=== PATIENT | female | born 1935 | race Caucasian/White ===

== ENCOUNTER → 2016-11-23 | Outpatient (CLI) | payer OTHER ==
[~2016-11-23] MED LIST: ACET-1256 PO; ASPCH81X PO; ATOR-24 PO; CHOL100010 PO; CMD3 PO; LEVO50TA6 PO; LISI5TAB PO; METO1TAB69 PO; MRLP17 PO; NTRGSL/4 UT; PRLSR20 PO
[2016-11-23 13:49] LABS: BASO % 0.6 %; BASO ABS # 0.04 K/uL (0-0.2); COMPLETE YES; HEMATOCRIT 41.1 % (37-47); IG% 0.2 %; LYMPH % 23.3 %; MEAN CELL VOLUME 94.3 fL (80-100); MEAN CORPUSCULAR HEMOGLOBIN 32.3 pg (25-34); MEAN CORPUSCULAR HGB CONC 34.3 g/dl (32-36); MEAN PLATELET VOLUME 10.4 fL (7.4-10.4); MONO % 12.7 %; NEUT % 61.2 %; PLATELET COUNT 324 K/uL (130-400); RED BLOOD COUNT 4.36 M/uL (4.2-5.4); WHITE BLOOD COUNT 6.44 K/uL (4.8-10.8)
[2016-11-23 14:04] LABS: URINE APPEARANCE CLEAR (CLEAR); URINE BILIRUBIN NEG (NEG); URINE COLOR YELLOW; URINE EPITHELIAL CELL AUTO 20-30 /lpf (0-5); URINE NITRITE NEG (NEG); URINE PH 7.5 (4.5-7.5); URINE SPECIFIC GRAVITY 1.006 (1.000-1.030); UROBILINOGEN NEG (NEG); ZZUR CULT IF INDIC CLEAN CATCH NO
[2016-11-23 14:06] LABS: MANUAL MICROSCOPIC REQUIRED? NO; REVIEW REQ? NO
[2016-11-23 14:14] LABS: ALT/SGPT 24 U/L (12-78); AST/SGOT 15 U/L (15-37); BLOOD UREA NITROGEN 18 mg/dl (7-18); BUN/CREATININE RATIO 19.9 (10-20); CALCIUM 9.5 mg/dl (8.5-10.1); CARBON DIOXIDE 29 mmol/L (21-32); CHLORIDE 104 mmol/L (98-107); CREATININE 0.88 mg/dl (0.60-1.20); GLUCOSE 86 mg/dl (70-99); POTASSIUM 4.4 mmol/L (3.5-5.1); SODIUM 139 mmol/L (136-145)
[2016-11-23 14:21] LABS: ESTIMATED AVERAGE GLUCOSE 123 mg/dl; HA1C FLAG Normal (Normal)
[2016-11-23 14:24] LABS: ALB/GLOB RATIO 1.1 (0.9-2); ALKALINE PHOSPHATASE 87 U/L (45-117); THYROID STIMULATING HORMONE 0.852 uIu/ml (0.300-4.500)
== END | disposition home or self-care (01) ==
LOC: C.LABBC 10:29
PROVIDERS: ATTEND Internal Medicine Geriatric Medicine
DX: R32 Unspecified urinary incontinence (principal); I10 Essential (primary) hypertension; M19.90 Unspecified osteoarthritis, unspecified site; E78.5 Hyperlipidemia, unspecified; R73.9 Hyperglycemia, unspecified; Z79.01 Long term (current) use of anticoagulants

== ENCOUNTER → 2016-11-27 | Outpatient (CLI) | payer OTHER ==
--- NOTE | 2016-12-01 14:17 | CODING QUERY MEDICAL NECESSITY ---
SUPPORTING DIAGNOSIS NEEDED A supporting diagnosis is required for the test/procedure performed on this patient in order for us to be reimbursed by the patient's insurance. Please provide a supporting diagnosis for the following test/procedure listed below next to the test name along with your signature. *If there is no additional diagnosis for this patient that would support the following test/procedure please document that below next to the test/procedure. Test(s)/Procedure(s) that require a supporting diagnosis: * DXA BONE DENSITY DIAGNOSIS: * DOS: 11/27/16 Provider Signature: Date: Thank you Keily Choe Health Information Management Once completed, please kindly fax back to [phone] For questions please call [phone]
== END | disposition home or self-care (01) ==
LOC: C.MAMM 14:19
PROVIDERS: ATTEND Internal Medicine Geriatric Medicine
DX: Z00.00 Encounter for general adult medical examination without abnormal findings (principal)

== ENCOUNTER → 2017-03-01 | Outpatient (CLI) | payer OTHER ==
[~2017-03-01] MED LIST changes: +METO100T44 PO; -METO1TAB69 PO
--- NOTE | 2017-03-01 13:42 | DIAGNOSTIC IMAGING REPORT ---
HEAD CT NONCONTRAST CT DOSE: 720.95 mGycm HISTORY: Mental status change G43.909 Headache, migraine scheduled at [facility] [place] 03-01-17 @ 2pm, arrive TECHNIQUE: Multiaxial CT images of the head were performed without the use of intravenous contrast. Comparison: 08/10/2011 Findings: The paranasal sinuses and mastoid air cells are clear. The calvarium and skull base are intact. The ventricles and sulci are within normal limits. There is no mass, hematoma, midline shift, or acute infarct. Chronic small vessel change and scattered encephalomalacia of aging. Impression: No acute intracranial abnormality. Chronic and age-related change. Electronically signed by: Donell Goodwin M.D. 03/01/2017 1:40 PM Dictated Date/Time: 03/01/2017 1:36 PM
--- NOTE | 2017-03-01 14:12 | DIAGNOSTIC IMAGING REPORT ---
LUMBAR SPINE 5 VIEWS HISTORY: Trauma. Pain. M54.5 Acute low back painRAD COMPARISON: None. FINDINGS: There is no fracture. Grade 1/grade 2 subluxation L5 on S1 most likely stable. Disc spaces are present at L5-S1 and L3-L4. Operative changes consistent with posterior laminectomy and fusion from L2 through S1 are noted. Mild to moderate degenerative disc changes throughout. IMPRESSION: Degenerative and postoperative change. No acute process. Electronically signed by: Donell Goodwin M.D. 03/01/2017 2:10 PM Dictated Date/Time: 03/01/2017 2:09 PM
== END | disposition home or self-care (01) ==
LOC: C.CTS 12:38
PROVIDERS: ATTEND Physician Assistant
DX: G43.909 Migraine, unspecified, not intractable, without status migrainosus (principal); M54.5 Low back pain

== ENCOUNTER → 2017-03-19 | Outpatient (CLI) | payer OTHER ==
[2017-03-19 12:19] LABS: BASO % 0.2 %; BASO ABS # 0.01 K/uL (0-0.2); COMPLETE YES; EOS % 2.7 %; HEMATOCRIT 41.2 % (37-47); IG% 0.2 %; LYMPH % 22.2 %; LYMPH ABS # 1.23 K/uL (1.2-3.4); MEAN CORPUSCULAR HEMOGLOBIN 31.5 pg (25-34); MEAN CORPUSCULAR HGB CONC 32.8 g/dl (32-36); MONO % 10.8 %; NEUT % 63.9 %; PLATELET COUNT 312 K/uL (130-400); RED BLOOD COUNT 4.29 M/uL (4.2-5.4); WHITE BLOOD COUNT 5.53 K/uL (4.8-10.8)
[2017-03-19 12:52] LABS: ESTIMATED AVERAGE GLUCOSE 126 mg/dl; HA1C FLAG Normal (Normal)
[2017-03-19 12:55] LABS: CALCIUM 10.1 mg/dl (8.5-10.1)
[2017-03-19 13:02] LABS: ALT/SGPT 22 U/L (12-78); BLOOD UREA NITROGEN 22 mg/dl (7-18); CARBON DIOXIDE 29 mmol/L (21-32); CHLORIDE 104 mmol/L (98-107); CHOLESTEROL 102 mg/dl (0-200); CREATININE 0.96 mg/dl (0.60-1.20); GLUCOSE 101 mg/dl (70-99); POTASSIUM 4.8 mmol/L (3.5-5.1); SODIUM 138 mmol/L (136-145); TRIGLYCERIDES 112 mg/dl (0-150); VERY LOW DENSITY LIPOPROT CALC 22 mg/dl
[2017-03-19 13:12] LABS: ALB/GLOB RATIO 1.3 (0.9-2); ALKALINE PHOSPHATASE 57 U/L (45-117); AST/SGOT 15 U/L (15-37); CHOLESTEROL/HDL RATIO 2.8; HDL CHOLESTEROL 37 mg/dl; LDL CHOLESTEROL CALCULATED 43 mg/dl; THYROID STIMULATING HORMONE 0.477 uIu/ml (0.300-4.500)
--- NOTE | 2017-03-26 13:41 | CODING QUERY MEDICAL NECESSITY ---
CQSUPPORTING DIAGNOSIS NEEDED A supporting diagnosis is required for the test/procedure performed on this patient in order for us to be reimbursed by the patient's insurance. Please provide a supporting diagnosis for the following test/procedure listed below next to the test name along with your signature. *If there is no additional diagnosis for this patient that would support the following test/procedure please document that below next to the test/procedure. Test(s)/Procedure(s) that require a supporting diagnosis: LEORA 03/19/17 VITAMIN D TEST Provider Signature: Date: Thank you Karla Neff Health Information Management Once completed, please kindly fax back to [phone] For questions please call [phone]
== END | disposition home or self-care (01) ==
LOC: C.LABBFT 09:33
PROVIDERS: ATTEND Internal Medicine Geriatric Medicine
DX: E78.5 Hyperlipidemia, unspecified (principal); Z79.01 Long term (current) use of anticoagulants; I10 Essential (primary) hypertension; E03.9 Hypothyroidism, unspecified; G43.909 Migraine, unspecified, not intractable, without status migrainosus; R73.9 Hyperglycemia, unspecified; G62.9 Polyneuropathy, unspecified; I48.2 Chronic atrial fibrillation; I25.10 Atherosclerotic heart disease of native coronary artery without angina pectoris; M81.0 Age-related osteoporosis without current pathological fracture

== ENCOUNTER → 2017-05-08 | Outpatient (CLI) | payer OTHER ==
[2017-05-08 15:14] LABS: LYME DISEASE AB IGG NEG (NEG)
[2017-05-08 15:19] LABS: LYME DISEASE AB IGM NEG (NEG)
--- NOTE | 2017-05-14 12:41 | CODING QUERY MEDICAL NECESSITY ---
SUPPORTING DIAGNOSIS NEEDED A supporting diagnosis is required for the test/procedure performed on this patient in order for us to be reimbursed by the patient's insurance. Please provide a supporting diagnosis for the following test/procedure listed below next to the test name along with your signature. *If there is no additional diagnosis for this patient that would support the following test/procedure please document that below next to the test/procedure. Test(s)/Procedure(s) that require a supporting diagnosis: * VITAMIN B12 DIAGNOSIS: Provider Signature: Date: Thank you Monisha [place] [employer] Information Management Once completed, please kindly fax back to [phone] For questions please call [phone]
== END | disposition home or self-care (01) ==
LOC: C.LABBC 11:49
PROVIDERS: ATTEND Psychiatry & Neurology Neurology
DX: G43.909 Migraine, unspecified, not intractable, without status migrainosus (principal); G62.9 Polyneuropathy, unspecified; R42 Dizziness and giddiness; R27.0 Ataxia, unspecified; R26.9 Unspecified abnormalities of gait and mobility

== ENCOUNTER → 2017-05-25 | Outpatient (CLI) | payer OTHER ==
[~2017-05-25] MED LIST changes: -METO100T44 PO; +METO1TAB69 PO
[2017-05-25 13:12] LABS: BLOOD UREA NITROGEN 17 mg/dl (7-18); CREATININE 0.98 mg/dl (0.60-1.20)
== END | disposition home or self-care (01) ==
LOC: C.LABBFT 09:10
PROVIDERS: ATTEND Psychiatry & Neurology Neurology
DX: Z00.00 Encounter for general adult medical examination without abnormal findings (principal); G47.30 Sleep apnea, unspecified; R42 Dizziness and giddiness; G43.909 Migraine, unspecified, not intractable, without status migrainosus

== ENCOUNTER → 2017-05-28 | Outpatient (CLI) | payer OTHER ==
[~2017-05-28] MED LIST changes: +GADAVIST IV PRN
--- NOTE | 2017-05-28 13:22 | DIAGNOSTIC IMAGING REPORT ---
MRI OF THE BRAIN COMBO CLINICAL HISTORY: Migraine headache. Vertigo. COMPARISON STUDY: CT of the brain dated 03/01/2017. MRI of the brain dated 09/12/2013. TECHNIQUE: MRI of the brain was performed utilizing various T1 and T2-weighted sequences in the axial, sagittal, and coronal planes. Contrast-enhanced sequences were acquired following the administration of 10.5 cc of Gadavist. Examination is significantly degraded by motion artifact. FINDINGS: Brain parenchyma: There are age-related involutional changes noting moderate subcortical and periventricular microangiopathic disease. There is no hemorrhage or mass effect. Small chronic lacunar infarcts are identified in the left cerebellar hemisphere and the anabel, There is no restricted diffusion to suggest acute ischemia. No enhancing mass lesion is identified on the postcontrast images. Miller-white matter differentiation is preserved. No extra-axial fluid collection is seen. Mineralization is noted in the basal ganglia. The cerebellar tonsils are normal in configuration. Ventricles, sulci, and cisterns: Prominent secondary to involutional change. Pituitary and sella: Unremarkable. Intracranial vasculature: Normal flow voids are maintained at the skull base. Orbits: The bony orbits are grossly intact. Orbital contents are normal in appearance. Sinuses and mastoids: Clear. Calvarium: Unremarkable. Cervical cord: Partially visualized cervical spinal cord is normal in morphology and signal intensity. IMPRESSION: Senescent changes as above with no acute intracranial abnormality. Electronically signed by: Ole Waters M.D. 05/28/2017 1:21 PM Dictated Date/Time: 05/28/2017 1:15 PM
== END | disposition home or self-care (01) ==
LOC: C.MRIBC 11:42
PROVIDERS: ATTEND Psychiatry & Neurology Neurology
DX: G43.909 Migraine, unspecified, not intractable, without status migrainosus (principal); G47.30 Sleep apnea, unspecified; R42 Dizziness and giddiness

== ENCOUNTER → 2017-08-10 | Outpatient (CLI) | payer OTHER ==
[~2017-08-10] MED LIST changes: -GADAVIST IV PRN
[2017-08-10 16:40] LABS: BASO % 0.3 %; BASO ABS # 0.02 K/uL (0-0.2); COMPLETE YES; EOS % 2.4 %; HEMATOCRIT 40.9 % (37-47); IG% 0.2 %; LYMPH ABS # 1.37 K/uL (1.2-3.4); MEAN CELL VOLUME 94.9 fL (80-100); MEAN CORPUSCULAR HEMOGLOBIN 31.1 pg (25-34); MEAN CORPUSCULAR HGB CONC 32.8 g/dl (32-36); MEAN PLATELET VOLUME 9.9 fL (7.4-10.4); MONO % 10.6 %; NEUT % 64.5 %; PLATELET COUNT 354 K/uL (130-400); RED BLOOD COUNT 4.31 M/uL (4.2-5.4); WHITE BLOOD COUNT 6.22 K/uL (4.8-10.8)
[2017-08-10 17:13] LABS: URINE APPEARANCE CLEAR (CLEAR); URINE BILIRUBIN NEG (NEG); URINE COLOR YELLOW; URINE NITRITE POS (NEG); UROBILINOGEN NEG (NEG)
[2017-08-10 17:19] LABS: MANUAL MICROSCOPIC REQUIRED? NO; REVIEW REQ? NO
[2017-08-10 17:27] LABS: ALT/SGPT 23 U/L (12-78); AMYLASE 36 U/L (25-115); BLOOD UREA NITROGEN 13 mg/dl (7-18); CALCIUM 9.7 mg/dl (8.5-10.1); CARBON DIOXIDE 28 mmol/L (21-32); CHLORIDE 100 mmol/L (98-107); CREATININE 0.84 mg/dl (0.60-1.20); GLUCOSE 89 mg/dl (70-99); POTASSIUM 4.4 mmol/L (3.5-5.1); SODIUM 134 mmol/L (136-145)
[2017-08-10 17:30] LABS: ALB/GLOB RATIO 1.2 (0.9-2); ALKALINE PHOSPHATASE 51 U/L (45-117); AST/SGOT 16 U/L (15-37)
== END | disposition home or self-care (01) ==
LOC: C.LABPBG 12:54
PROVIDERS: ATTEND Family Medicine
DX: R10.9 Unspecified abdominal pain (principal)

== ENCOUNTER → 2017-08-16 | Outpatient (CLI) | payer OTHER ==
[~2017-08-16] MED LIST changes: +OPTIRAY 320 IV PRN
--- NOTE | 2017-08-16 16:59 | DIAGNOSTIC IMAGING REPORT ---
ABD/PELVIS COMBO CT DOSE: 1758.21 mGycm HISTORY: Pain. Nausea. 08/10/17 1257 CREA 0.84 TECHNIQUE: Multiaxial CT images of the abdomen and pelvis were performed pre and post intravenous contrast enhancement. A dose lowering technique was utilized adhering to the principles of ALARA. COMPARISON STUDY: 04/04/2016. FINDINGS: Mild basilar atelectasis. Small bilateral renal cysts. Prior cholecystectomy. Degenerative and postoperative changes of the lumbar spine. Evidence for prior sigmoid anastomosis. Liver and spleen enhance uniformly. Prior cholecystectomy. Mild age-related cortical scarring of both kidneys. Several small renal cysts bilaterally. Bladder is midline. No evidence for pelvic adenopathy. Inguinal regions are unremarkable. IMPRESSION: 1. No acute abnormality within the abdomen or pelvis. 2. Unremarkable operative changes consistent with a prior partial sigmoid resection and cholecystectomy. 3. Degenerative and postoperative changes of the lumbar spine. 4. Several small renal cysts bilaterally. The above report was generated using voice recognition software. It may contain grammatical, syntax or spelling errors. Electronically signed by: Donell Goodwin M.D. 08/16/2017 4:58 PM Dictated Date/Time: 08/16/2017 4:53 PM
== END | disposition home or self-care (01) ==
LOC: C.CTS 14:53
PROVIDERS: ATTEND Family Medicine
DX: R11.0 Nausea (principal); R10.9 Unspecified abdominal pain; N28.1 Cyst of kidney, acquired

== ENCOUNTER → 2017-10-19 | Outpatient (CLI) | payer OTHER ==
[~2017-10-19] MED LIST changes: +METO100T44 PO; -METO1TAB69 PO; -OPTIRAY 320 IV PRN
[2017-10-19 17:12] LABS: BASO % 0.4 %; BASO ABS # 0.03 K/uL (0-0.2); COMPLETE YES; EOS % 2.4 %; HEMATOCRIT 42.6 % (37-47); IG% 0.1 %; LYMPH ABS # 1.54 K/uL (1.2-3.4); MEAN CELL VOLUME 93.2 fL (80-100); MEAN CORPUSCULAR HEMOGLOBIN 31.3 pg (25-34); MEAN CORPUSCULAR HGB CONC 33.6 g/dl (32-36); MEAN PLATELET VOLUME 10.6 fL (7.4-10.4); MONO % 11.6 %; NEUT % 63.5 %; PLATELET COUNT 316 K/uL (130-400); RED BLOOD COUNT 4.57 M/uL (4.2-5.4)
[2017-10-19 17:21] LABS: ALT/SGPT 23 U/L (12-78); BLOOD UREA NITROGEN 15 mg/dl (7-18); BUN/CREATININE RATIO 15.7 (10-20); CALCIUM 9.5 mg/dl (8.5-10.1); CARBON DIOXIDE 29 mmol/L (21-32); CHLORIDE 96 mmol/L (98-107); CREATININE 0.94 mg/dl (0.60-1.20); GLUCOSE 91 mg/dl (70-99); POTASSIUM 4.3 mmol/L (3.5-5.1); SODIUM 130 mmol/L (136-145)
[2017-10-19 17:31] LABS: ALB/GLOB RATIO 1.3 (0.9-2); ALKALINE PHOSPHATASE 65 U/L (45-117); AST/SGOT 13 U/L (15-37); THYROID STIMULATING HORMONE 0.744 uIu/ml (0.300-4.500)
[2017-10-19 17:45] LABS: URINE APPEARANCE CLEAR (CLEAR); URINE BILIRUBIN NEG (NEG); URINE COLOR YELLOW; URINE EPITHELIAL CELL AUTO 20-30 /lpf (0-5); URINE NITRITE NEG (NEG); URINE SPECIFIC GRAVITY 1.009 (1.000-1.030); UROBILINOGEN NEG (NEG); ZZUR CULT IF INDIC CLEAN CATCH NO
[2017-10-19 17:46] LABS: MANUAL MICROSCOPIC REQUIRED? NO; REVIEW REQ? NO
[2017-10-20 06:50] LABS: ESTIMATED AVERAGE GLUCOSE 123 mg/dl; HA1C FLAG Normal (Normal)
== END | disposition home or self-care (01) ==
LOC: C.LABPBG 13:04
PROVIDERS: ATTEND Internal Medicine Geriatric Medicine
DX: I10 Essential (primary) hypertension (principal); E03.9 Hypothyroidism, unspecified; M19.90 Unspecified osteoarthritis, unspecified site; G43.909 Migraine, unspecified, not intractable, without status migrainosus; R73.9 Hyperglycemia, unspecified; Z79.01 Long term (current) use of anticoagulants; M81.0 Age-related osteoporosis without current pathological fracture; I48.2 Chronic atrial fibrillation

== ENCOUNTER → 2017-10-24 | Outpatient (CLI) | payer OTHER | END | disposition home or self-care (01) | LOC: C.LABBC 09:26 | PROVIDERS: ATTEND Internal Medicine Geriatric Medicine | DX: R31.29 Other microscopic hematuria (principal) ==

== ENCOUNTER → 2017-10-30 | Outpatient (CLI) | payer OTHER ==
[~2017-10-30] MED LIST changes: +OPTIRAY 320 IV PRN
--- NOTE | 2017-10-30 14:18 | DIAGNOSTIC IMAGING REPORT ---
CT ABD/PELVIS COMBO CLINICAL HISTORY: R31.29 Hematuria, COMPARISON STUDY: 08/16/2017 TECHNIQUE: Unenhanced images were obtained through the abdomen and pelvis. The patient was injected with 50 cc of Optiray 320. Following a 5 minute delay, the patient is rescanned in a dynamic helical fashion during the additional administration of 44 cc of Optiray 320. A dose lowering technique was utilized adhering to the principles of ALARA. CT DOSE: 2755.56 mGycm FINDINGS: Lower chest: The heart is mildly enlarged. There are bibasal atelectatic changes. Liver: The contrast-enhanced liver is normal in size, contour, and attenuation. There is no intrahepatic biliary ductal dilatation. The hepatic veins and portal veins are patent. Gallbladder: Surgically absent Spleen: Normal in size and attenuation. Pancreas: Unremarkable. Adrenal glands: Unremarkable. Kidneys: There are bilateral renal cysts, unchanged from the preceding study. No renal, ureteral, or bladder calculi are visualized. No uroepithelial lesions are identified. Bowel: There are no transition zones indicate bowel obstruction. There are postsurgical changes within the sigmoid. There is no acute diverticulitis. There is a moderate amount of formed stool throughout the colon. No acute inflammatory changes are evident. Peritoneum: There is no intraperitoneal free air or abdominal ascites. Vasculature: The abdominal aorta is normal in course and caliber. Adenopathy: None. Pelvic viscera: The uterus appears surgically absent. Skeletal structures: Postsurgical changes are present within the lumbar spine. IMPRESSION: 1. No renal, ureteral, or bladder calculi identified 2. Postsurgical changes involving the sigmoid colon. Postsurgical changes of a prior cholecystectomy and hysterectomy 3. Stable bilateral renal cysts. No solid renal masses identified. No uroepithelial lesions are visualized. 4. No evidence of bowel obstruction. No evidence of free air. Electronically signed by: Paul Meneses M.D. 10/30/2017 2:17 PM Dictated Date/Time: 10/30/2017 2:09 PM
== END | disposition home or self-care (01) ==
LOC: C.CTS 13:14
PROVIDERS: ATTEND Internal Medicine Geriatric Medicine
DX: R31.29 Other microscopic hematuria (principal)

== ENCOUNTER → 2018-06-26 | Outpatient (CLI) | payer OTHER ==
[~2018-06-26] MED LIST changes: -OPTIRAY 320 IV PRN
[2018-06-26 16:49] LABS: BASO % 0.3 %; BASO ABS # 0.02 K/uL (0-0.2); EOS % 1.9 %; EOS ABS # 0.13 K/uL (0-0.5); HEMATOCRIT 42.3 % (37-47); HEMOGLOBIN 14.2 g/dL (12.0-16.0); IG# 0.01 K/uL (0.00-0.02); LYMPH % 23.8 %; LYMPH ABS # 1.65 K/uL (1.2-3.4); MEAN CELL VOLUME 93.8 fL (80-100); MEAN CORPUSCULAR HEMOGLOBIN 31.5 pg (25-34); MEAN CORPUSCULAR HGB CONC 33.6 g/dl (32-36); MEAN PLATELET VOLUME 10.5 fL (7.4-10.4); MONO % 10.3 %; MONO ABS # 0.71 K/uL (0.11-0.59); NEUT % 63.6 %; PLATELET COUNT 313 K/uL (130-400); RED CELL DISTRIBUTION WIDTH CV 13.9 % (11.5-14.5); RED CELL DISTRIBUTION WIDTH SD 47.8 fL (36.4-46.3); WHITE BLOOD COUNT 6.92 K/uL (4.8-10.8)
[2018-06-26 16:56] LABS: INR 2.2 (0.9-1.1)
[2018-06-26 17:02] LABS: ALKALINE PHOSPHATASE 68 U/L (45-117); ALT/SGPT 22 U/L (12-78); AST/SGOT 14 U/L (15-37); BLOOD UREA NITROGEN 13 mg/dl (7-18); CALCIUM 9.5 mg/dl (8.5-10.1); CARBON DIOXIDE 28 mmol/L (21-32); CREATININE 0.86 mg/dl (0.60-1.20); GLUCOSE 94 mg/dl (70-99); POTASSIUM 4.3 mmol/L (3.5-5.1); SODIUM 134 mmol/L (136-145); TOTAL PROTEIN 7.5 gm/dl (6.4-8.2)
== END | disposition home or self-care (01) ==
LOC: C.LABPBG 12:53
PROVIDERS: ATTEND Family Medicine
DX: Z51.81 Encounter for therapeutic drug level monitoring (principal); R10.9 Unspecified abdominal pain; Z79.01 Long term (current) use of anticoagulants

== ENCOUNTER → 2018-07-04 | Outpatient (CLI) | payer OTHER ==
--- NOTE | 2018-07-04 14:32 | DIAGNOSTIC IMAGING REPORT ---
CHEST AND ABDOMEN 2 VIEWS HISTORY: R14.0 [id number] Right lower quadrant abdominal tendernessR COMPARISON: KUB 05/22/2015. FINDINGS: No pneumothorax. No pleural effusions. The heart is mildly enlarged. Diffuse interstitial thickening which may be chronic. No new focal lung consolidations to suggest pneumonia. Linear density at the left lung base favor scarring or atelectasis. Bilateral shoulder arthroplasties. Multiple nondilated gas-filled loops of large and small bowel. No evidence for bowel obstruction. Suture material in the deep pelvis. Posterior fusion within the lumbar spine with pedicle screws and rods. This remains unchanged. Prior cholecystectomy. No pneumoperitoneum. No pneumatosis. No renal calculi. Colonic diverticulosis. IMPRESSION: 1. Stable mild cardiomegaly and chronic interstitial thickening. 2. Unremarkable bowel gas pattern. No evidence for bowel obstruction. Electronically signed by: Chon Chow M.D. 07/04/2018 2:31 PM Dictated Date/Time: 07/04/2018 2:28 PM
== END | disposition home or self-care (01) ==
LOC: C.RADBC 14:10
PROVIDERS: ATTEND Registered Nurse
DX: R14.0 Abdominal distension (gaseous) (principal); R10.813 Right lower quadrant abdominal tenderness

== ENCOUNTER → 2018-07-05 | Outpatient (CLI) | payer OTHER ==
[2018-07-05 13:41] LABS: BLOOD UREA NITROGEN 9 mg/dl (7-18); CALCIUM 9.4 mg/dl (8.5-10.1); CARBON DIOXIDE 28 mmol/L (21-32); CREATININE 0.79 mg/dl (0.60-1.20); GLUCOSE 120 mg/dl (70-99); SODIUM 134 mmol/L (136-145)
== END | disposition home or self-care (01) ==
LOC: C.LABPBG 10:11
PROVIDERS: ATTEND Registered Nurse
DX: K59.00 Constipation, unspecified (principal)

== ENCOUNTER 2019-08-29 08:22 | Inpatient (IN) ==
--- NOTE | 2019-08-12 16:18 | PAT Medication Instructions ---
Medication Instructions Date of Service August 12, 2019 Home Medications acetaminophen 500 mg tablet 1,000 mg PO Q4H PRN alendronate 70 mg tablet 70 mg PO WK aspirin 81 mg tablet,delayed release 81 mg PO DAILY atorvastatin 40 mg tablet 40 mg PO HS metoprolol succinate ER 100 mg tablet,extended release 24 hr 150 mg PO QAM cholecalciferol (vitamin D3) 1,000 unit capsule 1,000 units PO DAILY nitroglycerin 0.4 mg sublingual tablet 0.4 mg SL UD PRN polyethylene glycol 3350 17 gram/dose oral powder 8.5 gm PO UD PRN levothyroxine 50 mcg tablet 50 mcg PO QAM pantoprazole [Protonix] 40 mg PO QAM warfarin 2.5 mg PO HS Continue as directed nitroglycerin 0.4 mg sublingual tablet 0.4 mg SL UD PRN (if needed) ASK your prescriber and surgeon aspirin 81 mg tablet,delayed release 81 mg PO DAILY warfarin 2.5 mg PO HS alendronate 70 mg tablet 70 mg PO WK DO NOT take the morning of surgery cholecalciferol (vitamin D3) 1,000 unit capsule 1,000 units PO DAILY polyethylene glycol 3350 17 gram/dose oral powder 8.5 gm PO UD PRN Take morning of surgery With a small sip of water, OTHERWISE NOTHING TO EAT OR DRINK AFTER MIDNIGHT: acetaminophen 500 mg tablet 1,000 mg PO Q4H PRN (okay to take up to 4 hours prior to surgery if needed) metoprolol succinate ER 100 mg tablet,extended release 24 hr 150 mg PO QAM levothyroxine 50 mcg tablet 50 mcg PO QAM pantoprazole [Protonix] 40 mg PO QAM Take evening before surgery acetaminophen 500 mg tablet 1,000 mg PO Q4H PRN (if needed) atorvastatin 40 mg tablet 40 mg PO HS polyethylene glycol 3350 17 gram/dose oral powder 8.5 gm PO UD PRN (if needed) Other Notes If you have any questions please call us at [phone] or [phone] or [phone] or [phone]
--- NOTE | 2019-08-13 10:54 | Anesthesiology Consultation ---
Date of Service August 13, 2019 Assessment & Plan (1) Encounter for pre-operative examination: - Cardiology: 08/08/19: "Based on her normal LV systolic function and her negative dobutamine stress echocardiogram today -- is a low to intermediate cardiac risk for her upcoming spine surgery.. Patient may hold Coumadin for 3-5 days leading up to surgery. Resume Coumadin postoperatively. There is no need for further cardiac workup at this time." - ASA/warfarin instructions per surgeon/cardiology* Chart Review Chart Review: Acceptable Risk for Surgery, Pending: Refer to Additional Notes / Consult section (pending preop testing (labs, EKG, CXR)) and Patient seen in Pre Admission Testing Teaching & Discussion Pre-Anesthesia Teaching/Discussion Notes: Instructed NPO after midnight before surgery,except medications with 15 cc of water. Medication instructions provided according to the PAT guidelines. History Surgery Operation Date: 08/29/19 07:45 Proposed Procedures p T12-L2 Decompression, T10-L2 Posterior Spinal Fusion, L2 Removal Screws, L2-L5 Possible Removal Instrumentation, Spinal Cord Monitoring - Grover Coffey DO Height/Weight Height: 5 ft 4 in Weight: 98.4 kg Allergies Allergy/AdvReac Type Severity Reaction Status Date / Time adhesive Allergy Unknown RASH Verified 08/08/19 09:13 Cipro Allergy Unknown Per cardio Unverified 08/28/16 13:36 note ciprofloxacin Allergy Unknown RASH Verified 08/12/19 16:09 doxycycline Allergy Unknown RASH Verified 08/12/19 16:09 latex Allergy Unknown RASH Verified 08/12/19 16:09 Penicillins Allergy Unknown RASH Verified 08/08/19 09:13 Bactrim TABS Allergy Unknown RASH Uncoded 08/12/19 16:09 Medications Home Medications Medication Instructions Recorded Confirmed Last Taken acetaminophen 500 mg tablet 1,000 mg PO Q4H PRN tab 07/13/19 08/06/19 Unknown alendronate 70 mg tablet 70 mg PO WK tab 07/13/19 08/06/19 Unknown aspirin 81 mg tablet,delayed 81 mg PO DAILY 07/13/19 08/06/19 Unknown release atorvastatin 40 mg tablet 40 mg PO HS 07/13/19 08/06/19 08/05/19 metoprolol succinate ER 100 mg 150 mg PO QAM tab 07/13/19 08/06/19 08/06/19 tablet,extended release 24 hr cholecalciferol (vitamin D3) 1,000 1,000 units PO DAILY 07/16/19 08/06/19 Unknown unit capsule nitroglycerin 0.4 mg sublingual 0.4 mg SL UD PRN 07/16/19 08/06/19 Unknown tablet polyethylene glycol 3350 17 8.5 gm PO UD PRN 07/28/19 08/08/19 Unknown gram/dose oral powder levothyroxine 50 mcg tablet 50 mcg PO QAM 07/31/19 08/08/19 08/06/19 pantoprazole [Protonix] 40 mg PO QAM 08/06/19 08/08/19 08/06/19 warfarin 2.5 mg PO HS 08/06/19 08/08/19 Unknown Past Medical History Medical History Atrial fibrillation on warfarin Chronic back pain DJD (degenerative joint disease) GERD (gastroesophageal reflux disease) controlled Hyperlipidemia Hypertension Hypothyroidism Osteoarthritis Osteoporosis Peripheral neuropathy Sleep apnea CPAP Urinary urgency chronic Varicose veins of both lower extremities Exercise / Class Metabolic Activity III < 4 Walking/Shop/Light housework Past Family History Family History Mother Family hx of colon cancer Breast cancer Sister Breast cancer Myocardial infarction Father Myocardial infarction Past Surgical History Surgical History History of adenoidectomy History of appendectomy History of bilateral tubal ligation History of cataract surgery RT/LEFT History of cholecystectomy History of colonoscopy History of lumbar fusion x3 TOTAL History of repair of rotator cuff RT/LEFT History of tonsillectomy History of total abdominal hysterectomy and bilateral salpingo-oophorectomy Past Anesthesia History No Family Hx of Anesthesia Complications and Other "Slow to wake" x 1 remote episode; no known hx reintubation. No issues with subsequent surgeries. History of PONV No Hx of PONV and No Hx of Motion Sickness Social History Smoking Status: Never smoker Do You Dip or Chew Tobacco: No Hx Alcohol Use: Yes Alcohol type: wine alcohol intake frequency: a few times a month Hx Substance Use: No substance use type: does not use Review of Systems Reflux controlled. Patient denies chest pain, shortness of breath, cough, wheezing, palpitations. Physical Exam Vital Signs VITALS BP 147/88 P 85 TEMP 98.5 SP02 93%RA RESP 18 PHYSICAL Full neck and c-spine range of motion. Full TMJ range of motion. TMD 2.5 finger breaths Mallampati Score 3 Dentition: full dentures upper/lower; edentulous Lungs: diminished breath sounds Cardiac: irregular rhythm, regular rate, no murmurs noted Spine: normal Carotid arteries: negative bruit Extremities: no edema Testing Laboratory Results 08/13/19 11:14 08/13/19 11:14 PT 30.6 Seconds (9.0-12.0) H 08/13/19 11:14 INR 3.2 (0.9-1.1) H 08/13/19 11:14 APTT 35.7 Seconds (21.0-31.0) H 08/13/19 11:14 Urine Color Yellow 08/13/19 Unknown Urine Appearance Clear (Clear) 08/13/19 Unknown Urine pH 7.5 (4.5-7.5) 08/13/19 Unknown Ur Specific [place] 1.008 (1.000-1.030) 08/13/19 Unknown Urine Protein Negative (Negative) 08/13/19 Unknown Urine Glucose (UA) Negative (Negative) 08/13/19 Unknown Urine Ketones Negative (Negative) 08/13/19 Unknown Urine Nitrite Negative (Negative) 08/13/19 Unknown Ur Leukocyte Esterase 1+ (Negative) H 08/13/19 Unknown Urine WBC (Auto) 10-30 /hpf (0-5) H 08/13/19 Unknown Urine RBC (Auto) 0-4 /hpf (0-4) 08/13/19 Unknown U Hyaline Cast (Auto) 0 /lpf (0-5) 08/13/19 Unknown U Epithel Cells (Auto) 10-20 /lpf (0-5) H 08/13/19 Unknown Urine Bacteria (Auto) 1+ (Negative) H 08/13/19 Unknown Blood Type A Positive 08/13/19 11:14 Antibody Screen NEGATIVE 08/13/19 11:14 Electrocardiogram Date: 08/13/19 Findings: + AFIB @ (81) and + pertinent finding (cannot rule out anterior infarct,age undetermined.) Chest X-Ray Date: 08/13/19 Findings: + NAD and + cardiomegaly Echocardiogram Date: 09/05/14 EF: 55-60 Normal left ventricular size, wall motion, and systolic function. EF 55-60%. No left ventricular hypertrophy. 2. Mild left atrial dilation. 3. No significant valvular abnormalities. 4. Technically difficult study; enhanced with IV Definity. 5. No prior study available for comparison. Stress Test Date: 08/08/19 Type: DSE Negative DSE/stress EKG for ischemia at 100% MPHR. No chest pain. A. fib throughout. Mild MR. EF 60-65%. No RWMA.
--- NOTE | 2019-08-13 12:12 | XRay Report ---
XR chest Pre-admission PA/Lat HISTORY: 84 years-old Female PAT preoperative exam. No acute chest complaints COMPARISON: Acute abdominal series radiographs 07/04/2018 TECHNIQUE: PA and lateral views of the chest FINDINGS: Unchanged cardiomegaly with stable prominence of the bilateral sarah. Chronic interstitial coarsening. Subsegmental atelectasis/scarring of the left lung base is unchanged. No pneumothorax, large pleural effusion or lobar airspace consolidation typical for pneumonia. No overt pulmonary. Bilateral should er arthroplasties. Degenerative changes of the spine. Mild mid thoracic dextroscoliosis. Partially im aged fusion hardware of the lumbar spine. IMPRESSION: Cardiomegaly without acute process. The above report was generated using voice recognition software. It may contain grammatical, syntax o r spelling errors. Electronically signed by: Glen Jackson M.D. 08/13/2019 12:10 PM
[2019-08-13 12:17] LABS: Basophils # (auto) 0.01 K/uL (0-0.2); Basophils % (auto) 0.2 %; Eosinophils # (auto) 0.11 K/uL (0-0.5); Eosinophils % (auto) 1.9 %; Hematocrit (blood only) 38.3 % (37-47); Hemoglobin 12.8 g/dL (12.0-16.0); Immature Granulocytes # (auto) 0.01 K/uL (0.00-0.02); Immature Granulocytes % (auto) 0.2 %; Lymphocytes # (auto) 1.06 K/uL (1.2-3.4); Lymphocytes % (auto) 18.4 %; Mean Corpuscular Hemoglobin 31.2 pg (25-34); Mean Corpuscular Hgb Conc 33.4 g/dL (32-36); Mean Corpuscular Volume 93.4 fL (80-100); Mean Platelet Volume 10.3 fL (7.4-10.4); Monocytes % (auto) 12.2 %; Neutrophils # (auto) 3.87 K/uL (1.4-6.5); Neutrophils % (auto) 67.1 %; Platelet Count 274 K/uL (130-400); RDW Coefficient of Variation 14.6 % (11.5-14.5); RDW Standard Deviation 49.9 fL (36.4-46.3); White Blood Count 5.76 K/uL (4.8-10.8)
[2019-08-13 12:24] LABS: BUN Creatinine Ratio 18.1 (10-20); Calcium 9.7 mg/dl (8.5-10.1); Creatinine Clr Calc Pharmacy 62.6 ml/min; Est GFR (African American) 80.8; Est GFR (Non-African American) 69.7; Potassium 4.4 mmol/L (3.5-5.1)
[2019-08-13 12:34] LABS: INR 3.2 (0.9-1.1); Partial Thromboplastin Ratio 1.3; Partial Thromboplastin Time 35.7 Seconds (21.0-31.0); Prothrombin Time 30.6 Seconds (9.0-12.0)
[2019-08-13 12:40] LABS: Appearance Urine Clear (Clear); Bacteria Urine Automated 1+ (Negative); Bilirubin Urine Negative (Negative); Blood Urine Negative (Negative); Cast Urine Automated 0 /lpf (0-5); Color Urine Yellow; Glucose Urine UA Negative (Negative); Ketones Urine Negative (Negative); Leukocyte Esterase Urine 1+ (Negative); Nitrite Urine Negative (Negative); Protein Urine Negative (Negative); RBC Urine Automated 0-4 /hpf (0-4); Specific Gravity Urine 1.008 (1.000-1.030); Urobilinogen Urine Negative (Negative); pH Urine 7.5 (4.5-7.5)
[~2019-08-29 08:22] MED LIST changes: -ACET-1256 PO; +ACETAMINOPHEN 500 MG TAB PO SCH; -ASPCH81X PO; -ATOR-24 PO; -CHOL100010 PO; +CLINDAMYCIN 600 MG/54 ML BAG IV SCH; -CMD3 PO; +GABAPENTIN 300 MG CAP PO SCH; -LEVO50TA6 PO; -LISI5TAB PO; +LR 15ML/HR IV SCH; -METO100T44 PO; -MRLP17 PO; -NTRGSL/4 UT; -PRLSR20 PO; +SODIUM CHLORIDE 0.9% 250 ML IV PRN
[2019-08-29] MEDS ORDERED: fentaNYL citrate 100 MCG/2 ML VIAL ONE ×6 (09:25→12:48)
[2019-08-29 09:46] LABS: INR 1.1 (0.9-1.1); Partial Thromboplastin Ratio 0.9; Partial Thromboplastin Time 25.1 Seconds (21.0-31.0); Prothrombin Time 11.4 Seconds (9.0-12.0)
--- NOTE | 2019-08-29 09:48 | History & Physical Bridge Note ---
Date of Service August 29, 2019 History & Physical Bridge Note I have examined the patient, reviewed the History & Physical and in the interval since the performance of the History & Physical I have noted the following changes of clinical significance: no changes noted
--- NOTE | 2019-08-29 09:49 | History & Physical Report ---
Date of Service August 29, 2019 Assessment & Plan (1) Spinal stenosis, lumbar region with neurogenic claudication: Decompression T12-L2, posterior spinal fusion T10-L2, removal of screws L2, possible removal of instrumentation L2-L5. Present on Admission?: Yes History of Present Illness Chief Complaint: This is an 84-year-old female well-known to us that is chronic persistent back and bilateral leg pain. Primary Care Provider: Dianne Adams DO 84-year-old female well-known to us that presents with worsening back and leg pain. After failing a course of nonoperative care is here for surgical intervention. Allergies Allergy/AdvReac Type Severity Reaction Status Date / Time adhesive Allergy Unknown RASH Verified 08/29/19 09:16 Cipro Allergy Unknown Per cardio Unverified 08/28/16 13:36 note ciprofloxacin Allergy Unknown RASH Verified 08/29/19 09:16 doxycycline Allergy Unknown RASH Verified 08/29/19 09:16 latex Allergy Unknown RASH Verified 08/29/19 09:16 Penicillins Allergy Unknown RASH Verified 08/29/19 09:16 Bactrim TABS Allergy Unknown RASH Uncoded 08/12/19 16:09 Home Medications Home Medications Medication Instructions Recorded Confirmed Type acetaminophen 500 mg tablet 1,000 mg PO Q4H PRN tab 07/13/19 08/29/19 History alendronate 70 mg tablet 70 mg PO WK tab 07/13/19 08/29/19 History aspirin 81 mg tablet,delayed 81 mg PO DAILY 07/13/19 08/29/19 History release atorvastatin 40 mg tablet 40 mg PO HS 07/13/19 08/06/19 History metoprolol succinate ER 100 mg 150 mg PO QAM tab 07/13/19 08/06/19 History tablet,extended release 24 hr cholecalciferol (vitamin D3) 1,000 1,000 units PO DAILY 07/16/19 08/29/19 History unit capsule nitroglycerin 0.4 mg sublingual 0.4 mg SL UD PRN 07/16/19 08/06/19 History tablet polyethylene glycol 3350 17 8.5 gm PO UD PRN 07/28/19 08/29/19 History gram/dose oral powder levothyroxine 50 mcg tablet 50 mcg PO QAM 07/31/19 08/08/19 History pantoprazole [Protonix] 40 mg PO QAM 08/06/19 08/08/19 History warfarin 2.5 mg PO HS 08/06/19 08/29/19 History Past Med/Surg History Medical History Atrial fibrillation on warfarin Chronic back pain DJD (degenerative joint disease) GERD (gastroesophageal reflux disease) controlled Hyperlipidemia Hypertension Hypothyroidism Osteoarthritis Osteoporosis Peripheral neuropathy Sleep apnea CPAP Urinary urgency chronic Varicose veins of both lower extremities Surgical History History of adenoidectomy History of appendectomy History of bilateral tubal ligation History of cataract surgery RT/LEFT History of cholecystectomy History of colonoscopy History of lumbar fusion x3 TOTAL History of repair of rotator cuff RT/LEFT History of tonsillectomy History of total abdominal hysterectomy and bilateral salpingo-oophorectomy Family History Mother Family hx of colon cancer Breast cancer Sister Breast cancer Myocardial infarction Father Myocardial infarction Social History Preferred Language: Pashto Communication Ability: Effective Cellular Equipment Installer Required: No Beliefs That Will Affect Care: None Current Living Situation: Spouse Other Information That Helps Us Care for You: No Feels Safe at Home: Yes Smoking Status: Never smoker Do You Dip or Chew Tobacco: No ; Second Hand Exposure: Yes ; Hx Alcohol Use: Yes Alcohol type: wine Hx Substance Use: No Physical Exam Physical Exam: Patient is alert and oriented neurologically intact. Results & Data Vital Signs (Past 12 Hours) Vital Signs Temp Pulse Resp BP Pulse Ox 08/29/19 09:05 36.6 C 97 H 18 162/78 H 93
[2019-08-29] MEDS ORDERED: PHENYLEPHRINE 100MCG/ML 5ML SYR IV PRN (09:54)
[2019-08-29] MEDS ORDERED: HYDROmorphone INJ 1 MG/ML SYRINGE IV PRN ×2 (09:54→14:25)
[2019-08-29] MEDS ORDERED: ePHEDrine sulfate 50 MG/ML AMP IV PRN (09:54)
[2019-08-29] MEDS ORDERED: ATROPINE SULFATE 0.1 MG/ML 10ML SYR IV PRN (09:54)
[2019-08-29] MEDS ORDERED: fentaNYL citrate 100 MCG/2 ML VIAL IV PRN (09:54)
[2019-08-29] MEDS ORDERED: ONDANSETRON INJ 2 MG/ML 2 ML VIAL IV PRN ×2 (09:54→14:25)
[2019-08-29] MEDS ORDERED: LABETALOL HCL IV 5 MG/ML 20ML IV PRN (09:54)
[2019-08-29] MEDS ORDERED: BUPIVACAINE/EPINEPHRINE 0.5% MPF 1:200,000 30 ML VIAL ONE (10:01)
[2019-08-29] MEDS ORDERED: BACITRACIN INJ 50,000 UNIT VIAL ONE (10:01)
[2019-08-29] MEDS ORDERED: HYDROmorphone INJ 2 MG/ML SYR/VIAL ONE ×2 (10:06→11:22)
[2019-08-29] MEDS ORDERED: GLYCOPYRROLATE 0.2 MG/ML VIAL ONE (10:07)
[2019-08-29] MEDS ORDERED: PROPOFOL IV EMULSION 10 MG/ML 20 ML VIAL IV ONE ×2 (10:07→11:27)
[2019-08-29] MEDS ORDERED: ROCURONIUM BROMIDE 10 MG/ML 5 ML VIAL ONE (10:07)
[2019-08-29] MEDS ORDERED: LARYING-O-JET KIT (LTA) ONE ×2 (10:07→11:27)
[2019-08-29] MEDS ORDERED: ONDANSETRON INJ 2 MG/ML 2 ML VIAL ONE ×2 (10:07→11:27)
[2019-08-29] MEDS ORDERED: LIDOCAINE HCL 2% 2 ML VIAL/AMP(20MG/ML) INFIL ONE ×2 (10:07→11:27)
[2019-08-29] MEDS ORDERED: FLOSEAL HEMOSTATIC MATRIX 10ML TOP ONE (11:02)
[2019-08-29] MEDS ORDERED: KETOROLAC 30 MG/ML VIAL ONE (11:27)
[2019-08-29] MEDS ORDERED: PHENYLEPHRINE 100MCG/ML 5ML SYR ONE (11:27)
[2019-08-29] MEDS ORDERED: DEXAMETHASONE SOD INJ 4 MG/ML VIAL ONE (11:27)
[2019-08-29] MEDS ORDERED: VOLUVEN IN NSS IV ONE (11:52)
[2019-08-29] MEDS ORDERED: METOPROLOL TARTRATE 1 MG/ML VIAL IV ONE ×2 (12:29→13:28)
--- NOTE | 2019-08-29 13:03 | Operative Report ---
Post Operative Report Pre & Post Diagnosis Operation Date: 08/29/19 10:05 Pre-Op Diagnosis: Spinal stenosis, lumbar region with neurogenic claudication Post-Op Diagnosis: Spinal stenosis, lumbar region with neurogenic claudication I identified the patient and participated in the time-out.: Yes Procedure Operation Date: 08/29/19 10:05 Actual Procedures #1 removal of posterior instrumentation L2. #2 expiration of fusion L2-L3. #3 lumbar decompression with bilateral medial facetectomies and foraminotomies T12- L1 L1-L2. #4 posterior spinal fusion T11-L2. #5 placement posterior instrumentation T11-L1. #6 interbody fusion L1-L2. #7 placement of peek cage 8 x 22 mm L1-L2. #8 placement of locally harvested morselized autograft in the posterior lateral gutters. #9 placement of infuse collagen sponge combined master graft in the posterior lateral gutters extending from T11-L3 and ostial amp and interbody space at L1-2. Surgeon Grover Coffey, DO Hoof And Shoe Inspector None Estimated Blood Loss 375 Findings See Below The patient is 5 foot 4 inches tall weighing over 98 kg with a BMI in excess of 37. Patient's body habitus did add marked technical difficulty throughout the procedure adding at least 25% increase in operative time. Specimens None Indications This is a 84-year-old female presents with the above-mentioned diagnosis after failing extensive course of nonoperative care like to undergo the above- mentioned procedure. Description of Procedure Patient was met with identified and informed consent obtained. Patient was then taken to the operative suite underwent intubation placed in the prone position on the Roosevelt table on top of the Peter frame. All bony prominences well- padded eyes inspected to ensure no external pressure placed upon the peer at this point the thoracolumbar spine was prepped and draped in normal sterile fashion. Sharp dissection with the assistance of Bovie cautery was performed down to and exposing the lamina and transverse processes at T11 T12-L1 and instrumentation at L2 and L3 bilaterally. And then proceed remove the connector and pedicle screw at L2 bilaterally explore the fusion mass at L2-3 noting it to be intact. Then performed a complete laminectomy of L1 and T12 from a caudal cephalad fashion including medial facetectomies and foraminotomies addressing severe spinal stenosis. Pedicle screws in place placed in T11 T12-L1 bilaterally with assistance of fluoroscopy and by way of a transforaminal approach on the left complete discectomy of L1-L2 was performed endplates curetted to subcortical being bone and an 8 x 22 mm peek cage filled with osteo- amp bone graft tapped in position. Rods were then placed and attached to the proximal portion of the previous suni using barrel connectors. Transverse processes of T11 T12-L1 and L2 were then burred to subcortical bleeding bone. Infuse collagen sponge master graft and local autograft was placed in the posterior lateral gutters. 15 round SALO drain inserted. Incision was then closed with 1 Vicryl in the fascia 2-0 Vicryl substantially and 4 Monocryl for final skin closure. Steri-Strip sterile dressings placed. Patient awakened taken to PACU stable condition. Please note spinal cord monitoring was utilized that the procedure no changes noted. I attest to the content of the Intraoperative Record and any orders documented therein. Any exceptions are noted below.
--- NOTE | 2019-08-29 13:08 | Fluoroscopy Report ---
LUMBAR SPINE, INTRAOPERATIVE FLUOROSCOPY HISTORY: T10 L2 decompression and fusion. FLUOROSCOPY TIME: 26 seconds. FINDINGS: Intraoperative fluoroscopy was provided for the lumbar spine. A total of 3 fluoroscopic spo t images were obtained. Posterior decompression and fusion within the lower thoracic and upper lumbar spine. The exact levels are difficult to identify on this spot image. IMPRESSION: Fluoroscopy provided for a posterior decompression and fusion within the lower thoracic a nd upper lumbar spine. Electronically signed by: Chon Chow M.D. 08/29/2019 1:07 PM
[2019-08-29] MEDS ORDERED: ESMOLOL HCL INJ 10 MG/ML 10ML VIAL IV ONE (13:11)
--- NOTE | 2019-08-29 13:45 | Anesthesiology Progress Note ---
Date of Service August 29, 2019 Anesthesia Post Procedure Vital Signs Vital Signs: Temp Pulse Pulse Resp BP BP Pulse Ox 08/29/19 13:35 97 H 16 148/98 H 98 08/29/19 13:25 94 H 16 168/84 H 98 08/29/19 13:16 36.2 C L 100 H 16 105/94 92 08/29/19 09:05 36.6 C 97 H 18 162/78 H 93 Transfer of Care Handoff Completed per policy Notes Mental Status: alert / awake / arousable Patient Amnestic to Procedure: Yes Nausea / Vomiting: adequately controlled Pain: adequately controlled Airway Patency, RR, SpO2: stable & adequate BP & HR: stable & adequate Hydration State: stable & adequate Anesthetic Complications: no major complications apparent and Pt Satisfied with anesthetic care Notes: The patient is awake and her vitals are stable.
[2019-08-29] MEDS ORDERED: DO NOT ADMINISTER PNEUMOCOCCAL VACCINE PRN (14:25)
[2019-08-29] MEDS ORDERED: ALUMINUM/MAGNESIUM SUSP 30 ML UDC PO PRN (14:25)
[2019-08-29] MEDS ORDERED: METOCLOPRAMIDE HCL INJ 5 MG/ML 2 ML VIAL IV PRN (14:25)
[2019-08-29] MEDS ORDERED: MAGNESIUM HYDROXIDE SUSP 30 ML UDC PO PRN (14:25)
[2019-08-29] MEDS ORDERED: PROMETHAZINE HCL 12.5 MG in SODIUM CHLORIDE 0.9% 50 ML IV PRN (14:25)
[2019-08-29] MEDS ORDERED: FAMOTIDINE 20 MG TAB PO PRN (14:25)
[2019-08-29] MEDS ORDERED: ACETAMINOPHEN 500 MG TAB PO PRN ×2 (14:25)
[2019-08-29] MEDS ORDERED: NITROGLYCERIN SL 0.4 MG/TAB TAB SL PRN (14:25)
[2019-08-29] MEDS ORDERED: POLYETHYLENE (MIRALAX) 17 GM PACK PO PRN (14:25)
[2019-08-29] MEDS ORDERED: ACETAMINOPHEN 1,000 MG/100 ML VIAL IV PRN (14:25)
[2019-08-29] MEDS ORDERED: LORazepam 0.5 MG TAB PO PRN (14:25)
[2019-08-29] MEDS ORDERED: SOD PHOSPHATE/SOD BIPHOSPHATE ENEMA 132 ML BTL PR PRN (14:25)
[2019-08-29] MEDS ORDERED: OXYCODONE HCL IR 5 MG TAB (IMMEDIATE RELEASE) PO PRN (14:25)
[2019-08-29] MEDS ORDERED: TRAMADOL HCL 50 MG TABLET PO PRN (14:25)
[2019-08-29] MEDS ORDERED: DO NOT ADMINISTER FLU VACCINE PRN (14:25)
[2019-08-29] MEDS ORDERED: LORazepam 0.5 MG/1 ML VIAL IV PRN (14:25)
[2019-08-29] MEDS ORDERED: HYDROmorphone INJ 0.5 MG/0.5 ML SYR IV PRN (14:25)
[2019-08-29] MEDS ORDERED: NALOXONE HCL 0.4 MG/1 ML VIAL/CARP IV PRN (14:25)
[2019-08-29] MEDS ORDERED: bisacodyL 10 MG SUPP PR PRN (14:25)
--- NOTE | 2019-08-29 15:53 | Hospitalist Consultation ---
Date of Consultation August 29, 2019 Assessment & Plan (1) Spinal stenosis, lumbar region with neurogenic claudication: 84 y/o F who was admitted on 08/29 s/p lumbar fusion and decompression with Dr. Coffey. Pre-op Hb 12.8 (2) ANAND (obstructive sleep apnea): Compliant with CPAP (3) Hypothyroid: continue home meds (4) Hyperlipidemia: continue home meds (5) HTN (hypertension): continue home meds (6) GERD (gastroesophageal reflux disease): continue home meds (7) Afib: continue home meds, takes aspirin 81mg and coumadin 2.5mg HS--resume once deemed appropriate by ortho (8) DVT prophylaxis: As per ortho History of Present Illness Attending Physician: Grover Coffey, DO History of Present Illness 84 y/o F who was admitted on 08/29 s/p lumbar fusion and decompression with Dr. Coffey. Pt is doing well post-op although she states she is very tired. Her family and a cheondoism member just left and she states they had a good visit after her surgery. Is tolerating water, but has not had other PO yet. Pt denies fever, SOB, chest pain, abd pain, n/v/c/d, LE pain or swelling. Allergies Allergy/AdvReac Type Severity Reaction Status Date / Time adhesive Allergy Unknown RASH Verified 08/29/19 09:16 Cipro Allergy Unknown Per cardio Unverified 08/28/16 13:36 note ciprofloxacin Allergy Unknown RASH Verified 08/29/19 09:16 doxycycline Allergy Unknown RASH Verified 08/29/19 09:16 latex Allergy Unknown RASH Verified 08/29/19 09:16 Penicillins Allergy Unknown RASH Verified 08/29/19 09:16 Bactrim TABS Allergy Unknown RASH Uncoded 08/12/19 16:09 Home Medications Home Medications Medication Instructions Recorded Confirmed Type acetaminophen 500 mg tablet 1,000 mg PO Q4H PRN tab 07/13/19 08/29/19 History alendronate 70 mg tablet 70 mg PO WK tab 07/13/19 08/29/19 History aspirin 81 mg tablet,delayed 81 mg PO DAILY 07/13/19 08/29/19 History release atorvastatin 40 mg tablet 40 mg PO HS 07/13/19 08/06/19 History metoprolol succinate ER 100 mg 150 mg PO QAM tab 07/13/19 08/06/19 History tablet,extended release 24 hr cholecalciferol (vitamin D3) 1,000 1,000 units PO DAILY 07/16/19 08/29/19 History unit capsule nitroglycerin 0.4 mg sublingual 0.4 mg SL UD PRN 07/16/19 08/06/19 History tablet polyethylene glycol 3350 17 8.5 gm PO UD PRN 07/28/19 08/29/19 History gram/dose oral powder levothyroxine 50 mcg tablet 50 mcg PO QAM 07/31/19 08/08/19 History pantoprazole [Protonix] 40 mg PO QAM 08/06/19 08/08/19 History warfarin 2.5 mg PO HS 08/06/19 08/29/19 History Patient History Medical History Urinary urgency chronic Atrial fibrillation on warfarin Chronic back pain DJD (degenerative joint disease) GERD (gastroesophageal reflux disease) controlled Hyperlipidemia Hypertension Hypothyroidism Osteoarthritis Osteoporosis Peripheral neuropathy Sleep apnea CPAP Varicose veins of both lower extremities Surgical History History of lumbar fusion x3 TOTAL History of adenoidectomy History of appendectomy History of bilateral tubal ligation History of cataract surgery RT/LEFT History of cholecystectomy History of colonoscopy History of repair of rotator cuff RT/LEFT History of tonsillectomy History of total abdominal hysterectomy and bilateral salpingo-oophorectomy Family History Mother Family hx of colon cancer Breast cancer Sister Breast cancer Myocardial infarction Father Myocardial infarction Social History Preferred Language: Thai Communication Ability: Effective Windows And Doors Installer Required: No Beliefs That Will Affect Care: None Current Living Situation: Spouse Other Information That Helps Us Care for You: No Feels Safe at Home: Yes Smoking Status: Never smoker Do You Dip or Chew Tobacco: No ; Second Hand Exposure: Yes ; Hx Alcohol Use: Yes (a glass 1-2 nights a week if there is company) Alcohol type: wine Hx Substance Use: No Review of Systems Review of Systems: Pertinent positives and negatives reviewed in HPI--all others negative Physical Exam Constitutional: WD/WN, vitals as above Eyes: normal visual chung by confrontation and + anicteric sclerae Neck: normal visual inspection and trachea midline Respiratory: normal respiratory effort, lungs clear to auscultation Cardiovascular: Rate/Rhythm: regular rate; + abnormal rhythm Gastrointestinal (Abdomen): Inspection/Auscultation: abdomen not distended Percussion/Palpation: abdomen soft; abdomen nontender Musculoskeletal: Head/Neck/Chest: normocephalic and head atraumatic negative for edema, peripheral pulses intact Skin: no rashes, warm and dry Neurologic: awake; not confused Speech / Cognition: normal speech Psychiatric: A+Ox3, euthymic affect Results & Data Vital Signs (Past 12 Hours) Vital Signs Temp Pulse Pulse Resp BP BP Pulse Ox 08/29/19 15:13 97 H 14 134/72 97 08/29/19 14:45 36.7 C 105 H 16 139/85 08/29/19 14:15 36.7 C 105 H 12 152/77 H 98 08/29/19 13:55 36.2 C L 91 H 16 104/72 98 08/29/19 13:45 98 H 16 123/76 98 08/29/19 13:35 97 H 16 148/98 H 98 08/29/19 13:25 94 H 16 168/84 H 98 08/29/19 13:16 36.2 C L 100 H 16 105/94 92 08/29/19 09:05 36.6 C 97 H 18 162/78 H 93 Diagnostic Findings CXR: neg for acute ECG Rhythm: atrial fibrillation PG Care Time/CCT Total # of Minutes Spent Total Time Spent with Patient: Total time spent is greater than 50% in coordination of care (as documented) at patient's floor/unit and/or counseling patient:
[2019-08-29] MEDS: CLINDAMYCIN 600 MG in DEXTROSE 5% 50 ML IV SCH (18:19)
[2019-08-29] MEDS: ATORVASTATIN 40 MG TAB PO SCH (20:56)
[2019-08-29] MEDS: DOCUSATE SODIUM/SENNA 50/8.6MG TAB PO SCH (20:56)
[2019-08-30] MEDS: SODIUM CHLORIDE 0.9% 1000ML 1,000 ML IV SCH ×2 (00:37→06:50)
[2019-08-30] MEDS: CLINDAMYCIN 600 MG in DEXTROSE 5% 50 ML IV SCH (00:42)
[2019-08-30] MEDS: POLYETHYLENE (MIRALAX) 17 GM PACK PO SCH ×4 (05:40→23:48)
[2019-08-30] MEDS: LEVOTHYROXINE SODIUM 50 MCG TABLET PO SCH (05:40)
[2019-08-30] MEDS ORDERED: ALENDRONATE SODIUM 70 MG TAB PO SCH (06:00)
[2019-08-30 06:06] LABS: Hemoglobin 10.6 g/dL (12.0-16.0); Immature Granulocytes # (auto) 0.02 K/uL (0.00-0.02); Immature Granulocytes % (auto) 0.2 %; Lymphocytes # (auto) 0.72 K/uL (1.2-3.4); Mean Corpuscular Hemoglobin 31.6 pg (25-34); Mean Corpuscular Hgb Conc 34.2 g/dL (32-36); Mean Corpuscular Volume 92.5 fL (80-100); Mean Platelet Volume 9.3 fL (7.4-10.4); Monocytes % (auto) 6.7 %; Neutrophils # (auto) 10.44 K/uL (1.4-6.5); Neutrophils % (auto) 87.1 %; Platelet Count 241 K/uL (130-400); RDW Coefficient of Variation 14.4 % (11.5-14.5); RDW Standard Deviation 49.2 fL (36.4-46.3); Red Blood Count 3.35 M/uL (4.2-5.4); White Blood Count 11.98 K/uL (4.8-10.8)
[2019-08-30 06:42] LABS: BUN Creatinine Ratio 18.5 (10-20); Calcium 8.6 mg/dl (8.5-10.1); Creatinine Clr Calc Pharmacy 69.8 ml/min; Est GFR (African American) 91.9; Est GFR (Non-African American) 79.3; Potassium 4.4 mmol/L (3.5-5.1)
[2019-08-30] MEDS: ASPIRIN 81 MG ECTAB PO SCH (08:44)
[2019-08-30] MEDS: PANTOprazole 40 MG TAB PO SCH (08:44)
[2019-08-30] MEDS: CHOLECALCIFEROL 1,000 UNITS TAB PO SCH (08:45)
[2019-08-30] MEDS: METOPROLOL SUCC 50MG EXT REL TAB PO SCH (08:45)
--- NOTE | 2019-08-30 09:33 | Anesthesiology Progress Note ---
Date of Service August 30, 2019 Anesthesia Post Procedure Vital Signs Vital Signs: Temp Pulse Pulse Resp BP Pulse Ox 08/30/19 08:42 89 136/73 08/30/19 08:17 36.5 C 98 H 16 151/86 H 92 08/30/19 03:22 36.6 C 97 H 18 117/69 93 08/29/19 22:53 36.4 C L 89 18 108/73 97 08/29/19 20:03 36.3 C L 92 H 16 109/66 91 08/29/19 17:11 36.3 C L 98 H 16 135/69 97 08/29/19 16:34 36.3 C L 89 16 132/85 96 08/29/19 15:13 97 H 14 134/72 97 08/29/19 14:45 36.7 C 105 H 16 139/85 08/29/19 14:15 36.7 C 105 H 12 152/77 H 98 08/29/19 13:55 36.2 C L 91 H 16 104/72 98 08/29/19 13:45 98 H 16 123/76 98 08/29/19 13:35 97 H 16 148/98 H 98 08/29/19 13:25 94 H 16 168/84 H 98 08/29/19 13:16 36.2 C L 100 H 16 105/94 92 Notes Mental Status: alert / awake / arousable and participated in evaluation Patient Amnestic to Procedure: Yes Nausea / Vomiting: adequately controlled Pain: adequately controlled Airway Patency, RR, SpO2: stable & adequate BP & HR: stable & adequate Hydration State: stable & adequate Anesthetic Complications: no major complications apparent
--- NOTE | 2019-08-30 10:06 | Orthopedic Progress Note ---
Date of Service August 30, 2019 Assessment & Plan (1) Spinal stenosis, lumbar region with neurogenic claudication: At this time we will continue physical therapy and hope for rehab placement in the next few days. Present on Admission?: Yes Subjective Patient states her back pain is controlled. Leg symptoms markedly improved. Physical Exam Physical Exam: On exam she is ambulating halls with a walker. She is quite comfortable. Results & Data Vital Signs (Past 12 Hours) Vital Signs Temp Pulse Resp BP Pulse Ox 08/30/19 08:42 89 136/73 08/30/19 08:17 36.5 C 98 H 16 151/86 H 92 08/30/19 03:22 36.6 C 97 H 18 117/69 93 08/29/19 22:53 36.4 C L 89 18 108/73 97
--- NOTE | 2019-08-30 12:22 | Hospitalist Progress Note ---
Date of Service August 30, 2019 Assessment & Plan (1) Spinal stenosis, lumbar region with neurogenic claudication: - S/p lumbar fusion and decompression with Dr. Coffey on 08/29, POD#1. - Pain management per primary team. - PT/OT - discharge to [facility] on Sunday or Sunday. - DVT ppx with ASA 81 mg daily; resume home Coumadin per ortho. - Monitor CBC daily - trending down as expected. (2) Hypothyroid: - Continue home Levothyroxine 50 mcg daily. - TSH was 0.8 in February 2019. (3) Hyperlipidemia: - Continue home statin and aspirin. (4) HTN (hypertension): - Continue home Metoprolol 150 mg qAM as prescribed. (5) GERD (gastroesophageal reflux disease): - PPI daily. (6) Afib: - Continue home beta melecio as prescribed. - Holding home Warfarin per ortho, resume per Dr. Coffey. (7) ANAND (obstructive sleep apnea): - CPAP qhs -- ordered in our system. On O2 via [place] last evening. - Her will need to bring machine from home. (8) DVT prophylaxis: - SCDs; ASA 81 mg daily; resume Warfarin per ortho. Dispo: Med/surg; pt. is medically stable, will sign off. Please call with any questions. Subjective Pt. is doing well -- she is passing gas, had a small BM. Denies back pain - is ambulating well. Plan for discharge on Sunday or Sunday. Review of Systems Review of Systems: All systems reviewed & are unremarkable except as noted in HPI & below Constitutional: no fever, no chills, no fatigue and no weakness Respiratory: no cough, no dyspnea, no dyspnea on exertion and no wheezing Cardiovascular: no chest pain, no palpitations and no edema Gastrointestinal: no abdominal pain, no nausea, no vomiting, no constipation and no diarrhea/loose stools Genitourinary: no difficulty urinating Musculoskeletal: no back pain and no joint pain Integumentary: no non-healing lesions Physical Exam Physical Exam: General: Resting comfortably HEENT: NC/AT; PERRLA with EOMI; [place] conjunctiva, MMM. No erythema of posterior pharynx Neck: Supple and nontender Cardiac: RRR Lungs: CTA bilaterally Abdomen: Bowel normoactive X 4; Nontender to palpation Extremities: Warm. No edema present Neuro: No focal weakness Skin: No rash Results & Data Vital Signs (Past 12 Hours) Vital Signs Temp Pulse Resp BP Pulse Ox 08/30/19 08:42 89 136/73 08/30/19 08:17 36.5 C 98 H 16 151/86 H 92 08/30/19 03:22 36.6 C 97 H 18 117/69 93 Laboratory Results 08/30/19 08/30/19 Range/Units 05:53 05:53 WBC 11.98 H (4.8-10.8) K/uL RBC 3.35 L (4.2-5.4) M/uL Hgb 10.6 L (12.0-16.0) g/dL Hct 31.0 L (37-47) % MCV 92.5 (80-100) fL MCH 31.6 (25-34) pg MCHC 34.2 (32-36) g/dL RDW Std Deviation 49.2 H (36.4-46.3) fL RDW Coeff of Nancy 14.4 (11.5-14.5) % Plt Count 241 (130-400) K/uL MPV 9.3 (7.4-10.4) fL Immature Gran % (Auto) 0.2 % Neut % (Auto) 87.1 % Lymph % (Auto) 6.0 % [place] % (Auto) 6.7 % Eos % (Auto) 0.0 % Baso % (Auto) 0.0 % Immature Gran # (Auto) 0.02 (0.00-0.02) K/uL Neut # (Auto) 10.44 H (1.4-6.5) K/uL Lymph # (Auto) 0.72 L (1.2-3.4) K/uL [place] # (Auto) 0.80 H (0.11-0.59) K/uL Eos # (Auto) 0.00 (0-0.5) K/uL Baso # (Auto) 0.00 (0-0.2) K/uL Sodium 134 L (136-145) mmol/L Potassium 4.4 (3.5-5.1) mmol/L Chloride 101 (98-107) mmol/L Carbon Dioxide 26 (21-32) mmol/L Anion Gap 7.0 (3-11) BUN 13 (7-18) mg/dl Creatinine 0.71 (0.6-1.2) mg/dl Est Cr Clr Drug Dosing 69.8 ml/min Est GFR ( Amer) 91.9 Est GFR (Non-Af Amer) 79.3 BUN/Creatinine Ratio 18.5 (10-20) Glucose 120 H (70-99) mg/dl Calcium 8.6 (8.5-10.1) mg/dl PG Care Time/CCT Total # of Minutes Spent Total Time Spent with Patient: Total time spent is greater than 50% in coordination of care (as documented) at patient's floor/unit and/or counseling patient:
[2019-08-30] MEDS: ATORVASTATIN 40 MG TAB PO SCH (20:15)
[2019-08-30] MEDS: DOCUSATE SODIUM/SENNA 50/8.6MG TAB PO SCH (20:15)
[2019-08-30] MEDS: ONDANSETRON 4 MG TAB PO PRN (20:15)
[2019-08-31 05:43] LABS: Hematocrit (blood only) 30.7 % (37-47); Hemoglobin 10.5 g/dL (12.0-16.0); Mean Corpuscular Hemoglobin 31.9 pg (25-34); Mean Corpuscular Hgb Conc 34.2 g/dL (32-36); Mean Corpuscular Volume 93.3 fL (80-100); Mean Platelet Volume 9.5 fL (7.4-10.4); Platelet Count 241 K/uL (130-400); RDW Coefficient of Variation 14.5 % (11.5-14.5); RDW Standard Deviation 49.2 fL (36.4-46.3); Red Blood Count 3.29 M/uL (4.2-5.4); White Blood Count 9.41 K/uL (4.8-10.8)
[2019-08-31 06:17] LABS: BUN Creatinine Ratio 17.3 (10-20); Calcium 8.9 mg/dl (8.5-10.1); Creatinine Clr Calc Pharmacy 69.8 ml/min; Est GFR (African American) 91.9; Est GFR (Non-African American) 79.3; Potassium 4.3 mmol/L (3.5-5.1)
[2019-08-31] MEDS: POLYETHYLENE (MIRALAX) 17 GM PACK PO SCH ×3 (06:45→17:49)
[2019-08-31] MEDS: LEVOTHYROXINE SODIUM 50 MCG TABLET PO SCH (06:45)
[2019-08-31] MEDS: CHOLECALCIFEROL 1,000 UNITS TAB PO SCH (08:35)
[2019-08-31] MEDS: ASPIRIN 81 MG ECTAB PO SCH (08:35)
[2019-08-31] MEDS: METOPROLOL SUCC 50MG EXT REL TAB PO SCH (08:35)
[2019-08-31] MEDS: PANTOprazole 40 MG TAB PO SCH (08:35)
--- NOTE | 2019-08-31 10:56 | Orthopedic Progress Note ---
Date of Service August 31, 2019 Assessment & Plan (1) Spinal stenosis, lumbar region with neurogenic claudication: This time we will continue physical therapy. Hopefully she will be able to discharge to rehab tomorrow. Present on Admission?: Yes Subjective Patient's back pain is well controlled. Leg symptoms markedly improved. Physical Exam Physical Exam: On exam she is in a chair at the bedside. Is good strength testing. Results & Data Vital Signs (Past 12 Hours) Vital Signs Temp Pulse Resp BP Pulse Ox 08/31/19 06:16 36.6 C 108 H 18 131/79 92 08/30/19 23:50 37.1 C 95 H 18 127/80 94
[2019-08-31] MEDS: ONDANSETRON 4 MG TAB PO PRN (15:33)
[2019-08-31] MEDS: DOCUSATE SODIUM/SENNA 50/8.6MG TAB PO SCH (20:04)
[2019-08-31] MEDS: ATORVASTATIN 40 MG TAB PO SCH (20:04)
[2019-09-01] MEDS: POLYETHYLENE (MIRALAX) 17 GM PACK PO SCH (02:17)
[2019-09-01] MEDS: LEVOTHYROXINE SODIUM 50 MCG TABLET PO SCH (06:22)
[2019-09-01] MEDS: CHOLECALCIFEROL 1,000 UNITS TAB PO SCH (07:37)
[2019-09-01] MEDS: PANTOprazole 40 MG TAB PO SCH (07:37)
[2019-09-01] MEDS: ASPIRIN 81 MG ECTAB PO SCH (07:37)
[2019-09-01] MEDS: METOPROLOL SUCC 50MG EXT REL TAB PO SCH (07:38)
--- NOTE | 2019-09-01 15:18 | Discharge Summary ---
Date of Service September 01, 2019 Admission HPI Per Admitting Provider 84-year-old female well-known to us that presents with worsening back and leg pain. After failing a course of nonoperative care is here for surgical intervention. Principal Diagnosis Lumbar spinal stenosis with neurogenic claudication Discharge Data Allergies Allergy/AdvReac Type Severity Reaction Status Date / Time adhesive Allergy Unknown RASH Verified 08/29/19 09:16 Cipro Allergy Unknown Per cardio Unverified 08/28/16 13:36 note ciprofloxacin Allergy Unknown RASH Verified 08/29/19 09:16 doxycycline Allergy Unknown RASH Verified 08/29/19 09:16 latex Allergy Unknown RASH Verified 08/29/19 09:16 Penicillins Allergy Unknown RASH Verified 08/29/19 09:16 Bactrim TABS Allergy Unknown RASH Uncoded 08/12/19 16:09 Consultations 08/29/19 14:25 Consult Case Management - Discharge Planning Routine Consult Hospitalist Routine Procedures Performed Operation Date: 08/29/19 10:05 Actual Procedures p T12-L2 Decompression, T11-L1 Posterior Spinal Fusion, Placement of Interbody L1-L2, Application of Bone Morphogenetic Protein, Application of Allograft, Spinal Cord Monitoring(Not Applicable) - Grover Coffey DO s L2 Removal Screws, L2 Removal Instrumentation(Not Applicable) - Grover Coffey DO Ordered Studies 08/29/19 07:00 FL fluoroscopy <1hr Routine FL lumbar spine 2-3V Routine Hospital Course (1) Spinal stenosis, lumbar region with neurogenic claudication: Patient underwent lumbar decompression and fusion tolerated as well as taken the orthopedic floor postoperatively. Postop day 1 she was up and ambulating leg leg symptoms markedly improved. Progressed the postop day #2 and 3 SALO drain decreasing appropriately. Bowels working well. Subsequently discharged home with home health. Discharge orders and instructions can be found the chart for further review. Total Time Total Time Spent Total Time Spent (In Minutes): 20 minutes Discharge Plan Discharge Items Patient Disposition: Home - Home Health Services Reason For Visit: Spinal Stenosis, Thoracic Region Discharge Diagnosis: Lumbar spinal stenosis with neurogenic claudication Activity: Per Instructions section Non-emergency contact: Primary Care Provider Call non-emergency contact if: you have any medication questions Follow-up/Referrals: Dianne Adams DO [Primary Care Provider] - Diet: Regular Addtl Attending Provider Instructions: ACTIVITY RECOMMENDATIONS: SELF CARE INSTRUCTIONS AFTER THORACIC/LUMBAR FUSIONS 1. You may walk to your tolerance. It is good exercise for your legs and back. Expect some back and intermittent leg aches and pains. 2. You may perform "counter-top" level activities (make a sandwich, kristina with a project, etc.). 3. No bending or lifting of more than 10 pounds or back twisting of any nature (roll like a log when turning in bed). 4. You may ride in a car for 20-30 minutes at a time. No driving until after your first visit with your doctor. 5. Frequent changes of position and restricting sitting to 30 minutes at a time will help limit the amount of back spasms and stiffness you may experience. 6. You may discontinue the use of ambulatory aids (cane, crutches, etc.) once your strength and confidence allow. 7. You may bullet charging machine operator the shower and let water strike your incision when you arrive home at least once daily. Do not take a tub bath, sit in a hot tub or go into a swimming pool until after your first recheck in the office. SPECIAL CARE INSTRUCTIONS: VERY IMPORTANT TO READ AND REVIEW A. Your surgical incision has been closed with a cosmetic suture under the skin that will dissolve in about 6 weeks. In 14 days, you can use a pair of clean scissors and cut the suture that is left outside of the skin at the ends of your incision. 1. The small skin tapes can be removed 7 days after surgery if they have not fallen off by that point. 2. You may keep the wound open to air as much as possible to promote healing after post-op day number 5 unless told otherwise by your doctor. 3. If you think the wound looks like it is becoming infected (redness or worsening drainage) and/or you are experiencing fever, chill or worsening back pain and muscle spasms, contact the office so that we may evaluate you as soon as possible. B. Complications are uncommon, but please contact us if you have any signs or symptoms of: 1. wound infection (fever higher than 102.5 degrees F, redness, separation of wound, drainage, or increasing pain from the incision) 2. blood clots in legs (pain, swelling, redness and warmth in legs) 3. urinary tract infection (fever higher than 102.5 degrees F, burning upon urination or increased frequency of urination) 4. nerve problems (inability to walk on your toes or heels, numbness, loss of bowel or bladder control) 5. any other symptoms that concern you C. Please call the office at if you have any concerns or questions about your operation or recovery. D. No smoking! Smoking drastically decreases the chance of a solid fusion. E. Do not take any anti-inflammatory medications (Indocin, Advil, Motrin, Aspirin, Naprosyn, etc.) as these may inhibit the chance of a solid fusion. Tylenol is okay to take for pain. MANAGING PAIN AFTER SPINAL SURGERY 1. Narcotic medication is intended for short-term use and will be provided for surgical pain. Surgical pain usually lasts for a period of 4-6 weeks. Narcotic medication includes Percocet, Vicodin, Darvocet, Tylenol #3 or Lortab. 2. Longer-term pain is more appropriately treated with non-narcotic medication such as Tylenol ES. 3. Muscle spasm is not appropriately treated with narcotics. Muscle relaxers such as Soma, Flexeril or Skelaxin can be used along with Tylenol ES. 4. Remember that we all live with some "aches and pains". This is not unusual or uncommon after an injury or as we get older. a. Back pain is expected and may include muscle spasms for 4 to 6 weeks after surgery. The pain should gradually improve. If the pain worsens for no apparent reason, please contact the office. b. Intermittent leg pain may also be experienced and should not be concerned about unless it worsens for no apparent reason. If so, please contact the office. 5. We will provide appropriate medication within the normal guidelines of their prescribed use. We will also be very cautious and aware of potential abuse and extended duration of patients' medication needs. a. Pain medications are for your comfort and to assist with sleep and rest so that the tissue can heal. They are not provided in order to return to normal activity and should not be used through the day. To do so or worsening pain at night can result from ongoing tissue damage and development of tolerance to the prescribed medicine. 6. Please allow 2-3 days to process refills. Prescriptions will not be mailed but must be picked up at the office. FOLLOW UP VISIT: Keep your scheduled follow-up appointment. Any questions, please call the office at . Pending Studies at Discharge: No Stand-Alone Forms: My [facility], Opioid Pain Management Medications and DC Order Prescriptions: New oxycodone 5 mg Tablet 5 mg PO Q4H PRN (Reason: pain) Qty: 30 RF: 0 tramadol 50 mg Tablet 50 mg PO Q4H PRN (Reason: pain) Qty: 30 RF: 0 Continued metoprolol succinate 100 mg tablet extended release 24 hr 150 mg PO QAM RF: 0 levothyroxine 50 mcg tablet 50 mcg PO QAM RF: 0 nitroglycerin [Nitrostat] 0.4 mg tablet, sublingual 0.4 mg SL UD PRN (Reason: Chest Pain) RF: 0 cholecalciferol (vitamin D3) 1,000 unit capsule 1,000 units PO DAILY RF: 0 polyethylene glycol 3350 [Miralax] 17 gram/dose powder 8.5 gm PO UD PRN (Reason: Constipation) RF: 0 warfarin 2.5 mg tablet 2.5 mg PO HS RF: 0 pantoprazole [Protonix] 40 mg tablet,delayed release (DR/EC) 40 mg PO QAM RF: 0 acetaminophen [Tylenol Extra Strength] 500 mg tablet 1,000 mg PO Q4H PRN (Reason: Pain) RF: 0 alendronate 70 mg tablet 70 mg PO WK RF: 0 aspirin [Aspir-Low] 81 mg tablet,delayed release (DR/EC) 81 mg PO DAILY RF: 0 atorvastatin 40 mg tablet 40 mg PO HS RF: 0 Discharge Orders: Discharge Order (Routine); Ordered 09/01/19 Ordered By: Grover Coffey Admission Data Admit Date/Time: 08/29/19 13:04 Attending Provider: Grover Coffey Admit Provider: Grover Coffey Primary Care Provider: Dianne Adams. [facility] ; Mookie Peres Other Interventions: Discharge Summary Assessment (RN) Last Done: 09/01/19 14:12 DC Date/Time DO NOT enter until pt leaves facility: 09/01/19 15:13
== END 2019-09-01 15:13 | disposition home health service (06) | DRG 455 ==
LOC: ASU 08:22 → 3E 13:04

== ENCOUNTER 2019-10-23 15:16 | Inpatient (IN) ==
[2019-10-23] MEDS ORDERED: SODIUM CHLORIDE 0.9% 1000ML 1,000 ML IV SCH (17:30)
[2019-10-23 17:40] LABS: Basophils # (auto) 0.02 K/uL (0-0.2); Basophils % (auto) 0.3 %; Eosinophils # (auto) 0.21 K/uL (0-0.5); Eosinophils % (auto) 2.9 %; Hematocrit (blood only) 37.4 % (37-47); Hemoglobin 12.8 g/dL (12.0-16.0); Immature Granulocytes # (auto) 0.01 K/uL (0.00-0.02); Immature Granulocytes % (auto) 0.1 %; Lymphocytes % (auto) 15.1 %; Mean Corpuscular Hemoglobin 31.1 pg (25-34); Mean Corpuscular Hgb Conc 34.2 g/dL (32-36); Mean Corpuscular Volume 90.8 fL (80-100); Mean Platelet Volume 9.8 fL (7.4-10.4); Monocytes % (auto) 9.6 %; Neutrophils # (auto) 5.24 K/uL (1.4-6.5); Platelet Count 354 K/uL (130-400); RDW Coefficient of Variation 13.8 % (11.5-14.5); RDW Standard Deviation 45.6 fL (36.4-46.3); Red Blood Count 4.12 M/uL (4.2-5.4); White Blood Count 7.28 K/uL (4.8-10.8)
[2019-10-23 17:46] LABS: Appearance Urine Cloudy (Clear); Bacteria Urine Automated 2+ (Negative); Bilirubin Urine Negative (Negative); Blood Urine Negative (Negative); Color Urine Yellow; Epithelial Cell Urine Auto >30 /lpf (0-5); Glucose Urine UA Negative (Negative); Ketones Urine Negative (Negative); Leukocyte Esterase Urine 2+ (Negative); Nitrite Urine Positive (Negative); Protein Urine Negative (Negative); RBC Urine Automated 0-4 /hpf (0-4); Specific Gravity Urine 1.005 (1.000-1.030); Urobilinogen Urine Negative (Negative); pH Urine 7.5 (4.5-7.5)
[2019-10-23 17:52] LABS: INR 1.2 (0.9-1.1); Prothrombin Time 11.8 Seconds (9.0-12.0)
--- NOTE | 2019-10-23 17:56 | XRay Report ---
SINGLE VIEW CHEST CLINICAL HISTORY: Generalized weakness. FINDINGS: An AP, portable, upright chest radiograph is compared to study dated 08/13/2019. The examina tion is degraded by portable technique, apical lordotic positioning, and patient rotation. The heart is enlarged noting atherosclerotic calcification of the thoracic aorta. The pulmonary vasculature is noncongested. Chronic interstitial thickening is similar to previous. There is mild scarring/atelecta sis at the left lung base. No airspace consolidation or large pleural effusion is identified. The ske letal structures are osteopenic. There is chronic deformity of the left clavicle with widening of the AC joint. 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 Fusion hardware is noted at the thoracolum bar junction. IMPRESSION: Cardiomegaly with no acute cardiopulmonary abnormality. Electronically signed by: Ole Waters M.D. 10/23/2019 5:54 PM
[2019-10-23 18:01] LABS: Alanine Aminotransferase 13 U/L (12-78); Albumin Level 3.8 gm/dl (3.4-5.0); Aspartate Aminotransferase 13 U/L (15-37); BUN Creatinine Ratio 11.4 (10-20); Blood Urea Nitrogen 8 mg/dl (7-18); Calcium 10.1 mg/dl (8.5-10.1); Carbon Dioxide 26 mmol/L (21-32); Chloride 94 mmol/L (98-107); Est GFR (African American) 90.4; Glucose 85 mg/dl (70-99); Sodium 127 mmol/L (136-145)
[2019-10-23 18:12] LABS: Alkaline Phosphatase 98 U/L (45-117); Bilirubin,Total 1.2 mg/dl (0.2-1); Globulin 3.6 gm/dl (2.5-4.0); Total Protein 7.4 gm/dl (6.4-8.2); Troponin I < 0.015 ng/ml (0-0.045)
[2019-10-23 18:20] LABS: Renal Epithelial Cells Urine 0-5 /lpf (0-5)
[2019-10-23] MEDS ORDERED: cefTRIAXone SODIUM 1,000 MG/50 ML BAG IV STA (18:20)
--- NOTE | 2019-10-23 19:06 | CT Scan Report ---
CT SCAN OF THE BRAIN WITHOUT IV CONTRAST CLINICAL HISTORY: Change in mental status. COMPARISON STUDY: CT of the brain dated 03/01/2017. TECHNIQUE: Unenhanced axial CT scan of the brain is performed from the vertex to the skull base. A do se lowering technique was utilized adhering to the principles of ALARA. CT DOSE: 1311.06 mGy.cm FINDINGS: Brain parenchyma: There are age-related involutional changes noting moderate to advanced subcortical and periventricular microangiopathic change. There is no hemorrhage, mass effect, or evidence of acu te territorial ischemia by CT criteria. Miller-white matter differentiation is preserved. No extra-axia l fluid collection is seen. Mineralization is noted in the basal ganglia. Foci of intravenous gas are noted within the cavernous sinuses and the temporal soft tissues, right greater than left. Ventricles, sulci, cisterns: Prominent secondary to involutional change. Intracranial vasculature: There is atherosclerotic calcification of the cavernous carotid and vertebr al arteries. Calvarium: Unremarkable. Sinuses and mastoids: The visualized paranasal sinuses are clear. The mastoid air cells are well pneu matized. Orbits: The bony orbits are grossly intact. There are bilateral ocular lens implants. IMPRESSION: There is no hemorrhage, mass effect, or evidence of acute territorial ischemia by CT talat brito. Electronically signed by: Ole Waters M.D. 10/23/2019 7:05 PM
--- NOTE | 2019-10-23 20:13 | Emergency Department Note ---
Entered by Dianne Choudhury acting as a scribe for History of Present Illness General Chief complaint: Urinary Symptoms Stated complaint: DELIRIOUS FROM UTI,POSSIBLE BLOOD INFECTION Source: patient and other (nursing staff) History of Present Illness Onset (ago): week(s) 2 Location: abdomen Pain Consistency: + other (persistent) Maximum Pain Intensity: 0 Quality: + other (urinary symptoms) Associated symptoms: + denies other symptoms (diarrhea, new back pain, rhinorrh ea, abdominal pain, change in vision), + confusion and + rash; no chest pain, no cough, no headaches, no nausea/vomiting and no shortness of breath The patient is an 84 year old female who presents to the Emergency Room with complaints of persistent urinary symptoms starting 2 weeks ago. Per nursing staff, the patient was sent here by her PCP for concern for a UTI. She states that she has been having urinary burning and frequency. She states that they were concerned mostly because she has been having increased confusion. The patient complains of red rash in her groin. She notes that she has not moved her bowels for a month. The patient denies headache, chest pain, shortness of breath, nausea, vomiting, diarrhea, new back pain, recent antibiotic use, cough, rhinorrhea, abdominal pain, and change in vision. Home Medications Home Medications Medication Instructions Recorded Confirmed Type acetaminophen 500 mg tablet 1,000 mg PO Q4H PRN tab 07/13/19 10/23/19 History aspirin 81 mg tablet,delayed 81 mg PO DAILY 07/13/19 10/23/19 History release atorvastatin 40 mg tablet 40 mg PO HS 07/13/19 10/23/19 History metoprolol succinate 100 mg 150 mg PO QAM tab 07/13/19 10/23/19 History tablet,extended release 24 hr cholecalciferol (vitamin D3) 25 1,000 units PO DAILY 07/16/19 10/23/19 History mcg (1,000 unit) capsule nitroglycerin 0.4 mg sublingual 0.4 mg SL UD PRN 07/16/19 10/23/19 History tablet polyethylene glycol 3350 17 17 gm PO DAILY PRN 07/28/19 10/23/19 History gram/dose oral powder levothyroxine 50 mcg tablet 50 mcg PO QAM 07/31/19 10/23/19 History warfarin 2.5 mg PO 2XWK 08/06/19 10/23/19 History alendronate 70 mg tablet 70 mg PO WK #12 tab 10/01/19 10/23/19 Rx pantoprazole 40 mg PO DAILYBB 10/23/19 10/23/19 History warfarin 1 mg PO 5XWK 10/23/19 10/23/19 History Allergies Allergy/AdvReac Type Severity Reaction Status Date / Time adhesive Allergy Unknown RASH Verified 10/23/19 17:58 Cipro Allergy Unknown Per cardio Unverified 08/28/16 13:36 note ciprofloxacin Allergy Unknown RASH Verified 10/23/19 17:58 doxycycline Allergy Unknown RASH Verified 10/23/19 17:58 latex Allergy Unknown RASH Verified 10/23/19 17:58 Penicillins Allergy Unknown RASH Verified 10/23/19 17:58 Bactrim TABS Allergy Unknown RASH Uncoded 10/23/19 17:58 Past Med/Surg History Medical History Atrial fibrillation on warfarin Chronic back pain DJD (degenerative joint disease) GERD (gastroesophageal reflux disease) controlled Hyperlipidemia Hypertension Hypothyroidism Osteoarthritis Osteoporosis Peripheral neuropathy Sleep apnea CPAP Urinary urgency chronic Varicose veins of both lower extremities Surgical History History of adenoidectomy History of appendectomy History of bilateral tubal ligation History of cataract surgery RT/LEFT History of cholecystectomy History of colonoscopy History of lumbar fusion x3 TOTAL History of repair of rotator cuff RT/LEFT History of tonsillectomy History of total abdominal hysterectomy and bilateral salpingo-oophorectomy Family History Mother Family hx of colon cancer Breast cancer Sister Breast cancer Myocardial infarction Father Myocardial infarction Social History Preferred Language: Estonian Communication Ability: Effective Visual Impairment: Limited Hearing Ability: Normal Music [employer] Internship Required: No Beliefs That Will Affect Care: None marital status: Current Living Situation: Spouse current occupational status: employed and retired Feels Safe at Home: Yes Smoking Status: Never smoker Second Hand Exposure: Yes ; Hx Alcohol Use: Yes (a glass 1-2 nights a week if there is company) Alcohol type: wine Hx Substance Use: No Childhood Exposure to Second-Hand Smoke: No caffeine: Yes (Coffee 1 cup per day.) during the past year weight has: remained stable Dental Care, Regularly: Yes Physical Activity Frequency: Daily Seatbelt Use: always Sunscreen Use: Yes Review of Systems See HPI for pertinent positives & negatives. and A total of 10 systems reviewed and were otherwise negative Physical Exam Vital Signs Vital Signs - 24 hr 10/23/19 15:28 10/23/19 17:09 10/23/19 17:10 Temperature 36.8 C Temperature Source Oral Pulse Rate 104 H 102 H 104 H Pulse Rate [Apical] Pulse Rate from SpO2 Sensor 106 H 111 H Respiratory Rate 18 18 22 Respiratory Effort / Characteristics Respiratory Depth Normal Blood Pressure 144/88 H Blood Pressure [Left Arm] Blood Pressure Mean 106 Blood Pressure Mean [Left Arm] Pulse Oximetry 95 95 91 Oxygen Delivery Method Room Air Sepsis Recent Fever Within 48 Hours No Sepsis New/Unexplained Change in Mental Status Yes Sepsis Action Taken by Nursing No Action Required 10/23/19 17:20 10/23/19 17:30 10/23/19 17:40 Temperature Temperature Source Pulse Rate 110 H 96 H 79 Pulse Rate [Apical] Pulse Rate from SpO2 Sensor Respiratory Rate 18 25 H 23 Respiratory Effort / Characteristics Respiratory Depth Blood Pressure Blood Pressure [Left Arm] Blood Pressure Mean Blood Pressure Mean [Left Arm] Pulse Oximetry Oxygen Delivery Method Sepsis Recent Fever Within 48 Hours Sepsis New/Unexplained Change in Mental Status Sepsis Action Taken by Nursing 10/23/19 17:45 10/23/19 17:50 10/23/19 17:55 Temperature Temperature Source Pulse Rate 85 106 H Pulse Rate [Apical] Pulse Rate from SpO2 Sensor 108 H Respiratory Rate 19 20 Respiratory Effort / Characteristics Respiratory Depth Blood Pressure 120/85 Blood Pressure [Left Arm] Blood Pressure Mean 99 Blood Pressure Mean [Left Arm] Pulse Oximetry 93 93 Oxygen Delivery Method Room Air Sepsis Recent Fever Within 48 Hours Sepsis New/Unexplained Change in Mental Status Sepsis Action Taken by Nursing 10/23/19 18:00 10/23/19 18:01 10/23/19 18:10 Temperature Temperature Source Pulse Rate 97 H 93 H 94 H Pulse Rate [Apical] Pulse Rate from SpO2 Sensor 88 86 89 Respiratory Rate 24 20 22 Respiratory Effort / Characteristics Respiratory Depth Blood Pressure 134/80 Blood Pressure [Left Arm] Blood Pressure Mean 109 Blood Pressure Mean [Left Arm] Pulse Oximetry 93 94 93 Oxygen Delivery Method Sepsis Recent Fever Within 48 Hours Sepsis New/Unexplained Change in Mental Status Sepsis Action Taken by Nursing 10/23/19 18:20 10/23/19 18:30 10/23/19 19:30 Temperature Temperature Source Pulse Rate 96 H 85 Pulse Rate [Apical] 88 Pulse Rate from SpO2 Sensor 90 93 H Respiratory Rate 25 H 19 20 Respiratory Effort / Characteristics Non-Labored Respiratory Depth Normal Blood Pressure Blood Pressure [Left Arm] 157/80 H Blood Pressure Mean Blood Pressure Mean [Left Arm] 105 Pulse Oximetry 94 90 94 Oxygen Delivery Method Room Air Sepsis Recent Fever Within 48 Hours Sepsis New/Unexplained Change in Mental Status Sepsis Action Taken by Nursing GENERAL: sitting up in bed, wearing hospital gown, no acute distress, nontoxic EYE EXAM: normal conjunctiva OROPHARYNX: no exudate, no erythema, lips, buccal mucosa, and tongue normal and mucous membranes are moist NECK: supple, no nuchal rigidity, no adenopathy, non-tender LUNGS: Clear to auscultation. Normal chest wall mechanics HEART: no murmurs, S1 normal and S2 normal ABDOMEN: abdomen soft, non-tender, normo-active bowel sounds, no masses, no rebound or guarding. BACK: Back is symmetrical on inspection and there is no deformity, no midline tenderness, no CVA tenderness. SKIN: no rashes and no bruising UPPER EXTREMITIES: upper extremities are grossly normal. LOWER EXTREMITIES: No pitting edema. NEURO EXAM: Oriented to person and place, but not year or month, cranial nerves II-XII grossly intact, normal speech, no gross weakness of arms, no gross weakness of legs. Course Course ED COURSE: Vital signs were reviewed and showed hypertension. The patients medical record was reviewed The above diagnostic studies were performed and reviewed. ED treatments and interventions as stated above. 1715: The patient was evaluated in room C2B. A complete history and physical examination was performed. 1847: I reevaluated the patient and spoke to the patient's family who is now at bedside. They state that she had an episode of slurred speech yesterday and has been more confused than normal. 1915: Upon reevaluation, the patient is resting comfortably. I discussed my findings with the patient's family and they understand and agree with the treat ment plan. Based on the patients age, coexisting illnesses, exam and lab findings the decision to treat as an inpatient was made. The patient remained stable while under my care. The patient will be evaluated for further management. 1923: I discussed the patient's case with Dr. gAgie SPARKSG Hospitalist. He will evaluate the patient for further management. Administered Medications Discontinued Medications Sodium Chloride (Nss 1000ml) 1,000 mls @ 999 mls/hr IV .[id number] JOAQUINA Stop: 10/23/19 18:30 Last Infusion: 10/23/19 19:02 Dose: 0 mls/hr Documented by: [id number] Admin: 10/23/19 17:59 Dose: 999 mls/hr Documented by: [id number] Ceftriaxone Sodium (Rocephin) 1,000 mg in 50 mls @ 100 mls/hr IV NOW STA Stop: 10/23/19 18:49 Last Infusion: 10/23/19 19:07 Dose: 0 mls/hr Documented by: [id number] Admin: 10/23/19 18:37 Dose: 100 mls/hr Documented by: [id number] Medical Decision Making Differential Diagnosis Differential diagnoses includes but is not limited to toxic, metabolic, infectious, traumatic, cardiac, neurologic, hematologic, psychiatric and inflammatory etiologies. Medical Records Attestation: I reviewed the patient's medical records. Home Medications Current Medication List: was personally reviewed by me Laboratory Data Attestation: I reviewed the patient's lab results. Result diagrams: 10/23/19 17:00 10/23/19 17:00 Lab Results 10/23/19 10/23/19 10/23/19 Range/Units 17:00 17:00 17:00 WBC 7.28 (4.8-10.8) K/uL RBC 4.12 L (4.2-5.4) M/uL Hgb 12.8 (12.0-16.0) g/dL Hct 37.4 (37-47) % MCV 90.8 (80-100) fL MCH 31.1 (25-34) pg MCHC 34.2 (32-36) g/dL RDW Std Deviation 45.6 (36.4-46.3) fL RDW Coeff of Nancy 13.8 (11.5-14.5) % Plt Count 354 (130-400) K/uL MPV 9.8 (7.4-10.4) fL Immature Gran % (Auto) 0.1 % Neut % (Auto) 72.0 % Lymph % (Auto) 15.1 % Atkinson % (Auto) 9.6 % Eos % (Auto) 2.9 % Baso % (Auto) 0.3 % Immature Gran # (Auto) 0.01 (0.00-0.02) K/uL Neut # (Auto) 5.24 (1.4-6.5) K/uL Lymph # (Auto) 1.10 L (1.2-3.4) K/uL Atkinson # (Auto) 0.70 H (0.11-0.59) K/uL Eos # (Auto) 0.21 (0-0.5) K/uL Baso # (Auto) 0.02 (0-0.2) K/uL PT 11.8 (9.0-12.0) Seconds INR 1.2 H (0.9-1.1) Sodium 127 L (136-145) mmol/L Potassium 4.0 (3.5-5.1) mmol/L Chloride 94 L (98-107) mmol/L Carbon Dioxide 26 (21-32) mmol/L Anion Gap 7.0 (3-11) BUN 8 (7-18) mg/dl Creatinine 0.72 (0.6-1.2) mg/dl Est Cr Clr Drug Dosing Not Reportable Est GFR ( Amer) 90.4 Est GFR (Non-Af Amer) 78.0 BUN/Creatinine Ratio 11.4 (10-20) Glucose 85 (70-99) mg/dl Calcium 10.1 (8.5-10.1) mg/dl Magnesium 2.0 (1.8-2.4) mg/dl Total Bilirubin 1.2 H (0.2-1) mg/dl AST 13 L (15-37) U/L ALT 13 (12-78) U/L Alkaline Phosphatase 98 (45-117) U/L Troponin I < 0.015 (0-0.045) ng/ml Total Protein 7.4 (6.4-8.2) gm/dl Albumin 3.8 (3.4-5.0) gm/dl Globulin 3.6 (2.5-4.0) gm/dl Albumin/Globulin Ratio 1.0 (0.9-2) TSH 1.910 (0.300-4.500) uIu/ml Urine Color Urine Appearance (Clear) Urine pH (4.5-7.5) Ur Specific [place] (1.000-1.030) Urine Protein (Negative) Urine Glucose (UA) (Negative) Urine Ketones (Negative) Urine Blood (Negative) Urine Nitrite (Negative) Urine Bilirubin (Negative) Urine Urobilinogen (Negative) Ur Leukocyte Esterase (Negative) Urine WBC (Auto) (0-5) /hpf Urine RBC (Auto) (0-4) /hpf U Hyaline Cast (Auto) (0-5) /lpf U Epithel Cells (Auto) (0-5) /lpf Urine Bacteria (Auto) (Negative) Ur Renal Epithelial Cell (0-5) /lpf 10/23/19 Range/Units 17:18 WBC (4.8-10.8) K/uL RBC (4.2-5.4) M/uL Hgb (12.0-16.0) g/dL Hct (37-47) % MCV (80-100) fL MCH (25-34) pg MCHC (32-36) g/dL RDW Std Deviation (36.4-46.3) fL RDW Coeff of Nancy (11.5-14.5) % Plt Count (130-400) K/uL MPV (7.4-10.4) fL Immature Gran % (Auto) % Neut % (Auto) % Lymph % (Auto) % Atkinson % (Auto) % Eos % (Auto) % Baso % (Auto) % Immature Gran # (Auto) (0.00-0.02) K/uL Neut # (Auto) (1.4-6.5) K/uL Lymph # (Auto) (1.2-3.4) K/uL Atkinson # (Auto) (0.11-0.59) K/uL Eos # (Auto) (0-0.5) K/uL Baso # (Auto) (0-0.2) K/uL PT (9.0-12.0) Seconds INR (0.9-1.1) Sodium (136-145) mmol/L Potassium (3.5-5.1) mmol/L Chloride (98-107) mmol/L Carbon Dioxide (21-32) mmol/L Anion Gap (3-11) BUN (7-18) mg/dl Creatinine (0.6-1.2) mg/dl Est Cr Clr Drug Dosing Est GFR ( Amer) Est GFR (Non-Af Amer) BUN/Creatinine Ratio (10-20) Glucose (70-99) mg/dl Calcium (8.5-10.1) mg/dl Magnesium (1.8-2.4) mg/dl Total Bilirubin (0.2-1) mg/dl AST (15-37) U/L ALT (12-78) U/L Alkaline Phosphatase (45-117) U/L Troponin I (0-0.045) ng/ml Total Protein (6.4-8.2) gm/dl Albumin (3.4-5.0) gm/dl Globulin (2.5-4.0) gm/dl Albumin/Globulin Ratio (0.9-2) TSH (0.300-4.500) uIu/ml Urine Color Yellow Urine Appearance Cloudy A (Clear) Urine pH 7.5 (4.5-7.5) Ur Specific [place] 1.005 (1.000-1.030) Urine Protein Negative (Negative) Urine Glucose (UA) Negative (Negative) Urine Ketones Negative (Negative) Urine Blood Negative (Negative) Urine Nitrite Positive A (Negative) Urine Bilirubin Negative (Negative) Urine Urobilinogen Negative (Negative) Ur Leukocyte Esterase 2+ H (Negative) Urine WBC (Auto) 10-30 H (0-5) /hpf Urine RBC (Auto) 0-4 (0-4) /hpf U Hyaline Cast (Auto) 1-5 (0-5) /lpf U Epithel Cells (Auto) >30 H (0-5) /lpf Urine Bacteria (Auto) 2+ H (Negative) Ur Renal Epithelial Cell 0-5 (0-5) /lpf Imaging Data Radiologist's Impression: Radiology results as stated below per my review and the radiologist's interpretation: SINGLE VIEW CHEST CLINICAL HISTORY: Generalized weakness. FINDINGS: An AP, portable, upright chest radiograph is compared to study dated 08/13/2019. The examination is degraded by portable technique, apical lordotic positioning, and patient rotation. The heart is enlarged noting atherosclerotic calcification of the thoracic aorta. The pulmonary vasculature is noncongested. Chronic interstitial thickening is similar to previous. There is mild scarring/atelectasis at the left lung base. No airspace consolidation or large pleural effusion is identified. The skeletal structures are osteopenic. There is chronic deformity of the left clavicle with widening of the AC joint. 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 Fusion hardware is noted at the thoracol umbar junction. IMPRESSION: Cardiomegaly with no acute cardiopulmonary abnormality. Electronically signed by: Ole Waters M.D. 10/23/2019 5:[address] SCAN OF THE BRAIN WITHOUT IV CONTRAST CLINICAL HISTORY: Change in mental status. COMPARISON STUDY: CT of the brain dated 03/01/2017. TECHNIQUE: Unenhanced axial CT scan of the brain is performed from the vertex to the skull base. A dose lowering technique was utilized adhering to the principles of ALARA. CT DOSE: 1311.06 mGy.cm FINDINGS: Brain parenchyma: There are age-related involutional changes noting moderate to advanced subcortical and periventricular microangiopathic change. There is no hemorrhage, mass effect, or evidence of acute territorial ischemia by CT criteria. Miller-white matter differentiation is preserved. No extra-axial fluid collection is seen. Mineralization is noted in the basal ganglia. Foci of intravenous gas are noted within the cavernous sinuses and the temporal soft tissues, right greater than left. Ventricles, sulci, cisterns: Prominent secondary to involutional change. Intracranial vasculature: There is atherosclerotic calcification of the cavernous carotid and vertebral arteries. Calvarium: Unremarkable. Sinuses and mastoids: The visualized paranasal sinuses are clear. The mastoid air cells are well pneumatized. Orbits: The bony orbits are grossly intact. There are bilateral ocular lens implants. IMPRESSION: There is no hemorrhage, mass effect, or evidence of acute territorial ischemia by CT criteria. Electronically signed by: Ole Waters M.D. 10/23/2019 7:05 PM ECG Data Attestation: I personally reviewed and interpreted this ECG as follows: Indication: + altered mental status Rate (beats per minute): 86 Rhythm: + atrial fibrillation ECG Intervals/blocks: + Normal QT-c ECG [place]ona: + Left axis deviation ECG Findings: + Other (poor baseline, low voltage); no PVCs Blood Pressure Blood Pressure Findings: Elevated blood pressure Blood Pressure Disposition: Referred to patients primary care provider GIBSON Narrative Patient is an 84-year-old female brought in by family who was evaluated by PCP and sent over. Patient has been confused since Sunday not aware of the dates here and not remembering how to make things. She has been having urinary symptoms for the past 10 days. IV was established blood work was obtained. Labs show no significant leukocytosis or anemia. INR at 1.2. BMP with mild hyponatremia at 127. LFTs bilirubin and TSH was unremarkable. Troponin was negative. UA with nitrates white cells leukocytes and bacteria although there were epithelial cells I do favor that this is consistent with UTI. Patient was given IV Rocephin. IV fluids. Updated bedside. CT head was negative. Patient has had some slurred speech yesterday in combination with confusion. Again I do favor this secondary to the UTI. Patient was admitted to the hospital for fur ther work-up. Impression & Plan Altered mental status, UTI (urinary tract infection), Hyponatremia Discharge Plan Visit Data Chief Complaint: Urinary Symptoms Stated Complaint: DELIRIOUS FROM UTI,POSSIBLE BLOOD INFECTION Other Complaint: Confusion ED Provider: Young Carbone Discharge Problem: Altered mental status, UTI (urinary tract infection), Hyponatremia Patient Disposition: Being Evaluated by Hospitalist Forms Stand Alone Forms: My [facility] [employer] Prescriptions Prescriptions: No Action metoprolol succinate 100 mg tablet extended release 24 hr 150 mg PO QAM RF: 0 alendronate 70 mg tablet 70 mg PO WK Qty: 12 RF: 1 levothyroxine 50 mcg tablet 50 mcg PO QAM RF: 0 nitroglycerin [Nitrostat] 0.4 mg tablet, sublingual 0.4 mg SL UD PRN (Reason: Chest Pain) RF: 0 cholecalciferol (vitamin D3) 1,000 unit capsule 1,000 units PO DAILY RF: 0 polyethylene glycol 3350 [Miralax] 17 gram/dose powder 17 gm PO DAILY PRN (Reason: Constipation) RF: 0 warfarin 2.5 mg tablet 2.5 mg PO 2XWK RF: 0 acetaminophen [Tylenol Extra Strength] 500 mg tablet 1,000 mg PO Q4H PRN (Reason: Pain) RF: 0 aspirin [Aspir-Low] 81 mg tablet,delayed release (DR/EC) 81 mg PO DAILY RF: 0 atorvastatin 40 mg tablet 40 mg PO HS RF: 0 pantoprazole 40 mg tablet,delayed release (DR/EC) 40 mg PO DAILYBB RF: 0 warfarin 1 mg tablet 1 mg PO 5XWK RF: 0 Referrals Referrals: Dianne Adams DO [Primary Care Provider] - Discharge Problem: Altered mental status Qualifiers: Altered mental status type: unspecified Qualified Code(s): R41.82 - Altered mental status, unspecified UTI (urinary tract infection) Qualifiers: Urinary tract infection type: site unspecified Hematuria presence: with hematuria Qualified Code(s): N39.0 - Urinary tract infection, site not specified The scribe's documentation has been prepared under my direction and personally reviewed by me in its entirety. I confirm that the note above accurately reflects all work, treatment, procedures, and medical decision making performed by me.
--- NOTE | 2019-10-23 20:50 | History & Physical Report ---
Date of Service October 23, 2019 Assessment & Plan (1) UTI (urinary tract infection): Admit to tele IV Rocephin await culture results IVF NSS 100ml/hr DVT prophylaxis covered by heparin/warfarin and SCDs (2) Altered mental status: Likely due to UTI However given episode of slurred speech and sub-therapeutic on warfarin, I will check MRI brain to r/o embolic event. (3) Hyponatremia: Monitor giving NSS (4) Afib: Add heparin gtt until warfarin in therapeutic Continue metoprolol for rate control (5) GERD (gastroesophageal reflux disease): Continue pantoprazole (6) HTN (hypertension): Covered by metoprolol (7) Hypothyroid: continue levothyroxine (8) Анна infection of flexural skin: Add Nystatin powder. History of Present Illness 84 y/o female presented to the ED from PCP office with complaint of confusion over 5 days and burning with urination. U/A in PCP office was consistent with UTI. The patient is normally oriented x3 but now does not know date or time. She declines having F/C, cough, SOB, chest pain, headache, or unilateral weakness. The patients family reported episode of slurred speech yesterday. She takes warfarin for A.fib and is sub-therapeutic. She was given dose of Rocephin in the ED. She has multiple antibiotic allergies. Primary Care Provider: Dianne Adams, Allergies Allergy/AdvReac Type Severity Reaction Status Date / Time adhesive Allergy Unknown RASH Verified 10/23/19 17:58 Cipro Allergy Unknown Per cardio Unverified 08/28/16 13:36 note ciprofloxacin Allergy Unknown RASH Verified 10/23/19 17:58 doxycycline Allergy Unknown RASH Verified 10/23/19 17:58 latex Allergy Unknown RASH Verified 10/23/19 17:58 Penicillins Allergy Unknown RASH Verified 10/23/19 17:58 Bactrim TABS Allergy Unknown RASH Uncoded 10/23/19 17:58 Home Medications Home Medications Medication Instructions Recorded Confirmed Type acetaminophen 500 mg tablet 1,000 mg PO Q4H PRN tab 07/13/19 10/23/19 History aspirin 81 mg tablet,delayed 81 mg PO DAILY 07/13/19 10/23/19 History release atorvastatin 40 mg tablet 40 mg PO HS 07/13/19 10/23/19 History metoprolol succinate 100 mg 150 mg PO QAM tab 07/13/19 10/23/19 History tablet,extended release 24 hr cholecalciferol (vitamin D3) 25 1,000 units PO DAILY 07/16/19 10/23/19 History mcg (1,000 unit) capsule nitroglycerin 0.4 mg sublingual 0.4 mg SL UD PRN 07/16/19 10/23/19 History tablet polyethylene glycol 3350 17 17 gm PO DAILY PRN 07/28/19 10/23/19 History gram/dose oral powder levothyroxine 50 mcg tablet 50 mcg PO QAM 07/31/19 10/23/19 History warfarin 2.5 mg PO 2XWK 08/06/19 10/23/19 History alendronate 70 mg tablet 70 mg PO WK #12 tab 10/01/19 10/23/19 Rx pantoprazole 40 mg PO DAILYBB 10/23/19 10/23/19 History warfarin 1 mg PO 5XWK 10/23/19 10/23/19 History Past Med/Surg History Medical History Atrial fibrillation on warfarin Chronic back pain DJD (degenerative joint disease) GERD (gastroesophageal reflux disease) controlled Hyperlipidemia Hypertension Hypothyroidism Osteoarthritis Osteoporosis Peripheral neuropathy Sleep apnea CPAP Urinary urgency chronic Varicose veins of both lower extremities Surgical History History of adenoidectomy History of appendectomy History of bilateral tubal ligation History of cataract surgery RT/LEFT History of cholecystectomy History of colonoscopy History of lumbar fusion x3 TOTAL History of repair of rotator cuff RT/LEFT History of tonsillectomy History of total abdominal hysterectomy and bilateral salpingo-oophorectomy Family History Mother Family hx of colon cancer Breast cancer Sister Breast cancer Myocardial infarction Father Myocardial infarction Social History Preferred Language: [place] Communication Ability: Effective Visual Impairment: Limited Hearing Ability: Normal Application Manager Required: No Beliefs That Will Affect Care: None marital status: Current Living Situation: Spouse current occupational status: employed and retired Feels Safe at Home: Yes Smoking Status: Never smoker Second Hand Exposure: Yes ; Hx Alcohol Use: Yes (a glass 1-2 nights a week if there is company) Alcohol type: wine Hx Substance Use: No Childhood Exposure to Second-Hand Smoke: No caffeine: Yes (Coffee 1 cup per day.) during the past year weight has: remained stable Dental Care, Regularly: Yes Physical Activity Frequency: Daily Seatbelt Use: always Sunscreen Use: Yes Review of Systems Review of Systems: Constitutional- no fever; no weight loss Eyes- no acute visual changes ENT- no sinus drainage; no pharyngitis Pulmonary- no cough, no wheezing, no shortness of breath Cardiac- no chest pain, no palpitations, no orthopnea, no dependent edema GI- no nausea, no vomiting, no melena, no hematochezia. + intermittent constipation - As in HPI, no hematuria Musculoskeletal- + chronic arthralgias Derm- + groin rash. Hematologic- no unusual bruising, no unusual bleeding Lymphatics- no adenopathy Endocrine- no polyuria or polydipsia; no heat or cold intolerance Neuro- no headaches, no focal neurologic symptoms Psych- no anxiety, no depression Physical Exam Physical Exam: General- adult female, NAD Head- atraumatic Eyes- PERRL, EOMI, anicteric ENT- oropharynx clear Neck- supple, no JVD, no adenopathy, no thyromegaly. Lungs- CTA b/l No R/R/W. Heart- Irreg rhythm; no murmur, no gallop, no rub appreciated Abdomen- normal bowel sounds, soft, nontender. Extremities- +1 b/l pitting edema. no calf tenderness; peripheral pulses intact Neuro- alert, oriented to person and place only; No facial droop. 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 Skin- warm & dry, + red rash in groin. Results & Data Vital Signs (Past 12 Hours) Vital Signs Temp Pulse Pulse Resp BP BP Pulse Ox 10/23/19 20:18 108 H 20 148/54 H 92 10/23/19 19:30 88 20 157/80 H 94 10/23/19 18:30 85 19 90 10/23/19 18:20 96 H 25 H 94 10/23/19 18:10 94 H 22 93 10/23/19 18:01 93 H 20 94 10/23/19 18:00 97 H 24 134/80 93 10/23/19 17:55 106 H 20 120/85 93 10/23/19 17:50 85 19 10/23/19 17:45 93 10/23/19 17:40 79 23 10/23/19 17:30 96 H 25 H 10/23/19 17:20 110 H 18 10/23/19 17:10 104 H 22 91 10/23/19 17:09 102 H 18 95 10/23/19 15:28 36.8 C 104 H 18 144/88 H 95 Laboratory Results Laboratory Results WBC 7.28 K/uL (4.8-10.8) 10/23/19 17:00 RBC 4.12 M/uL (4.2-5.4) L 10/23/19 17:00 Hgb 12.8 g/dL (12.0-16.0) 10/23/19 17:00 Hct 37.4 % (37-47) 10/23/19 17:00 MCV 90.8 fL (80-100) 10/23/19 17:00 MCH 31.1 pg (25-34) 10/23/19 17:00 MCHC 34.2 g/dL (32-36) 10/23/19 17:00 RDW Std Deviation 45.6 fL (36.4-46.3) 10/23/19 17:00 RDW Coeff of Nanyc 13.8 % (11.5-14.5) 10/23/19 17:00 Plt Count 354 K/uL (130-400) 10/23/19 17:00 MPV 9.8 fL (7.4-10.4) 10/23/19 17:00 Immature Gran % (Auto) 0.1 % 10/23/19 17:00 Neut % (Auto) 72.0 % 10/23/19 17:00 Lymph % (Auto) 15.1 % 10/23/19 17:00 [place] % (Auto) 9.6 % 10/23/19 17:00 Eos % (Auto) 2.9 % 10/23/19 17:00 Baso % (Auto) 0.3 % 10/23/19 17:00 Immature Gran # (Auto) 0.01 K/uL (0.00-0.02) 10/23/19 17:00 Neut # (Auto) 5.24 K/uL (1.4-6.5) 10/23/19 17:00 Lymph # (Auto) 1.10 K/uL (1.2-3.4) L 10/23/19 17:00 [place] # (Auto) 0.70 K/uL (0.11-0.59) H 10/23/19 17:00 Eos # (Auto) 0.21 K/uL (0-0.5) 10/23/19 17:00 Baso # (Auto) 0.02 K/uL (0-0.2) 10/23/19 17:00 PT 11.8 Seconds (9.0-12.0) 10/23/19 17:00 INR 1.2 (0.9-1.1) H 10/23/19 17:00 Sodium 127 mmol/L (136-145) L 10/23/19 17:00 Potassium 4.0 mmol/L (3.5-5.1) 10/23/19 17:00 Chloride 94 mmol/L (98-107) L 10/23/19 17:00 Carbon Dioxide 26 mmol/L (21-32) 10/23/19 17:00 Anion Gap 7.0 (3-11) 10/23/19 17:00 BUN 8 mg/dl (7-18) 10/23/19 17:00 Creatinine 0.72 mg/dl (0.6-1.2) 10/23/19 17:00 Est Cr Clr Drug Dosing Not Reportable 10/23/19 17:00 Est GFR ( Amer) 90.4 10/23/19 17:00 Est GFR (Non-Af Amer) 78.0 10/23/19 17:00 BUN/Creatinine Ratio 11.4 (10-20) 10/23/19 17:00 Glucose 85 mg/dl (70-99) 10/23/19 17:00 Calcium 10.1 mg/dl (8.5-10.1) 10/23/19 17:00 Magnesium 2.0 mg/dl (1.8-2.4) 10/23/19 17:00 Total Bilirubin 1.2 mg/dl (0.2-1) H 10/23/19 17:00 AST 13 U/L (15-37) L 10/23/19 17:00 ALT 13 U/L (12-78) 10/23/19 17:00 Alkaline Phosphatase 98 U/L (45-117) 10/23/19 17:00 Troponin I < 0.015 ng/ml (0-0.045) 10/23/19 17:00 Total Protein 7.4 gm/dl (6.4-8.2) 10/23/19 17:00 Albumin 3.8 gm/dl (3.4-5.0) 10/23/19 17:00 Globulin 3.6 gm/dl (2.5-4.0) 10/23/19 17:00 Albumin/Globulin Ratio 1.0 (0.9-2) 10/23/19 17:00 TSH 1.910 uIu/ml (0.300-4.500) 10/23/19 17:00 Urine Color Yellow 10/23/19 17:18 Urine Appearance Cloudy (Clear) A 10/23/19 17:18 Urine pH 7.5 (4.5-7.5) 10/23/19 17:18 Ur Specific [place] 1.005 (1.000-1.030) 10/23/19 17:18 Urine Protein Negative (Negative) 10/23/19 17:18 Urine Glucose (UA) Negative (Negative) 10/23/19 17:18 Urine Ketones Negative (Negative) 10/23/19 17:18 Urine Blood Negative (Negative) 10/23/19 17:18 Urine Nitrite Positive (Negative) A 10/23/19 17:18 Urine Bilirubin Negative (Negative) 10/23/19 17:18 Urine Urobilinogen Negative (Negative) 10/23/19 17:18 Ur Leukocyte Esterase 2+ (Negative) H 10/23/19 17:18 Urine WBC (Auto) 10-30 /hpf (0-5) H 10/23/19 17:18 Urine RBC (Auto) 0-4 /hpf (0-4) 10/23/19 17:18 U Hyaline Cast (Auto) 1-5 /lpf (0-5) 10/23/19 17:18 U Epithel Cells (Auto) >30 /lpf (0-5) H 10/23/19 17:18 Urine Bacteria (Auto) 2+ (Negative) H 10/23/19 17:18 Ur Renal Epithelial Cell 0-5 /lpf (0-5) 10/23/19 17:18 Diagnostic Findings [facility], [place] [phone] CT Scan Report Patient: KAMILA LUONG Date: 10/23/19 MR#: [id number] Acct ID:[id number]: Date: 1935City Zip: [place] [address] Age: 84Location: ED Sex: F Room/Bed: Att Phy:Diagnosis: DELIRIOUS FROM UTI,POSSIBLE BLOOD INFECTION Kira Phy: Dianne Adams, DOService Date: 10/23/19 Fam Phy:Interpreting Phy: Ole Waters MD Admit Phy: Ordering Phy: Young Carbone, DO cc: ~ CT SCAN OF THE BRAIN WITHOUT IV CONTRAST CLINICAL HISTORY: Change in mental status. COMPARISON STUDY: CT of the brain dated 03/01/2017. TECHNIQUE: Unenhanced axial CT scan of the brain is performed from the vertex to the skull base. A dose lowering technique was utilized adhering to the principles of ALARA. CT DOSE: 1311.06 mGy.cm FINDINGS: Brain parenchyma: There are age-related involutional changes noting moderate to advanced subcortical and periventricular microangiopathic change. There is no hemorrhage, mass effect, or evidence of acute territorial ischemia by CT criteria. Miller-white matter differentiation is preserved. No extra-axial fluid collection is seen. Mineralization is noted in the basal ganglia. Foci of intravenous gas are noted within the cavernous sinuses and the temporal soft tissues, right greater than left. Ventricles, sulci, cisterns: Prominent secondary to involutional change. Intracranial vasculature: There is atherosclerotic calcification of the cavernous carotid and vertebral arteries. Calvarium: Unremarkable. Sinuses and mastoids: The visualized paranasal sinuses are clear. The mastoid air cells are well pneumatized. Orbits: The bony orbits are grossly intact. There are bilateral ocular lens implants. IMPRESSION: There is no hemorrhage, mass effect, or evidence of acute territorial ischemia by CT criteria. Electronically signed by: Ole Waters M.D. 10/23/2019 7:05 PM Dictated: 10/23/191901 Transcribed: 10/23/191901 Code Status & VTE Plan VTE Prophylaxis Plan VTE Prophylaxis will be ordered: Yes PG Care Time/CCT Total # of Minutes Spent Total Time Spent: 55 Total Time Spent with Patient: Total time spent is greater than 50% in coordination of care (as documented) at patient's floor/unit and/or counseling patient: (1) UTI (urinary tract infection) Hematuria presence: with hematuria Urinary tract infection type: site unspecified Qualified Code(s): N39.0 - Urinary tract infection, site not specified; R31.9 - Hematuria, unspecified (2) Altered mental status Altered mental status type: unspecified Qualified Code(s): R41.82 - Altered mental status, unspecified
[2019-10-23] MEDS ORDERED: ACETAMINOPHEN 325 MG TAB PO PRN (21:24)
[2019-10-23] MEDS ORDERED: ONDANSETRON INJ 2 MG/ML 2 ML VIAL IV PRN (21:24)
[2019-10-23] MEDS ORDERED: NITROGLYCERIN SL 0.4 MG/TAB TAB SL PRN (21:24)
[2019-10-23] MEDS ORDERED: WARFARIN SOD 1 MG TAB PO SCH (21:24)
[2019-10-23] MEDS ORDERED: Heparin IV Standard *NO* Bolus IV SCH (21:30)
[2019-10-23] MEDS ORDERED: PATIENT'S HEIGHT AND/OR WEIGHT NEEDED STA (21:46)
[2019-10-23] MEDS: HEPARIN SODIUM/DEXTROSE 25,000 UNITS/500 ML BAG IV SCH (22:05)
[2019-10-23] MEDS: NYSTATIN CR 15 GM TUBE EXT SCH (22:15)
[2019-10-23] MEDS: ATORVASTATIN 40 MG TAB PO SCH (22:15)
[2019-10-23] MEDS: SODIUM CHLORIDE 0.9% 1000ML 1,000 ML IV SCH (22:16)
[2019-10-23 23:15] LABS: Partial Thromboplastin Ratio 1.1; Partial Thromboplastin Time 28.5 Seconds (21.0-31.0)
[2019-10-24] MEDS ORDERED: INFLUENZA Vaccine HIGH DOSE 65+yrs 0.5 mL Syr IM ONE (00:45)
[2019-10-24] MEDS: LEVOTHYROXINE SODIUM 50 MCG TABLET PO SCH (05:33)
[2019-10-24] MEDS: PANTOprazole 40 MG TAB PO SCH (05:33)
[2019-10-24 06:11] LABS: Hematocrit (blood only) 33.3 % (37-47); Hemoglobin 11.2 g/dL (12.0-16.0); Mean Corpuscular Hemoglobin 30.8 pg (25-34); Mean Corpuscular Hgb Conc 33.6 g/dL (32-36); Mean Corpuscular Volume 91.5 fL (80-100); Mean Platelet Volume 9.2 fL (7.4-10.4); Platelet Count 316 K/uL (130-400); RDW Coefficient of Variation 13.7 % (11.5-14.5); RDW Standard Deviation 45.8 fL (36.4-46.3); Red Blood Count 3.64 M/uL (4.2-5.4); White Blood Count 5.79 K/uL (4.8-10.8)
[2019-10-24 06:32] LABS: INR 1.2 (0.9-1.1); Partial Thromboplastin Ratio 1.8; Prothrombin Time 12.1 Seconds (9.0-12.0)
[2019-10-24 06:42] LABS: BUN Creatinine Ratio 14.2 (10-20); Creatinine Clr Calc Pharmacy 71.5 ml/min; Est GFR (African American) 94.4; Est GFR (Non-African American) 81.5; Potassium 3.9 mmol/L (3.5-5.1)
[2019-10-24] MEDS: ASPIRIN 81 MG ECTAB PO SCH (08:17)
[2019-10-24] MEDS: CHOLECALCIFEROL 1,000 UNITS TAB PO SCH (08:17)
[2019-10-24] MEDS: METOPROLOL SUCC 50MG EXT REL TAB PO SCH (08:17)
[2019-10-24] MEDS: NYSTATIN CR 15 GM TUBE EXT SCH ×2 (08:18→21:24)
[2019-10-24] MEDS: SODIUM CHLORIDE 0.9% 1000ML 1,000 ML IV SCH ×2 (08:20→18:56)
--- NOTE | 2019-10-24 11:28 | Hospitalist Progress Note ---
Date of Service October 24, 2019 Assessment & Plan (1) UTI (urinary tract infection): Symptoms are now resolved, patient remains somewhat confused with metabolic encephalopathy Urinalysis abnormal, urine cultures pending-we will follow -Continue IV Rocephin -Continue IVF NSS 100ml/hr (2) Altered mental status: Acute metabolic encephalopathy likely due to UTI She did have a mild episode of slurred speech and sub-therapeutic on warfarin, however now completely resolved and daughter requests that we not put her through an MRI and patient okay with this given recent back surgery and back pain with lying flat and low suspicion for TIA or stroke -Encephalopathy continues -Continue treatment for infection as above (3) Hyponatremia: Sodium improved from 127 133 with normal saline, secondary to dehydration and infection -Follow BMP Continue giving NSS (4) Afib: Chronic -Continue heparin gtt until warfarin in therapeutic range or could switch to Lovenox -Continue metoprolol for rate control Daughter reports warfarin dose was changed several weeks ago to decrease dose of 1 mg on 5 days of the week and 2.5 mg on 2 days of the week down from 2.5 mg [place] ly after having an INR 3.8 She is now significantly subtherapeutic at 1.2 -Increase Coumadin back to 2.5 mg daily and watch closely in the setting of antibiotic use (5) GERD (gastroesophageal reflux disease): Continue pantoprazole (6) HTN (hypertension): Stable -Continue metoprolol (7) Hypothyroid: TSH 1.9 -Continue levothyroxine (8) Анна infection of flexural skin: -Continue Nystatin powder. (9) Nonsustained ventricular tachycardia: Had one 8 beat run of nonsustained V. tach, asymptomatic Recent dobutamine stress echocardiogram shows preserved EF, no evidence of isch emia -Continue to monitor Could be aberrancy (10) ANAND (obstructive sleep apnea): Recorded in history, but no CPAP ordered here-we will see if wears CPAP at home (11) DVT prophylaxis: DVT prophylaxis covered by heparin/warfarin and SCDs Disposition-remain on PCU Subjective Pt still confused and thinks she is going home today and her is coming to pick her up. Denies any further dysuria, no abd pain, no back pain, no F/C/S. Tj chest pain or SOB, no headache or lightheadedness, feels strong. Discussed her condition with her daughter. Daughter reports she does not want her to go through an MRI as she recently had back surgery and states that her speech gets a little slurred like it did every time she has a UTI. Review of Systems Review of Systems: All systems reviewed & are unremarkable except as noted in HPI & below Physical Exam Constitutional: WD/WN, vitals as above + obese Eyes: + anicteric sclerae Neck: trachea midline, no thyromegaly Respiratory: normal respiratory effort, lungs clear to auscultation Cardiovascular: Rate/Rhythm: regular rate and + irregularly irregular Heart Sounds: no murmur Extremities: no edema Chest (Breasts): Chest: normal inspection of chest Gastrointestinal (Abdomen): normal bowel sounds, soft, nontender, no hepatosplenomegaly Musculoskeletal: Extremities: extremities normal to inspection; no cyanosis and no clubbing Skin: no rashes, warm and dry Neurologic: moves all extremities and awake; no focal motor deficits (no facial droop) Speech / Cognition: normal speech, no expressive aphasia and no receptive aphasia Motor/Sensory: no tremor Psychiatric: Orientation: alert, oriented to person, oriented to place and cooperative; + not oriented to time (does not know year, month or date) Results & Data Vital Signs (Past 12 Hours) Vital Signs Temp Pulse Resp BP Pulse Ox 10/24/19 11:22 36.7 C 85 19 112/71 96 10/24/19 07:08 37.0 C 98 H 19 117/69 93 10/24/19 03:58 37.4 C 78 20 121/77 92 10/24/19 00:34 36.7 C 93 H 18 135/79 96 Laboratory Results 10/24/19 10/24/19 10/24/19 Range/Units 05:58 05:58 05:58 WBC 5.79 (4.8-10.8) K/uL RBC 3.64 L (4.2-5.4) M/uL Hgb 11.2 L (12.0-16.0) g/dL Hct 33.3 L (37-47) % MCV 91.5 (80-100) fL MCH 30.8 (25-34) pg MCHC 33.6 (32-36) g/dL RDW Std Deviation 45.8 (36.4-46.3) fL RDW Coeff of Nancy 13.7 (11.5-14.5) % Plt Count 316 (130-400) K/uL MPV 9.2 (7.4-10.4) fL Immature Gran % (Auto) % Neut % (Auto) % Lymph % (Auto) % [place] % (Auto) % Eos % (Auto) % Baso % (Auto) % Immature Gran # (Auto) (0.00-0.02) K/uL Neut # (Auto) (1.4-6.5) K/uL Lymph # (Auto) (1.2-3.4) K/uL [place] # (Auto) (0.11-0.59) K/uL Eos # (Auto) (0-0.5) K/uL Baso # (Auto) (0-0.2) K/uL PT 12.1 H (9.0-12.0) Seconds INR 1.2 H (0.9-1.1) APTT 50.0 H* (21.0-31.0) Seconds PTT Ratio 1.8 Sodium 133 L (136-145) mmol/L Potassium 3.9 (3.5-5.1) mmol/L Chloride 102 (98-107) mmol/L Carbon Dioxide 26 (21-32) mmol/L Anion Gap 5.0 (3-11) BUN 10 (7-18) mg/dl Creatinine 0.68 (0.6-1.2) mg/dl Est Cr Clr Drug Dosing 71.5 Est GFR ( Amer) 94.4 Est GFR (Non-Af Amer) 81.5 BUN/Creatinine Ratio 14.2 (10-20) Glucose 111 H (70-99) mg/dl Calcium 9.0 (8.5-10.1) mg/dl Magnesium (1.8-2.4) mg/dl Total Bilirubin (0.2-1) mg/dl AST (15-37) U/L ALT (12-78) U/L Alkaline Phosphatase (45-117) U/L Troponin I (0-0.045) ng/ml Total Protein (6.4-8.2) gm/dl Albumin (3.4-5.0) gm/dl Globulin (2.5-4.0) gm/dl Albumin/Globulin Ratio (0.9-2) TSH (0.300-4.500) uIu/ml Urine Color Urine Appearance (Clear) Urine pH (4.5-7.5) Ur Specific [place] (1.000-1.030) Urine Protein (Negative) Urine Glucose (UA) (Negative) Urine Ketones (Negative) Urine Blood (Negative) Urine Nitrite (Negative) Urine Bilirubin (Negative) Urine Urobilinogen (Negative) Ur Leukocyte Esterase (Negative) Urine WBC (Auto) (0-5) /hpf Urine RBC (Auto) (0-4) /hpf U Hyaline Cast (Auto) (0-5) /lpf U Epithel Cells (Auto) (0-5) /lpf Urine Bacteria (Auto) (Negative) Ur Renal Epithelial Cell (0-5) /lpf 10/23/19 10/23/19 10/23/19 Range/Units 17:18 17:00 17:00 WBC (4.8-10.8) K/uL RBC (4.2-5.4) M/uL Hgb (12.0-16.0) g/dL Hct (37-47) % MCV (80-100) fL MCH (25-34) pg MCHC (32-36) g/dL RDW Std Deviation (36.4-46.3) fL RDW Coeff of Nancy (11.5-14.5) % Plt Count (130-400) K/uL MPV (7.4-10.4) fL Immature Gran % (Auto) % Neut % (Auto) % Lymph % (Auto) % [place] % (Auto) % Eos % (Auto) % Baso % (Auto) % Immature Gran # (Auto) (0.00-0.02) K/uL Neut # (Auto) (1.4-6.5) K/uL Lymph # (Auto) (1.2-3.4) K/uL [place] # (Auto) (0.11-0.59) K/uL Eos # (Auto) (0-0.5) K/uL Baso # (Auto) (0-0.2) K/uL PT 11.8 (9.0-12.0) Seconds INR 1.2 H (0.9-1.1) APTT 28.5 (21.0-31.0) Seconds PTT Ratio 1.1 Sodium 127 L (136-145) mmol/L Potassium 4.0 (3.5-5.1) mmol/L Chloride 94 L (98-107) mmol/L Carbon Dioxide 26 (21-32) mmol/L Anion Gap 7.0 (3-11) BUN 8 (7-18) mg/dl Creatinine 0.72 (0.6-1.2) mg/dl Est Cr Clr Drug Dosing Not Reportable Est GFR ( Amer) 90.4 Est GFR (Non-Af Amer) 78.0 BUN/Creatinine Ratio 11.4 (10-20) Glucose 85 (70-99) mg/dl Calcium 10.1 (8.5-10.1) mg/dl Magnesium 2.0 (1.8-2.4) mg/dl Total Bilirubin 1.2 H (0.2-1) mg/dl AST 13 L (15-37) U/L ALT 13 (12-78) U/L Alkaline Phosphatase 98 (45-117) U/L Troponin I < 0.015 (0-0.045) ng/ml Total Protein 7.4 (6.4-8.2) gm/dl Albumin 3.8 (3.4-5.0) gm/dl Globulin 3.6 (2.5-4.0) gm/dl Albumin/Globulin Ratio 1.0 (0.9-2) TSH 1.910 (0.300-4.500) uIu/ml Urine Color Yellow Urine Appearance Cloudy A (Clear) Urine pH 7.5 (4.5-7.5) Ur Specific [place] 1.005 (1.000-1.030) Urine Protein Negative (Negative) Urine Glucose (UA) Negative (Negative) Urine Ketones Negative (Negative) Urine Blood Negative (Negative) Urine Nitrite Positive A (Negative) Urine Bilirubin Negative (Negative) Urine Urobilinogen Negative (Negative) Ur Leukocyte Esterase 2+ H (Negative) Urine WBC (Auto) 10-30 H (0-5) /hpf Urine RBC (Auto) 0-4 (0-4) /hpf U Hyaline Cast (Auto) 1-5 (0-5) /lpf U Epithel Cells (Auto) >30 H (0-5) /lpf Urine Bacteria (Auto) 2+ H (Negative) Ur Renal Epithelial Cell 0-5 (0-5) /lpf 10/23/19 Range/Units 17:00 WBC 7.28 (4.8-10.8) K/uL RBC 4.12 L (4.2-5.4) M/uL Hgb 12.8 (12.0-16.0) g/dL Hct 37.4 (37-47) % MCV 90.8 (80-100) fL MCH 31.1 (25-34) pg MCHC 34.2 (32-36) g/dL RDW Std Deviation 45.6 (36.4-46.3) fL RDW Coeff of Nancy 13.8 (11.5-14.5) % Plt Count 354 (130-400) K/uL MPV 9.8 (7.4-10.4) fL Immature Gran % (Auto) 0.1 % Neut % (Auto) 72.0 % Lymph % (Auto) 15.1 % [place] % (Auto) 9.6 % Eos % (Auto) 2.9 % Baso % (Auto) 0.3 % Immature Gran # (Auto) 0.01 (0.00-0.02) K/uL Neut # (Auto) 5.24 (1.4-6.5) K/uL Lymph # (Auto) 1.10 L (1.2-3.4) K/uL [place] # (Auto) 0.70 H (0.11-0.59) K/uL Eos # (Auto) 0.21 (0-0.5) K/uL Baso # (Auto) 0.02 (0-0.2) K/uL PT (9.0-12.0) Seconds INR (0.9-1.1) APTT (21.0-31.0) Seconds PTT Ratio Sodium (136-145) mmol/L Potassium (3.5-5.1) mmol/L Chloride (98-107) mmol/L Carbon Dioxide (21-32) mmol/L Anion Gap (3-11) BUN (7-18) mg/dl Creatinine (0.6-1.2) mg/dl Est Cr Clr Drug Dosing Est GFR ( Amer) Est GFR (Non-Af Amer) BUN/Creatinine Ratio (10-20) Glucose (70-99) mg/dl Calcium (8.5-10.1) mg/dl Magnesium (1.8-2.4) mg/dl Total Bilirubin (0.2-1) mg/dl AST (15-37) U/L ALT (12-78) U/L Alkaline Phosphatase (45-117) U/L Troponin I (0-0.045) ng/ml Total Protein (6.4-8.2) gm/dl Albumin (3.4-5.0) gm/dl Globulin (2.5-4.0) gm/dl Albumin/Globulin Ratio (0.9-2) TSH (0.300-4.500) uIu/ml Urine Color Urine Appearance (Clear) Urine pH (4.5-7.5) Ur Specific [place] (1.000-1.030) Urine Protein (Negative) Urine Glucose (UA) (Negative) Urine Ketones (Negative) Urine Blood (Negative) Urine Nitrite (Negative) Urine Bilirubin (Negative) Urine Urobilinogen (Negative) Ur Leukocyte Esterase (Negative) Urine WBC (Auto) (0-5) /hpf Urine RBC (Auto) (0-4) /hpf U Hyaline Cast (Auto) (0-5) /lpf U Epithel Cells (Auto) (0-5) /lpf Urine Bacteria (Auto) (Negative) Ur Renal Epithelial Cell (0-5) /lpf PG Care Time/CCT Total # of Minutes Spent Total Time Spent with Patient: Total time spent is greater than 50% in coordination of care (as documented) at patient's floor/unit and/or counseling patient: (1) UTI (urinary tract infection) Hematuria presence: with hematuria Urinary tract infection type: site unspecified Qualified Code(s): N39.0 - Urinary tract infection, site not specified; R31.9 - Hematuria, unspecified (2) Altered mental status Altered mental status type: unspecified Qualified Code(s): R41.82 - Altered mental status, unspecified
[2019-10-24] MEDS ORDERED: WARFARIN SOD 2.5 MG TAB PO SCH (16:00)
[2019-10-24] MEDS: WARFARIN SOD 2.5 MG TAB PO SCH (17:14)
[2019-10-24] MEDS: HEPARIN SODIUM/DEXTROSE 25,000 UNITS/500 ML BAG IV SCH (17:19)
[2019-10-24] MEDS: cefTRIAXone SODIUM 2,000 MG in DEXTROSE 5% 50 ML IV SCH (17:21)
[2019-10-24] MEDS: ATORVASTATIN 40 MG TAB PO SCH (21:24)
[2019-10-25] MEDS: SODIUM CHLORIDE 0.9% 1000ML 1,000 ML IV SCH (04:46)
[2019-10-25] MEDS: PANTOprazole 40 MG TAB PO SCH (05:36)
[2019-10-25] MEDS: LEVOTHYROXINE SODIUM 50 MCG TABLET PO SCH (05:36)
[2019-10-25 06:29] LABS: Hematocrit (blood only) 32.2 % (37-47); Hemoglobin 10.8 g/dL (12.0-16.0); Mean Corpuscular Hemoglobin 30.4 pg (25-34); Mean Corpuscular Hgb Conc 33.5 g/dL (32-36); Mean Corpuscular Volume 90.7 fL (80-100); Mean Platelet Volume 9.6 fL (7.4-10.4); Platelet Count 273 K/uL (130-400); RDW Coefficient of Variation 13.9 % (11.5-14.5); RDW Standard Deviation 46.2 fL (36.4-46.3); Red Blood Count 3.55 M/uL (4.2-5.4); White Blood Count 6.12 K/uL (4.8-10.8)
[2019-10-25 06:53] LABS: INR 1.2 (0.9-1.1); Partial Thromboplastin Ratio 2.1; Prothrombin Time 12.2 Seconds (9.0-12.0)
[2019-10-25 06:55] LABS: Creatinine Clr Calc Pharmacy 68.5 ml/min; Est GFR (African American) 90.4; Partial Thromboplastin Time 55.7 Seconds (21.0-31.0); Potassium 3.7 mmol/L (3.5-5.1)
[2019-10-25] MEDS: ASPIRIN 81 MG ECTAB PO SCH (08:25)
[2019-10-25] MEDS: METOPROLOL SUCC 50MG EXT REL TAB PO SCH (08:25)
[2019-10-25] MEDS: CHOLECALCIFEROL 1,000 UNITS TAB PO SCH (08:25)
[2019-10-25] MEDS: NYSTATIN CR 15 GM TUBE EXT SCH ×2 (08:25→20:00)
[2019-10-25] MEDS ORDERED: POTASSIUM CHLORIDE 20 MEQ TABCR PO STA (08:39)
[2019-10-25] MEDS ORDERED: ENOXAPARIN 1 MG/KG SQ SCH (08:45)
[2019-10-25] MEDS: ENOXAPARIN 100 MG/1ML SYR SQ SCH ×2 (09:36→20:00)
--- NOTE | 2019-10-25 14:12 | Hospitalist Progress Note ---
Date of Service October 25, 2019 Assessment & Plan (1) UTI (urinary tract infection): Urinary symptoms are now resolved, patient remains confused with acute metabolic encephalopathy Urinalysis abnormal, urine culture mixed mariluz likely from contaminated sample -Continue IV Rocephin -DC IV fluids -Hopeful that acute metabolic encephalopathy will improve with continued treatment (2) Altered mental status: Acute metabolic encephalopathy likely due to UTI, previous hyponatremia and dehydration Continues She did have a mild episode of slurred speech and sub-therapeutic on warfarin, however now completely resolved and daughter requests that we not put her through an MRI and patient okay with this given recent back surgery and back pain with lying flat and low suspicion for TIA or stroke -Encephalopathy continues -Continue treatment for infection as above -Hydrated and sodium is improved (3) Hyponatremia: Sodium improved from 127 to 134 now with normal saline, secondary to dehydration and infection -Follow BMP -DC IV fluids (4) Afib: Chronic, rates uncontrolled now likely secondary to anxiety and agitation -Will DC heparin gtt and bridged with therapeutic dosing of Lovenox until warfarin in therapeutic range -Continue metoprolol for rate control-consider increasing dose if rapid rates continue Daughter reports warfarin dose was changed several weeks ago to decrease dose of 1 mg on 5 days of the week and 2.5 mg on 2 days of the week down from 2.5 mg daily after having an INR 3.8 She is now significantly subtherapeutic at 1.[address] -Increased Coumadin back to 2.5 mg daily and watch closely in the setting of antibiotic use (5) GERD (gastroesophageal reflux disease): Continue pantoprazole (6) HTN (hypertension): Stable -Continue metoprolol (7) Hypothyroid: TSH 1.9 -Continue levothyroxine (8) Анна infection of flexural skin: -Continue Nystatin powder. (9) Nonsustained ventricular tachycardia: Had one 8 beat run of nonsustained V. tach, asymptomatic Recent dobutamine stress echocardiogram shows preserved EF, no evidence of ischemia -Continue to monitor Could be aberrancy (10) ANAND (obstructive sleep apnea): Recorded in history, but no CPAP ordered here-we will see if wears CPAP at home (11) DVT prophylaxis: DVT prophylaxis covered by Lovenox/warfarin and SCDs Disposition-remain on PCU Subjective Patient still very confused and agitated at times, wants to go home. Denies any abdominal pain or nausea. Denies chest pain or shortness of breath. Daughter is with her at the bedside and reports she is still very confused and she is worried. Daughter confirms she still does not want us to check an MRI which I think is fine. Telemetry with atrial fibrillation with rates in the 90s to 150s at times She is eating well. Review of Systems Review of Systems: All systems reviewed & are unremarkable except as noted in HPI & below Physical Exam Constitutional: WD/WN, vitals as above (Sitting in chair) + obese Eyes: + anicteric sclerae Neck: trachea midline, no thyromegaly Respiratory: normal respiratory effort, lungs clear to auscultation Cardiovascular: Rate/Rhythm: + tachycardic and + irregularly irregular Heart Sounds: no murmur Extremities: no edema Chest (Breasts): Chest: normal inspection of chest Gastrointestinal (Abdomen): normal bowel sounds, soft, nontender, no hepatosplenomegaly Musculoskeletal: Extremities: extremities normal to inspection; no cyanosis and no clubbing Skin: no rashes, warm and dry Neurologic: moves all extremities and awake; no focal motor deficits (no facial droop) Speech / Cognition: normal speech, no expressive aphasia and no receptive aphasia Motor/Sensory: no tremor Psychiatric: Orientation: alert (And agitated), oriented to person and cooperative; + not oriented to place and + not oriented to time (does not know year, month or date) Results & Data Vital Signs (Past 12 Hours) Vital Signs Temp Pulse Pulse Resp BP BP Pulse Ox 10/25/19 11:06 36.6 C 94 H 22 145/69 H 96 10/25/19 11:00 98 H 10/25/19 06:56 36.6 C 85 20 149/83 H 93 10/25/19 04:32 36.9 C 109 H 22 145/68 H 94 Laboratory Results Labs reviewed Urine culture-mixed mariluz PG Care Time/CCT Total # of Minutes Spent Total Time Spent with Patient: Total time spent is greater than 50% in coordination of care (as documented) at patient's floor/unit and/or counseling patient: (1) UTI (urinary tract infection) Hematuria presence: with hematuria Urinary tract infection type: site unspecified Qualified Code(s): N39.0 - Urinary tract infection, site not specified; R31.9 - Hematuria, unspecified (2) Altered mental status Altered mental status type: unspecified Qualified Code(s): R41.82 - Altered mental status, unspecified
[2019-10-25] MEDS: WARFARIN SOD 2.5 MG TAB PO SCH (16:54)
[2019-10-25] MEDS: cefTRIAXone SODIUM 2,000 MG in DEXTROSE 5% 50 ML IV SCH (16:57)
[2019-10-25] MEDS: ATORVASTATIN 40 MG TAB PO SCH (20:00)
[2019-10-26] MEDS: PANTOprazole 40 MG TAB PO SCH (05:53)
[2019-10-26] MEDS: LEVOTHYROXINE SODIUM 50 MCG TABLET PO SCH (05:53)
[2019-10-26 06:36] LABS: Hematocrit (blood only) 33.5 % (37-47); Hemoglobin 11.3 g/dL (12.0-16.0); Mean Corpuscular Hgb Conc 33.7 g/dL (32-36); Mean Platelet Volume 9.5 fL (7.4-10.4); Platelet Count 291 K/uL (130-400); RDW Coefficient of Variation 13.9 % (11.5-14.5); RDW Standard Deviation 47.1 fL (36.4-46.3); Red Blood Count 3.64 M/uL (4.2-5.4); White Blood Count 6.94 K/uL (4.8-10.8)
[2019-10-26 06:49] LABS: INR 1.1 (0.9-1.1); Partial Thromboplastin Ratio 0.8; Partial Thromboplastin Time 22.9 Seconds (21.0-31.0); Prothrombin Time 11.3 Seconds (9.0-12.0)
[2019-10-26 07:09] LABS: BUN Creatinine Ratio 17.9 (10-20); Calcium 9.8 mg/dl (8.5-10.1); Creatinine Clr Calc Pharmacy 69.9 ml/min; Est GFR (African American) 93.5; Est GFR (Non-African American) 80.7; Potassium 4.3 mmol/L (3.5-5.1)
[2019-10-26] MEDS: ASPIRIN 81 MG ECTAB PO SCH (08:06)
[2019-10-26] MEDS: ENOXAPARIN 100 MG/1ML SYR SQ SCH ×2 (08:06→19:31)
[2019-10-26] MEDS: NYSTATIN CR 15 GM TUBE EXT SCH ×2 (08:06→19:30)
[2019-10-26] MEDS: CHOLECALCIFEROL 1,000 UNITS TAB PO SCH (08:07)
[2019-10-26] MEDS: METOPROLOL SUCC 50MG EXT REL TAB PO SCH (08:07)
[2019-10-26] MEDS ORDERED: METOPROLOL SUCC 25MG EXT REL TAB PO STA (10:20)
--- NOTE | 2019-10-26 10:27 | Hospitalist Progress Note ---
Date of Service October 26, 2019 Assessment & Plan (1) UTI (urinary tract infection): Urinary symptoms are now resolved, patient remains confused with acute metabolic encephalopathy slowly improving Urinalysis abnormal on admission but contaminated sample, urine culture mixed mariluz likely from contaminated sample -Continue IV Rocephin -repeat cathed urine sample today to make sure not missing a resistant organism given slow improvement in mental status -Hopeful that acute metabolic encephalopathy will improve with continued treatment (2) Altered mental status: Acute metabolic encephalopathy likely due to UTI, previous hyponatremia and dehydration Continues but with slight improvement today She did have a mild episode of slurred speech and sub-therapeutic on warfarin, however now completely resolved and daughter requests that we not put her through an MRI and patient okay with this given recent back surgery and back pain with lying flat and low suspicion for TIA or stroke -Continue treatment for infection as above and repeating Ur cx in case of untreated organism -Hydrated and sodium is improved but remains a little low at 133 (3) Hyponatremia: Sodium improved from 127 to 134 now with normal saline, secondary to dehydration and infection Na+ back down to 133 today -continue po hydration, could be contributing to her ongoing encephalopathy -Follow BMP in AM (4) Afib: Chronic, rates continue to be uncontrolled now likely secondary to anxiety and agitation, infection No evidence of volume overload -initially placed on bridging with heparin gtt and now continues on therapeutic dosing of Lovenox until warfarin in therapeutic range -Continue metoprolol for rate control-will increase dose to 200mg daily of Toprol XL Daughter reports warfarin dose was changed several weeks ago to decrease dose of 1 mg on 5 days of the week and 2.5 mg on 2 days of the week down from 2.5 mg daily after having an INR 3.8 She is now significantly subtherapeutic at 1.[address] -give one time dose of coumadin 5mg today and then back to 2.5mg daily tomorrow -follow INR closely in the setting of antibiotic use -continue tele monitoring (5) GERD (gastroesophageal reflux disease): Continue pantoprazole (6) HTN (hypertension): Stable -Continue metoprolol and increasing dose for rate control as above (7) Hypothyroid: TSH 1.9 -Continue levothyroxine (8) Анна infection of flexural skin: -Continue Nystatin powder. (9) Nonsustained ventricular tachycardia: Had one 8 beat run of nonsustained V. tach, asymptomatic Recent dobutamine stress echocardiogram shows preserved EF, no evidence of ischemia -Continue to monitor Could be aberrancy (10) ANAND (obstructive sleep apnea): Recorded in history, but no CPAP ordered here-previous records indicate wears CPAP at home-will order (11) Hyperlipidemia: continue statin, ASA (12) Coronary artery disease: h/o nonobstructive CAD on cath 2013, non-cardiac chest pain, sees Cardiology Had dobutamine stress in 07/2019 preop for her recent back surgery that was negative for ischemia Preserved LV function -continue ASA, statin, metoprolol (13) Fusion of spine: Recent surgery with Ortho SPine in , doing well with recovery, no pain No fevers or back pain, do not suspect infection of spine as source of encephalopathy (14) DVT prophylaxis: DVT prophylaxis covered by Lovenox/warfarin and SCDs Disposition-remain on PCU, hopeful for dc to home once a bigger improvement in her mentation and rapid A-fib better controlled Subjective Remains confused but is slightly improved today mentally. Able to tell me she is in [facility], gets the year wrong again but seems embarrassed after I tell her the correct year. Got the month of Oct correct todya, not the date. Knows she is in [place]. Tells me that she's disappointed she's missing her play [employer] for a pancake breakfast today which I confirmed with the daughter is something pt's usually does on this day. Denies CP or SOB, denies abd pain, is eating. No BM. Tele with rates 100-140s consistently Review of Systems Review of Systems: All systems reviewed & are unremarkable except as noted in HPI & below Physical Exam Constitutional: WD/WN, vitals as above (lying in bed) + obese Eyes: + anicteric sclerae Neck: trachea midline, no thyromegaly Respiratory: normal respiratory effort, lungs clear to auscultation Cardiovascular: Rate/Rhythm: + tachycardic and + irregularly irregular Heart Sounds: no murmur Extremities: no edema Chest (Breasts): Chest: normal inspection of chest Gastrointestinal (Abdomen): normal bowel sounds, soft, nontender, no hepatosplenomegaly Musculoskeletal: Extremities: extremities normal to inspection; no cyanosis and no clubbing Skin: no rashes, warm and dry Neurologic: moves all extremities and awake; no focal motor deficits (no facial droop) Speech / Cognition: normal speech, no expressive aphasia and no receptive aphasia Motor/Sensory: no tremor Psychiatric: Orientation: alert (And agitated), oriented to person, oriented to place (hospital, "[place]", does not know town but says [place]), oriented to time (does not know year or date,but does know the month is October) and cooperative Cannot name days of the week backwards or months f year backwards, says "Sunday...1934..." and then starts telling me about her Results & Data Vital Signs (Past 12 Hours) Vital Signs Temp Pulse Resp BP Pulse Ox 10/26/19 08:00 36.9 C 96 H 20 137/72 93 10/26/19 04:03 36.6 C 90 16 152/91 H 91 10/25/19 23:54 36.6 C 91 H 18 160/76 H 94 Laboratory Results 10/26/19 10/26/19 10/26/19 Range/Units 06:05 06:05 06:05 WBC 6.94 (4.8-10.8) K/uL RBC 3.64 L (4.2-5.4) M/uL Hgb 11.3 L (12.0-16.0) g/dL Hct 33.5 L (37-47) % MCV 92.0 (80-100) fL MCH 31.0 (25-34) pg MCHC 33.7 (32-36) g/dL RDW Std Deviation 47.1 H (36.4-46.3) fL RDW Coeff of Nancy 13.9 (11.5-14.5) % Plt Count 291 (130-400) K/uL MPV 9.5 (7.4-10.4) fL PT 11.3 (9.0-12.0) Seconds INR 1.1 (0.9-1.1) APTT 22.9 (21.0-31.0) Seconds PTT Ratio 0.8 Sodium 133 L (136-145) mmol/L Potassium 4.3 D (3.5-5.1) mmol/L Chloride 101 (98-107) mmol/L Carbon Dioxide 26 (21-32) mmol/L Anion Gap 7.0 (3-11) BUN 13 (7-18) mg/dl Creatinine 0.70 (0.6-1.2) mg/dl Est Cr Clr Drug Dosing 69.9 ml/min Est GFR ( Amer) 93.5 Est GFR (Non-Af Amer) 80.7 BUN/Creatinine Ratio 17.9 (10-20) Glucose 109 H (70-99) mg/dl Calcium 9.8 (8.5-10.1) mg/dl PG Care Time/CCT Total # of Minutes Spent Total Time Spent with Patient: Total time spent is greater than 50% in coordination of care (as documented) at patient's floor/unit and/or counseling patient: (1) UTI (urinary tract infection) Hematuria presence: with hematuria Urinary tract infection type: site unspecified Qualified Code(s): N39.0 - Urinary tract infection, site not specified; R31.9 - Hematuria, unspecified (2) Altered mental status Altered mental status type: unspecified Qualified Code(s): R41.82 - Altered mental status, unspecified
[2019-10-26 10:58] LABS: Appearance Urine Clear (Clear); Bilirubin Urine Negative (Negative); Blood Urine Negative (Negative); Color Urine Yellow; Glucose Urine UA Negative (Negative); Ketones Urine Negative (Negative); Leukocyte Esterase Urine Negative (Negative); Nitrite Urine Negative (Negative); Protein Urine Negative (Negative); Specific Gravity Urine 1.012 (1.000-1.030); Urobilinogen Urine Negative (Negative)
[2019-10-26] MEDS ORDERED: WARFARIN SOD 5 MG TAB PO ONE (16:00)
[2019-10-26] MEDS: cefTRIAXone SODIUM 2,000 MG in DEXTROSE 5% 50 ML IV SCH (18:02)
[2019-10-26] MEDS: ATORVASTATIN 40 MG TAB PO SCH (19:31)
[2019-10-27] MEDS: LEVOTHYROXINE SODIUM 50 MCG TABLET PO SCH (05:26)
[2019-10-27] MEDS: PANTOprazole 40 MG TAB PO SCH (05:26)
[2019-10-27 07:24] LABS: INR 1.2 (0.9-1.1); Prothrombin Time 12.1 Seconds (9.0-12.0)
[2019-10-27 07:46] LABS: BUN Creatinine Ratio 18.2 (10-20); Creatinine Clr Calc Pharmacy 71.7 ml/min; Est GFR (African American) 94.4; Est GFR (Non-African American) 81.5; Magnesium 1.9 mg/dl (1.8-2.4); Potassium 4.4 mmol/L (3.5-5.1)
[2019-10-27] MEDS: ASPIRIN 81 MG ECTAB PO SCH (09:12)
[2019-10-27] MEDS: CHOLECALCIFEROL 1,000 UNITS TAB PO SCH (09:12)
[2019-10-27] MEDS: NYSTATIN CR 15 GM TUBE EXT SCH ×2 (09:13→19:56)
[2019-10-27] MEDS: METOPROLOL SUCC 50MG EXT REL TAB PO SCH (09:13)
[2019-10-27] MEDS: ENOXAPARIN 100 MG/1ML SYR SQ SCH ×2 (09:13→19:57)
--- NOTE | 2019-10-27 15:34 | Hospitalist Progress Note ---
Date of Service October 27, 2019 Assessment & Plan (1) UTI (urinary tract infection): Urinary symptoms are now resolved, patient remains confused with acute metabolic encephalopathy slowly improving. Urinalysis abnormal on admission but contaminated sample, urine culture mixed mariluz likely from contaminated sample. - Continue IV Rocephin - Repeat cath urine sample on 10/27 was negative for infection. - Hopeful that acute metabolic encephalopathy will improve with continued treatment. (2) Altered mental status: Acute metabolic encephalopathy likely due to UTI, previous hyponatremia, and dehydration. - Continues but with slight improvement on 10/27 per family. - Recheck Na and urine osms tomorrow (3) Hyponatremia: Sodium improved from 127 to 134 now with normal saline, secondary to dehydration, and infection. - Na+ back down to 132 today. (4) Afib: Chronic. - Improving rate-control as her infection is treated. - On anticoagulation with Lovenox and warfarin - Follow INR (5) GERD (gastroesophageal reflux disease): Continue pantoprazole (6) HTN (hypertension): Stable today at 135/65. - Continue metoprolol and increasing dose for rate control as above (7) Hypothyroid: TSH 1.9. - Continue levothyroxine (8) Анна infection of flexural skin: - Continue Nystatin powder. (9) Nonsustained ventricular tachycardia: Had one 8 beat run of nonsustained V. tach, asymptomatic. Recent dobutamine stress echocardiogram shows preserved EF, no evidence of ischemia. - Continue to monitor (10) ANAND (obstructive sleep apnea): Recorded in history, but no CPAP ordered here - previous records indicate wears CPAP at home. - Continue (11) Hyperlipidemia: continue statin, ASA (12) Coronary artery disease: H/o nonobstructive CAD on cath 2013, non-cardiac chest pain, sees cardiology. Had dobutamine stress in 07/2019 preop for her recent back surgery that was negative for ischemia. Preserved LV function. - Continue ASA, statin, metoprolol (13) Fusion of spine: Recent surgery with ortho-spine in 08/2019. Doing well with recovery, no pain. No fevers or back pain, do not suspect infection of spine as source of encephalopathy. - Outpatient follow up (14) DVT prophylaxis: DVT prophylaxis covered by Lovenox/warfarin and SCDs Subjective Overall, she reports she is doing "fine." She denies any symptoms at all. Wants to go home. Reports no fevers/chills, chest pain, shortness of breath, abdominal pain, nausea, or vomiting. Physical Exam Constitutional: WD/WN, vitals as above Eyes: EOM intact bilaterally; no conjunctival abnormality ENMT: external ear and nose normal, oropharynx normal Neck: trachea midline, no thyromegaly normal visual inspection Respiratory: normal respiratory effort, lungs clear to auscultation no respiratory distress Cardiovascular: RRR, no murmur, no edema Gastrointestinal (Abdomen): Inspection/Auscultation: abdomen normal to inspection; abdomen not distended Musculoskeletal: no cyanosis or clubbing, extremities motor strength 5/5 Skin: no rashes, warm and dry Neurologic: moves all extremities and awake Speech / Cognition: + abnormal cognition Motor/Sensory: no tremor and no fasciculations Psychiatric: Orientation: alert, oriented to person and cooperative Results & Data Vital Signs (Past 12 Hours) Vital Signs Temp Pulse Resp BP BP Pulse Ox 10/27/19 11:07 37.2 C 71 18 126/73 93 10/27/19 07:06 37.0 C 99 H 20 146/78 H 93 10/27/19 04:12 36.6 C 127 H 18 151/67 H 92 PG Care Time/CCT Total # of Minutes Spent Total Time Spent with Patient: Total time spent is greater than 50% in coordination of care (as documented) at patient's floor/unit and/or counseling patient: (1) UTI (urinary tract infection) Hematuria presence: with hematuria Urinary tract infection type: site unspecified Qualified Code(s): N39.0 - Urinary tract infection, site not specified; R31.9 - Hematuria, unspecified (2) Altered mental status Altered mental status type: unspecified Qualified Code(s): R41.82 - Altered mental status, unspecified
[2019-10-27] MEDS ORDERED: WARFARIN SOD 2.5 MG TAB PO SCH (16:00)
[2019-10-27] MEDS: cefTRIAXone SODIUM 2,000 MG in DEXTROSE 5% 50 ML IV SCH (18:34)
[2019-10-27] MEDS: ATORVASTATIN 40 MG TAB PO SCH (19:57)
[2019-10-28] MEDS: LEVOTHYROXINE SODIUM 50 MCG TABLET PO SCH (05:57)
[2019-10-28] MEDS: PANTOprazole 40 MG TAB PO SCH (05:57)
[2019-10-28 06:43] LABS: Hemoglobin 12.1 g/dL (12.0-16.0); Mean Corpuscular Hemoglobin 30.9 pg (25-34); Mean Corpuscular Hgb Conc 33.6 g/dL (32-36); Mean Corpuscular Volume 92.1 fL (80-100); Mean Platelet Volume 9.3 fL (7.4-10.4); Platelet Count 332 K/uL (130-400); RDW Coefficient of Variation 13.8 % (11.5-14.5); RDW Standard Deviation 46.4 fL (36.4-46.3); Red Blood Count 3.91 M/uL (4.2-5.4); White Blood Count 5.94 K/uL (4.8-10.8)
[2019-10-28 06:54] LABS: INR 1.3 (0.9-1.1); Prothrombin Time 13.3 Seconds (9.0-12.0)
[2019-10-28 07:13] LABS: BUN Creatinine Ratio 21.5 (10-20); Calcium 9.7 mg/dl (8.5-10.1); Creatinine Clr Calc Pharmacy 66.8 ml/min; Est GFR (African American) 88.9; Est GFR (Non-African American) 76.7; Magnesium 2.1 mg/dl (1.8-2.4); Phosphorus 3.3 mg/dl (2.5-4.9); Potassium 4.5 mmol/L (3.5-5.1)
[2019-10-28] MEDS: NYSTATIN CR 15 GM TUBE EXT SCH (07:39)
[2019-10-28] MEDS: ENOXAPARIN 100 MG/1ML SYR SQ SCH (07:39)
[2019-10-28] MEDS: CHOLECALCIFEROL 1,000 UNITS TAB PO SCH (07:39)
[2019-10-28] MEDS: ASPIRIN 81 MG ECTAB PO SCH (07:39)
[2019-10-28] MEDS: METOPROLOL SUCC 50MG EXT REL TAB PO SCH (07:39)
[2019-10-28] MEDS ORDERED: WARFARIN SOD 5 MG TAB PO ONE (15:42)
[2019-10-28] MEDS ORDERED: CEFDINIR 300 MG CAP PO SCH ×2 (15:50→16:15)
--- NOTE | 2019-10-28 16:59 | Discharge Summary ---
Date of Service October 28, 2019 Principal Diagnosis UTI and delirium Discharge Exam Constitutional WD/WN, vitals as above Eyes EOM intact bilaterally; no conjunctival abnormality ENMT external ear and nose normal, oropharynx normal Neck trachea midline, no thyromegaly normal visual inspection Respiratory normal respiratory effort, lungs clear to auscultation no respiratory distress Cardiovascular RRR, no murmur, no edema Gastrointestinal (Abdomen) Inspection/Auscultation: abdomen normal to inspection; abdomen not distended Musculoskeletal no cyanosis or clubbing, extremities motor strength 5/5 Skin no rashes, warm and dry Neurologic moves all extremities and awake Speech / Cognition: + abnormal cognition Motor/Sensory: no tremor and no fasciculations Psychiatric Orientation: alert, oriented to person and cooperative Discharge Data Allergies Allergy/AdvReac Type Severity Reaction Status Date / Time adhesive Allergy Unknown RASH Verified 10/23/19 17:58 Cipro Allergy Unknown Per cardio Unverified 08/28/16 13:36 note ciprofloxacin Allergy Unknown RASH Verified 10/23/19 17:58 doxycycline Allergy Unknown RASH Verified 10/23/19 17:58 latex Allergy Unknown RASH Verified 10/23/19 17:58 Penicillins Allergy Unknown RASH Verified 10/23/19 17:58 sulfamethoxazole Allergy Unknown Rash Verified 10/23/19 21:26 [From Bactrim] trimethoprim [From Bactrim] Allergy Unknown Rash Verified 10/23/19 21:26 Consultations 10/23/19 19:18 ED Decision to Admit Stat Ordered Studies 10/23/19 18:20 CT head/brain wo con Stat Hospital Course (1) UTI (urinary tract infection): Urinary symptoms are now resolved, patient remains confused with acute metabolic encephalopathy slowly improving. Urinalysis abnormal on admission but contaminated sample, urine culture mixed mariluz likely from contaminated sample. - Repeat cath urine sample on 10/27 was negative for infection. - Received IV Rocephin x 5 days - Finish course with 1 more day of cefdinir. Metabolic encephalopathy slowly improving per family. (2) Hyponatremia: Sodium improved from 127 to 134 now with normal saline, secondary to dehydration and infection. - Na+ back down to 132 on 10/27, but stable over 2 days. - Urine osms indicate mild SIADH (osms of 330 despite hyponatremia). - Recheck BMP in 1 week with PCP. Could consider fluid restriction, though this is tough as the family already reports poor PO intake at home. Hopefully this will improve with treatment of her infection. However, if Na not improved, consider nephrology referral as outpatient. (3) Afib: Chronic. Initially HRs were high in the 130s, but this came down as her infection resolved. - On discharge, her HR was in the 75-85 range which seems to be her baseline. - Her warfarin was lowered by her outdoor guide, but her INR here was constantly low. She was put back on her 2.5mg PO daily dose with a loading dose of 5mg on the day of discharge. She did not want Lovenox injections at home and did not want to stay in the hospital. We agreed that she will follow her INR at home (she has a home machine) and contact Dr. Byers's office with the results this week. (4) Altered mental status: Acute metabolic encephalopathy likely due to UTI, previous hyponatremia, and dehydration. - Continues but with slight improvements day-to-day (5) GERD (gastroesophageal reflux disease): Continue pantoprazole (6) HTN (hypertension): Stable today at 135/65. - Continue metoprolol (7) Hypothyroid: TSH 1.9. - Continue levothyroxine (8) Анна infection of flexural skin: - Continue Nystatin powder. (9) Nonsustained ventricular tachycardia: Had one 8 beat run of nonsustained V. tach, asymptomatic. Recent dobutamine stress echocardiogram shows preserved EF, no evidence of ischemia. - Continue to monitor (10) ANAND (obstructive sleep apnea): Recorded in history, but no CPAP ordered here - previous records indicate wears CPAP at home. - Restarted in the hospital. (11) Hyperlipidemia: Continue statin, ASA (12) Coronary artery disease: H/o nonobstructive CAD on cath 2013, non-cardiac chest pain, sees cardiology. Had dobutamine stress in 07/2019 preop for her recent back surgery that was negative for ischemia. Preserved LV function. - Continue ASA, statin, metoprolol (13) Fusion of spine: Recent surgery with ortho-spine in 08/2019. Doing well with recovery, no pain. No fevers or back pain, do not suspect infection of spine as source of encephalopathy. - Outpatient follow up (14) DVT prophylaxis: DVT prophylaxis covered by warfarin and SCDs Total Time Total Time Spent Total Time Spent (In Minutes): 45 Discharge Plan Discharge Items Patient Disposition: Home - Home Health Services Reason For Visit: UTI,CONFUSION Discharge Diagnosis: UTI, delirium Activity: Resume your previous activity Non-emergency contact: Primary Care Provider and Motor Vehicle Lecturer Call non-emergency contact if: your symptoms worsen and your temperature is above 101 Follow-up/Referrals: Dianne Adams, DO [Primary Care Provider] - 11/04/19 4:15 pm (Please, follow up at Dr. Adams's office with her associate, Promise Maldonado, on SundayNovember 04 at 4:15 pm. *If you need to change this appointment, call their office at [phone].) Diet: Heart Healthy Addtl Attending Provider Instructions: You were hospitalized for a UTI that caused delirium. You are slowly getting better, though it is taking quite awhile. Please see your PCP next week to ensure you are improving. You have 2 doses of antibiotic left. Take the first one before bedtime tonight, then the next one tomorrow morning. Then you are done. We increased your warfarin (Coumadin) back to 2.5 mg daily. Check your INR tomorrow. I believe it will be in the high 1's area (i.e. 1.6 - 1.9). If so, continue your warfarin 2.5 mg by mouth daily and recheck your INR on Sunday morning. If tomorrow's INR is outside of the range above (again, 1.6 - 1.9), please contact the [facility] to have Dr. Byers adjust the dose. Pending Studies at Discharge: No Stand-Alone Forms: My [employer], Smoking Cessation Medications and DC Order Prescriptions: New cefdinir 300 mg Capsule 300 mg PO BID Qty: 1 RF: 0 Continued metoprolol succinate 100 mg tablet extended release 24 hr 150 mg PO QAM RF: 0 alendronate 70 mg tablet 70 mg PO WK Qty: 12 RF: 1 levothyroxine 50 mcg tablet 50 mcg PO QAM RF: 0 nitroglycerin [Nitrostat] 0.4 mg tablet, sublingual 0.4 mg SL UD PRN (Reason: Chest Pain) RF: 0 cholecalciferol (vitamin D3) 1,000 unit capsule 1,000 units PO DAILY RF: 0 polyethylene glycol 3350 [Miralax] 17 gram/dose powder 17 gm PO DAILY PRN (Reason: Constipation) RF: 0 acetaminophen [Tylenol Extra Strength] 500 mg tablet 1,000 mg PO Q4H PRN (Reason: Pain) RF: 0 aspirin [Aspir-Low] 81 mg tablet,delayed release (DR/EC) 81 mg PO DAILY RF: 0 atorvastatin 40 mg tablet 40 mg PO HS RF: 0 pantoprazole 40 mg tablet,delayed release (DR/EC) 40 mg PO DAILYBB RF: 0 Changed warfarin 2.5 mg tablet 2.5 mg PO DAILY Qty: 0 RF: 0 Discontinued warfarin 1 mg tablet 1 mg PO [id number] RF: 0 Discharge Orders: Discharge Order (Routine); Ordered 10/28/19 Ordered By: Corey Sanderson Admission Data Admit Date/Time: 10/23/19 20:24 Attending Provider: Corey Sanderson Admit Provider: Buddy Godoy Primary Care Provider: Dianne Adams Other Providers: Corey Sanderson
== END 2019-10-28 17:30 | disposition home health service (06) | DRG 689 ==
LOC: ED 15:16 → SUATTDRO 20:24 → 2S 20:24

== ENCOUNTER 2024-10-30 20:24 | Inpatient (IN) ==
--- NOTE | 2024-10-30 20:44 | Emergency Department Note ---
Impression & Plan Fall, Facial contusion, Closed fracture of left hip, Contusion of knee, right ED Provider Note Provider: Ralph Bonds MD CHIEF COMPLAINT: Fall, leg pain weakness HISTORY OF PRESENT ILLNESS: Patient is a 89-year-old female past medical history of CAD, atrial fibrillation Eliquis, osteoporosis, hypothyroidism presenting via ambulance from home today. Patient was seen here yesterday after a fall. Patient dealing with the recent loss of her . Has been started on sertraline and Ativan in the outpatient setting. States he is helping her granddaughter with pictures lost her balance and fell to the floor. Complaining of weakness in her legs and pain in her legs. Denies significant head neck or chest pain. Denies abdominal pain. Daughter later arrives and states patient just came to her house this evening for dinner. Had went to the bathroom and then her fall and the patient was on the ground. They assisted her up and she was unable to bear weight or walk significantly. Had been complaining of pain of the left hip region. She does complain of this here. Patient denies any arm pain. Patient was not on the ground very long according to her daughter. PAST MEDICAL HISTORY: As noted above MEDICATIONS: Reviewed home medications SOCIAL HISTORY: Recently PHYSICAL EXAM: GENERAL: alert and oriented in no acute distress on stretcher Head: Significant facial contusions from the forehead over the cheeks EYES: No injection, discharge or icterus. PERRL, EOMI. NECK: Trachea midline. Supple no midline posterior cervical tenderness ENT: Mucous membranes pink and moist. LUNGS: Airway patent. No retractions. Breath sounds clear with good air entry bilaterally. HEART: Irregular rate and rhythm. No chest wall tenderness ABDOMEN: Soft and non-tender, without guarding or rebound. Stable pelvis. SKIN: Acyanotic, warm, dry, some scattered bruises on the upper arms with significant contusions to the face as well as to the right knee and christian EXTREMITIES: Few scattered bruises in the upper extremity with a large hematoma/contusion to the right knee and into the right anterior christian. Soft bilateral compartments of the legs with mild diffuse tenderness without crepitus or large wound. Some pain with ROM of the lower legs passively significantly worse in the left hip region but not involving the ankles or feet. NEUROLOGICAL: No focal deficits. No aphasia. No facial droop or slurred speech. Normal strength and tone in the extremities. Sensation to gross touch normal. EK bpm atrial fibrillation. No PVC or acute ST segment elevation noted. QTc 402. CONTINUOUS CARDIAC MONITORING: was ordered and showed a heart rate of bpm in atrial fibrillation GCS 15. Patient's laboratory studies and imaging reviewed. Differential includes Fracture, dislocation, contusion, intra-abdominal, pneumothorax, intrathoracic, intracranial, neurologic, compartment syndrome, rhabdomyolysis, as well as other pathologies. IMPRESSION/MEDICAL DECISION MAKING: Saw the patient yesterday unfortunately she suffered in a fall this evening. Has evolving contusions over the face and right knee that were present yesterday. Complains more some weakness as well as pain in her lower legs. Has pain with ROM predominantly of the left hip region. Will obtain trauma martin scan with her recent anticoagulation and fall. Is quite pleasant but not always the best historian with some memory issues at baseline. No new numbness reported. Will repeat blood work and imaging today including x-rays of the hips and knees bilaterally. No clinical evidence of compartment syndrome. X-rays reviewed interpreted by myself with evidence of a left hip fracture. Patient and family updated. Basic blood work here without significant new renal dysfunction or electrolyte abnormality. CK normal. Troponin today mildly elevated 43 from 7 yesterday. Hemoglobin relatively stable at 10.8. Slight leukocyte 11.1 likely reactive from stress as opposed to infection. Question some demand but doubt acute ACS. Patient's oxygen level here on room air borderline at 88. Given a small amount of fentanyl for pain I want to be careful given her age and borderline hypoxia already. Discussed with patient and family the need for orthopedic consultation and repair of the left hip fracture. Discussed with Dr. Cox and will bring in to the hospital for orthopedic consultation tomorrow with need for repair. Did receive confirmation from family that Eliquis was last taken at 4 PM on October 30. Need to come in for further care given the hip fracture and her multiple falls. CT images were obtained. Hospitalist contacted for further care here. DIAGNOSIS: Fall, facial and lower extremity contusions, atrial fibrillation, left hip fracture DISPOSITION: Hospitalist will evaluate Patient was agreeable with this plan. Past Med/Surg History Problem List (Updated 10/30/24 @ 22:07 by Ralph Bonds M.D.) Contusion of knee, right (Acute) Closed fracture of left hip (Acute) Facial contusion (Acute) Fall (Acute) Traumatic hematoma of right knee (Acute) Contusion of face (Acute) Fall (Acute) Chronic heart failure with preserved ejection fraction H/O fracture of humerus (10/31/22) Left Edema SOB (shortness of breath) Prediabetes Osteoporosis Urge incontinence of urine ANAND (obstructive sleep apnea) Hypothyroidism Hyperlipidemia HTN (hypertension) GERD (gastroesophageal reflux disease) Dementia Coronary artery disease Permanent atrial fibrillation Anticoagulant long-term use Nonsustained ventricular tachycardia Hyponatremia (Acute) Spinal stenosis, lumbar region with neurogenic claudication Solitary pulmonary nodule Headache, migraine Medical History Urinary urgency Chronic back pain Osteoarthritis Peripheral neuropathy Varicose veins of both lower extremities DJD (degenerative joint disease) Surgical History History of lumbar fusion History of bilateral tubal ligation History of total abdominal hysterectomy and bilateral salpingo-oophorectomy History of repair of rotator cuff History of cholecystectomy History of appendectomy History of colonoscopy History of tonsillectomy History of adenoidectomy History of cataract surgery Family History Mother Family hx of colon cancer Breast cancer Sister Breast cancer Myocardial infarction Father Myocardial infarction Denies family history of Ovarian cancer Prostate cancer Colorectal cancer Stroke Social History Smoking Status: Former smoker Second Hand Exposure: No; Do You Dip or Chew Tobacco: No; Hx Alcohol Use: No Hx Substance Use: No Preferred Language: Surinamese Communication Ability: Effective Visual Impairment: Limited Hearing Ability: Use of Hearing Aid Diesel 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 Designer Required: No Beliefs That Will Affect Care: None marital status: Current Living Situation: Spouse current occupational status: retired Feels Safe at Home: Yes Childhood Exposure to Second-Hand Smoke: No Diet: regular Diet Comment: regular caffeine: Yes (Coffee 1 cup per day.) during the past year weight has: remained stable Dental Care, Regularly: Yes Physical Activity Frequency: Other Physical Activity Frequency Comment: limited by physical condition Seatbelt Use: always Sunscreen Use: Yes Assistive Devices: Cane and Hearing Aid - Bilateral Allergies Allergies Allergy/AdvReac Type Severity Reaction Status Date / Time adhesive Allergy Unknown RASH Verified 09/22/24 09:19 Cipro Allergy Unknown Per cardio Unverified 08/28/16 13:36 note ciprofloxacin Allergy Unknown RASH Verified 09/22/24 09:19 doxycycline Allergy Unknown RASH Verified 09/22/24 09:19 latex Allergy Unknown RASH Verified 09/22/24 09:19 Penicillins Allergy Unknown RASH Verified 09/22/24 09:19 sulfamethoxazole Allergy Unknown Rash Verified 09/22/24 09:19 [From Bactrim] trimethoprim [From Bactrim] Allergy Unknown Rash Verified 09/22/24 09:19 Home Meds Home Medications Medication Instructions Recorded Confirmed acetaminophen 500 mg tablet 1,000 mg PO Q4H PRN Pain 07/13/19 10/30/24 (Tylenol Extra Strength) cholecalciferol (vitamin D3) 25 1,000 units PO DAILY 07/16/19 10/30/24 mcg (1,000 unit) capsule mecobalamin (vitamin B12) 1,000 1,000 mcg PO DAILY 09/30/21 10/30/24 mcg chewable tablet Previous Rx's Medication Instructions Recorded nitroglycerin 0.4 mg sublingual 0.4 mg sublingual UD PRN Chest 10/05/21 tablet (Nitrostat) Pain #25 tabs potassium chloride 20 mEq 20 meq PO DAILY #90 tabs 12/25/23 tablet,extended release apixaban 5 mg tablet (Eliquis) 5 mg PO BID #180 tabs 02/18/24 metoprolol succinate 50 mg 150 mg (3 x 50 mg) PO DAILY #270 03/14/24 tablet,extended release 24 hr tabs furosemide 20 mg tablet 20 mg PO DAILY #90 tabs 05/09/24 atorvastatin 40 mg tablet 40 mg PO HS #90 tabs 08/19/24 pantoprazole 40 mg tablet,delayed 40 mg PO DAILYBB #90 tabs 08/19/24 release CPAP Supplies #1 ea 09/09/24 alendronate 70 mg tablet 70 mg PO WK #12 tabs 10/23/24 lorazepam 0.5 mg tablet 0.5 mg PO Q12H PRN anxiety #20 tabs 10/27/24 sertraline 25 mg tablet 25 mg PO DAILY #30 tabs 10/27/24 levothyroxine 50 mcg tablet 50 mcg PO DAILY #90 tabs 10/29/24 Results & Data (ED) Vital Signs Vital Signs - 24 hr 10/30/24 20:31 10/30/24 20:36 10/30/24 20:38 Temperature 36.7 C Temperature Source Oral Pulse Rate 79 78 81 Respiratory Rate 16 22 Respiratory Effort / Characteristics Non-Labored Spontaneous Respiratory Depth Normal Respiratory Pattern Regular Blood Pressure 144/81 H 144/81 H Blood Pressure Mean 102 102 Pulse Oximetry 88 L 96 Oxygen Delivery Method Room Air Sepsis Recent Fever Within 48 Hours No Sepsis New/Unexplained Change in Mental Status No Sepsis Action Taken by Nursing No Action Required 10/30/24 21:21 Temperature Temperature Source Pulse Rate 84 Respiratory Rate 26 H Respiratory Effort / Characteristics Respiratory Depth Respiratory Pattern Blood Pressure 151/108 H Blood Pressure Mean 122 Pulse Oximetry 94 Oxygen Delivery Method Sepsis Recent Fever Within 48 Hours Sepsis New/Unexplained Change in Mental Status Sepsis Action Taken by Nursing Laboratory Data 10/30/24 20:47 10/30/24 20:47 Lab Results 10/30/24 10/30/24 10/30/24 Range/Units 20:34 20:47 20:52 WBC 11.16 H (4.8-10.8) K/ul RBC 3.23 L (4.20-5.40) M/uL Hgb 10.8 L (12.0-16.0) g/dl POC Hgb 11.6 L (12.0-16.0) g/dl Hct 31.5 L (37.0-47.0) % POC Hct 34 L (37-47) % MCV 97.5 (80.0-100.0) fL MCH 33.4 (25.0-34.0) pg MCHC 34.3 (32.0-36.0) g/dL RDW Std Deviation 52.9 H (36.4-46.3) fL RDW Coeff of Nancy 14.6 H (11.5-14.5) % Plt Count 245 (130-400) K/uL MPV 10.5 (9.4-12.4) fL Immature Gran % (Auto) 0.4 % Neut % (Auto) 81.4 % Lymph % (Auto) 8.5 % Maverick % (Auto) 7.8 % Eos % (Auto) 1.6 % Baso % (Auto) 0.3 % Neut # (Auto) 9.08 H (1.40-6.50) K/uL Lymph # (Auto) 0.95 L (1.20-3.40) K/uL Maverick # (Auto) 0.87 H (0.11-0.59) K/uL Eos # (Auto) 0.18 (0.00-0.50) K/uL Baso # (Auto) 0.03 (0.00-0.20) K/uL Immature Gran # (Auto) 0.05 (0.01-0.20) K/uL PT 11.5 (9.0-12.0) Seconds INR 1.1 (0.9-1.1) APTT 27 (21-31) Seconds PTT Ratio 1.0 POC Sodium 136 (135-144) mmol/L Sodium 136 (136-145) mmol/L POC Potassium 4.4 (3.3-5.0) mmol/L Potassium 4.4 (3.5-5.1) mmol/L POC Chloride 98 L (101-112) mmol/L Chloride 101 (98-107) mmol/L Carbon Dioxide 31 (21-32) mmol/L POC Total CO2 27 (24-31) mmol/L Anion Gap 4 (3-11) POC Anion Gap 17.0 (16-25) mmol/L POC BUN 20 H (7-18) mg/dl BUN 21 (6-23) mg/dl Creatinine 0.84 (0.6-1.2) mg/dl POC Creatinine 0.9 (0.6-1.3) mg/dl Est Cr Clr Drug Dosing 49.5 ml/min eGFR 67.21 BUN/Creatinine Ratio 25.0 H (10-20) Glucose 128 H (70-99(Fasting)) mg/dl POC Glucose 135 H (70-99) mg/dl POC Glucose (other) 123 H (70-99) mg/dl Calcium 9.6 (8.6-10.3) mg/dl POC Ioniz Calcium Sarah Beth 1.22 (1.12-1.32) mmol/l Total Bilirubin 1.0 (0.2-1.0) mg/dl AST 17 (13-39) U/L ALT 17 (7-52) U/L Alkaline Phosphatase 62 (34-104) U/L Total Creatine Kinase 44 (26-192) U/L Troponin I High Sens 43.2 H D (0-14) pg/ml Total Protein 6.6 (6.0-8.3) gm/dl Albumin 4.1 (3.4-5.0) gm/dl Globulin 2.5 (2.5-4.0) gm/dl Albumin/Globulin Ratio 1.6 (0.9-2) Lipase 26 (11-82) U/L Urine Color Urine Appearance (Clear) Urine pH (4.5-7.5) Ur Specific Chandler (1.000-1.030) Urine Protein (Negative) Urine Glucose (UA) (Negative) Urine Ketones (Negative) Urine Blood (Negative) Urine Nitrite (Negative) Urine Bilirubin (Negative) Urine Urobilinogen (Negative) Ur Leukocyte Esterase (Negative) Urine WBC (Auto) (0-5) /hpf Urine RBC (Auto) (0-2) /hpf U Hyaline Cast (Auto) (0-2) /lpf U Epithel Cells (Auto) (0-2) /hpf Urine Bacteria (Auto) (None Seen) 10/30/24 10/30/24 Range/Units 22:40 23:14 WBC (4.8-10.8) K/ul RBC (4.20-5.40) M/uL Hgb (12.0-16.0) g/dl POC Hgb (12.0-16.0) g/dl Hct (37.0-47.0) % POC Hct (37-47) % MCV (80.0-100.0) fL MCH (25.0-34.0) pg MCHC (32.0-36.0) g/dL RDW Std Deviation (36.4-46.3) fL RDW Coeff of Nancy (11.5-14.5) % Plt Count (130-400) K/uL MPV (9.4-12.4) fL Immature Gran % (Auto) % Neut % (Auto) % Lymph % (Auto) % Maverick % (Auto) % Eos % (Auto) % Baso % (Auto) % Neut # (Auto) (1.40-6.50) K/uL Lymph # (Auto) (1.20-3.40) K/uL Maverick # (Auto) (0.11-0.59) K/uL Eos # (Auto) (0.00-0.50) K/uL Baso # (Auto) (0.00-0.20) K/uL Immature Gran # (Auto) (0.01-0.20) K/uL PT (9.0-12.0) Seconds INR (0.9-1.1) APTT (21-31) Seconds PTT Ratio POC Sodium (135-144) mmol/L Sodium (136-145) mmol/L POC Potassium (3.3-5.0) mmol/L Potassium (3.5-5.1) mmol/L POC Chloride (101-112) mmol/L Chloride (98-107) mmol/L Carbon Dioxide (21-32) mmol/L POC Total CO2 (24-31) mmol/L Anion Gap (3-11) POC Anion Gap (16-25) mmol/L POC BUN (7-18) mg/dl BUN (6-23) mg/dl Creatinine (0.6-1.2) mg/dl POC Creatinine (0.6-1.3) mg/dl Est Cr Clr Drug Dosing ml/min eGFR BUN/Creatinine Ratio (10-20) Glucose (70-99(Fasting)) mg/dl POC Glucose (70-99) mg/dl POC Glucose (other) (70-99) mg/dl Calcium (8.6-10.3) mg/dl POC Ioniz Calcium Sarah Beth (1.12-1.32) mmol/l Total Bilirubin (0.2-1.0) mg/dl AST (13-39) U/L ALT (7-52) U/L Alkaline Phosphatase (34-104) U/L Total Creatine Kinase (26-192) U/L Troponin I High Sens 36.8 H (0-14) pg/ml Total Protein (6.0-8.3) gm/dl Albumin (3.4-5.0) gm/dl Globulin (2.5-4.0) gm/dl Albumin/Globulin Ratio (0.9-2) Lipase (11-82) U/L Urine Color Yellow Urine Appearance Clear (Clear) Urine pH 6.5 (4.5-7.5) Ur Specific Chandler 1.033 H (1.000-1.030) Urine Protein Trace H (Negative) Urine Glucose (UA) Negative (Negative) Urine Ketones Negative (Negative) Urine Blood Negative (Negative) Urine Nitrite Negative (Negative) Urine Bilirubin Negative (Negative) Urine Urobilinogen Negative (Negative) Ur Leukocyte Esterase 2+ H (Negative) Urine WBC (Auto) 21-50 H (0-5) /hpf Urine RBC (Auto) 0-2 (0-2) /hpf U Hyaline Cast (Auto) 0-2 (0-2) /lpf U Epithel Cells (Auto) 0-2 (0-2) /hpf Urine Bacteria (Auto) 1+ H (None Seen) Administered Medications Sodium Chloride (Nss) 1,000 mls @ 80 mls/hr IV .[id number] STA Stop: 10/31/24 12:02 Last Admin: 10/30/24 23:39 Dose: 80 mls/hr Documented By: AYLINW Discontinued Medications Fentanyl Citrate (Fentanyl Citrate Pf 100 Mcg/2 Ml Vial) 25 mcg IV NOW STA Stop: 10/30/24 21:21 Last Admin: 10/30/24 21:51 Dose: 25 mcg Documented By: DEVAUGHN Ioversol (Optiray 320 100ml) 93 ml IV ONCE ONE Stop: 10/30/24 21:39 Last Admin: 10/30/24 21:38 Dose: 93 ml Documented By: PLW Discharge Plan Visit Data Chief Complaint: Fall Stated Complaint: Fall, Head Injury, Leg Weakness ED Provider: Ralph Bonds Discharge Problem: Fall, Facial contusion, Closed fracture of left hip, Contusion of knee, right Patient Disposition: Being Evaluated by Hospitalist Discharge Instructions Interventions: ED Discharge Assessment Last Done: 10/31/24 00:24 Discharge Problem: Fall Qualifiers: Encounter type: initial encounter Qualified Code(s): W19.XXXA - Unspecified fall, initial encounter Facial contusion Qualifiers: Encounter type: subsequent encounter Qualified Code(s): S00.83XD - Contusion of other part of head, subsequent encounter Closed fracture of left hip Qualifiers: Encounter type: initial encounter Qualified Code(s): S72.002A - Fracture of unspecified part of neck of left femur, initial encounter for closed fracture
[2024-10-30 21:05] LABS: iSTAT Creatinine 0.9 mg/dl (0.6-1.3); iSTAT Hemoglobin 11.6 g/dl (12.0-16.0); iSTAT Ionized Calcium 1.22 mmol/l (1.12-1.32); iSTAT Potassium 4.4 mmol/L (3.3-5.0)
[2024-10-30 21:15] LABS: Albumin Globulin Ratio 1.6 (0.9-2); Albumin Level 4.1 gm/dl (3.4-5.0); Calcium 9.6 mg/dl (8.6-10.3); Creatinine Clr Calc Pharmacy 49.5 ml/min; Globulin 2.5 gm/dl (2.5-4.0); Potassium 4.4 mmol/L (3.5-5.1); Total Protein 6.6 gm/dl (6.0-8.3)
[2024-10-30 21:29] LABS: Troponin I High Sensitivity 43.2 pg/ml (0-14)
[2024-10-30 21:33] LABS: INR 1.1 (0.9-1.1); Partial Thromboplastin Time 27 Seconds (21-31); Prothrombin Time 11.5 Seconds (9.0-12.0)
[2024-10-30] MEDS: OPTIRAY 320 100ml IV ONE (21:38)
[2024-10-30] MEDS: fentaNYL citrate PF 100 MCG/2 ML VIAL IV STA (21:51)
[2024-10-30 22:01] LABS: Basophils # (auto) 0.03 K/uL (0.00-0.20); Basophils % (auto) 0.3 %; Eosinophils # (auto) 0.18 K/uL (0.00-0.50); Eosinophils % (auto) 1.6 %; Hematocrit (blood only) 31.5 % (37.0-47.0); Hemoglobin 10.8 g/dl (12.0-16.0); Immature Granulocytes # (auto) 0.05 K/uL (0.01-0.20); Immature Granulocytes % (auto) 0.4 %; Lymphocytes # (auto) 0.95 K/uL (1.20-3.40); Lymphocytes % (auto) 8.5 %; Mean Corpuscular Hemoglobin 33.4 pg (25.0-34.0); Mean Corpuscular Hgb Conc 34.3 g/dL (32.0-36.0); Mean Corpuscular Volume 97.5 fL (80.0-100.0); Mean Platelet Volume 10.5 fL (9.4-12.4); Monocytes # (auto) 0.87 K/uL (0.11-0.59); Monocytes % (auto) 7.8 %; Neutrophils # (auto) 9.08 K/uL (1.40-6.50); Neutrophils % (auto) 81.4 %; Platelet Count 245 K/uL (130-400); RDW Coefficient of Variation 14.6 % (11.5-14.5); RDW Standard Deviation 52.9 fL (36.4-46.3); Red Blood Count 3.23 M/uL (4.20-5.40); White Blood Count 11.16 K/ul (4.8-10.8)
[2024-10-30 23:14] LABS: Appearance Urine Clear (Clear); Bacteria Urine Automated 1+ (None Seen); Bilirubin Urine Negative (Negative); Blood Urine Negative (Negative); Cast Urine Automated 0-2 /lpf (0-2); Color Urine Yellow; Epithelial Cell Urine Auto 0-2 /hpf (0-2); Glucose Urine UA Negative (Negative); Ketones Urine Negative (Negative); Leukocyte Esterase Urine 2+ (Negative); Nitrite Urine Negative (Negative); Protein Urine Trace (Negative); RBC Urine Automated 0-2 /hpf (0-2); Specific Gravity Urine 1.033 (1.000-1.030); Urobilinogen Urine Negative (Negative); WBC Urine Automated 21-50 /hpf (0-5); pH Urine 6.5 (4.5-7.5)
[2024-10-30] MEDS: SODIUM CHLORIDE 0.9% 1,000 ML IV STA (23:39)
[2024-10-31] MEDS ORDERED: NALOXONE HCL 0.4 MG/1 ML VIAL/CARP IV PRN (00:48)
[2024-10-31] MEDS ORDERED: MAGNESIUM HYDROXIDE SUSP 30 ML UDC PO PRN (00:48)
[2024-10-31] MEDS ORDERED: VANCOMYCIN CONSULT ACTIVE PRN (00:48)
[2024-10-31] MEDS ORDERED: bisacodyL 10 MG SUPP PR PRN (00:48)
--- NOTE | 2024-10-31 01:16 | XRay Report ---
Exam(s): XR LEFT HIP EXAM: XR Left Hip With Pelvis When Performed, 2 or 3 Views CLINICAL HISTORY: Reason for exam: fall. TECHNIQUE: Two or three views of the left hip with pelvis when performed. COMPARISON: No relevant prior studies available. FINDINGS: Bones/joints: There is a moderately displaced fracture of the femoral neck. No dislocation. Diffuse osteopenia throughout the visualized bones Soft tissues: Unremarkable. IMPRESSION: Findings concerning for moderately displaced femoral neck fracture. Recommend CT scan for further evaluation. Electronically signed by: Millie Stearns MD 10/31/24 01:16 AM
[2024-10-31] MEDS: MoRPHine SULFATE 2 MG/ML CARP IV PRN (01:20)
--- NOTE | 2024-10-31 01:20 | XRay Report ---
Exam(s): XR RIGHT KNEE, 1-2 views EXAM: XR Right Knee, 1 or 2 Views CLINICAL HISTORY: Reason for exam: fall. TECHNIQUE: Frontal and/or lateral views of the right knee. COMPARISON: No relevant prior studies available. FINDINGS: Bones/joints: Unremarkable. No acute fracture. No dislocation. Diffuse osteopenia throughout the visualized bones. Soft tissues: Mild calcified atherosclerotic disease of the distal femoral and popliteal arteries. Mild soft tissue swelling over the patella. IMPRESSION: No evidence of acute fracture or dislocation. Electronically signed by: Millie Stearns MD 10/31/24 01:19 AM
--- NOTE | 2024-10-31 01:21 | XRay Report ---
Exam(s): XR RIGHT HIP EXAM: XR Right Hip With Pelvis When Performed, 2 or 3 Views CLINICAL HISTORY: Reason for exam: fall. TECHNIQUE: Two or three views of the right hip with pelvis when performed. COMPARISON: No relevant prior studies available. FINDINGS: Bones/joints: Unremarkable. No acute fracture. No dislocation. Diffuse osteopenia throughout the visualized bones. Soft tissues: Unremarkable. IMPRESSION: No evidence of acute fracture or dislocation. If there is continued clinical concern, a CT scan may be of benefit for further evaluation. Electronically signed by: Millie Stearns MD 10/31/24 01:20 AM
--- NOTE | 2024-10-31 01:22 | XRay Report ---
Exam(s): XR LEFT KNEE, 1-2 views EXAM: XR Left Knee, 1 or 2 Views CLINICAL HISTORY: Reason for exam: fall. TECHNIQUE: Frontal and/or lateral views of the left knee. COMPARISON: No relevant prior studies available. FINDINGS: Bones/joints: Unremarkable. No acute fracture. No dislocation. Diffuse osteopenia throughout the visualized bones. Soft tissues: Unremarkable. IMPRESSION: No evidence of acute fracture or dislocation. If there is continued clinical concern, a CT scan may be of benefit for further evaluation. Electronically signed by: Millie Stearns MD 10/31/24 01:21 AM
--- NOTE | 2024-10-31 01:30 | CT Scan Report ---
Exam(s): CT CHEST With Contrast IV Amt: 93 ml opti 320 EXAM: CT Chest With Intravenous Contrast CLINICAL HISTORY: Reason for exam: Trauma. TECHNIQUE: Axial computed tomography images of the chest with intravenous contrast. CTDI is 21.96 mGy and DLP is 753.19 mGy-cm. Automated exposure control was utilized for the study. A dose lowering technique was utilized adhering to the principles of ALARA. CONTRAST: Patient received 93 ml opti 320 of IV contrast COMPARISON: No relevant prior studies available. FINDINGS: Lungs: Mild bibasilar dependent atelectasis. No mass. Pleural space: Unremarkable. No pneumothorax. No significant effusion. Heart: Cardiomegaly. Coronary artery calcification. No significant pericardial effusion. Bones/joints: Postoperative changes bilateral shoulder arthroplasty. Postoperative changes of the lower thoracic and lumbar spine incompletely visualized on this exam. No acute fracture. No dislocation. Soft tissues: Unremarkable. Vasculature: See above. Lymph nodes: Unremarkable. No enlarged lymph nodes. IMPRESSION: No acute findings in the chest. Electronically signed by: Young Benson MD 10/31/24 01:30 AM
--- NOTE | 2024-10-31 01:35 | CT Scan Report ---
Exam(s): CT C SPINE EXAM: CT Cervical Spine Without Intravenous Contrast CLINICAL HISTORY: Reason for exam: Trauma. TECHNIQUE: Axial computed tomography images of the cervical spine without intravenous contrast. CTDI is 23.41 mGy and DLP is 447.96 mGy-cm. Automated exposure control was utilized for the study. A dose lowering technique was utilized adhering to the principles of ALARA. COMPARISON: Prior CT scan of the cervical spine from October 29, 2024. FINDINGS: Vertebrae: Unremarkable. No acute fracture. Incomplete fusion of posterior ring of C1. Diffuse osteopenia throughout the visualized bones. Discs/spinal canal/neural foramina: No acute findings. No spinal canal stenosis. Soft tissues: Unremarkable. IMPRESSION: No evidence of acute cervical spine pathology. Electronically signed by: Millie Stearns MD 10/31/24 01:34 AM
--- NOTE | 2024-10-31 01:53 | CT Scan Report ---
Exam(s): CT HEAD Without Contrast EXAM: CT Head Without Intravenous Contrast CLINICAL HISTORY: Reason for exam: trauma. TECHNIQUE: Axial computed tomography images of the head/brain without intravenous contrast. CTDI is 36.55 mGy and DLP is 624.41 mGy-cm. Automated exposure control was utilized for the study. A dose lowering technique was utilized adhering to the principles of ALARA. COMPARISON: Prior head CT from October 29, 2024. FINDINGS: Brain: There is a remote ischemic injury of the left cerebellum. No hemorrhage. Advanced nonspecific white matter changes.. No edema. Ventricles: Moderate ventriculomegaly. Bones/joints: Unremarkable. No acute fracture. Soft tissues: Moderate soft tissue swelling over the forehead with small hematoma. Sinuses: Unremarkable as visualized. No acute sinusitis. Mastoid air cells: Unremarkable as visualized. No mastoid effusion. IMPRESSION: No evidence of acute intracranial pathology. Electronically signed by: Millie Stearns MD 10/31/24 01:52 AM
--- NOTE | 2024-10-31 03:23 | CT Scan Report ---
Exam(s): CT ABDOMEN + PELVIS With Contrast IV Amt: 93 ml opti 320 EXAM: CT Abdomen and Pelvis With Intravenous Contrast CLINICAL HISTORY: Reason for exam: Trauma. TECHNIQUE: Axial computed tomography images of the abdomen and pelvis with intravenous contrast. CTDI is 27.29 mGy and DLP is 1372.33 mGy-cm. Automated exposure control was utilized for the study. A dose lowering technique was utilized adhering to the principles of ALARA. CONTRAST: Patient received 93 ml opti 320 of IV contrast COMPARISON: No relevant prior studies available. FINDINGS: Lung bases: Left lower lobe pneumonia. ABDOMEN: Liver: Unremarkable. No mass. Gallbladder and bile ducts: Postoperative changes prior cholecystectomy. No ductal dilation. Pancreas: Unremarkable. No mass. No ductal dilation. Spleen: Unremarkable. No splenomegaly. Adrenals: Unremarkable. No mass. Kidneys and ureters: Simple 1.4 cm left renal cyst. No follow-up of this simple cyst is necessary. No hydronephrosis. Stomach and bowel: Unremarkable. No obstruction. No mucosal thickening. PELVIS: Appendix: No findings to suggest acute appendicitis. Bladder: Urinary bladder is unremarkable. Reproductive: Unremarkable as visualized. ABDOMEN and PELVIS: Intraperitoneal space: Unremarkable. No free air. No significant fluid collection. Bones/joints: Postoperative changes T11 through S1 interbody fusion. Hardware appears intact and without abnormality or failure. No acute fracture or dislocation of the lumbar spine Minimally displaced overriding left subcapital femoral neck fracture Soft tissues: Unremarkable. Vasculature: Unremarkable. No abdominal aortic aneurysm. Lymph nodes: Unremarkable. No enlarged lymph nodes. IMPRESSION: Minimally displaced overriding left subcapital femoral neck fracture. Electronically signed by: Young Benson MD 10/31/24 03:23 AM
--- NOTE | 2024-10-31 05:53 | History & Physical Report ---
Date of Service October 31, 2024 Assessment & Plan (1) Closed fracture of left hip: (2) UTI (urinary tract infection): (3) Facial contusion: (4) Dementia: (5) Permanent atrial fibrillation: (6) Anticoagulant long-term use: (7) Coronary artery disease: (8) Grief reaction: Plan Closed fracture of left hip- NPO except essential medications Hold Eliquis, with last dose having been the morning of 10/29 Geriatric hip fracture order set Acetaminophen 1 g IV every 8 hours as needed for mild pain or fever Morphine sulfate 2 mg IV every 3 hours as needed for moderate pain Morphine sulfate 4 mg IV every 3 hours as needed for severe pain Naloxone per protocol [place] catheter placement NSS at 80 mL/h x 1 L Of note, CT scan head was negative, CT scan of chest was negative, CT scan of cervical spine was negative, CT scan of abdomen and pelvis shows minimally displaced and overriding left subcapital femoral neck fracture Consult orthopedic surgery Permanent atrial fibrillation/hypertension/elevated troponin- Continue metoprolol succinate 150 mg in the morning Hold Eliquis, furosemide Troponin 43.2, will follow-up serially, likely supply/demand mismatch Urinary tract infection- Urine looks positive Follow urine culture and sensitivity Placed on ceftriaxone 1 g IV every 24 hours, which can also serve as a hip preop prophylaxis GERD- Change pantoprazole from 40 mg p.o. twice daily to IV twice daily Zofran 4 mg IV every 6 hours as needed Grief reaction/anxiety- Patient's , and is scheduled for 10/31 Reportedly is going to have video done, and I have asked case management to assist however they can Admission and Anticipated Discharge Date Admission Date: October 30, 2024 History of Present Illness Chief Complaint: The patient had been seen in the emergency department on 10/29, due to a fall, with negative workup, and was sent home. She had been then started on sertraline and Ativan in the outpatient setting after that, to help deal with her 's . Today, on 10/30, the patient was eating dinner, then went to the bathroom, and fell. her granddaughter found her on the ground, and as she had tried to assist her to walk, the patient was unable to bear weight due to left hip pain. Primary Care Provider: Dianne Adams DO The patient is an 89-year-old female with a past medical history including history of humerus fracture, bilateral TSA, ANADN, hypothyroidism, hypertension, hyperlipidemia, GERD, dementia, permanent atrial fibrillation on Eliquis, nonsustained V. tach, pulmonary nodules, lumbar spinal stenosis with neurogenic claudication, and migraine headache. The patient presents to the emergency department after second fall 2 days in a row, this time sustained a closed left hip fracture as noted on imaging. The patient is then referred for evaluation for admission. Of note, the patient did have significant ecchymoses along her right arm, leg and right side of her face, which were related to the first fall on 10/29. Her second fall, on 10/30, involved left hip injury and closed left hip fracture. Also of note, the patient's 's is scheduled for 10/31 Allergies Allergy/AdvReac Type Severity Reaction Status Date / Time adhesive Allergy Unknown RASH Verified 09/22/24 09:19 Cipro Allergy Unknown Per cardio Unverified 08/28/16 13:36 note ciprofloxacin Allergy Unknown RASH Verified 09/22/24 09:19 doxycycline Allergy Unknown RASH Verified 09/22/24 09:19 latex Allergy Unknown RASH Verified 09/22/24 09:19 Penicillins Allergy Unknown RASH Verified 09/22/24 09:19 sulfamethoxazole Allergy Unknown Rash Verified 09/22/24 09:19 [From Bactrim] trimethoprim [From Bactrim] Allergy Unknown Rash Verified 09/22/24 09:19 Home Medications Medication Instructions Recorded Confirmed Type acetaminophen 500 mg tablet 1,000 mg PO Q4H PRN Pain 07/13/19 10/30/24 History (Tylenol Extra Strength) cholecalciferol (vitamin D3) 25 1,000 units PO DAILY 07/16/19 10/30/24 History mcg (1,000 unit) capsule mecobalamin (vitamin B12) 1,000 1,000 mcg PO DAILY 09/30/21 10/30/24 History mcg chewable tablet nitroglycerin 0.4 mg sublingual 0.4 mg sublingual UD PRN Chest 10/05/21 10/30/24 Rx tablet (Nitrostat) Pain #25 tabs potassium chloride 20 mEq 20 meq PO DAILY #90 tabs 12/25/23 10/30/24 Rx tablet,extended release apixaban 5 mg tablet (Eliquis) 5 mg PO BID #180 tabs 02/18/24 10/30/24 Rx metoprolol succinate 50 mg 150 mg (3 x 50 mg) PO DAILY #270 03/14/24 10/30/24 Rx tablet,extended release 24 hr tabs furosemide 20 mg tablet 20 mg PO DAILY #90 tabs 05/09/24 10/30/24 Rx atorvastatin 40 mg tablet 40 mg PO HS #90 tabs 08/19/24 10/30/24 Rx pantoprazole 40 mg tablet,delayed 40 mg PO DAILYBB #90 tabs 08/19/24 10/30/24 Rx release CPAP Supplies #1 ea 09/09/24 10/30/24 Rx alendronate 70 mg tablet 70 mg PO WK #12 tabs 10/23/24 10/30/24 Rx lorazepam 0.5 mg tablet 0.5 mg PO Q12H PRN anxiety #20 tabs 10/27/24 10/30/24 Rx sertraline 25 mg tablet 25 mg PO DAILY #30 tabs 10/27/24 10/30/24 Rx levothyroxine 50 mcg tablet 50 mcg PO DAILY #90 tabs 10/29/24 10/30/24 Rx Past Med/Surg History Problem List (Updated 10/31/24 @ 05:45 by Irvin Vazquez MD) Grief reaction Contusion of knee, right (Acute) Closed fracture of left hip (Acute) Facial contusion (Acute) Fall (Acute) Traumatic hematoma of right knee (Acute) Contusion of face (Acute) Fall (Acute) Chronic heart failure with preserved ejection fraction H/O fracture of humerus (10/31/22) Left Edema SOB (shortness of breath) Prediabetes Osteoporosis Urge incontinence of urine ANAND (obstructive sleep apnea) Hypothyroidism Hyperlipidemia HTN (hypertension) GERD (gastroesophageal reflux disease) Dementia Coronary artery disease Permanent atrial fibrillation Anticoagulant long-term use Nonsustained ventricular tachycardia Hyponatremia (Acute) Spinal stenosis, lumbar region with neurogenic claudication Solitary pulmonary nodule Headache, migraine Medical History Urinary urgency Chronic back pain Osteoarthritis Peripheral neuropathy Varicose veins of both lower extremities DJD (degenerative joint disease) Surgical History History of lumbar fusion History of bilateral tubal ligation History of total abdominal hysterectomy and bilateral salpingo-oophorectomy History of repair of rotator cuff History of cholecystectomy History of appendectomy History of colonoscopy History of tonsillectomy History of adenoidectomy History of cataract surgery Family History Mother Family hx of colon cancer Breast cancer Sister Breast cancer Myocardial infarction Father Myocardial infarction Denies family history of Ovarian cancer Prostate cancer Colorectal cancer Stroke Social History Smoking Status: Never smoker Second Hand Exposure: No; Do You Dip or Chew Tobacco: No; Hx Alcohol Use: Yes Alcohol type: other Alcohol Intake Frequency: Monthly or Less Hx Substance Use: No Preferred Language: Japanese Communication Ability: Effective Visual Impairment: Limited Hearing Ability: Use of Hearing Aid Lubrication Supervisor Required: No Beliefs That Will Affect Care: None marital status: Current Living Situation: Alone Current Living Situation Comment: spouse 10/25/24 current occupational status: retired Other Information That Helps Us Care for You: No Feels Safe at Home: Yes Safety Concerns: Feels Safe At This Time Childhood Exposure to Second-Hand Smoke: No Diet: regular Diet Comment: regular caffeine: Yes (Coffee 1 cup per day.) during the past year weight has: remained stable Dental Care, Regularly: Yes Physical Activity Frequency: Other Physical Activity Frequency Comment: limited by physical condition Seatbelt Use: always Sunscreen Use: Yes Assistive Devices: Cane, Denture - Upper, Denture - Lower, Glasses, Hearing Aid - Bilateral and Walker Review of Systems Review of Systems: Review of systems is somewhat limited due to patient's underlying dementia and confusion Physical Exam Physical Exam: The patient is awake, able to respond to some questions but confused, ecchymoses over right frontal and maxillary areas, lying in bed and in no acute distress. HEENT--PERRL, EOMI, mucous membranes and oropharynx mildly dry. Neck--supple. No JVD. No bruits. Thyroid normal, trachea midline, no adenopathy. Heart--normal S1 and S2. No murmurs, rubs or gallops. Lungs--clear bilaterally, no respiratory distress, no accessory muscle use. Abdomen--normal bowel sounds and soft. Nontender. Nondistended, no hernias or masses, no organomegaly. Extremities--no cyanosis or clubbing. No edema. There are good distal pulses b/l. Dermatologic--normal skin turgor, normal color, no abnormal lymph nodes, no rash. Neurologic--cranial nerves II through XII grossly intact. Rheumatologic--limited exam due to left hip pain today, and previous soreness from right sided fall the previous day Psychiatric--mildly confused, underlying dementia Results & Data Results & Data Vital Signs (Past 12 Hours) Vital Signs Temp Pulse Pulse Resp BP BP Pulse Ox 10/31/24 01:33 10/31/24 01:00 36.6 C 100 H 18 156/66 H 94 10/31/24 00:24 102 H 23 147/91 H 98 10/31/24 00:01 103 H 16 147/91 H 97 10/30/24 21:21 84 26 H 151/108 H 94 10/30/24 20:38 81 10/30/24 20:36 78 22 144/81 H 96 10/30/24 20:31 36.7 C 79 16 144/81 H 88 L O2 Del Method O2 Flow Rate 10/31/24 01:33 Nasal Cannula 3 10/31/24 01:00 Nasal Cannula 3 10/31/24 00:24 Room Air 10/31/24 00:01 10/30/24 21:21 10/30/24 20:38 10/30/24 20:36 10/30/24 20:31 Room Air Laboratory Results Laboratory Results WBC 11.16 K/ul (4.8-10.8) H 10/30/24 20:47 RBC 3.23 M/uL (4.20-5.40) L 10/30/24 20:47 Hgb 10.8 g/dl (12.0-16.0) L 10/30/24 20:47 POC Hgb 11.6 g/dl (12.0-16.0) L 10/30/24 20:52 Hct 31.5 % (37.0-47.0) L 10/30/24 20:47 POC Hct 34 % (37-47) L 10/30/24 20:52 MCV 97.5 fL (80.0-100.0) 10/30/24 20:47 MCH 33.4 pg (25.0-34.0) 10/30/24 20:47 MCHC 34.3 g/dL (32.0-36.0) 10/30/24 20:47 RDW Std Deviation 52.9 fL (36.4-46.3) H 10/30/24 20:47 RDW Coeff of Nancy 14.6 % (11.5-14.5) H 10/30/24 20:47 Plt Count 245 K/uL (130-400) 10/30/24 20:47 MPV 10.5 fL (9.4-12.4) 10/30/24 20:47 Immature Gran % (Auto) 0.4 % 10/30/24 20:47 Neut % (Auto) 81.4 % 10/30/24 20:47 Lymph % (Auto) 8.5 % 10/30/24 20:47 [place] % (Auto) 7.8 % 10/30/24 20:47 Eos % (Auto) 1.6 % 10/30/24 20:47 Baso % (Auto) 0.3 % 10/30/24 20:47 Neut # (Auto) 9.08 K/uL (1.40-6.50) H 10/30/24 20:47 Lymph # (Auto) 0.95 K/uL (1.20-3.40) L 10/30/24 20:47 [place] # (Auto) 0.87 K/uL (0.11-0.59) H 10/30/24 20:47 Eos # (Auto) 0.18 K/uL (0.00-0.50) 10/30/24 20:47 Baso # (Auto) 0.03 K/uL (0.00-0.20) 10/30/24 20:47 Immature Gran # (Auto) 0.05 K/uL (0.01-0.20) 10/30/24 20:47 PT 11.5 Seconds (9.0-12.0) 10/30/24 20:47 INR 1.1 (0.9-1.1) 10/30/24 20:47 APTT 27 Seconds (21-31) 10/30/24 20:47 PTT Ratio 1.0 10/30/24 20:47 POC Sodium 136 mmol/L (135-144) 10/30/24 20:52 Sodium 136 mmol/L (136-145) 10/30/24 20:47 POC Potassium 4.4 mmol/L (3.3-5.0) 10/30/24 20:52 Potassium 4.4 mmol/L (3.5-5.1) 10/30/24 20:47 POC Chloride 98 mmol/L (101-112) L 10/30/24 20:52 Chloride 101 mmol/L (98-107) 10/30/24 20:47 Carbon Dioxide 31 mmol/L (21-32) 10/30/24 20:47 POC Total CO2 27 mmol/L (24-31) 10/30/24 20:52 Anion Gap 4 (3-11) 10/30/24 20:47 POC Anion Gap 17.0 mmol/L (16-25) 10/30/24 20:52 POC BUN 20 mg/dl (7-18) H 10/30/24 20:52 BUN 21 mg/dl (6-23) 10/30/24 20:47 Creatinine 0.84 mg/dl (0.6-1.2) 10/30/24 20:47 POC Creatinine 0.9 mg/dl (0.6-1.3) 10/30/24 20:52 Est Cr Clr Drug Dosing 49.5 ml/min 10/30/24 20:47 eGFR 67.21 10/30/24 20:47 BUN/Creatinine Ratio 25.0 (10-20) H 10/30/24 20:47 Glucose 128 mg/dl (70-99(Fasting)) H 10/30/24 20:47 POC Glucose 135 mg/dl (70-99) H 10/30/24 20:34 POC Glucose (other) 123 mg/dl (70-99) H 10/30/24 20:52 Calcium 9.6 mg/dl (8.6-10.3) 10/30/24 20:47 POC Ioniz Calcium Sarah Beth 1.22 mmol/l (1.12-1.32) 10/30/24 20:52 Total Bilirubin 1.0 mg/dl (0.2-1.0) 10/30/24 20:47 AST 17 U/L (13-39) 10/30/24 20:47 ALT 17 U/L (7-52) 12/12/24 20:47 Alkaline Phosphatase 62 U/L (34-104) 10/30/24 20:47 Total Creatine Kinase 44 U/L (26-192) 10/30/24 20:47 Troponin I High Sens 36.8 pg/ml (0-14) H 10/30/24 23:14 Total Protein 6.6 gm/dl (6.0-8.3) 10/30/24 20:47 Albumin 4.1 gm/dl (3.4-5.0) 10/30/24 20:47 Globulin 2.5 gm/dl (2.5-4.0) 10/30/24 20:47 Albumin/Globulin Ratio 1.6 (0.9-2) 10/30/24 20:47 Lipase 26 U/L (11-82) 10/30/24 20:47 Urine Color Yellow 10/30/24 22:40 Urine Appearance Clear (Clear) 10/30/24 22:40 Urine pH 6.5 (4.5-7.5) 10/30/24 22:40 Ur Specific [place] 1.033 (1.000-1.030) H 10/30/24 22:40 Urine Protein Trace (Negative) H 10/30/24 22:40 Urine Glucose (UA) Negative (Negative) 10/30/24 22:40 Urine Ketones Negative (Negative) 10/30/24 22:40 Urine Blood Negative (Negative) 10/30/24 22:40 Urine Nitrite Negative (Negative) 10/30/24 22:40 Urine Bilirubin Negative (Negative) 10/30/24 22:40 Urine Urobilinogen Negative (Negative) 10/30/24 22:40 Ur Leukocyte Esterase 2+ (Negative) H 10/30/24 22:40 Urine WBC (Auto) 21-50 /hpf (0-5) H 10/30/24 22:40 Urine RBC (Auto) 0-2 /hpf (0-2) 10/30/24 22:40 U Hyaline Cast (Auto) 0-2 /lpf (0-2) 10/30/24 22:40 U Epithel Cells (Auto) 0-2 /hpf (0-2) 10/30/24 22:40 Urine Bacteria (Auto) 1+ (None Seen) H 10/30/24 22:40 Impressions Hip X-Ray 10/30/24 20:38 Exam(s): XR RIGHT HIP EXAM: XR Right Hip With Pelvis When Performed, 2 or 3 Views CLINICAL HISTORY: Reason for exam: fall. TECHNIQUE: Two or three views of the right hip with pelvis when performed. COMPARISON: No relevant prior studies available. FINDINGS: Bones/joints: Unremarkable. No acute fracture. No dislocation. Diffuse osteopenia throughout the visualized bones. Soft tissues: Unremarkable. IMPRESSION: No evidence of acute fracture or dislocation. If there is continued clinical concern, a CT scan may be of benefit for further evaluation. Electronically signed by: Millie Stearns MD 10/31/24 01:20 AM Knee X-Ray 10/30/24 20:38 Exam(s): XR LEFT KNEE, 1-2 views EXAM: XR Left Knee, 1 or 2 Views CLINICAL HISTORY: Reason for exam: fall. TECHNIQUE: Frontal and/or lateral views of the left knee. COMPARISON: No relevant prior studies available. FINDINGS: Bones/joints: Unremarkable. No acute fracture. No dislocation. Diffuse osteopenia throughout the visualized bones. Soft tissues: Unremarkable. IMPRESSION: No evidence of acute fracture or dislocation. If there is continued clinical concern, a CT scan may be of benefit for further evaluation. Electronically signed by: Millie Stearns MD 10/31/24 01:21 AM Abdomen/Pelvis CT 10/30/24 20:39 Exam(s): CT ABDOMEN + PELVIS With Contrast IV Amt: 93 ml opti 320 EXAM: CT Abdomen and Pelvis With Intravenous Contrast CLINICAL HISTORY: Reason for exam: Trauma. TECHNIQUE: Axial computed tomography images of the abdomen and pelvis with intravenous contrast. CTDI is 27.29 mGy and DLP is 1372.33 mGy-cm. Automated exposure control was utilized for the study. A dose lowering technique was utilized adhering to the principles of ALARA. CONTRAST: Patient received 93 ml opti 320 of IV contrast COMPARISON: No relevant prior studies available. FINDINGS: Lung bases: Left lower lobe pneumonia. ABDOMEN: Liver: Unremarkable. No mass. Gallbladder and bile ducts: Postoperative changes prior cholecystectomy. No ductal dilation. Pancreas: Unremarkable. No mass. No ductal dilation. Spleen: Unremarkable. No splenomegaly. Adrenals: Unremarkable. No mass. Kidneys and ureters: Simple 1.4 cm left renal cyst. No follow-up of this simple cyst is necessary. No hydronephrosis. Stomach and bowel: Unremarkable. No obstruction. No mucosal thickening. PELVIS: Appendix: No findings to suggest acute appendicitis. Bladder: Urinary bladder is unremarkable. Reproductive: Unremarkable as visualized. ABDOMEN and PELVIS: Intraperitoneal space: Unremarkable. No free air. No significant fluid collection. Bones/joints: Postoperative changes T11 through S1 interbody fusion. Hardware appears intact and without abnormality or failure. No acute fracture or dislocation of the lumbar spine Minimally displaced overriding left subcapital femoral neck fracture Soft tissues: Unremarkable. Vasculature: Unremarkable. No abdominal aortic aneurysm. Lymph nodes: Unremarkable. No enlarged lymph nodes. IMPRESSION: Minimally displaced overriding left subcapital femoral neck fracture. Electronically signed by: Young Benson MD 10/31/24 03:[address] 10/30/24 20:39 Exam(s): CT C SPINE EXAM: CT Cervical Spine Without Intravenous Contrast CLINICAL HISTORY: Reason for exam: Trauma. TECHNIQUE: Axial computed tomography images of the cervical spine without intravenous contrast. CTDI is 23.41 mGy and DLP is 447.96 mGy-cm. Automated exposure control was utilized for the study. A dose lowering technique was utilized adhering to the principles of ALARA. COMPARISON: Prior CT scan of the cervical spine from October 29, 2024. FINDINGS: Vertebrae: Unremarkable. No acute fracture. Incomplete fusion of posterior ring of C1. Diffuse osteopenia throughout the visualized bones. Discs/spinal canal/neural foramina: No acute findings. No spinal canal stenosis. Soft tissues: Unremarkable. IMPRESSION: No evidence of acute cervical spine pathology. Electronically signed by: Millie Stearns MD 10/31/24 01:[address] 10/30/24 20:39 Exam(s): CT CHEST With Contrast IV Amt: 93 ml opti 320 EXAM: CT Chest With Intravenous Contrast CLINICAL HISTORY: Reason for exam: Trauma. TECHNIQUE: Axial computed tomography images of the chest with intravenous contrast. CTDI is 21.96 mGy and DLP is 753.19 mGy-cm. Automated exposure control was utilized for the study. A dose lowering technique was utilized adhering to the principles of ALARA. CONTRAST: Patient received 93 ml opti 320 of IV contrast COMPARISON: No relevant prior studies available. FINDINGS: Lungs: Mild bibasilar dependent atelectasis. No mass. Pleural space: Unremarkable. No pneumothorax. No significant effusion. Heart: Cardiomegaly. Coronary artery calcification. No significant pericardial effusion. Bones/joints: Postoperative changes bilateral shoulder arthroplasty. Postoperative changes of the lower thoracic and lumbar spine incompletely visualized on this exam. No acute fracture. No dislocation. Soft tissues: Unremarkable. Vasculature: See above. Lymph nodes: Unremarkable. No enlarged lymph nodes. IMPRESSION: No acute findings in the chest. Electronically signed by: Young Benson MD 10/31/24 01:[address] 10/30/24 20:39 Exam(s): CT HEAD Without Contrast EXAM: CT Head Without Intravenous Contrast CLINICAL HISTORY: Reason for exam: trauma. TECHNIQUE: Axial computed tomography images of the head/brain without intravenous contrast. CTDI is 36.55 mGy and DLP is 624.41 mGy-cm. Automated exposure control was utilized for the study. A dose lowering technique was utilized adhering to the principles of ALARA. COMPARISON: Prior head CT from October 29, 2024. FINDINGS: Brain: There is a remote ischemic injury of the left cerebellum. No hemorrhage. Advanced nonspecific white matter changes.. No edema. Ventricles: Moderate ventriculomegaly. Bones/joints: Unremarkable. No acute fracture. Soft tissues: Moderate soft tissue swelling over the forehead with small hematoma. Sinuses: Unremarkable as visualized. No acute sinusitis. Mastoid air cells: Unremarkable as visualized. No mastoid effusion. IMPRESSION: No evidence of acute intracranial pathology. Electronically signed by: Millie Stearns MD 10/31/24 01:52 AM Code Status & VTE Plan Code Status Full code VTE Prophylaxis Plan VTE Prophylaxis will be ordered: Yes PG Care Time/CCT Total # of Minutes Spent Total Time Spent with Patient: Total time spent is greater than 50% in coordination of care (as documented) at patient's floor/unit and/or counseling patient: Coding Level of Care Code 16548 INT INP/OBS CARE 3/75MIN Diagnoses Closed fracture of left hip S72.002A Encounter type: initial encounter UTI (urinary tract infection) N39.0; R31.9 Hematuria presence: with hematuria Urinary tract infection type: site unspecified Facial contusion S00.83XD Encounter type: subsequent encounter Dementia F03.90 Permanent atrial fibrillation I48.21 Anticoagulant long-term use Z79.01 Coronary artery disease I25.10 Grief reaction F43.21 (1) Closed fracture of left hip Encounter type: initial encounter Qualified Code(s): S72.002A - Fracture of unspecified part of neck of left femur, initial encounter for closed fracture (2) UTI (urinary tract infection) Hematuria presence: with hematuria Urinary tract infection type: site unspecified Qualified Code(s): N39.0 - Urinary tract infection, site not specified; R31.9 - Hematuria, unspecified (3) Facial contusion Encounter type: subsequent encounter Qualified Code(s): S00.83XD - Contusion of other part of head, subsequent encounter
[2024-10-31] MEDS ORDERED: VANCOMYCIN HCL 1,250 MG in SODIUM CHLORIDE 0.9% 250 ML IV SCH (06:00)
[2024-10-31] MEDS: cefTRIAXone SODIUM 1,000 MG/50 ML BAG IV SCH (06:05)
[2024-10-31 07:04] LABS: Basophils # (auto) 0.02 K/uL (0.00-0.20); Basophils % (auto) 0.2 %; Hematocrit (blood only) 28.7 % (37.0-47.0); Hemoglobin 9.6 g/dl (12.0-16.0); Immature Granulocytes # (auto) 0.04 K/uL (0.01-0.20); Immature Granulocytes % (auto) 0.4 %; Lymphocytes % (auto) 6.7 %; Mean Corpuscular Hemoglobin 32.2 pg (25.0-34.0); Mean Corpuscular Hgb Conc 33.4 g/dL (32.0-36.0); Mean Corpuscular Volume 96.3 fL (80.0-100.0); Mean Platelet Volume 10.3 fL (9.4-12.4); Monocytes # (auto) 0.63 K/uL (0.11-0.59); Neutrophils # (auto) 7.67 K/uL (1.40-6.50); Neutrophils % (auto) 85.7 %; Platelet Count 206 K/uL (130-400); RDW Coefficient of Variation 14.6 % (11.5-14.5); RDW Standard Deviation 51.1 fL (36.4-46.3); Red Blood Count 2.98 M/uL (4.20-5.40); White Blood Count 8.96 K/ul (4.8-10.8)
[2024-10-31 07:15] LABS: Albumin Globulin Ratio 1.5 (0.9-2); Albumin Level 3.4 gm/dl (3.4-5.0); BUN Creatinine Ratio 28.3 (10-20); Bilirubin,Total 0.8 mg/dl (0.2-1.0); Calcium 9.2 mg/dl (8.6-10.3); Creatinine Clr Calc Pharmacy 67.2 ml/min; Globulin 2.3 gm/dl (2.5-4.0); Magnesium 1.8 mg/dl (1.7-2.4); Potassium 4.3 mmol/L (3.5-5.1); Total Protein 5.7 gm/dl (6.0-8.3)
--- NOTE | 2024-10-31 07:19 | Orthopedic Consultation ---
Date of Consultation October 31, 2024 Assessment & Plan (1) Closed fracture of left hip: I discussed the diagnosis with the patient. She is a candidate for surgery to allow her to regain the ability to walk. I reviewed the risks and benefits of the surgery with her. She is at increased risk for complications because of her obesity as well as her posterior spinal fusion and dementia. After reviewing all of her options she elects to proceed with surgery. All questions were answered. Informed consent was signed. Surgical site was marked. She has been n.p.o. since midnight last night. She is on the operating room schedule for this afternoon. Will need medical clearance to proceed today. (2) Grief reaction: I discussed with the patient that unfortunately it is unlikely she will be safe to leave the hospital by tomorrow to attend her 's . Would ask case management to see if there are any virtual options to attend from the hospital. (3) Obesity: History of Present Illness Reason for Consultation: Right femoral neck fracture Attending Physician: Mookie Peres History of Present Illness The patient is an 89-year-old female with a past medical history including history of humerus fracture, bilateral TSA, ANAND, hypothyroidism, hypertension, hyperlipidemia, GERD, dementia, permanent atrial fibrillation on Eliquis, nonsustained V. tach, pulmonary nodules, lumbar spinal stenosis with neurogenic claudication, and migraine headache. The patient presents to the emergency department after second fall 2 days in a row. The patient had been seen in the emergency department on 10/29, due to a fall, with negative workup, and was sent home. She had been then started on sertraline and Ativan in the outpatient setting after that, to help deal with her 's . Of note, the patient did have significant ecchymoses along her right arm, leg and right side of her face, which were related to the first fall on 10/29 yesterday, on 10/30, the patient was eating dinner, then went to the bathroom, and fell. Her granddaughter found her on the ground, and as she had tried to assist her to walk, the patient was unable to bear weight due to left hip pain. Also of note, the patient's 's is scheduled for 10/31. orthopedics was consulted for evaluation and treatment of the left femoral neck fracture. Patient was seen and examined on the floor this morning. She reports the pain is in her left hip. Denies any numbness or tingling down her leg. She is concerned about missing her 's tomorrow. In speaking with her daughter Rae, she has developed dementia which has been worsening over the last couple of years. Allergies Allergy/AdvReac Type Severity Reaction Status Date / Time adhesive Allergy Unknown RASH Verified 09/22/24 09:19 Cipro Allergy Unknown Per cardio Unverified 08/28/16 13:36 note ciprofloxacin Allergy Unknown RASH Verified 09/22/24 09:19 doxycycline Allergy Unknown RASH Verified 09/22/24 09:19 latex Allergy Unknown RASH Verified 09/22/24 09:19 Penicillins Allergy Unknown RASH Verified 09/22/24 09:19 sulfamethoxazole Allergy Unknown Rash Verified 09/22/24 09:19 [From Bactrim] trimethoprim [From Bactrim] Allergy Unknown Rash Verified 09/22/24 09:19 Home Medications Medication Instructions Recorded Confirmed Type acetaminophen 500 mg tablet 1,000 mg PO Q4H PRN Pain 07/13/19 10/30/24 History (Tylenol Extra Strength) cholecalciferol (vitamin D3) 25 1,000 units PO DAILY 07/16/19 10/30/24 History mcg (1,000 unit) capsule mecobalamin (vitamin B12) 1,000 1,000 mcg PO DAILY 09/30/21 10/30/24 History mcg chewable tablet nitroglycerin 0.4 mg sublingual 0.4 mg sublingual UD PRN Chest 10/05/21 10/30/24 Rx tablet (Nitrostat) Pain #25 tabs potassium chloride 20 mEq 20 meq PO DAILY #90 tabs 12/25/23 10/30/24 Rx tablet,extended release apixaban 5 mg tablet (Eliquis) 5 mg PO BID #180 tabs 02/18/24 10/30/24 Rx metoprolol succinate 50 mg 150 mg (3 x 50 mg) PO DAILY #270 03/14/24 10/30/24 Rx tablet,extended release 24 hr tabs furosemide 20 mg tablet 20 mg PO DAILY #90 tabs 05/09/24 10/30/24 Rx atorvastatin 40 mg tablet 40 mg PO HS #90 tabs 08/19/24 10/30/24 Rx pantoprazole 40 mg tablet,delayed 40 mg PO DAILYBB #90 tabs 08/19/24 10/30/24 Rx release CPAP Supplies #1 ea 09/09/24 10/30/24 Rx alendronate 70 mg tablet 70 mg PO WK #12 tabs 10/23/24 10/30/24 Rx lorazepam 0.5 mg tablet 0.5 mg PO Q12H PRN anxiety #20 tabs 10/27/24 10/30/24 Rx sertraline 25 mg tablet 25 mg PO DAILY #30 tabs 10/27/24 10/30/24 Rx levothyroxine 50 mcg tablet 50 mcg PO DAILY #90 tabs 10/29/24 10/30/24 Rx Patient History Medical History Urinary urgency chronic Chronic back pain Osteoarthritis Peripheral neuropathy Varicose veins of both lower extremities DJD (degenerative joint disease) Surgical History History of lumbar fusion x3 TOTAL History of bilateral tubal ligation History of total abdominal hysterectomy and bilateral salpingo-oophorectomy History of repair of rotator cuff RT/LEFT History of cholecystectomy History of appendectomy History of colonoscopy History of tonsillectomy History of adenoidectomy History of cataract surgery RT/LEFT Family History Mother Family hx of colon cancer Breast cancer Sister Breast cancer Myocardial infarction Father Myocardial infarction Denies family history of Ovarian cancer Prostate cancer Colorectal cancer Stroke Social History Smoking Status: Never smoker Second Hand Exposure: No; Do You Dip or Chew Tobacco: No; Hx Alcohol Use: Yes Alcohol type: other Alcohol Intake Frequency: Monthly or Less Hx Substance Use: No Preferred Language: [place] Islander Communication Ability: Effective Visual Impairment: Limited Hearing Ability: Use of Hearing Aid Sales Strategy Manager Required: No Beliefs That Will Affect Care: None marital status: Current Living Situation: Alone Current Living Situation Comment: spouse 10/25/24 current occupational status: retired Other Information That Helps Us Care for You: No Feels Safe at Home: Yes Safety Concerns: Feels Safe At This Time Childhood Exposure to Second-Hand Smoke: No Diet: regular Diet Comment: regular caffeine: Yes (Coffee 1 cup per day.) during the past year weight has: remained stable Dental Care, Regularly: Yes Physical Activity Frequency: Other Physical Activity Frequency Comment: limited by physical condition Seatbelt Use: always Sunscreen Use: Yes Assistive Devices: Cane, Denture - Upper, Denture - Lower, Glasses, Hearing Aid - Bilateral and Walker Physical Exam Physical Exam: Resting comfortably in bed in no acute distress. She is able to answer questions and is alert, however she is focused on her 's tomorrow. HEENT exam reveals the patient to have multiple bruises across her face including over the cheekbones and forehead. Eye movements are intact. Left lower extremity reveals the leg to be shortened and externally rotated. The skin is intact over the left hip. She is able to wiggle her toes. She reports sensation intact to moving light touch over the dorsal and plantar aspects of the foot. Foot is warm and well-perfused, however difficult to palpate her pulses. Results & Data Vital Signs (Past 12 Hours) Vital Signs Temp Pulse Pulse Resp BP BP Pulse Ox 10/31/24 07:04 36.5 C 88 17 159/72 H 91 10/31/24 01:33 10/31/24 01:00 36.6 C 100 H 18 156/66 H 94 10/31/24 00:24 102 H 23 147/91 H 98 10/31/24 00:01 103 H 16 147/91 H 97 10/30/24 21:21 84 26 H 151/108 H 94 10/30/24 20:38 81 10/30/24 20:36 78 22 144/81 H 96 10/30/24 20:31 36.7 C 79 16 144/81 H 88 L O2 Del Method O2 Flow Rate 10/31/24 07:04 Room Air 10/31/24 01:33 Nasal Cannula 3 10/31/24 01:00 Nasal Cannula 3 10/31/24 00:24 Room Air 10/31/24 00:01 10/30/24 21:21 10/30/24 20:38 10/30/24 20:36 10/30/24 20:31 Room Air Diagnostic Findings X-rays done in the emergency room demonstrate a displaced femoral neck fracture. Also noted is spinal instrumentation from the lower thoracic spine all the way to the sacrum Consistent with previous posterior spinal fusion. (1) Closed fracture of left hip Encounter type: initial encounter Qualified Code(s): S72.002A - Fracture of unspecified part of neck of left femur, initial encounter for closed fracture
[2024-10-31 07:22] LABS: INR 1.1 (0.9-1.1); Partial Thromboplastin Time 28 Seconds (21-31); Prothrombin Time 11.4 Seconds (9.0-12.0)
[2024-10-31] MEDS: PANTOprazole 40 MG/10 ML SYR IV SCH (07:28)
[2024-10-31 07:35] LABS: Troponin I High Sensitivity 43.6 pg/ml (0-14)
--- NOTE | 2024-10-31 08:02 | XRay Report ---
EXAM: XR chest 1V portable CLINICAL HISTORY: TRAUMA. TECHNIQUE: X-ray examination of the chest was performed in 1 view: AP view. COMPARISON: CT chest dated 10/29/2024 and x-ray chest dated 10/29/2024 were reviewed. FINDINGS: Bilateral mid and lower sternal airspace infiltrates. Prominent bilateral diffuse interstitial thickening. Cardiac size is enlarged. Elevated left hemidiaphragm is seen. No pleural effusion. No pneumothorax. Bilateral shoulder joint total replacement is seen. Thoracic spinal fixation is noted. Dilated unfolded calcified aortic arch seen. Intact bony thorax. IMPRESSION: 1. Bilateral mid and lower sternal airspace infiltrates could be due to pulmonary edema or infectious process. 2. Prominent bilateral diffuse interstitial thickening. 3. Cardiac size is enlarged. 4. An elevated left hemidiaphragm is seen. 5. No interval changes when compared to the prior study. Electronically signed by Natalie Pickering 10-31-2024 08:02 AM
--- NOTE | 2024-10-31 08:54 | Electrocardiogram Report ---
Test Reason : Blood Pressure : */* mmHG Vent. Rate : 72 BPM Atrial Rate : * BPM P-R Int : * ms QRS Dur : 88 ms QT Int : 368 ms P-R-T Axes : * -47 14 degrees QTcB Int : 402 ms Atrial fibrillation Low voltage QRS Left anterior fascicular block Possible Old Anterior infarct Abnormal ECG When compared with ECG of 29-Oct-2024 15:57, QRS axis Shifted left Minimal criteria for Anterior infarct are now Present Confirmed by Reece Garcia ([id number]) on 10/31/2024 8:53:54 AM Referred By: REFERRED SELF Confirmed By: Reece Garcia
[2024-10-31] MEDS: SODIUM CHLORIDE 0.9% 1,000 ML IV SCH (12:08)
--- NOTE | 2024-10-31 12:40 | Anesthesiology Consultation ---
Date of Service October 31, 2024 Assessment & Plan Chart Review Chart Review: Acceptable Risk for Surgery Consults Requested none History Surgery Operation Date: 10/31/24 08:50 Proposed Procedures p Hemiarthroplasty Cemented Left - Ignacio Cox MD Height/Weight Height: 5 ft 4 in Weight: 79 kg Allergies Allergy/AdvReac Type Severity Reaction Status Date / Time adhesive Allergy Unknown RASH Verified 09/22/24 09:19 Cipro Allergy Unknown Per cardio Unverified 08/28/16 13:36 note ciprofloxacin Allergy Unknown RASH Verified 09/22/24 09:19 doxycycline Allergy Unknown RASH Verified 09/22/24 09:19 latex Allergy Unknown RASH Verified 09/22/24 09:19 Penicillins Allergy Unknown RASH Verified 09/22/24 09:19 sulfamethoxazole Allergy Unknown Rash Verified 09/22/24 09:19 [From Bactrim] trimethoprim [From Bactrim] Allergy Unknown Rash Verified 09/22/24 09:19 Medications Home Medications Medication Instructions Recorded Confirmed Last Taken acetaminophen 500 mg tablet 1,000 mg PO Q4H PRN Pain 07/13/19 10/30/24 08/25/19 17:00 (Tylenol Extra Strength) cholecalciferol (vitamin D3) 25 1,000 units PO DAILY 07/16/19 10/30/24 10/23/19 mcg (1,000 unit) capsule mecobalamin (vitamin B12) 1,000 1,000 mcg PO DAILY 09/30/21 10/30/24 Unknown mcg chewable tablet nitroglycerin 0.4 mg sublingual 0.4 mg sublingual UD PRN Chest 10/05/21 10/30/24 Unknown tablet (Nitrostat) Pain #25 tabs potassium chloride 20 mEq 20 meq PO DAILY #90 tabs 12/25/23 10/30/24 Unknown tablet,extended release apixaban 5 mg tablet (Eliquis) 5 mg PO BID #180 tabs 02/18/24 10/30/24 Unknown metoprolol succinate 50 mg 150 mg (3 x 50 mg) PO DAILY #270 03/14/24 10/30/24 Unknown tablet,extended release 24 hr tabs furosemide 20 mg tablet 20 mg PO DAILY #90 tabs 05/09/24 10/30/24 Unknown atorvastatin 40 mg tablet 40 mg PO HS #90 tabs 08/19/24 10/30/24 Unknown pantoprazole 40 mg tablet,delayed 40 mg PO DAILYBB #90 tabs 08/19/24 10/30/24 Unknown release CPAP Supplies #1 ea 09/09/24 10/30/24 Unknown alendronate 70 mg tablet 70 mg PO WK #12 tabs 10/23/24 10/30/24 Unknown lorazepam 0.5 mg tablet 0.5 mg PO Q12H PRN anxiety #20 tabs 10/27/24 10/30/24 Unknown sertraline 25 mg tablet 25 mg PO DAILY #30 tabs 10/27/24 10/30/24 Unknown levothyroxine 50 mcg tablet 50 mcg PO DAILY #90 tabs 10/29/24 10/30/24 Unknown Active Medications Generic Name Dose Route Start Last Admin Trade Name Freq PRN Reason Stop Dose Admin Pantoprazole Sodium 40 mg in 10 mls @ 5 mls/min 10/31/24 09:00 10/31/24 07:28 Protonix IV 11/30/24 08:59 5 mls/min BID JOAQUINA Administration Ceftriaxone Sodium 1,000 mg in 50 mls @ 100 mls/hr 10/31/24 06:00 10/31/24 06:40 Rocephin IV 11/10/24 05:59 Infused Q24H JOAQUINA Infusion Sodium Chloride 1,000 mls @ 15 mls/hr 10/31/24 12:15 10/31/24 12:08 Nss IV 11/01/24 12:14 15 mls/hr .Q24H JOAQUINA Administration Morphine Sulfate 2 mg 10/31/24 00:48 10/31/24 01:20 Morphine Sulfate 2 Mg/Ml Carp IV 11/14/24 00:47 2 mg Q3H PRN Administration Pain (1,2,3,4,5) & Pre PT NPO Date Last Intake of Fluids: 10/30/24 Time Last Intake of Fluids: 21:00 Date Last Intake of Solids: 10/30/24 Time Last Intake of Solids: 09:00 Past Medical History Medical History Urinary urgency chronic Chronic back pain Osteoarthritis Peripheral neuropathy Varicose veins of both lower extremities DJD (degenerative joint disease) Past Family History Family History Mother Family hx of colon cancer Breast cancer Sister Breast cancer Myocardial infarction Father Myocardial infarction Denies family history of Ovarian cancer Prostate cancer Colorectal cancer Stroke Past Surgical History Surgical History History of lumbar fusion x3 TOTAL History of bilateral tubal ligation History of total abdominal hysterectomy and bilateral salpingo-oophorectomy History of repair of rotator cuff RT/LEFT History of cholecystectomy History of appendectomy History of colonoscopy History of tonsillectomy History of adenoidectomy History of cataract surgery RT/LEFT Social History Smoking Status: Never smoker Do You Dip or Chew Tobacco: No Hx Alcohol Use: Yes Alcohol type: other alcohol intake frequency: holidays/special occasions only Alcohol Intake Frequency Comment: hard cider Hx Substance Use: No substance use type: does not use Physical Exam Vital Signs Last Vital Signs Temp 37.4 C 10/31/24 11:45 Pulse 90 10/31/24 11:45 Resp 20 10/31/24 11:45 BP 124/73 10/31/24 11:45 Pulse Ox 96 10/31/24 11:45 O2 Del Method Nasal Cannula 10/31/24 11:45 O2 Flow Rate 3 10/31/24 11:45 Testing Laboratory Results 10/31/24 06:30 10/31/24 06:30 PT 11.4 Seconds (9.0-12.0) 10/31/24 06:30 INR 1.1 (0.9-1.1) 10/31/24 06:30 APTT 28 Seconds (21-31) 10/31/24 06:30 Urine Color Yellow 10/30/24 22:40 Urine Appearance Clear (Clear) 10/30/24 22:40 Urine pH 6.5 (4.5-7.5) 10/30/24 22:40 Ur Specific Logan 1.033 (1.000-1.030) H 10/30/24 22:40 Urine Protein Trace (Negative) H 10/30/24 22:40 Urine Glucose (UA) Negative (Negative) 10/30/24 22:40 Urine Ketones Negative (Negative) 10/30/24 22:40 Urine Nitrite Negative (Negative) 10/30/24 22:40 Ur Leukocyte Esterase 2+ (Negative) H 10/30/24 22:40 Urine WBC (Auto) 21-50 /hpf (0-5) H 10/30/24 22:40 Urine RBC (Auto) 0-2 /hpf (0-2) 10/30/24 22:40 U Hyaline Cast (Auto) 0-2 /lpf (0-2) 10/30/24 22:40 U Epithel Cells (Auto) 0-2 /hpf (0-2) 10/30/24 22:40 Urine Bacteria (Auto) 1+ (None Seen) H 10/30/24 22:40
[2024-10-31] MEDS ORDERED: fentaNYL citrate PF 100 MCG/2 ML VIAL ONE ×2 (12:48→14:12)
[2024-10-31] MEDS ORDERED: ROCURONIUM BROMIDE 10 MG/ML 5 ML VIAL IV ONE (12:50)
[2024-10-31] MEDS: ceFAZolin 2000MG 2,000 MG/15 ML SYR IV ONE (13:29)
[2024-10-31] MEDS ORDERED: ceFAZolin 330 MG/ML 1 GM VIAL ONE (13:29)
[2024-10-31] MEDS ORDERED: PROPOFOL IV EMULSION 10 MG/ML 20 ML VIAL IV ONE (13:46)
[2024-10-31] MEDS ORDERED: DEXAMETHASONE SOD INJ 4 MG/ML VIAL ONE (13:47)
[2024-10-31] MEDS ORDERED: LIDOCAINE 2% 2 ML VIAL/AMP(20MG/ML) INFIL ONE (13:47)
[2024-10-31] MEDS ORDERED: ONDANSETRON INJ 2 MG/ML 2 ML VIAL ONE (13:47)
[2024-10-31] MEDS ORDERED: SUGAMMADEX SODIUM 200 MG/2 ML VIAL IV ONE (13:48)
[2024-10-31] MEDS ORDERED: ONDANSETRON INJ 2 MG/ML 2 ML VIAL IV PRN (14:07)
[2024-10-31] MEDS ORDERED: HYDROmorphone INJ 1 MG/ML SYRINGE IV PRN (14:07)
[2024-10-31] MEDS ORDERED: ePHEDrine sulfate 50 MG/ML AMP IV PRN (14:07)
[2024-10-31] MEDS ORDERED: fentaNYL citrate PF 100 MCG/2 ML VIAL IV PRN (14:07)
[2024-10-31] MEDS ORDERED: ATROPINE SULFATE 0.1 MG/ML 10ML SYR IV PRN (14:07)
[2024-10-31] MEDS ORDERED: PROMETHAZINE HCL 6.25 MG in SODIUM CHLORIDE 0.9% 50 ML IV PRN (14:07)
--- NOTE | 2024-10-31 14:08 | Communication Note ---
Date of Service: October 31, 2024 Given the patient's current condition and associated comorbidities, the risks of delaying surgical intervention outweigh the potential perioperative risks. The patient may proceed with surgical repair of the hip.
[2024-10-31] MEDS: ROPIVACAINE 0.5% HCL/PF 246 MG, Ketorolac (*for OR use only*) 30 MG, EPINEPHrine 30MG/3... INFIL SCH (14:10)
[2024-10-31] MEDS: TRANEXAMIC ACID / 0.7% NACL 1000MG/100ML BAG IV ONE (14:19)
--- NOTE | 2024-10-31 15:00 | Operative Report ---
Post Operative Report Pre & Post Diagnosis Operation Date: 10/31/24 08:50 Pre-Op Diagnosis: CLOSED LEFT HIP FRACTURE Post-Op Diagnosis: CLOSED LEFT HIP FRACTURE I identified the patient and participated in the time-out.: Yes Procedure Operation Date: 10/31/24 08:50 Actual Procedures p Hemiarthroplasty Cemented Left(Left) - Ignacio Cox MD Surgeon Ignacio Cox MD Private Investigator Arelis Galarza PA-C; no fellow or resident available Estimated Blood Loss 50 Findings Consistent with Post-Op Diagnosis Specimens Left femoral head Anesthesia Type General Description of Procedure Patient was taken to the operating room and placed under general anesthesia. Time out was performed. She was given 2 g of IV Ancef for surgical prophylaxis. She was given 1 g of IV TXA at the end of the case. She was prepped and draped in routine sterile fashion in the right lateral decubitus position. I was present during the entire case and assisted with positioning, tissue retraction, trialing of implants, implantation of hardware, closure and dressings. Please see Dr. Cox's operative report for further details regarding today's procedure. Patient was awakened and transferred to the recovery room in stable condition. I attest to the content of the Intraoperative Record and any orders documented therein. Any exceptions are noted below.
--- NOTE | 2024-10-31 15:46 | XRay Report ---
XR hip LT min 2V HISTORY: 89 years-old Female Post-Operative implant position COMPARISON: 10/30/2024 radiographs TECHNIQUE: 2 views of the left hip FINDINGS: Satisfactory alignment of the total joint arthroplasty. Expected postoperative soft tissue swelling w ith deep tissue air. Partially imaged lumbosacral fusion hardware. Arterial calcifications. IMPRESSION: Satisfactory alignment of the left hip arthroplasty. ACT 112: Negative or not required by law. The above report was generated using voice recognition software. It may contain grammatical, syntax o r spelling errors. Electronically signed by: Nicola Jackson M.D. 10/31/2024 3:45 PM
--- NOTE | 2024-10-31 16:35 | Operative Report ---
Post Operative Report Pre & Post Diagnosis Operation Date: 10/31/24 08:50 Pre-Op Diagnosis: Displaced left femoral neck fracture Post-Op Diagnosis: displaced left femoral neck fracture I identified the patient and participated in the time-out.: Yes Procedure Operation Date: 10/31/24 08:50 Actual Procedures p Hemiarthroplasty Cemented Left(Left) - Ignacio Cox MD Surgeon Ignacio Cox MD Hand Shaker Arelis Galarza PA-C; no fellow or resident available Estimated Blood Loss 50 Findings Consistent with Post-Op Diagnosis Specimens none Anesthesia Type General Complications none Disposition Disposition: Recovery Room Indications 89-year-old female, tripped and fell landing onto her left hip yesterday at home. She had actually fallen the day before and hit her head sustaining extensive bruising but no intracranial hemorrhage. She was brought to the emergency room yesterday where x-rays demonstrated a displaced left femoral neck fracture. She was admitted to the internal medicine service. I was consulted. I saw her on the floor. I discussed the diagnosis and treatment options. Patient is grieving as her earlier this week and the is scheduled for tomorrow. I had a long discussion with her about her diagnosis and treatment options. I reviewed the risks and benefits of surgery, alternatives to surgery, and expected outcomes. After reviewing all these she elected to proceed with surgery. All questions were answered. Informed consent was signed. Description of Procedure Patient was identified in the preoperative holding area where her surgical site was marked. She is brought back to the operating room where general anesthesia was administered on the hospital bed. She was then carefully moved onto the operating room table. She was then turned into the lateral decubitus position. Axillary roll was placed. All bony prominences were padded. Perioperative antibiotics were administered. 1 g of IV tranexamic acid was given. She was prepped and draped in the usual sterile fashion. Prior to incision a multidisciplinary time was called. All in the room were in agreement. I began by making and a 10 cm incision for a posterior approach to the hip. I dissected down through subcutaneous tissues to level the fascia. The fascia was incised in line with the incision. Charnley bow was placed. The piriformis and short external rotators were dissected off the posterior hip capsule. An L- shaped capsulotomy was made. Fracture hematoma was encountered was evacuated with suction. Hip fracture was easily visualized. The leg was internally rotated to expose the fractured femoral neck. A saw was used to cut the femoral neck just below the fracture using the templated guide. Once this was complete the acetabulum was exposed. The femoral head was removed with a corkscrew. The acetabulum sized to a 45 mm femoral head. Acetabulum was irrigated out. Femur was then exposed. The lateral neck was removed with a box osteotome. The intramedullary guide was used followed by the lateralizing reamer. I then broached up to a size 5 [place] stem. The hip was then reduced using a standard offset neck and a +5 trial head. This gave us excellent recreation of her leg lengths. Shuck test was normal. There is no impingement with extension and external rotation. She was stable in the sleeper position. At 90 degrees of hip flexion she could be internally rotated 45 degrees without levering out of the cup. I was very happy with the stability exam. The hip was then atraumatically dislocated and the femoral trial was removed. Cement was mixed on the back table. A cement restrictor was placed distally and the femoral canal was irrigated and dried. Once the cement was ready it was i njected into the femoral canal using a cement gun. Cement was pressurized using my thumbs. I then inserted the real cemented size 5 Carl[place] standard offset femoral stem down the canal. Excess cement was removed. Pressure was held to maintain the femoral component approximately 20 degrees of anteversion until the cement had completely cured. Once this was complete the bipolar head was assembled on the back table using a +5 offset inner sleeve. As stated above the outer sleeve was 45 mm diameter metal head. Hip was then atraumatically reduced. We then began to close. The wound was soaked with sterile Betadine solution. Periarticular injection was placed. The piriformis short external rotators and posterior capsule were repaired through a bone tunnel in the posterior aspect of the greater trochanter for the lower set of sutures and through the abductor tendon for the superior set of sutures tied over the bone of the greater trochanter. #2 Vicryl sutures were used for this. I checked her sciatic nerve and this was intact. Wound was reirrigated with copious amounts normal saline. Fascia was then closed with a running looped #1 PDS. Deep dermis was closed with #1 PDS. This deep dermis was closed with running 2-0 Vicryl suture. Skin was closed with a Zipline and Dermabond. Silverlon dressing was placed followed by compressive dressing. Patient was then carefully rolled supine, extubated, and transferred to cover room in stable condition. Postoperative course: Patient will be readmitted to the internal medicine service. She will be weightbearing as tolerated with a walker. She is on Eliquis and will resume Eliquis tomorrow for DVT prophylaxis. Posterior hip precautions. Physical therapy to begin tomorrow. She is a high fall risk due to dementia, her age, and deconditioning. I attest to the content of the Intraoperative Record and any orders documented therein. Any exceptions are noted below.
[2024-10-31] MEDS: ACETAMINOPHEN 1000 MG/100 ML IV IV PRN (19:57)
[2024-10-31] MEDS: ONDANSETRON INJ 2 MG/ML 2 ML VIAL IV PRN (19:57)
[2024-10-31] MEDS: ceFAZolin 2000MG 2,000 MG/15 ML SYR IV SCH (20:11)
[2024-10-31] MEDS: TRANEXAMIC ACID / 0.7% NACL 1,000 MG/100 ML BAG IV SCH (20:15)
--- NOTE | 2024-10-31 22:17 | Hospitalist Progress Note ---
Date of Service October 31, 2024 Assessment & Plan (1) Closed fracture of left hip: (2) UTI (urinary tract infection): (3) Facial contusion: (4) Dementia: (5) Permanent atrial fibrillation: (6) Anticoagulant long-term use: (7) Coronary artery disease: (8) Grief reaction: Plan Closed fracture of left hip- NPO except essential medications Hold Eliquis, with last dose having been the morning of 10/29 Geriatric hip fracture order set Acetaminophen 1 g IV every 8 hours as needed for mild pain or fever Morphine sulfate 2 mg IV every 3 hours as needed for moderate pain Morphine sulfate 4 mg IV every 3 hours as needed for severe pain Naloxone per protocol Blankenship catheter placement NSS at 80 mL/h x 1 L Of note, CT scan head was negative, CT scan of chest was negative, CT scan of cervical spine was negative, CT scan of abdomen and pelvis shows minimally displaced and overriding left subcapital femoral neck fracture Consult orthopedic surgery Permanent atrial fibrillation/hypertension/elevated troponin- Continue metoprolol succinate 150 mg in the morning Hold Eliquis, furosemide Troponin 43.2, will follow-up serially, likely supply/demand mismatch Urinary tract infection- Urine looks positive Follow urine culture and sensitivity Placed on ceftriaxone 1 g IV every 24 hours, which can also serve as a hip preop prophylaxis GERD- Change pantoprazole from 40 mg p.o. twice daily to IV twice daily Zofran 4 mg IV every 6 hours as needed Grief reaction/anxiety- Patient's , and is scheduled for 10/31 Reportedly is going to have video done, and I have asked case management to assist however they can Admission and Anticipated Discharge Date Admission Date: October 30, 2024 Results & Data Results & Data Vital Signs (Past 12 Hours) Vital Signs Temp Pulse Pulse Resp BP Pulse Ox O2 Del Method 10/31/24 19:15 36.7 C 79 16 121/69 97 Nasal Cannula 10/31/24 18:12 36.4 C L 87 16 121/66 96 Nasal Cannula 10/31/24 17:15 36.9 C 103 H 18 122/55 L 95 Nasal Cannula 10/31/24 16:46 36.9 C 105 H 15 133/74 93 Nasal Cannula 10/31/24 16:14 36.9 C 93 H 16 132/64 93 Nasal Cannula 10/31/24 15:50 97 H 24 112/84 94 Nasal Cannula 10/31/24 15:40 78 20 136/51 L 94 Nasal Cannula 10/31/24 15:30 37.2 C 99 H 21 134/57 L 94 Nasal Cannula 10/31/24 15:20 89 20 135/87 94 Nasal Cannula 10/31/24 15:10 94 H 22 151/84 H 96 Oxymask 10/31/24 15:00 36.5 C 109 H 12 144/66 H 98 Oxymask 10/31/24 11:45 37.4 C 90 20 124/73 96 Nasal Cannula O2 Flow Rate 10/31/24 19:15 3 10/31/24 18:12 3 10/31/24 17:15 3 10/31/24 16:46 3 10/31/24 16:14 3 10/31/24 15:50 3 10/31/24 15:40 3 10/31/24 15:30 3 10/31/24 15:20 3 10/31/24 15:10 6 10/31/24 15:00 6 10/31/24 11:45 3 PG Care Time/CCT Total # of Minutes Spent Total Time Spent with Patient: Total time spent is greater than 50% in coordination of care (as documented) at patient's floor/unit and/or counseling patient: Coding Diagnoses Closed fracture of left hip S72.002A Encounter type: initial encounter UTI (urinary tract infection) N39.0; R31.9 Hematuria presence: with hematuria Urinary tract infection type: site unspecified Facial contusion S00.83XD Encounter type: subsequent encounter Dementia F03.90 Permanent atrial fibrillation I48.21 Anticoagulant long-term use Z79.01 Coronary artery disease I25.10 Grief reaction F43.21 (1) Closed fracture of left hip Encounter type: initial encounter Qualified Code(s): S72.002A - Fracture of unspecified part of neck of left femur, initial encounter for closed fracture (2) UTI (urinary tract infection) Hematuria presence: with hematuria Urinary tract infection type: site unspecified Qualified Code(s): N39.0 - Urinary tract infection, site not specified; R31.9 - Hematuria, unspecified (3) Facial contusion Encounter type: subsequent encounter Qualified Code(s): S00.83XD - Contusion of other part of head, subsequent encounter
[2024-11-01 07:10] LABS: Basophils # (auto) 0.02 K/uL (0.00-0.20); Basophils % (auto) 0.2 %; Hematocrit (blood only) 24.6 % (37.0-47.0); Hemoglobin 8.3 g/dl (12.0-16.0); Immature Granulocytes # (auto) 0.03 K/uL (0.01-0.20); Immature Granulocytes % (auto) 0.3 %; Lymphocytes % (auto) 7.2 %; Mean Corpuscular Hemoglobin 33.3 pg (25.0-34.0); Mean Corpuscular Hgb Conc 33.7 g/dL (32.0-36.0); Mean Corpuscular Volume 98.8 fL (80.0-100.0); Mean Platelet Volume 10.4 fL (9.4-12.4); Monocytes % (auto) 10.2 %; Neutrophils # (auto) 8.02 K/uL (1.40-6.50); Neutrophils % (auto) 82.1 %; Platelet Count 166 K/uL (130-400); RDW Coefficient of Variation 14.6 % (11.5-14.5); RDW Standard Deviation 54.2 fL (36.4-46.3); Red Blood Count 2.49 M/uL (4.20-5.40); White Blood Count 9.77 K/ul (4.8-10.8)
[2024-11-01 07:27] LABS: Albumin Globulin Ratio 1.4 (0.9-2); BUN Creatinine Ratio 26.9 (10-20); Bilirubin,Total 0.5 mg/dl (0.2-1.0); Calcium 8.7 mg/dl (8.6-10.3); Creatinine Clr Calc Pharmacy 37.3 ml/min; Globulin 2.2 gm/dl (2.5-4.0); Magnesium 1.9 mg/dl (1.7-2.4); Potassium 4.7 mmol/L (3.5-5.1); Total Protein 5.2 gm/dl (6.0-8.3)
[2024-11-01 07:33] LABS: Partial Thromboplastin Time 27 Seconds (21-31); Prothrombin Time 11.2 Seconds (9.0-12.0)
--- NOTE | 2024-11-01 09:52 | Hospitalist Progress Note ---
Date of Service October 31, 2024 Assessment & Plan (1) Closed fracture of left hip: (2) UTI (urinary tract infection): (3) Facial contusion: (4) Dementia: (5) Permanent atrial fibrillation: (6) Anticoagulant long-term use: (7) Coronary artery disease: (8) Grief reaction: Plan Closed fracture of left hip- NPO except essential medications Hold Eliquis, with last dose having been the morning of 10/29 Geriatric hip fracture order set Acetaminophen 1 g IV every 8 hours as needed for mild pain or fever Morphine sulfate 2 mg IV every 3 hours as needed for moderate pain Morphine sulfate 4 mg IV every 3 hours as needed for severe pain Naloxone per protocol Blankenship catheter placement NSS at 80 mL/h x 1 L Of note, CT scan head was negative, CT scan of chest was negative, CT scan of cervical spine was negative, CT scan of abdomen and pelvis shows minimally displaced and overriding left subcapital femoral neck fracture Consult orthopedic surgery: s/p surgery repair. will monitor. Permanent atrial fibrillation/hypertension/elevated troponin- Continue metoprolol succinate 150 mg in the morning Hold Eliquis, furosemide Troponin 43.2, will follow-up serially, likely supply/demand mismatch Urinary tract infection- Urine looks positive Follow urine culture and sensitivity Placed on ceftriaxone 1 g IV every 24 hours, which can also serve as a hip preop prophylaxis GERD- Change pantoprazole from 40 mg p.o. twice daily to IV twice daily Zofran 4 mg IV every 6 hours as needed Grief reaction/anxiety- Patient's , and is scheduled for 10/31 Admission and Anticipated Discharge Date Admission Date: October 30, 2024 Subjective Patient seen after surgery. Patient reports feeling comofrtable. Pain is controlled. Physical Exam Constitutional: WD/WN, vitals as above Facial Ecchymosis noted Respiratory: normal respiratory effort, lungs clear to auscultation on 3 liters Cardiovascular: RRR, no murmur, no edema Gastrointestinal (Abdomen): normal bowel sounds, soft, nontender, no hepatosplenomegaly Results & Data Results & Data Vital Signs (Past 12 Hours) Vital Signs Temp Pulse Resp BP Pulse Ox O2 Del Method O2 Flow Rate 11/01/24 08:03 37.0 C 92 H 16 137/76 96 Nasal Cannula 3 11/01/24 07:20 Nasal Cannula 3 11/01/24 03:02 36.8 C 86 18 130/66 99 Nasal Cannula 3 10/31/24 23:23 36.7 C 93 H 16 117/66 97 Nasal Cannula 3 PG Care Time/CCT Total # of Minutes Spent Total Time Spent with Patient: Total time spent is greater than 50% in coordination of care (as documented) at patient's floor/unit and/or counseling patient: Coding Level of Care Code 36449 SUB INP/OBS CARE 35MIN Diagnoses Closed fracture of left hip S72.002A Encounter type: initial encounter UTI (urinary tract infection) N39.0; R31.9 Hematuria presence: with hematuria Urinary tract infection type: site unspecified Facial contusion S00.83XD Encounter type: subsequent encounter Dementia F03.90 Permanent atrial fibrillation I48.21 Anticoagulant long-term use Z79.01 Coronary artery disease I25.10 Grief reaction F43.21 (1) Closed fracture of left hip Encounter type: initial encounter Qualified Code(s): S72.002A - Fracture of unspecified part of neck of left femur, initial encounter for closed fracture (2) UTI (urinary tract infection) Hematuria presence: with hematuria Urinary tract infection type: site unspecified Qualified Code(s): N39.0 - Urinary tract infection, site not specified; R31.9 - Hematuria, unspecified (3) Facial contusion Encounter type: subsequent encounter Qualified Code(s): S00.83XD - Contusion of other part of head, subsequent encounter
--- NOTE | 2024-11-01 09:53 | Hospitalist Progress Note ---
Date of Service November 01, 2024 Assessment & Plan (1) Closed fracture of left hip: (2) UTI (urinary tract infection): (3) Facial contusion: (4) Dementia: (5) Permanent atrial fibrillation: (6) Anticoagulant long-term use: (7) Coronary artery disease: (8) Grief reaction: Plan Closed fracture of left hip- NPO except essential medications Hold Eliquis, with last dose having been the morning of 10/29 Geriatric hip fracture order set Pain control with tylenol/morphine Naloxone per protocol Blankenship catheter placement NSS at 80 mL/h x 1 L Of note, CT scan head was negative, CT scan of chest was negative, CT scan of cervical spine was negative, CT scan of abdomen and pelvis shows minimally displaced and overriding left subcapital femoral neck fracture Consult orthopedic surgery: s/p surgery repair. concern for acute blood loss anemia. hemoglobin has dropped. Permanent atrial fibrillation/hypertension/elevated troponin- resumed metoprolol succinate 150 mg in the morning Hold Eliquis, furosemide Troponin 43.2, will follow-up serially, likely supply/demand mismatch Urinary tract infection- Urine looks positive Follow urine culture and sensitivity Placed on ceftriaxone 1 g IV every 24 hours, which can also serve as a hip preop prophylaxis GERD- Change pantoprazole from 40 mg p.o. twice daily to IV twice daily Zofran 4 mg IV every 6 hours as needed Grief reaction/anxiety- Patient's , and was scheduled for 10/31 Admission and Anticipated Discharge Date Admission Date: October 30, 2024 Subjective 89 yo female reports that pain is controlled. Physical Exam Constitutional: WD/WN, vitals as above Respiratory: normal respiratory effort, lungs clear to auscultation Cardiovascular: RRR, no murmur, no edema Gastrointestinal (Abdomen): normal bowel sounds, soft, nontender, no hepatosplenomegaly Results & Data Results & Data Vital Signs (Past 12 Hours) Vital Signs Temp Pulse Resp BP Pulse Ox O2 Del Method O2 Flow Rate 11/01/24 08:03 37.0 C 92 H 16 137/76 96 Nasal Cannula 3 11/01/24 07:20 Nasal Cannula 3 11/01/24 03:02 36.8 C 86 18 130/66 99 Nasal Cannula 3 10/31/24 23:23 36.7 C 93 H 16 117/66 97 Nasal Cannula 3 PG Care Time/CCT Total # of Minutes Spent Total Time Spent with Patient: Total time spent is greater than 50% in coordination of care (as documented) at patient's floor/unit and/or counseling patient: Coding Level of Care Code 19911 SUB INP/OBS CARE 2/35MIN Diagnoses Closed fracture of left hip S72.002A Encounter type: initial encounter UTI (urinary tract infection) N39.0; R31.9 Hematuria presence: with hematuria Urinary tract infection type: site unspecified Facial contusion S00.83XD Encounter type: subsequent encounter Dementia F03.90 Permanent atrial fibrillation I48.21 Anticoagulant long-term use Z79.01 Coronary artery disease I25.10 Grief reaction F43.21 (1) Closed fracture of left hip Encounter type: initial encounter Qualified Code(s): S72.002A - Fracture of unspecified part of neck of left femur, initial encounter for closed fracture (2) UTI (urinary tract infection) Hematuria presence: with hematuria Urinary tract infection type: site unspecified Qualified Code(s): N39.0 - Urinary tract infection, site not specified; R31.9 - Hematuria, unspecified (3) Facial contusion Encounter type: subsequent encounter Qualified Code(s): S00.83XD - Contusion of other part of head, subsequent encounter
[2024-11-01] MEDS: METOPROLOL SUCC 50MG EXT REL TAB PO STA (14:50)
--- NOTE | 2024-11-01 16:11 | Orthopedic Progress Note ---
Date of Service November 01, 2024 Assessment & Plan (1) Status post hemiarthroplasty of left hip: Plan: WBAT with walker, posterior hip precautions, max assist. High fall risk. PT/OT Ice Pain meds per internal medicine Leave Silverlon dressing in place. May shower. Case management for discharge planning. Follow-up ALEXIS Rutherford PA-C 2 weeks after surgery. Admission and Anticipated Discharge Date Admission Date: October 30, 2024 Subjective patient seen and examined on afternoon rounds. She is sitting up in a chair. She is asking how soon she can be discharged home from the hospital. Reports her pains well-controlled. Denies numbness or tingling in her left lower extremity. Physical Exam Physical Exam: I asked the patient to stand next to her chair so I can inspect her hip dressing. She was able to do this with assistance. Outer dressing was removed. Silverlon was clean dry and intact. Distally neurovascularly intact. Results & Data Vital Signs (Past 12 Hours) Vital Signs Temp Pulse Pulse Resp BP Pulse Ox Pulse Ox 11/01/24 13:12 94 11/01/24 12:53 110 H 110 H 22 133/56 L 94 11/01/24 12:01 36.7 C 88 16 118/44 L 97 11/01/24 08:03 37.0 C 92 H 16 137/76 96 11/01/24 07:20 O2 Del Method O2 Flow Rate O2 Flow Rate 11/01/24 13:12 3 11/01/24 12:53 Nasal Cannula 2 11/01/24 12:01 Nasal Cannula 3 11/01/24 08:03 Nasal Cannula 3 11/01/24 07:20 Nasal Cannula 3 Diagnostic Findings Postop x-rays show hardware in good position with no evidence of complication.
[2024-11-01] MEDS: APIXABAN 5 MG TABLET PO SCH (19:47)
[2024-11-01 23:03] LABS: Hematocrit (blood only) 24.9 % (37.0-47.0); Hemoglobin 8.3 g/dl (12.0-16.0)
[2024-11-02 07:29] LABS: Basophils # (auto) 0.02 K/uL (0.00-0.20); Basophils % (auto) 0.2 %; Eosinophils # (auto) 0.14 K/uL (0.00-0.50); Eosinophils % (auto) 1.6 %; Hematocrit (blood only) 25.3 % (37.0-47.0); Hemoglobin 8.4 g/dl (12.0-16.0); Immature Granulocytes # (auto) 0.04 K/uL (0.01-0.20); Immature Granulocytes % (auto) 0.5 %; Lymphocytes % (auto) 9.4 %; Mean Corpuscular Hemoglobin 32.9 pg (25.0-34.0); Mean Corpuscular Hgb Conc 33.2 g/dL (32.0-36.0); Mean Corpuscular Volume 99.2 fL (80.0-100.0); Mean Platelet Volume 10.7 fL (9.4-12.4); Monocytes # (auto) 0.76 K/uL (0.11-0.59); Monocytes % (auto) 8.9 %; Neutrophils # (auto) 6.75 K/uL (1.40-6.50); Neutrophils % (auto) 79.4 %; Platelet Count 193 K/uL (130-400); RDW Coefficient of Variation 14.6 % (11.5-14.5); RDW Standard Deviation 52.8 fL (36.4-46.3); Red Blood Count 2.55 M/uL (4.20-5.40); White Blood Count 8.51 K/ul (4.8-10.8)
[2024-11-02 07:42] LABS: Albumin Globulin Ratio 1.3 (0.9-2); Albumin Level 3.2 gm/dl (3.4-5.0); BUN Creatinine Ratio 33.8 (10-20); Bilirubin,Total 0.7 mg/dl (0.2-1.0); Calcium 9.2 mg/dl (8.6-10.3); Creatinine Clr Calc Pharmacy 50.4 ml/min; Globulin 2.4 gm/dl (2.5-4.0); Magnesium 1.9 mg/dl (1.7-2.4); Total Protein 5.6 gm/dl (6.0-8.3)
[2024-11-02 07:50] LABS: Partial Thromboplastin Ratio 1.1; Partial Thromboplastin Time 29 Seconds (21-31); Prothrombin Time 10.9 Seconds (9.0-12.0)
[2024-11-02] MEDS: ACETAMINOPHEN 325 MG TAB PO SCH (08:10)
[2024-11-02] MEDS: METOPROLOL SUCC 50MG EXT REL TAB PO SCH (11:22)
--- NOTE | 2024-11-02 21:39 | Hospitalist Progress Note ---
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 Geriatric hip fracture order set Pain control with tylenol/morphine Naloxone per protocol Blankenship catheter placement NSS at 80 mL/h x 1 L hemoglobin stable. on eliquis. Permanent atrial fibrillation/hypertension/elevated troponin- Demand ischemia evidenced by positive serial high-sensitivity troponin of 43.6 and presenting room air hypoxia of 88% resumed metoprolol succinate 150 mg Troponin 43.2, will follow-up serially, likely supply/demand mismatch Urinary tract infection- Urine looks positive Follow urine culture and sensitivity Placed on ceftriaxone 1 g IV every 24 hours, which can also serve as a hip preop prophylaxis GERD- Change pantoprazole from 40 mg p.o. twice daily to IV twice daily Zofran 4 mg IV every 6 hours as needed Grief reaction/anxiety- Patient's , and was scheduled for 10/31 Admission and Anticipated Discharge Date Admission Date: October 30, 2024 Subjective Patient reports no new symptoms. Physical Exam Constitutional: WD/WN, vitals as above Respiratory: normal respiratory effort, lungs clear to auscultation Cardiovascular: RRR, no murmur, no edema Gastrointestinal (Abdomen): normal bowel sounds, soft, nontender, no hepatosplenomegaly Results & Data Results & Data Vital Signs (Past 12 Hours) Vital Signs Temp Pulse Pulse Resp BP Pulse Ox O2 Del Method 11/02/24 19:21 36.7 C 80 16 114/62 97 Nasal Cannula 11/02/24 15:42 36.7 C 74 16 121/58 L 98 Nasal Cannula O2 Flow Rate 11/02/24 19:21 2 11/02/24 15:42 2 PG Care Time/CCT Total # of Minutes Spent Total Time Spent with Patient: Total time spent is greater than 50% in coordination of care (as documented) at patient's floor/unit and/or counseling patient: Coding Level of Care Code 55930 SUB INP/OBS CARE 2/35MIN Diagnoses Closed fracture of left hip S72.002A Encounter type: initial encounter UTI (urinary tract infection) N39.0; R31.9 Hematuria presence: with hematuria Urinary tract infection type: site unspecified Facial contusion S00.83XD Encounter type: subsequent encounter Dementia F03.90 Permanent atrial fibrillation I48.21 Anticoagulant long-term use Z79.01 Coronary artery disease I25.10 Grief reaction F43.21 (1) Closed fracture of left hip Encounter type: initial encounter Qualified Code(s): S72.002A - Fracture of unspecified part of neck of left femur, initial encounter for closed fracture (2) UTI (urinary tract infection) Hematuria presence: with hematuria Urinary tract infection type: site unspecified Qualified Code(s): N39.0 - Urinary tract infection, site not specified; R31.9 - Hematuria, unspecified (3) Facial contusion Encounter type: subsequent encounter Qualified Code(s): S00.83XD - Contusion of other part of head, subsequent encounter
[2024-11-03 07:44] LABS: Hematocrit (blood only) 23.4 % (37.0-47.0); Hemoglobin 7.9 g/dl (12.0-16.0); Mean Corpuscular Hemoglobin 32.9 pg (25.0-34.0); Mean Corpuscular Hgb Conc 33.8 g/dL (32.0-36.0); Mean Corpuscular Volume 97.5 fL (80.0-100.0); Mean Platelet Volume 10.7 fL (9.4-12.4); Platelet Count 192 K/uL (130-400); RDW Coefficient of Variation 14.2 % (11.5-14.5); RDW Standard Deviation 51.1 fL (36.4-46.3); White Blood Count 6.41 K/ul (4.8-10.8)
[2024-11-03 07:55] LABS: BUN Creatinine Ratio 34.8 (10-20); Calcium 8.8 mg/dl (8.6-10.3); Creatinine Clr Calc Pharmacy 61.1 ml/min; Potassium 4.3 mmol/L (3.5-5.1)
--- NOTE | 2024-11-03 11:36 | Orthopedic Progress Note ---
Date of Service November 03, 2024 Assessment & Plan (1) Status post hemiarthroplasty of left hip: Plan: WBAT with walker, posterior hip precautions, max assist. High fall risk. PT/OT Ice Pain meds per internal medicine Eliquis for DVT prevention Leave Silverlon dressing in place. May shower. Case management for discharge planning. Follow-up ALEXIS Rutherford PA-C 2 weeks after surgery at [facility]. Admission and Anticipated Discharge Date Admission Date: October 30, 2024 Subjective Pt reports that she is doing well this morning. No pain. Physical Exam Physical Exam: Silverlon in place. In tact and clean. Thigh soft and compressible. She is able to bend her knee and tolerated gentle ROM of her hip. She can DF/PF against resistance. NVI distally. Results & Data Vital Signs (Past 12 Hours) Vital Signs Temp Pulse Resp BP Pulse Ox O2 Del Method 11/03/24 07:20 Room Air 11/03/24 05:30 36.8 C 81 18 148/71 H 98 Room Air
[2024-11-03] MEDS: SERTRALINE HCL 50 MG TABLET PO SCH (13:34)
[2024-11-03] MEDS: PANTOprazole 40 MG TAB PO SCH (13:35)
[2024-11-03] MEDS: POLYETHYLENE (MIRALAX) 17 GM PACK PO SCH (16:24)
--- NOTE | 2024-11-03 19:12 | Hospitalist Progress Note ---
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 S/P repair with hemiarthroplasty-WBAT with walker, posterior hip precautions, max assist Continue ice, pain medications as needed Add on MiraLAX for bowel regimen Follow-up with orthopedics 2 weeks after the surgery Eliquis for DVT prevention (2) UTI (urinary tract infection): Plan: UA abnormal, urine culture growing Gardnerella Received ceftriaxone now x 4 doses-can discontinue antibiotics (3) Facial contusion: Plan: Status post fall, with extensive bruising and hemoglobin has dropped to 7.9 but fairly stable over the last 3 days since surgery Okay to continue Eliquis Tylenol as needed for pain (4) Dementia: Plan: Mild cognitive impairment Supportive care (5) Permanent atrial fibrillation: Plan: In permanent atrial fibrillation, rates are controlled Continue Eliquis, Toprol XL (6) Coronary artery disease: Plan: Demand ischemia evidenced by positive serial high-sensitivity troponin of 43.6 and presenting room air hypoxia of 88% No chest pain and troponin remained fairly stable at 43 x 3 Continue metoprolol succinate 150 mg Resume home Lasix and potassium for tomorrow (7) Grief reaction: Plan: Her recently just days before her admission. PCP had given as needed Ativan-will discontinue this PCP also started her on sertraline-resume sertraline 25 mg daily Follow-up with PCP Plan GERD-discontinue IV PPI and switch to p.o. Protonix Hypothyroidism-TSH normal in 04/2024,continue home levothyroxine DVT prophylaxis-Eliquis Disposition-medically stable for discharge, awaiting rehab placement Admission and Anticipated Discharge Date Admission Date: October 30, 2024 Subjective Patient feeling well, minimal pain in the left hip. No pain in the face despite diffuse ecchymosis and hematoma in the right forehead She is eating and drinking, has not moved her bowels in a few days Awaiting rehab placement Physical Exam Constitutional: WD/WN, vitals as above Eyes: + eyelid abnormality (Periorbital ecchym osis and edema) ENMT: external ear and nose normal, oropharynx normal (Hematoma right forehead and extensive purple ecchymosis through forehead an) Respiratory: normal respiratory effort, lungs clear to auscultation Cardiovascular: Rate/Rhythm: regular rate and + irregularly irregular Heart Sounds: no murmur Extremities: no edema Gastrointestinal (Abdomen): normal bowel sounds, soft, nontender, no hepatosplenomegaly Musculoskeletal: Extremities: strength 5/5 throughout; + extremities abnormal to inspection (Left hip with Silverlon dressing intact and clean and dry) Skin: + ecchymosis (Right knee and leg with ex tensive ecchymoses and edema) Psychiatric: A+Ox3, euthymic affect Results & Data Results & Data Vital Signs (Past 12 Hours) Vital Signs Temp Pulse Resp BP Pulse Ox O2 Del Method O2 Flow Rate 11/03/24 15:18 37.6 C H 89 16 128/69 98 Nasal Cannula 2 11/03/24 07:20 Room Air Laboratory Results CBC, BMP reviewed PG Care Time/CCT Total # of Minutes Spent Total Time Spent with Patient: Total time spent is greater than 50% in coordination of care (as documented) at patient's floor/unit and/or counseling patient: Coding Level of Care Code 84178 SUB INP/OBS CARE 2/35MIN Diagnoses Closed fracture of left hip S72.002A Encounter type: initial encounter UTI (urinary tract infection) N39.0; R31.9 Hematuria presence: with hematuria Urinary tract infection type: site unspecified Facial contusion S00.83XD Encounter type: subsequent encounter Dementia F03.90 Permanent atrial fibrillation I48.21 Coronary artery disease I25.10 Grief reaction F43.21 (1) Closed fracture of left hip Encounter type: initial encounter Qualified Code(s): S72.002A - Fracture of unspecified part of neck of left femur, initial encounter for closed fracture (2) UTI (urinary tract infection) Hematuria presence: with hematuria Urinary tract infection type: site unspecified Qualified Code(s): N39.0 - Urinary tract infection, site not specified; R31.9 - Hematuria, unspecified (3) Facial contusion Encounter type: subsequent encounter Qualified Code(s): S00.83XD - Contusion of other part of head, subsequent encounter
[2024-11-03] MEDS: ATORVASTATIN 40 MG TAB PO SCH (20:21)
[2024-11-03 20:25] VITALS: O2SAT 97
[2024-11-04] MEDS: LEVOTHYROXINE SODIUM 50 MCG TABLET PO SCH (06:05)
[2024-11-04 07:12] VITALS: BP 133/88; PULSE 86; RESP 16; TEMP 97.9
[2024-11-04] MEDS: CHOLECALCIFEROL 25 MCG (1000 UNITS) TAB PO SCH (07:28)
[2024-11-04] MEDS: CYANOCOBALAMIN (B-12) 500 MCG TABLET PO SCH (07:29)
[2024-11-04] MEDS: FUROSEMIDE 20 MG TAB PO SCH (07:29)
[2024-11-04 08:05] LABS: Basophils # (auto) 0.03 K/uL (0.00-0.20); Basophils % (auto) 0.5 %; Eosinophils # (auto) 0.23 K/uL (0.00-0.50); Eosinophils % (auto) 3.9 %; Hematocrit (blood only) 25.2 % (37.0-47.0); Hemoglobin 8.3 g/dl (12.0-16.0); Immature Granulocytes # (auto) 0.02 K/uL (0.01-0.20); Immature Granulocytes % (auto) 0.3 %; Lymphocytes # (auto) 0.69 K/uL (1.20-3.40); Lymphocytes % (auto) 11.8 %; Mean Corpuscular Hemoglobin 32.4 pg (25.0-34.0); Mean Corpuscular Hgb Conc 32.9 g/dL (32.0-36.0); Mean Corpuscular Volume 98.4 fL (80.0-100.0); Mean Platelet Volume 10.3 fL (9.4-12.4); Monocytes % (auto) 10.2 %; Neutrophils % (auto) 73.3 %; Platelet Count 229 K/uL (130-400); RDW Coefficient of Variation 14.2 % (11.5-14.5); RDW Standard Deviation 51.1 fL (36.4-46.3); Red Blood Count 2.56 M/uL (4.20-5.40); White Blood Count 5.87 K/ul (4.8-10.8)
[2024-11-04] MEDS: POTASSIUM CHLORIDE CRTAB 20 MEQ TABCR PO SCH (08:15)
--- NOTE | 2024-11-04 10:00 | Discharge Summary ---
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 S/P repair with hemiarthroplasty-WBAT with walker, posterior hip precautions, max assist Continue ice, pain medications as needed Added on MiraLAX for bowel regimen Follow-up with orthopedics 2 weeks after the surgery Eliquis for DVT prevention (2) UTI (urinary tract infection): UA abnormal, urine culture growing Gardnerella Received ceftriaxone x 4 doses-no further abx needed (3) Facial contusion: Status post fall, with extensive bruising and hemoglobin has dropped to 7.9 and now back up to 8.3 and fairly stable over the last 4 days since surgery Okay to continue Eliquis Tylenol as needed for pain Check CBC in 2-3 days at rehab (4) Dementia: Mild cognitive impairment Supportive care (5) Permanent atrial fibrillation: In permanent atrial fibrillation, rates are controlled Continue Eliquis, Toprol XL (6) Coronary artery disease: Demand ischemia evidenced by positive serial high-sensitivity troponin of 43.6 and presenting room air hypoxia of 88% No chest pain and troponin remained fairly stable at 43 x 3 Continue metoprolol succinate 150 mg Resumed home Lasix and potassium on day of discharge which were on hold in the perioperative period (7) Grief reaction: Her recently just days before her admission. PCP had given as needed Ativan-will discontinue this as it may have contributed to her fall (although she also had a fall prior to taking it) PCP also started her on sertraline-resumed sertraline 25 mg daily while here Follow-up with PCP Plan GERD-continue p.o. Protonix Hypothyroidism-TSH normal in 04/2024,continue home levothyroxine DVT prophylaxis-Eliquis Disposition-medically stable for discharge to rehab Notes For Next Care Provider Check CBC in 2-3 days F/u closely on mood/depression/anxiety given recent of and starting sertraline Medication Changes From Visit Stopped ativan Added Miralax daily Admission HPI Per Admitting Provider The patient is an 89-year-old female with a past medical history including history of humerus fracture, bilateral TSA, ANAND, hypothyroidism, hypertension, hyperlipidemia, GERD, dementia, permanent atrial fibrillation on Eliquis, nonsustained V. tach, pulmonary nodules, lumbar spinal stenosis with neurogenic claudication, and migraine headache. The patient presents to the emergency department after second fall 2 days in a row, this time sustained a closed left hip fracture as noted on imaging. The patient is then referred for evaluation for admission. Of note, the patient did have significant ecchymoses along her right arm, leg and right side of her face, which were related to the first fall on 10/29. Her second fall, on 10/30, involved left hip injury and closed left hip fracture. Also of note, the patient's 's is scheduled for 10/31 Discharge Exam Constitutional WD/WN, vitals as above Eyes + eyelid abnormality (Periorbital ecchymosis and edema) ENMT external ear and nose normal, oropharynx normal (Hematoma right forehead and extensive purple ecchymosis through forehead an) Respiratory normal respiratory effort, lungs clear to auscultation Cardiovascular Rate/Rhythm: regular rate and + irregularly irregular Heart Sounds: no murmur Extremities: no edema Gastrointestinal (Abdomen) normal bowel sounds, soft, nontender, no hepatosplenomegaly Musculoskeletal Extremities: strength 5/5 throughout; + extremities abnormal to inspection (Left hip with Silverlon dressing intact and clean and dry) Skin + ecchymosis (Right knee and leg with extensive ecchymoses and edema) Psychiatric A+Ox3, euthymic affect Discharge Plan Discharge Items Patient Disposition: Transfer [facility] Reason For Visit: CLOSED LEFT HIP FRACTURE Discharge Diagnosis: Left hip fracture Facial contusion and hematoma Condition on Discharge: Good Activity: As commented below Non-emergency contact: Primary Care Provider and Surgeon Call non-emergency contact if: you have any medication questions, your symptoms worsen and your pain is not controlled Follow-up/Referrals: Dianne Adams DO [Primary Care Provider] - Ignacio Cox MD [Physician] - 11/14/24 1:45 pm Diet: Heart Healthy Addtl Attending Provider Instructions: Please check a CBC in 2-3 days to ensure hemoglobin remains stable to improved given acute blood loss anemia Addtl Head Animal Trainer Provider Instructions: Orthopedic Discharge Instructions: WBAT with a walker Keep Silverlon dressing in place Maintain hip precautions Pain control with PO meds DVT prophylaxis per medicine service currently on Eliquis PT/OT - able to do range of motion as tolerated maintaining hip precautions Follow up in 2 weeks with [facility], please call [phone] Pending Studies at Discharge: No Stand-Alone Forms: My [facility] Skilled Items Patient informed of condition?: Yes DNR: No Discharge Level of Care: Skilled Communicable Disease: No Discharge Prognosis: Improving Lines: None Urinary Catheter: No Medications and DC Order Prescriptions: New polyethylene glycol 3350 [Miralax] 17 gram Powder In Packet 17 g PO DAILY Qty: 7 0RF Continued potassium chloride 20 mEq tablet extended release 20 meq PO DAILY Qty: 90 3RF Eliquis 5 mg tablet 5 mg PO BID Qty: 180 3RF metoprolol succinate 50 mg tablet extended release 24 hr 150 mg PO DAILY Qty: 270 3RF atorvastatin 40 mg tablet 40 mg PO HS Qty: 90 3RF pantoprazole 40 mg tablet,delayed release (DR/EC) 40 mg PO DAILYBB Qty: 90 3RF (DME) CPAP Supplies Misc See Rx Instructions .ROUTE .MEDSUPPLY Qty: 1 0RF Rx Instructions: As directed. Dx: G47.33 alendronate 70 mg tablet 70 mg PO WK Qty: 12 1RF Rx Instructions: MAYBE THURSDAYS sertraline 25 mg tablet 25 mg PO DAILY Qty: 30 2RF levothyroxine 50 mcg tablet 50 mcg PO DAILY Qty: 90 3RF mecobalamin (vitamin B12) 1,000 mcg tablet,chewable 1,000 mcg PO DAILY nitroglycerin [Nitrostat] 0.4 mg tablet, sublingual 0.4 mg SL UD PRN (Reason: Chest Pain) Qty: 25 3RF cholecalciferol (vitamin D3) 1,000 unit capsule 1,000 units PO DAILY furosemide 20 mg tablet 20 mg PO DAILY Qty: 90 3RF Changed acetaminophen [Tylenol Extra Strength] 500 mg tablet 1,000 mg PO TID Qty: 90 0RF Discontinued lorazepam 0.5 mg tablet 0.5 mg PO Q12H PRN (Reason: anxiety) Qty: 20 0RF Discharge Orders: Discharge Order (Routine); Ordered 11/04/24 Ordered By: Sandee Bautista Admission Data Admit Date/Time: 10/30/24 23:35 Attending Provider: Sandee Bautista Admit Provider: Irvin Vazquez Primary Care Provider: Dianne Adams Other Providers: Cherry Steiner; Stephon Watson,Rehab; [facility]; Irvin Vazquez; Ignacio Cox Hospital Stay Data Consultations 10/30/24 22:40 ED Decision to Admit Stat 10/31/24 00:48 Consult Orthopedic Surgery Routine Procedures Performed Operation Date: 10/31/24 08:50 Actual Procedures p Hemiarthroplasty Cemented Left(Left) - Ignacio Cox MD Diagnostic Imagining Performed 10/30/24 20:39 CT abd pelvis IV con only Stat CT cervical spine wo con Stat CT chest diagnostic w con Stat CT head/brain wo con Stat Pending Results Patient Have Any Pending Studies at Discharge: No Discharge Instructions Given to Patient (Per Discharging Provider) Please check a CBC in 2-3 days to ensure hemoglobin remains stable to improved given acute blood loss anemia Total Time Total Time Spent Total Time Spent (In Minutes): 35 min Total Time Includes: Examination of the Patient, Discharge Planning and Medication Reconciliation Coding Level of Care Code 72104 INP/OBS DISCH >30 MIN Diagnoses Closed fracture of left hip S72.002A Encounter type: initial encounter UTI (urinary tract infection) N39.0; R31.9 Hematuria presence: with hematuria Urinary tract infection type: site unspecified Facial contusion S00.83XD Encounter type: subsequent encounter Dementia F03.90 Permanent atrial fibrillation I48.21 Coronary artery disease I25.10 Grief reaction F43.21
--- NOTE | 2024-11-04 10:01 | Orthopedic Progress Note ---
Date of Service November 04, 2024 Assessment & Plan (1) Status post hemiarthroplasty of left hip: Plan: Postop day #4 status post left cemented hemiarthroplasty secondary to femoral neck fracture. Doing well today with no concerns. Patient will be transferred to [facility] today. Continue to be weightbearing as tolerated with walker. Posterior hip precautions, max assist. High fall risk. Continue cool compresses. Pain medication per internal medicine. Eliquis for DVT prophylaxis. Leave Silverlon dressing in place. May shower with this in place. 2-week follow-up appointment is scheduled and in the discharge tab. Admission and Anticipated Discharge Date Admission Date: October 30, 2024 Subjective Patient seen this morning in bed. She states that she is doing well and does not have any pain. She participated with physical therapy and was able to stand without any pain. She denies any numbness or tingling in her toes and is able to move all toes. Is using the abduction pillow at night. Physical Exam Constitutional: Resting comfortably laying in bed. Pleasant. Cardiovascular: Left DP pulse 1+. Musculoskeletal: Left lower extremity: Silverlon dressing over the posterolateral hip with no drainage. Trace ecchymosis posterior to the Silverlon dressing. Soft tissue is soft without induration and no tenderness. No erythema noted. Tolerates gentle passive range of motion of the hip and knee. Ankle plantarflexion, dorsiflexion, inversion and eversion is 5 out of 5. Moves all toes. Skin: [place], warm, dry. Contusion noted to the face Neurologic: No sensory deficits in the left toes to light touch Results & Data Vital Signs (Past 12 Hours) Vital Signs Temp Pulse Resp BP Pulse Ox O2 Del Method O2 Flow Rate 11/04/24 07:10 97.9 F 86 16 133/88 97 Nasal Cannula 2
== END 2024-11-04 12:47 | DRG 522 ==
LOC: ED 20:24 → 3W 23:35 → SUATTDRO 23:35 → 3W 10-31 00:24

== ENCOUNTER 2024-11-27 09:44 | Inpatient (IN) ==
--- NOTE | 2024-11-27 09:47 | Emergency Department Note ---
Impression & Plan Acute hyponatremia, Leukopenia, Nausea vomiting and diarrhea, Influenza A, Acute dehydration ED Provider Note NAME: KAMILA LUONG AGE: 89 SEX: F : 1935 ARRIVES VIA: Ambulance INFORMANT: Patient, ED PROVIDER(S): Noah Fernández MD CHIEF COMPLAINT: Weakness and fatigue, low sodium MEDICAL DECISION MAKING: Patient presents recent for hyponatremia weakness and fatigue. IV was established and blood work was obtained along with serum and urine osmolality as well as urine electrolytes. Patient ordered small IV fluid bolus normal saline 500 cc but only after lab work and urine obtained to make sure that these are more accurate prior to administration. Clinically patient does appear to be dry. Patient's blood work shows a leukopenia with white count of 2.8 with a hemoglobin of 10.5. Hemoglobin is not lower compared to prior. Leukocytopenia noted. Sodium 119. Chloride of 86. Low osmolality noted. Urinalysis does not show evidence of obvious infection. Patient is positive for influenza A. Treatment for flu deferred to inpatient dream. It is with the on-call hospitalist service the patient was admitted to medicine service by Dr. Holt Discussion w/ other healthcare providers: Dr. Holt inpatient medicine service Prior /Outside records reviewed: I reviewed part of a discharge summary from November 04, 2024 the patient did have a closed fracture of the left hip status postrepair with hemiarthroplasty completed by Dr. Cox. Patient also with UTI treated with 4 doses of Rocephin no further antibiotics needed as urine culture growing Gardnerella. Fortunately patient's also recently just prior to her admission in October. Differential diagnosis: Infection, dehydration, metabolic abnormality, hypo/hyperglycemia, electrolyte imbalance, anemia, UTI, pneumonia, thyroid dysfunction among others were considered. Diagnostics, as interpreted by me: ECG: A-fib, rate of 63, normal axis normal QRS duration no obvious STEMI. Cardiac monitoring: An order was placed for continuous cardiac monitoring. The monitor shows a rate of 62 with irregularly irregular rhythm. Patient was placed on pulse oximetry Medical decision rules: None Imaging studies: I informally interpreted the patient's Chest x-ray does not show obvious pneumonia or pneumothorax. Gastric bubble noted with formal report to follow. HPI: Patient presents due to concern for abnormal outpatient blood work. The patient reportedly had labs drawn yesterday and showed a sodium of 117. The patient does admit to nausea vomiting and associated diarrhea. The patient states that she vomited this morning. Decreased p.o. intake. Patient denies any shortness of breath chest pain or fever. Patient reportedly does wear oxygen as needed for sats below 88%. Patient was recently admitted for a hip fracture. The patient denies any issues with the hip thus far. Patient is hard of hearing. Patient denies any head or neck pain. Patient denies any abdominal pains. Patient does present from [facility]. Patient does endorse feeling increasingly fatigued and weak. No reported recent falls since the time of her hip fracture. PAST MEDICAL HISTORY: See Below PAST SURGICAL HISTORY: See Below SOCIAL HISTORY: See Below HOME MEDICATIONS: See Below ALLERGIES: See Below VITALS: See Below PHYSICAL EXAMINATION: GENERAL: NAD, non-toxic. Hard of hearing. Wearing glasses. EYE EXAM: Normal conjunctiva. PERRL, no anisocoria and EOM's grossly intact w/o pain. OROPHARYNX: Moist mucus membranes, grossly normal dentition. NECK: Trachea midline, no stridor. Supple, no nuchal rigidity, no adenopathy, non-tender. No signs of meningismus. FROM of the neck with good chin to chest and neck extension. LUNGS: Clear to auscultation. Normal chest wall mechanics. HEART: NSR, no MRG. ABDOMEN: Abdomen soft, non-tender, no masses, no rebound or guarding. BACK: No CVA TTP. SKIN: No rashes and no bruising. UPPER EXTREMITIES: Upper extremities are grossly normal. LOWER EXTREMITIES: Grossly normal, no edema. Well-healed incisional site over the lateral aspect of the left hip. NEURO EXAM: A&O x3, cranial nerves II-XII grossly intact, normal speech, moves all 4 extremities. Past Med/Surg History Problem List (Updated 11/27/24 @ 12:35 by Noah Fernández MD) Acute dehydration (Acute) Influenza A (Acute) Nausea vomiting and diarrhea (Acute) Leukopenia (Acute) Acute hyponatremia (Acute) Hyponatremia Status post hemiarthroplasty of left hip Hip fracture, left (Acute ~10/30/24) Obesity Grief reaction Contusion of knee, right (Acute) Closed fracture of left hip (Acute 10/30/24) Minimally displaced overriding left subcapital femoral neck fracture from a fall Facial contusion (Acute) Fall (Acute) Chronic heart failure with preserved ejection fraction H/O fracture of humerus (10/31/22) Left Edema SOB (shortness of breath) Prediabetes Osteoporosis Urge incontinence of urine ANAND (obstructive sleep apnea) Hypothyroidism Hyperlipidemia HTN (hypertension) GERD (gastroesophageal reflux disease) Dementia Coronary artery disease Permanent atrial fibrillation Anticoagulant long-term use Nonsustained ventricular tachycardia Spinal stenosis, lumbar region with neurogenic claudication Solitary pulmonary nodule Headache, migraine Medical History Urinary urgency chronic Chronic back pain Osteoarthritis Peripheral neuropathy Varicose veins of both lower extremities DJD (degenerative joint disease) Surgical History History of lumbar fusion x3 TOTAL History of bilateral tubal ligation History of total abdominal hysterectomy and bilateral salpingo-oophorectomy History of repair of rotator cuff RT/LEFT History of cholecystectomy History of appendectomy History of colonoscopy History of tonsillectomy History of adenoidectomy History of cataract surgery RT/LEFT Family History Mother Family hx of colon cancer Breast cancer Sister Breast cancer Myocardial infarction Father Myocardial infarction Denies family history of Ovarian cancer Prostate cancer Colorectal cancer Stroke Social History Smoking Status: Never smoker Second Hand Exposure: No; Do You Dip or Chew Tobacco: No; Hx Alcohol Use: Yes Alcohol type: other Alcohol Intake Frequency: Monthly or Less Hx Substance Use: No Preferred Language: Lao Communication Ability: Impaired Visual Impairment: Limited Hearing Ability: Use of Hearing Aid Contract Designer Required: No Beliefs That Will Affect Care: None marital status: Current Living Situation: Alone Current Living Situation Comment: spouse 10/25/24 current occupational status: retired Feels Safe at Home: Yes Childhood Exposure to Second-Hand Smoke: No Diet: regular Diet Comment: regular caffeine: Yes (Coffee 1 cup per day.) during the past year weight has: remained stable Dental Care, Regularly: Yes Physical Activity Frequency: Other Physical Activity Frequency Comment: limited by physical condition Seatbelt Use: always Sunscreen Use: Yes Assistive Devices: Stair Lift and Walker Allergies Allergies Allergy/AdvReac Type Severity Reaction Status Date / Time adhesive Allergy Unknown RASH Verified 11/27/24 11:40 Cipro Allergy Unknown Per cardio Unverified 08/28/16 13:36 note ciprofloxacin Allergy Unknown RASH Verified 11/27/24 11:40 doxycycline Allergy Unknown RASH Verified 11/27/24 11:40 latex Allergy Unknown RASH Verified 11/27/24 11:40 Penicillins Allergy Unknown RASH Verified 11/27/24 11:40 sulfamethoxazole Allergy Unknown Rash Verified 11/27/24 11:40 [From Bactrim] trimethoprim [From Bactrim] Allergy Unknown Rash Verified 11/27/24 11:40 Home Meds Home Medications Medication Instructions Recorded Confirmed cholecalciferol (vitamin D3) 25 1,000 units PO DAILY 07/16/19 11/27/24 mcg (1,000 unit) capsule mecobalamin (vitamin B12) 1,000 1,000 mcg PO DAILY 09/30/21 11/27/24 mcg chewable tablet acetaminophen 325 mg tablet 650 mg PO Q4H PRN Pain/Fever 11/27/24 11/27/24 (Tylenol) bisacodyl 10 mg rectal suppository 10 mg DE DAILY PRN Constipation 11/27/24 11/27/24 (Dulcolax (bisacodyl)) ferrous sulfate 325 mg (65 mg 325 mg PO QAM 11/27/24 11/27/24 iron) tablet furosemide 20 mg tablet 20 mg PO QAM 11/27/24 11/27/24 levothyroxine 50 mcg tablet 50 mcg PO QAM 11/27/24 11/27/24 magnesium hydroxide 400 mg/5 mL 2,400 mg PO DAILY PRN Constipation 11/27/24 11/27/24 oral suspension (Milk of Magnesia) metoprolol succinate 100 mg See Rx Instructions .Route .COMPLEX 11/27/24 11/27/24 tablet,extended release 24 hr metoprolol succinate 50 mg See Rx Instructions .Route .COMPLEX 11/27/24 11/27/24 tablet,extended release 24 hr sennosides 8.6 mg-docusate sodium 2 tab-cap PO DAILY 11/27/24 11/27/24 50 mg tablet (Senna-S) sertraline 25 mg tablet 25 mg PO QAM 11/27/24 11/27/24 sodium chloride 1 gram tablet 1,000 mg PO QAM 11/27/24 11/27/24 sodium phosphates 19 gram-7 118 ml DE DAILY PRN Constipation 11/27/24 11/27/24 gram/118 mL enema (Fleet Enema) Previous Rx's Medication Instructions Recorded nitroglycerin 0.4 mg sublingual 0.4 mg sublingual UD PRN Chest 10/05/21 tablet (Nitrostat) Pain #25 tabs potassium chloride 20 mEq 20 meq PO DAILY #90 tabs 12/25/23 tablet,extended release apixaban 5 mg tablet (Eliquis) 5 mg PO BID #180 tabs 02/18/24 atorvastatin 40 mg tablet 40 mg PO HS #90 tabs 08/19/24 pantoprazole 40 mg tablet,delayed 40 mg PO DAILYBB #90 tabs 08/19/24 release CPAP Supplies #1 ea 09/09/24 alendronate 70 mg tablet 70 mg PO WK #12 tabs 10/23/24 polyethylene glycol 3350 17 gram 17 g PO DAILY #7 ea 11/04/24 oral powder packet (Miralax) Results & Data (ED) Vital Signs Vital Signs - 24 hr 11/27/24 09:59 11/27/24 10:01 11/27/24 10:58 Temperature 36.1 C L Temperature Source Axillary Pulse Rate 71 69 Pulse Rate [Left Apical] 72 Pulse Rhythm Regular Pulse Strength Normal Respiratory Rate 16 20 Respiratory Effort / Characteristics Non-Labored Spontaneous Non-Labored Spontaneous Respiratory Depth Normal Normal Respiratory Pattern Regular Regular Blood Pressure 121/77 Blood Pressure [Left Arm] 144/74 H Blood Pressure Mean 91 Blood Pressure Mean [Left Arm] 97 Pulse Oximetry 94 97 Oxygen Delivery Method Room Air Room Air Sepsis Recent Fever Within 48 Hours No Sepsis New/Unexplained Change in Mental Status N/A Sepsis Action Taken by Nursing No Action Required Home Medications Current Medication List: was personally reviewed by me Laboratory Data Attestation: I reviewed the patient's lab results. 11/27/24 10:00 11/27/24 10:00 Lab Results 11/27/24 11/27/24 Range/Units 10:00 11:03 WBC 2.81 L (4.8-10.8) K/ul RBC 3.30 L (4.20-5.40) M/uL Hgb 10.5 L (12.0-16.0) g/dl Hct 29.5 L (37.0-47.0) % MCV 89.4 (80.0-100.0) fL MCH 31.8 (25.0-34.0) pg MCHC 35.6 (32.0-36.0) g/dL RDW Std Deviation 41.6 (36.4-46.3) fL RDW Coeff of Nancy 12.6 (11.5-14.5) % Plt Count 194 (130-400) K/uL MPV 8.9 L (9.4-12.4) fL Immature Gran % (Auto) 0.4 % Neut % (Auto) 55.8 % Lymph % (Auto) 24.2 % [place] % (Auto) 18.1 % Eos % (Auto) 1.1 % Baso % (Auto) 0.4 % Neut # (Auto) 1.57 (1.40-6.50) K/uL Lymph # (Auto) 0.68 L (1.20-3.40) K/uL [place] # (Auto) 0.51 (0.11-0.59) K/uL Eos # (Auto) 0.03 (0.00-0.50) K/uL Baso # (Auto) 0.01 (0.00-0.20) K/uL Immature Gran # (Auto) 0.01 (0.01-0.20) K/uL Sodium 119 L* (136-145) mmol/L Potassium 4.3 (3.5-5.1) mmol/L Chloride 86 L (98-107) mmol/L Carbon Dioxide 30 (21-32) mmol/L Anion Gap 3 (3-11) BUN 9 (6-23) mg/dl Creatinine 0.53 L (0.6-1.2) mg/dl Est Cr Clr Drug Dosing Not Reportable eGFR 89.45 BUN/Creatinine Ratio 17.0 (10-20) Glucose 105 H (70-99(Fasting)) mg/dl Osmolality 247 L (280-300) mOsm/kg Calcium 8.8 (8.6-10.3) mg/dl Magnesium 1.7 (1.7-2.4) mg/dl Total Bilirubin 0.7 (0.2-1.0) mg/dl AST 17 (13-39) U/L ALT 8 (7-52) U/L Alkaline Phosphatase 91 (34-104) U/L Total Protein 5.9 L (6.0-8.3) gm/dl Albumin 3.6 (3.4-5.0) gm/dl Globulin 2.3 L (2.5-4.0) gm/dl Albumin/Globulin Ratio 1.6 (0.9-2) TSH 1.301 (0.300-4.500) uIu/ml Urine Color Yellow Urine Appearance Clear (Clear) Urine pH 7.0 (4.5-7.5) Ur Specific [place] 1.010 (1.000-1.030) Urine Protein Negative (Negative) Urine Glucose (UA) Negative (Negative) Urine Ketones Negative (Negative) Urine Blood Negative (Negative) Urine Nitrite Negative (Negative) Urine Bilirubin Negative (Negative) Urine Urobilinogen Negative (Negative) Ur Leukocyte Esterase Negative (Negative) Urine Osmolality 370 L (500-800) mOsm/kg Urine Sodium 82 mmol/L Urine Potassium 38.7 mmol/L Urine Chloride 90 mmol/L Nasal Influ A H1 2008 PCR DETECTED A (NotDetected) Adenovirus (PCR) Not Detected (NotDetected) B. pertussis DNA (PCR) Not Detected (NotDetected) B.parapertussis DNA PCR Not Detected (NotDetected) C. pneumoniae DNA (PCR) Not Detected (NotDetected) Coronavirus OC43 (PCR) Not Detected (NotDetected) Coronavirus HKU1 (PCR) Not Detected (NotDetected) Coronavirus 229E (PCR) Not Detected (NotDetected) SARS-CoV-2 (PCR) Not Detected (NotDetected) Coronavirus NL63 (PCR) Not Detected (NotDetected) Human Metapneumovir PCR Not Detected (NotDetected) Influenza Type B (PCR) Not Detected (NotDetected) M. pneumoniae (PCR) Not Detected (NotDetected) Parainfluenza 1 (PCR) Not Detected (NotDetected) Parainfluenza 2 (PCR) Not Detected (NotDetected) Parainfluenza 3 (PCR) Not Detected (NotDetected) Parainfluenza 4 (PCR) Not Detected (NotDetected) RSV (PCR) Not Detected (NotDetected) Entero/Rhino (PCR) Not Detected (NotDetected) Administered Medications Discontinued Medications Sodium Chloride (Nss) 500 mls @ 999 mls/hr IV .Q31M ONE Stop: 11/27/24 10:45 Last Admin: 11/27/24 11:41 Dose: Not Given Documented By: BUD Ondansetron HCl (Ondansetron Inj 2 Mg/Ml 2 Ml Vial) 4 mg IV NOW STA Stop: 11/27/24 10:00 Last Admin: 11/27/24 10:19 Dose: 4 mg Documented By: VIVIANA Imaging Data Radiologist's Impression: Chest X-Ray 11/27/24 09:59 XR chest 1V portable CLINICAL HISTORY: weakness COMPARISON STUDY: 10/30/2024 FINDINGS: Stable bilateral shoulder prostheses. Stable cardiomegaly with mild pulmonary vascular congestion. Stable mild elevation of the left hemidiaphragm. Stable mild pulmonary interstitial opacities. No new consolidation or pleural effusion. No pneumothorax. IMPRESSION: Stable exam. ACT 112: Negative or not required by law. Electronically signed by: Esvin Garces M.D. 11/27/2024 10:13 AM Discharge Plan Visit Data Chief Complaint: Abnormal Labs/Diagnostic Testing Stated Complaint: ABNORMAL LABS ED Provider: Noah Fernández Discharge Problem: Acute hyponatremia, Leukopenia, Nausea vomiting and diarrhea, Influenza A, Acute dehydration Forms Stand Alone Forms: My [facility] Prescriptions Prescriptions: No Action potassium chloride 20 mEq tablet extended release 20 meq PO DAILY Qty: 90 3RF Eliquis 5 mg tablet 5 mg PO BID Qty: 180 3RF atorvastatin 40 mg tablet 40 mg PO HS Qty: 90 3RF pantoprazole 40 mg tablet,delayed release (DR/EC) 40 mg PO DAILYBB Qty: 90 3RF (DME) CPAP Supplies Misc See Rx Instructions .ROUTE .MEDSUPPLY Qty: 1 0RF Rx Instructions: As directed. Dx: G47.33 alendronate 70 mg tablet 70 mg PO WK Qty: 12 1RF Rx Instructions: THURSDAYS mecobalamin (vitamin B12) 1,000 mcg tablet,chewable 1,000 mcg PO DAILY nitroglycerin [Nitrostat] 0.4 mg tablet, sublingual 0.4 mg SL UD PRN (Reason: Chest Pain) Qty: 25 3RF cholecalciferol (vitamin D3) 1,000 unit capsule 1,000 units PO DAILY polyethylene glycol 3350 [Miralax] 17 gram Powder In Packet 17 g PO DAILY Qty: 7 0RF acetaminophen [Tylenol] 325 mg Tablet 650 mg PO Q4H MDD 3000mg/24hr PRN (Reason: Pain/Fever) sennosides-docusate sodium [Senna-S] 8.6-50 mg Tablet 2 tab-cap PO DAILY metoprolol succinate 100 mg Tablet Extended Release 24 Hr See Rx Instructions .ROUTE .COMPLEX Rx Instructions: Take 100mg w/ 50mg to equal 150mg by mouth in the morning. sodium chloride 1 gram Tablet 1,000 mg PO QAM magnesium hydroxide [Milk of Magnesia] 400 mg/5 mL Suspension 2,400 mg PO DAILY PRN (Reason: Constipation) Rx Instructions: If no BM in 3 days bisacodyl [Dulcolax (bisacodyl)] 10 mg Suppository 10 mg DE DAILY PRN (Reason: Constipation) Rx Instructions: On day 5 in the morning if milk of magnesia is ineffective ferrous sulfate 325 mg (65 mg iron) Tablet 325 mg PO QAM Fleet Enema 19-7 gram/118 mL Enema 118 ml DE DAILY PRN (Reason: Constipation) Rx Instructions: Give on day 6 in the morning of no BM if dulcolax is ineffective metoprolol succinate 50 mg tablet extended release 24 hr See Rx Instructions .ROUTE .COMPLEX Rx Instructions: Take 50mg w/ 100mg to equal 150mg by mouth in the morning. levothyroxine 50 mcg tablet 50 mcg PO QAM sertraline 25 mg tablet 25 mg PO QAM furosemide 20 mg tablet 20 mg PO QAM Referrals Referrals: Dianne Adams DO [Primary Care Provider] - Discharge Problem: Leukopenia Qualifiers: Leukopenia type: lymphocytopenia Qualified Code(s): D72.810 - Lymphocytopenia
--- NOTE | 2024-11-27 10:15 | XRay Report ---
XR chest 1V portable CLINICAL HISTORY: weakness COMPARISON STUDY: 10/30/2024 FINDINGS: Stable bilateral shoulder prostheses. Stable cardiomegaly with mild pulmonary vascular danae estion. Stable mild elevation of the left hemidiaphragm. Stable mild pulmonary interstitial opacities . No new consolidation or pleural effusion. No pneumothorax. IMPRESSION: Stable exam. ACT 112: Negative or not required by law. Electronically signed by: Esvin Garces M.D. 11/27/2024 10:13 AM
[2024-11-27] MEDS: ONDANSETRON INJ 2 MG/ML 2 ML VIAL IV STA (10:19)
[2024-11-27 10:20] LABS: Basophils # (auto) 0.01 K/uL (0.00-0.20); Basophils % (auto) 0.4 %; Eosinophils # (auto) 0.03 K/uL (0.00-0.50); Eosinophils % (auto) 1.1 %; Hematocrit (blood only) 29.5 % (37.0-47.0); Hemoglobin 10.5 g/dl (12.0-16.0); Immature Granulocytes # (auto) 0.01 K/uL (0.01-0.20); Immature Granulocytes % (auto) 0.4 %; Lymphocytes # (auto) 0.68 K/uL (1.20-3.40); Lymphocytes % (auto) 24.2 %; Mean Corpuscular Hemoglobin 31.8 pg (25.0-34.0); Mean Corpuscular Hgb Conc 35.6 g/dL (32.0-36.0); Mean Corpuscular Volume 89.4 fL (80.0-100.0); Mean Platelet Volume 8.9 fL (9.4-12.4); Monocytes # (auto) 0.51 K/uL (0.11-0.59); Monocytes % (auto) 18.1 %; Neutrophils # (auto) 1.57 K/uL (1.40-6.50); Neutrophils % (auto) 55.8 %; Platelet Count 194 K/uL (130-400); RDW Coefficient of Variation 12.6 % (11.5-14.5); RDW Standard Deviation 41.6 fL (36.4-46.3); White Blood Count 2.81 K/ul (4.8-10.8)
[2024-11-27 10:44] LABS: Alanine Aminotransferase 8 U/L (7-52); Albumin Globulin Ratio 1.6 (0.9-2); Albumin Level 3.6 gm/dl (3.4-5.0); Alkaline Phosphatase 91 U/L (34-104); Anion Gap 3 (3-11); Aspartate Aminotransferase 17 U/L (13-39); Bilirubin,Total 0.7 mg/dl (0.2-1.0); Blood Urea Nitrogen 9 mg/dl (6-23); Calcium 8.8 mg/dl (8.6-10.3); Carbon Dioxide 30 mmol/L (21-32); Chloride 86 mmol/L (98-107); Globulin 2.3 gm/dl (2.5-4.0); Glucose 105 mg/dl (70-99(Fasting)); Magnesium 1.7 mg/dl (1.7-2.4); Potassium 4.3 mmol/L (3.5-5.1); Sodium 119 mmol/L (136-145); Total Protein 5.9 gm/dl (6.0-8.3)
[2024-11-27 10:49] LABS: Thyroid Stimulating Hormone 1.301 uIu/ml (0.300-4.500)
[2024-11-27 11:11] LABS: Adenovirus PCR Not Detected (NotDetected); Bordetella parapertussis PCR Not Detected (NotDetected); Bordetella pertussis PCR Not Detected (NotDetected); Chlamydia pneumoniae PCR Not Detected (NotDetected); Coronavirus 229E PCR Not Detected (NotDetected); Coronavirus CoV-2 (COVID19)PCR Not Detected (NotDetected); Coronavirus HKU1 PCR Not Detected (NotDetected); Coronavirus NL63 PCR Not Detected (NotDetected); Coronavirus OC43PCR Not Detected (NotDetected); Human Metapneumovirus PCR Not Detected (NotDetected); Influenza A (H1 2009) PCR DETECTED (NotDetected); Influenza B PCR Not Detected (NotDetected); Mycoplasma pneumoniae PCR Not Detected (NotDetected); Parainfluenza Virus 1 PCR Not Detected (NotDetected); Parainfluenza Virus 2 PCR Not Detected (NotDetected); Parainfluenza Virus 3 PCR Not Detected (NotDetected); Parainfluenza Virus 4 PCR Not Detected (NotDetected); Respiratory Syncytial VirusPCR Not Detected (NotDetected); Rhinovirus/Enterovirus PCR Not Detected (NotDetected)
[2024-11-27 11:18] LABS: Appearance Urine Clear (Clear); Bilirubin Urine Negative (Negative); Blood Urine Negative (Negative); Color Urine Yellow; Glucose Urine UA Negative (Negative); Ketones Urine Negative (Negative); Leukocyte Esterase Urine Negative (Negative); Nitrite Urine Negative (Negative); Protein Urine Negative (Negative); Urobilinogen Urine Negative (Negative)
--- NOTE | 2024-11-27 11:22 | History & Physical Report ---
Date of Service November 27, 2024 Assessment & Plan (1) Hyponatremia: Plan: Na 119 on admission however up from 117 yesterday. Na 136 on discharge on November 03 following hip fracture. Urine Na/osm pending however may not be reliable to delineate cause in setting of Lasix use. 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 Will also avoid NSS as this may worsen SIADH. Monitor Na q6h overnight to aim 6-8 meq/L increase over the next 24 hours. (123- 125) (2) Hypothyroidism: Plan: TSH WNL Continue levothyroxine (3) ANAND (obstructive sleep apnea): Plan: CPAP HS (4) Permanent atrial fibrillation: Plan: Continue Eliquis for stroke risk reduction Continue metoprolol succinate for rate control (5) Dementia: Plan VTE Prophyalxis - Eliquis Diet - regular, fluid restrict 1L Disposition - admit to PCU Admission and Anticipated Discharge Date Admission Date: November 27, 2024 History of Present Illness Chief Complaint: Hyponatremia on outpatient labs Primary Care Provider: DO Iza Ho Todd is an 89 year old female who presents to the ER with outpatient labs from [facility] showing sodium 117. Initial triage note suggested she was having nausea and vomiting although the patient denies this to me but appears confused by the question and changes her answer multiple times and then talks about how her . On discussion with [facility] provider who sent her to the ER she has been asympathetic. She is at her baseline confusion, no fatigue, nausea, vomiting, muscle cramps, dizziness. Notes from outside penitentiary show Na 117 [11/26 3:55pm], 121 [11/24 5:21 am], 122 [11/21 5:21am]. Notes suggest lasix and sertraline where discontinued but this was the plan for today and she was still taking these yesterday. She was started on NaCl1g PO daily on November 25. Of note her hemoglobin was also decreasing on outside labs Hgb 8.2 [11/26 3:55pm], 9.1 [11/24 5:21 am], 10.0 [11/21 5:21am] although this is back to 10.5 in the ER today. Allergies Allergy/AdvReac Type Severity Reaction Status Date / Time adhesive Allergy Unknown RASH Verified 11/27/24 11:40 Cipro Allergy Unknown Per cardio Unverified 08/28/16 13:36 note ciprofloxacin Allergy Unknown RASH Verified 11/27/24 11:40 doxycycline Allergy Unknown RASH Verified 11/27/24 11:40 latex Allergy Unknown RASH Verified 11/27/24 11:40 Penicillins Allergy Unknown RASH Verified 11/27/24 11:40 sulfamethoxazole Allergy Unknown Rash Verified 11/27/24 11:40 [From Bactrim] trimethoprim [From Bactrim] Allergy Unknown Rash Verified 11/27/24 11:40 Home Medications Medication Instructions Recorded Confirmed Type cholecalciferol (vitamin D3) 25 1,000 units PO DAILY 07/16/19 11/27/24 History mcg (1,000 unit) capsule mecobalamin (vitamin B12) 1,000 1,000 mcg PO DAILY 09/30/21 11/27/24 History mcg chewable tablet nitroglycerin 0.4 mg sublingual 0.4 mg sublingual UD PRN Chest 10/05/21 11/27/24 Rx tablet (Nitrostat) Pain #25 tabs potassium chloride 20 mEq 20 meq PO DAILY #90 tabs 12/25/23 11/27/24 Rx tablet,extended release apixaban 5 mg tablet (Eliquis) 5 mg PO BID #180 tabs 02/18/24 11/27/24 Rx atorvastatin 40 mg tablet 40 mg PO HS #90 tabs 08/19/24 11/27/24 Rx pantoprazole 40 mg tablet,delayed 40 mg PO DAILYBB #90 tabs 08/19/24 11/27/24 Rx release CPAP Supplies #1 ea 09/09/24 10/30/24 Rx alendronate 70 mg tablet 70 mg PO WK #12 tabs 10/23/24 11/27/24 Rx polyethylene glycol 3350 17 gram 17 g PO DAILY #7 ea 11/04/24 11/27/24 Rx oral powder packet (Miralax) acetaminophen 325 mg tablet 650 mg PO Q4H PRN Pain/Fever 11/27/24 11/27/24 History (Tylenol) bisacodyl 10 mg rectal suppository 10 mg MT DAILY PRN Constipation 11/27/24 11/27/24 History (Dulcolax (bisacodyl)) ferrous sulfate 325 mg (65 mg 325 mg PO QAM 11/27/24 11/27/24 History iron) tablet furosemide 20 mg tablet 20 mg PO QAM 11/27/24 11/27/24 History levothyroxine 50 mcg tablet 50 mcg PO QAM 11/27/24 11/27/24 History magnesium hydroxide 400 mg/5 mL 2,400 mg PO DAILY PRN Constipation 11/27/24 11/27/24 History oral suspension (Milk of Magnesia) metoprolol succinate 100 mg See Rx Instructions .Route .COMPLEX 11/27/24 11/27/24 History tablet,extended release 24 hr metoprolol succinate 50 mg See Rx Instructions .Route .COMPLEX 11/27/24 11/27/24 History tablet,extended release 24 hr sennosides 8.6 mg-docusate sodium 2 tab-cap PO DAILY 11/27/24 11/27/24 History 50 mg tablet (Senna-S) sertraline 25 mg tablet 25 mg PO QAM 11/27/24 11/27/24 History sodium chloride 1 gram tablet 1,000 mg PO QAM 11/27/24 11/27/24 History sodium phosphates 19 gram-7 118 ml MT DAILY PRN Constipation 11/27/24 11/27/24 History gram/118 mL enema (Fleet Enema) Past Med/Surg History Problem List (Updated 11/27/24 @ 12:35 by Noah Fernández MD) Acute dehydration (Acute) Influenza A (Acute) Nausea vomiting and diarrhea (Acute) Leukopenia (Acute) Acute hyponatremia (Acute) Hyponatremia Status post hemiarthroplasty of left hip Hip fracture, left (Acute ~10/30/24) Obesity Grief reaction Contusion of knee, right (Acute) Closed fracture of left hip (Acute 10/30/24) Minimally displaced overriding left subcapital femoral neck fracture from a fall Facial contusion (Acute) Fall (Acute) Chronic heart failure with preserved ejection fraction H/O fracture of humerus (10/31/22) Left Edema SOB (shortness of breath) Prediabetes Osteoporosis Urge incontinence of urine ANAND (obstructive sleep apnea) Hypothyroidism Hyperlipidemia HTN (hypertension) GERD (gastroesophageal reflux disease) Dementia Coronary artery disease Permanent atrial fibrillation Anticoagulant long-term use Nonsustained ventricular tachycardia Spinal stenosis, lumbar region with neurogenic claudication Solitary pulmonary nodule Headache, migraine Medical History Urinary urgency chronic Chronic back pain Osteoarthritis Peripheral neuropathy Varicose veins of both lower extremities DJD (degenerative joint disease) Surgical History History of lumbar fusion x3 TOTAL History of bilateral tubal ligation History of total abdominal hysterectomy and bilateral salpingo-oophorectomy History of repair of rotator cuff RT/LEFT History of cholecystectomy History of appendectomy History of colonoscopy History of tonsillectomy History of adenoidectomy History of cataract surgery RT/LEFT Family History Mother Family hx of colon cancer Breast cancer Sister Breast cancer Myocardial infarction Father Myocardial infarction Denies family history of Ovarian cancer Prostate cancer Colorectal cancer Stroke Social History Smoking Status: Unknown if ever smoked Second Hand Exposure: No; Do You Dip or Chew Tobacco: No; Hx Alcohol Use: No Hx Substance Use: No Preferred Language: Indian Communication Ability: Effective Visual Impairment: Limited Hearing Ability: Use of Hearing Aid Assembler Bicycle Required: No Beliefs That Will Affect Care: None marital status: Current Living Situation: Jail Current Living Situation Comment: spouse 10/25/24 current occupational status: retired Other Information That Helps Us Care for You: No Feels Safe at Home: Yes Safety Concerns: Feels Safe At This Time Childhood Exposure to Second-Hand Smoke: No Diet: regular Diet Comment: regular caffeine: Yes (Coffee 1 cup per day.) during the past year weight has: remained stable Dental Care, Regularly: Yes Physical Activity Frequency: Other Physical Activity Frequency Comment: limited by physical condition Seatbelt Use: always Sunscreen Use: Yes Assistive Devices: Glasses, Oxygen - Continuous and Walker Review of Systems Review of Systems: All systems reviewed & are unremarkable except as noted in HPI & below Physical Exam Constitutional: WD/WN, vitals as above Eyes: PERRL, conjunctivae normal, anicteric sclerae Respiratory: normal respiratory effort, lungs clear to auscultation Cardiovascular: Rate/Rhythm: regular rate and + irregularly irregular Gastrointestinal (Abdomen): normal bowel sounds, soft, nontender, no hepatosplenomegaly Musculoskeletal: no cyanosis or clubbing, extremities motor strength 5/5 Skin: no rashes, warm and dry Neurologic: moves all extremities and awake; not confused Psychiatric: Orientation: alert, oriented to person and oriented to place; + not oriented to time Results & Data Results & Data Vital Signs (Past 12 Hours) Vital Signs Temp Pulse Pulse Resp BP BP Pulse Ox 11/27/24 10:58 72 20 144/74 H 97 11/27/24 10:01 69 11/27/24 09:59 36.1 C L 71 16 121/77 94 O2 Del Method 11/27/24 10:58 Room Air 11/27/24 10:01 11/27/24 09:59 Room Air Laboratory Results Abnormal lab results 11/27/24 11/27/24 11/27/24 Range/Units 10:00 11:03 16:54 WBC 2.81 L (4.8-10.8) K/ul RBC 3.30 L (4.20-5.40) M/uL Hgb 10.5 L (12.0-16.0) g/dl Hct 29.5 L (37.0-47.0) % MPV 8.9 L (9.4-12.4) fL Lymph # (Auto) 0.68 L (1.20-3.40) K/uL Sodium 119 L* 120 L (136-145) mmol/L Chloride 86 L (98-107) mmol/L Creatinine 0.53 L (0.6-1.2) mg/dl Glucose 105 H (70-99(Fasting)) mg/dl Osmolality 247 L (280-300) mOsm/kg Total Protein 5.9 L (6.0-8.3) gm/dl Globulin 2.3 L (2.5-4.0) gm/dl Urine Osmolality 370 L (500-800) mOsm/kg Nasal Influ A H1 2008 PCR DETECTED A (NotDetected) Diagnostic Findings XR chest 1V portable CLINICAL HISTORY: weakness COMPARISON STUDY: 10/30/2024 FINDINGS: Stable bilateral shoulder prostheses. Stable cardiomegaly with mild pulmonary vascular congestion. Stable mild elevation of the left hemidiaphragm. Stable mild pulmonary interstitial opacities. No new consolidation or pleural effusion. No pneumothorax. IMPRESSION: Stable exam. Medications Administered ER Medications Given: Ondansetron 4mg IV ECG Rate (beats per minute): 63 Rhythm: atrial fibrillation Findings: no acute ischemic change Comparison ECG Date: from (October 30, 2024) Change: no significant change Code Status & VTE Plan Code Status Full VTE Prophylaxis Plan VTE Prophylaxis will be ordered: Yes PG Care Time/CCT Total # of Minutes Spent Total Time Spent with Patient: Total time spent is greater than 50% in coordination of care (as documented) at patient's floor/unit and/or counseling patient: Coding Level of Care Code 70796 INT INP/OBS CARE 3/75MIN Diagnoses Hyponatremia E87.1 Hypothyroidism E03.9 ANAND (obstructive sleep apnea) G47.33 Permanent atrial fibrillation I48.21 Dementia F03.90
[2024-11-27] MEDS ORDERED: STAT IV/IM STA (11:29)
[2024-11-27] MEDS ORDERED: SODIUM CHLORIDE 3 % 100 ML IV ONE (11:29)
[2024-11-27 11:38] LABS: Urine Potassium 38.7 mmol/L
[2024-11-27] MEDS: SODIUM CHLORIDE 0.9% 500 ML IV ONE (11:41)
[2024-11-27] MEDS: SODIUM CHLORIDE 1 GM TABLET PO ONE (13:17)
[2024-11-27] MEDS ORDERED: METOPROLOL SUCC 50MG EXT REL TAB PO SCH (14:17)
--- OUTSIDE RECORDS SUMMARY | 2024-11-27 15:07 | External Medical Summary | Summary of Care ---
Author Name Unknown Organization [facility] Address [address] [facility] [facility] [address] Phone [phone] Care Team Providers Care Pipe Testing Technician Name Role Phone Maximus Tee MD Primary Care Provider [phone] Reason for Visit * Reason Comments Outpatient Testing Encounter Details Date Type Department Care Team (Late st Contact Info) Description 11/26/2024 3:40 PM EST Laboratory Laboratory [address] [place] [id number] , Specimen Drop Off [address] [place] [address] Hyponatremia Allergies Active Allergy Reactions Criticality Noted Date Comments Ciprofloxacin 08/31/2017 Delayed rash 2009; neg skin to moxifloxacin and levofloxacin 08/30/17, neg challenge to moxifloxacin by allergy Doxycycline Rash 03/01/2004 Localized to upper body Quinine Sulfate Unknown 06/21/2006 Pt does not recall every taking this. She does not recall any reaction to it. 09/12/17 Sulfa Antibiotics Rash,Cough 03/01/2004 Adhesive Tape Other (Please comment) 06/21/2006 Localized contact rash documented as of this encounter (statuses as of 11/26/2024) Medications Acetaminophen 325 MG Oral Tablet (Tylenol) Take by mouth every 4 hours as needed for Fever >38C(100.5F), Pain, Mild, Pain, Moderate or Pain, Severe. 4 Active Polyethylene Glycol 3350 17 GM/SCOOP Oral Powder (MiraLax) Take 17 g by mouth in the morning. Dissolve one heaping tablespoon in 8 ounces of water or juice.. 4 Active Vitamin D3 25 MCG (1000 UT) Oral Tablet (Vitamin D3) Take 1 Tablet by mouth in the morning. 4 Active Vitamin B-12 1000 MCG Oral Tablet (Cyanocobalamin ) Take 1 Tablet by mouth in the morning. 4 Active Nitroglycerin 0.4 MG Sublingual Tablet Sublingual (Nitrostat) Place 1 Tablet under the tongue as needed for Pain, Chest. May repeat 3 times. If chest pain continues, call 911. 4 Active Potassium Chloride Shikha ER 20 MEQ Oral Tablet Extended Release Take 1 Tablet by mouth in the morning. 4 Active Apixaban 5 MG Oral Tablet (Eliquis) Take 1 Tablet by mouth in the morning and 1 Tablet before bedtime. 4 Active Metoprolol Succinate ER 100 MG Oral Tablet Extended Release 24 Hour (Toprol XL) Take 1.5 Tablets by mouth in the morning. 4 Active Atorvastatin Calcium 40 MG Oral Tablet (Lipitor) Take 1 Tablet by mouth at bedtime. 4 Active Pantoprazole Sodium 40 MG Oral Tablet Delayed Release (Protonix) Take 1 Tablet by mouth in the morning. 30 minutes before the first meal of the day. Do not crush, split or chew the tablet. 4 Active Alendronate Sodium 70 MG Oral Tablet (Fosamax) Take 1 Tablet by mouth once a week. with 8 oz. water 30 minutes before first meal of the day. Remain upright for 30 min after taking tablet 4 Active Sertraline HCl 25 MG Oral Tablet (Zoloft) Take 1 Tablet by mouth in the morning. 4 Active Levothyroxine Sodium 50 MCG Oral Tablet (Levoxyl) Take 1 Tablet by mouth in the morning. on an empty stomach.. 4 Active Ferrous Sulfate 325 (65 Fe) MG Oral Tablet (Feosol) Take 1 Tablet by mouth daily with breakfast. 4 Active Sennosides-Docu sate Sodium 8.6-50 MG Oral Tablet (Senna S) Take 2 Tablets by mouth in the morning. Active Sodium Chloride 1 GM Oral Tablet Take 1 Tablet by mouth in the morning. Active documented as of this encounter (statuses as of 11/26/2024) Active Problems Problem Noted Date Diagnosed Date Hyponatremia 11/26/2024 Full code status 11/06/2024 Acquired hypothyroidism 11/04/2024 HTN, goal below 140/90 11/04/2024 Hyperlipidemia with target LDL less than 100 Gastroesophageal reflux disease without esophagi tis 11/04/2024 Age-related osteoporosis wit h current pathological fracture with routine healing 11/04/2024 Closed hip fracture requirin g operative repair, left, with routine healing, subsequent encounter 11/04/2024 Slow transit constipation 11/04/2024 Vitamin B12 deficiency 11/04/2024 Coronary artery disease of n ative artery of [place] heart with stable angina pectoris 11/04/2024 Hypokalemia 11/04/2024 Permanent atrial fibrillation 11/04/2024 Mild late onset Alzheimer's dementia without behavioral disturbance, psychotic disturbance, mood disturbance, or anxiety 11/04/2024 Nonsustained ventricular tachycardia 11/04/2024 Spinal stenosis of lumbar re gion with neurogenic claudication 11/04/2024 Pulmonary nodules 11/04/2024 Migraine without status migrainosus, not intract able 11/04/2024 Generalized OA 11/04/2024 ANAND (obstructive sleep apnea) 11/04/2024 Prediabetes 11/04/2024 SENSORINEURAL HEARING LOSS, UNILATERAL,RIGHT Overview (03/11/2008): right mild to moderate mid and high frequency Lumbosacral spondylosis 03/10/2004 Raynaud's syndrome 03/10/2004 Peripheral neuropathy 03/10/2004 Presbyacusis Tympanosclerosis Vitamin D deficiency documented as of this encounter (statuses as of 11/26/2024) Resolved Problems Problem Noted Date Diagnosed Date Resolved Date Allergy to multiple antibiotics 08/23/2017 11/04/2024 Chronic otitis externa 09/13/201111/04 Vertigo 09/13/2011 11/04/2024 ADVANCE DIRECTIVE INFORMATION 06/21/2006 09/22/2024 Overview (06/21/2006): Dr Talon Tee has a copy. Pain in limb 03/20/2006 11/04/2024 Hypothyroidism 03/01/2004 11/04/2024 Mixed hearing loss, unilateral 11/04/2024 Overview (03/04/2008): left Sensorineural hearing loss, unilateral 03/11/2008 Overview (03/04/2008): right mild to moderate mid and high frequency Atrial fibrillation 11/04/20 24 Anticoagulated on Coumadin 1 01/05/2024 Hypertension 11/04/2024 GERD (gastroesophageal reflux disease) 11/04/2024 Hyperlipidemia 11/04/2024 documented as of this encounter (statuses as of 11/26/2024) Immunizations Name Administration Dates Next Due Seasonal Influenza, PF, 6 M & above, IM , (FluLaval or Fluzone) 08/22/2017 08/22/2018 documented as of this encounter Social History Tobacco Use Types Packs/Day Years Used Date Smoking Tobacco: Never Alcohol Use Standard Drinks/Week Comments Yes 0 (1 standard drink = 0.6 oz pur e alcohol) occ glass of wine Comments No Sex and Gender Information Value Date Recorded Sex Assigned at Not on file Legal Sex Female 4:57 AM EST Gender Identity Not on file Sexual Orientation Not on file 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 Not on file Not on file Not on file documented as of this encounter Plan of Treatment Pending Results Name Type Priority Associated Diagnoses Date /Time BASIC METABOLIC PANEL Lab Routine Hyponatremia 11/26/2024 3:55 PM EST Health Maintenance Due Date Last Done Comments HbA1c 1943 Depression Screening 1947 Albumin/Creatinine Ratio 1955 TSH 1955 DTap/Tdap Vaccines (1 - Tdap) 02/04/1956 VITAMIN D LEVEL ONCE IN A LIFETIME-USE SMARTSET# [id number] 1977 DXA Scan 1987 Zoster Vaccines (1 of 2) 1987 Influenza Vaccine (FLU shot) (#1) 2024 07/30/2020, 08/04/2019, 08/22/2017 Pneumococcal Vaccine: 50+ Years Completed 05/02/2021, 09/11/2016 COVID-19 Vaccine Completed 08/27/2024, , 09/08/2023, Additional history exists HPV (Gardasil) Vaccine Aged Out No lo nger eligible based on patient's age to complete this topic Hepatitis B Vaccine Aged Out No longe r eligible based on patient's age to complete this topic MENINGOCOCCAL (MENACTRA/MENVEO) Aged Out No longer eligible based on patient's age to complete this topic documented as of this encounter Medical Devices Not on filedocumented as of this encounter Visit Diagnoses Diagnosis Hyponatremia Hyposmolality and/or hyponatremia documented in this encounter Care Teams Pipe Testing Technician Relationship Specialty Start Date End Date Maximus Tee MD [address] [place] [address] PCP - General 06/09/02 documented as of this encounter
--- OUTSIDE RECORDS SUMMARY | 2024-11-27 15:07 | External Medical Summary | Summary of Care ---
Author Name Unknown Organization [facility] Address [address] [place] [address] Phone [phone] Care Team Providers Care Automobile Tester Name Role Phone Maximus Tee MD Primary Care Provider [phone] Reason for Visit * Reason Onset Date Comments Skilled Visit 11/26/2024 Encounter Details Date Type Department Care Team (Latest Contact Info) Description 11/26/2024 6:00 AM EST Group Home Visit [facility] [address] [place] [address] Qiana Downey PA-C [address] [place] [address] Closed hip fracture requiring operative repair, left, with routine healing, subsequent encounter*; Mild late onset Alzheimer's dementia without behavioral disturbance, psychotic disturbance, mood disturbance, or anxiety (HCC); Permanent atrial fibrillation (HCC); Hyponatremia Allergies Active Allergy Reactions Criticality Noted [...] 2 Tablets by mouth in the morning. 4 Active Sodium Chloride 1 GM Oral Tablet Take 1 Tablet by mouth in the morning. 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 Not on file Not on file Not on file documented as of this encounter Plan of Treatment Health Maintenance Due Date Last Done Comments HbA1c 1945 Depression Screening 1949 Albumin/Creatinine Ratio 1955 TSH 1955 DTap/Tdap Vaccines (1 - Tdap) 02/04/1956 VITAMIN D LEVEL ONCE IN A LIFETIME-USE SMARTSET# [id number] 1977 DXA Scan 1987 Zoster Vaccines (1 [...] as of this encounter Visit Diagnoses Diagnosis Closed hip fracture requiring operative repair, left, with routine healing, subsequent encounter- Primary Mild late onset Alzheimer's dementia without behavioral disturbance, psychotic disturbance, mood disturbance, or anxiety (HCC) Permanent atrial fibrillation (HCC) Atrial fibrillation Hyponatremia Hyposmolality and/or hyponatremia documented in this encounter Care Teams Automobile Tester Relationship Specialty Start Date End Date Maximus Tee MD [address], [place] [address] PCP - General 06/09/02 documented as of this encounter
--- OUTSIDE RECORDS SUMMARY | 2024-11-27 15:07 | External Medical Summary ---
Author Name Unknown Address Unknown Organization [id number]:[facility] - [address] [place] [address] Laboratory Report Ordering Provider Test Date Status FAYE RODRIGUEZ 11/26/2024 15:55:02 Final Observation Date Value Abnormality Reference (Units ) Status BUN 11/26/2024 15:55:02 11 6-20 (mg/dL) Final Creatinine 11/26/2024 15:55:02 0.6 0.5-1.0 (mg/dL) Final Glomerular filtration rate/1.73 sq M.predicted [Volume Rate/Area] in Serum, Plasma or Blood by Creatinine-based formula (CKD-EPI) 11/26/2024 15:55:02 88 >=60 (mL/min) Final eGFR is calculated based on the CKD-EPI 2020 equation. Sodium 11/26/2024 15:55:02 117 Below lower panic li mits 135-146 (mmol/L) Final Potassium 11/26/2024 15:55:02 5.1 3.5-5.1 (m mol/L) Final Cl 11/26/2024 15:55:02 84 Below low normal 98- 107 (mmol/L) Final CO2 11/26/2024 15:55:02 23 22-32 (mmo l/L) Final Anion gap 11/26/2024 15:55:02 10 7-15 (mmol /L) Final Glucose 11/26/2024 15:55:02 103 70-120 (mg /dL) Final Calcium 11/26/2024 15:55:02 8.8 8.4-10.2 ( mg/dL) Final Performing Location [facility] - [address] [place] [address]
--- OUTSIDE RECORDS SUMMARY | 2024-11-27 15:07 | External Medical Summary | Summary of Care ---
Author Name Unknown Organization [facility] Address [address] [place] [place] [address] Phone [phone] Care Team Providers Care Director Of Knowledge Management Name Role Phone Maximus Tee MD Primary Care Provider [phone] Encounter Details Date Type Department Care Team (Late st Contact Info) Description 11/24/2024 Orders Only Lab Mobile Phlebotomy [facility] [address] [facility] [place] [address] Rizwan Arteaga MD [address] [place] [address] [place] [phone] Anemia* Allergies Active Allergy Reactions Criticality Noted Date [...] as of this encounter (statuses as of 11/24/2024) Medications Acetaminophen 325 MG Oral Tablet (Tylenol) Take by mouth every 4 hours as needed for Fever >38C(100.5F), Pain, Mild, Pain, Moderate or Pain, Severe. Active Polyethylene Glycol 3350 17 GM/SCOOP Oral [...] Tablets by mouth in the morning. 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 Not on file Not on file documented as of this encounter Plan of Treatment Upcoming Encounters Date Type Department Care Team (Late st Contact Info) Description 11/24/2024 5:00 AM EST Laboratory Lab Mobile Phlebotomy [facility] [address] [place] [address] [place] [address] Arrived Scheduled Orders Name Type Priority Associated Diagnoses Orde r Schedule BASIC METABOLIC PANEL Lab Routine Anemia Expected: 11/24/2024, Expires: 11/24/2025 HGB Lab Routine Anemia Expected: 11/24/2024, Expires: 11/24/2025 HCT Lab Routine Anemia Expected: 11/24/2024, Expires: 11/24/2025 Health Maintenance Due Date Last Done Comments HbA1c 1943 Depression Screening 1949 Albumin/Creatinine Ratio 1955 TSH 1955 DTap/Tdap Vaccines (1 - Tdap) 02/04/1956 VITAMIN D LEVEL ONCE IN A LIFETIME-USE SMARTSET# [id number] 1977 DXA Scan 1987 Zoster Vaccines (1 [...] as of this encounter Visit Diagnoses Diagnosis Anemia- Primary Anemia, unspecified documented in this encounter Care Teams Director Of Knowledge Management Relationship Specialty Start Date End Date Maximus Tee MD [address] [place] [address] PCP - General 06/09/02 documented as of this encounter
--- OUTSIDE RECORDS SUMMARY | 2024-11-27 15:08 | External Medical Summary ---
Author Name Unknown Address Unknown Organization [id number]:LABORATORY [facility] - [facility] [address] [place] [address] Laboratory Report Ordering Provider Test Date Status GATO MAY 11/21/2024 05:21:00 Final Observation Date Value Abnormality Reference (Units ) Status BUN 11/21/2024 05:21:00 11 6-20 (mg/dL) Final Creatinine 11/21/2024 05:21:00 0.6 0.5-1.0 (mg/dL) Final Glomerular filtration rate/1.73 sq M.predicted [Volume Rate/Area] in Serum, Plasma or Blood by Creatinine-based formula (CKD-EPI) 11/21/2024 05:21:00 88 >=60 (mL/min) Final eGFR is calculated based on the CKD-EPI 2020 equation. Sodium 11/21/2024 05:21:00 122 Below low normal 135 -146 (mmol/L) Final Potassium 11/21/2024 05:21:00 4.9 3.5-5.1 (m mol/L) Final Cl 11/21/2024 05:21:00 87 Below low normal 98- 107 (mmol/L) Final CO2 11/21/2024 05:21:00 26 22-32 (mmo l/L) Final Anion gap 11/21/2024 05:21:00 9 7-15 (mmol /L) Final Glucose 11/21/2024 05:21:00 98 70-120 (mg /dL) Final Calcium 11/21/2024 05:21:00 9.2 8.4-10.2 ( mg/dL) Final Performing Location LABORATORY [facility] - [address] [place] [address]
--- OUTSIDE RECORDS SUMMARY | 2024-11-27 15:08 | External Medical Summary ---
Author Name Unknown Address Unknown Organization [id number]:LABORATORY [facility] [place] [address] [place] [address] Laboratory Report Ordering Provider Test Date Status GATO MAY 11/24/2024 05:21:00 Final Observation Date Value Abnormality Reference (Units ) Status HCT 11/24/2024 05:21:00 26.1 Below low normal 36. 0-45.2 (%) Final Performing Location LABORATORY [facility] [place] [address] [place] [id number]
--- OUTSIDE RECORDS SUMMARY | 2024-11-27 15:08 | External Medical Summary | Summary of Care ---
Author Name Unknown Organization [facility] Address [address] [place] [address] Phone [phone] Care Team Providers Care Core Filer Name Role Phone Maximus Tee MD Primary Care Provider [phone] Encounter Details Date Type Department Care Team (Late st Contact Info) Description 11/21/2024 Orders Only Lab Mobile Phlebotomy [facility] [address] [facility] [place] [address] Rizwan Arteaga MD [address] [place] [address] [place] [phone] HTN, goal below 140/90*; Anemia Allergies Active Allergy Reactions Criticality Noted Date [...] as of this encounter (statuses as of 11/21/2024) Medications Acetaminophen 325 MG Oral Tablet (Tylenol) [...] as of this encounter (statuses as of 11/21/2024) Active Problems Problem Noted Date Diagnosed Date [...] artery disease of n ative artery of [place] heart with stable angina pectoris 11/04/2024 Hypokalemia [...] as of this encounter (statuses as of 11/21/2024) Resolved Problems Problem Noted Date Diagnosed Date [...] as of this encounter (statuses as of 11/21/2024) Immunizations Name Administration Dates Next Due Seasonal [...] 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 file Not on file Not on file documented as of this encounter Plan of Treatment Upcoming Encounters Date Type Department Care Team (Late st Contact Info) Description 11/21/2024 5:20 AM EST Laboratory Lab Mobile Phlebotomy [facility] [address] [facility] [place] [address] [place] [address] Arrived Scheduled Orders Name Type Priority Associated Diagnoses Orde r Schedule BASIC METABOLIC PANEL Lab Routine HTN, goal below 140/90 Anemia Expected: 11/21/2024, Expires: 11/21/2025 HGB Lab Routine HTN, goal below 140/90 Anemia Expected: 11/21/2024, Expires: 11/21/2025 HCT Lab Routine HTN, goal below 140/90 Anemia Expected: 11/21/2024, Expires: 11/21/2025 Health Maintenance Due Date Last Done Comments HbA1c 1945 Depression Screening 1949 Albumin/Creatinine Ratio 1955 TSH 1955 DTap/Tdap Vaccines (1 - Tdap) 02/04/1956 VITAMIN D LEVEL ONCE IN A LIFETIME-USE SMARTSET# [id number] 1977 DXA Scan 1987 Zoster Vaccines (1 [...] as of this encounter Visit Diagnoses Diagnosis HTN, goal below 140/90- Primary Unspecified essential hypertension Anemia Anemia, unspecified documented in this encounter Care Teams Core Filer Relationship Specialty Start Date End Date Maximus Tee MD [address] [place] [address] PCP - General 06/09/02 documented as of this encounter
--- OUTSIDE RECORDS SUMMARY | 2024-11-27 15:08 | External Medical Summary ---
Author Name Unknown Address Unknown Organization K01:LABORATORY [facility] [place] - [address] [place] [address] Laboratory Report Ordering Provider Test Date Status GATO MAY 11/21/2024 05:21:00 Final Observation Date Value Abnormality Reference (Units ) Status HCT 11/21/2024 05:21:00 29.4 Below low normal 36. 0-45.2 (%) Final Performing Location LABORATORY [facility] - [address] [place] [address]
--- OUTSIDE RECORDS SUMMARY | 2024-11-27 15:08 | External Medical Summary | Continuity of Care Document ---
Author Name Unknown Organization [id number] Address [address] [place] [phone] Care Team Providers Care Position Classification Specialist Name Role Phone Dianne Adams Primary Care Physician [phone] Encounter PS FINNBR [id number] Date(s): 11/14/24 - 11/14/24 [facility] [address] [id number] [facility] [address] [place] [address] Encounter Diagnosis S/P hip hemiarthroplasty(Discharge Diagnosis) - 11/14/24 Discharge Disposition: Home or Self Care Attending Physician: MD Brooke, Ignacio Dubose Allergies, Adverse Reactions, Alerts No Known Medication Allergies Medications alendronate 70 mg oral tablet Start: 06/07/20 3:46:00 PM EDT, 1 tab, PO, q7days Start Date: 06/07/20 Status: Ordered aspirin Start: 06/07/20 3:44:00 PM EDT, 81 mg = Start Date: 06/07/20 Status: Ordered atorvastatin Start: 06/07/20 3:43:00 PM EDT, 40 mg = Start Date: 06/07/20 Status: Ordered Eliquis 5 mg oral tablet Start: 11/14/24 1:54:00 PM EST, 1 tab, PO, bid Start Date: 11/14/24 Status: Ordered ferrous sulfate Start: 11/14/24 1:54:00 PM EST, 325 mg = Start Date: 11/14/24 Status: Ordered furosemide 20 mg oral tablet Start: 12/19/22 8:49:00 AM EST, 1 tab, PO, Daily Start Date: 12/19/22 Status: Ordered Keflex 250 mg oral capsule Start: 06/07/20 4:37:00 PM EDT, 1 cap, PO, q6h, Disp# 20 cap, Pharmacy: [id number] Start Date: 06/07/20 Stop Date: 06/12/20 Status: Ordered levothyroxine Start: 06/07/20 3:44:00 PM EDT Start Date: 06/07/20 Status: Ordered Metoprolol Succinate ER Start: 06/07/20 3:44:00 PM EDT, 150 mg = Start Date: 06/07/20 Status: Ordered pantoprazole Start: 11/14/24 1:55:00 PM EST, 40 mg = Start Date: 11/14/24 Status: Ordered Potassium Chloride (Eqv-K-Tab) 20 mEq oral tablet, extended release TAKE 2 TABLETS BY MOUTH ONCE DAILY FOR 5 DAYS, THEN 1 TAB DAILY Start Date: 12/19/22 Status: Ordered sertraline Start: 11/14/24 1:56:00 PM EST Start Date: 11/14/24 Status: Ordered Tylenol Start: 06/07/20 3:44:00 PM EDT Start Date: 06/07/20 Status: Ordered Vitamin B12 Start: 06/07/20 3:45:00 PM EDT Start Date: 06/07/20 Status: Ordered Vitamin D3 Start: 11/14/24 1:56:00 PM EST Start Date: 11/14/24 Status: Ordered Mental Status 11/14/24 Barriers to Learning one year None evide nt Mandatory Health Literacy Documentation Yes Health Literacy Communication Barriers N ever Primary Language Mongolian Problem List Condition Confirmation Course Effective Dates Status H ealth Status Informant Closed fracture of shaft of left humerus Confirmed Active Hyperlipidemia Confirmed Active Diagnosis Diagnosis Type Effective Dates Health Status Clinical Service Informant S/P hip hemiarthroplasty Discharge Diagnosis 11/14/24 Social History Social History Type Response Smoking Status Never smoked cigaret lizette Sex Female Sex Representation Female (finding) Patient Care team information Care Team Personnel Name: MD Bryan, Dianne Díaz Position: Referring DIRECT Member Role: Primary Care Provider Address: [address] [place] [address] [place] Care Team Related Persons Name: IDANIA VIVAR Name: SETH VIGIL
--- OUTSIDE RECORDS SUMMARY | 2024-11-27 15:08 | External Medical Summary | Summary of Care ---
Author Name Unknown Organization [facility] Address [address] [place] [address] Phone [phone] Care Team Providers Care Motion Picture Commentator Name Role Phone Maximus Tee MD Primary Care Provider Reason for Visit * Reason Onset Date Comments Skilled Visit 11/17/2024 Encounter Details Date Type Department Care Team (Latest Contact Info) Description 11/17/2024 8:00 AM EST Long Term Visit [facility] [address] [place] [address] Qiana Downey PA-C [address] [place] [address] Closed hip fracture requiring operative repair, left, with routine healing, subsequent encounter*; Mild late onset Alzheimer's dementia without behavioral disturbance, psychotic disturbance, mood disturbance, or anxiety (HCC); Permanent atrial fibrillation (HCC); Coronary artery disease of [place] artery of [place] heart with stable angina pectoris (HCC); HTN, goal below 140/90 Allergies Active Allergy Reactions Criticality Noted Date [...] as of this encounter (statuses as of 11/17/2024) Medications Acetaminophen 325 MG Oral Tablet (Tylenol) [...] in the morning. on an empty stomach.. Active Ferrous Sulfate 325 (65 Fe) MG Oral Tablet (Feosol) Take 1 Tablet by mouth daily with breakfast. Active Sennosides-Docu sate Sodium 8.6-50 MG Oral Tablet (Senna S) Take 2 Tablets by mouth in the morning. 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 Not on file Not on file documented as of this encounter Plan of Treatment Health Maintenance Due Date Last Done Comments HbA1c 1945 Depression Screening 1949 Albumin/Creatinine Ratio 1955 TSH 1955 DTap/Tdap Vaccines (1 - Tdap) 02/04/1956 VITAMIN D LEVEL ONCE IN A LIFETIME-USE SMARTSET# [id number] 1977 DXA Scan 1987 Zoster Vaccines (1 [...] (HCC) Permanent atrial fibrillation (HCC) Atrial fibrillation Coronary artery disease of [place] artery of [place] heart with stable angina pectoris (HCC) HTN, goal below 140/90 Unspecified essential hypertension documented in this encounter Care Teams Motion Picture Commentator Relationship Specialty Start Date End Date Maximus Tee MD [address] [place] [address] PCP - General 06/09/02 documented as of this encounter
--- OUTSIDE RECORDS SUMMARY | 2024-11-27 15:08 | External Medical Summary ---
Author Name Unknown Address Unknown Organization K01:LABORATORY [facility] [place] - [address] [place] [address] Laboratory Report Ordering Provider Test Date Status GATO MAY 11/21/2024 05:21:00 Final Observation Date Value Abnormality Reference (Units ) Status Hemoglobin 11/21/2024 05:21:00 10.0 Below low normal 12 .0-15.3 (g/dL) Final Performing Location LABORATORY [facility] - [address] [place] [address]
--- OUTSIDE RECORDS SUMMARY | 2024-11-27 15:08 | External Medical Summary ---
Author Name Unknown Address Unknown [facility] [facility] [address] [place] [address] Laboratory Report Ordering Provider Test Date Status GATO MAY 11/24/2024 05:21:00 Final Observation Date Value Abnormality Reference (Units ) Status Hemoglobin 11/24/2024 05:21:00 9.1 Below low normal 12 .0-15.3 (g/dL) Final Performing [facility] [address] - [address] [place] [address]
--- OUTSIDE RECORDS SUMMARY | 2024-11-27 15:08 | External Medical Summary | Summary of Care ---
Author Name Unknown Organization [facility] Address [address] [place] [address] Phone [phone] Care Team Providers Care Orthodontic Technician Assistant Name Role Phone Maximus Tee MD Primary Care Provider Reason for Visit * Reason Onset Date Comments Skilled Visit 11/21/2024 Encounter Details Date Type Department Care Team (Latest Contact Info) Description 11/21/2024 7:00 AM EST Shelter Visit [facility] [address] [place] [address] Qiana Downey PA-C [address] [place] [address] Closed hip fracture requiring operative repair, left, with routine healing, subsequent encounter*; Mild late onset Alzheimer's dementia without behavioral disturbance, psychotic disturbance, mood disturbance, or anxiety (HCC); Permanent atrial fibrillation (HCC); HTN, goal below 140/90 Allergies Active [...] by mouth in the morning. 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 Not on file Not on file documented as of this encounter Plan of Treatment Health Maintenance Due Date Last Done Comments HbA1c 1945 Depression Screening 1949 Albumin/Creatinine Ratio 1955 TSH 1955 DTap/Tdap Vaccines (1 - Tdap) 02/04/1956 VITAMIN D LEVEL ONCE IN A LIFETIME-USE SMARTSET# [id number] 1977 DXA Scan 1987 Zoster Vaccines (1 [...] (HCC) Permanent atrial fibrillation (HCC) Atrial fibrillation HTN, goal below 140/90 Unspecified essential hypertension documented in this encounter Care Teams Orthodontic Technician Assistant Relationship Specialty Start Date End Date Maximus Tee MD [address] [place] [address] PCP - General 06/09/02 documented as of this encounter
--- OUTSIDE RECORDS SUMMARY | 2024-11-27 15:08 | External Medical Summary ---
Author Name Unknown Address Unknown Organization [facility] [address] [place] [address] Laboratory Report Ordering Provider Test Date Status GATO MAY 11/24/2024 05:21:00 Final Observation Date Value Abnormality Reference (Units ) Status BUN 11/24/2024 05:21:00 12 6-20 (mg/dL) Final Creatinine 11/24/2024 05:21:00 0.6 0.5-1.0 (mg/dL) Final Glomerular filtration rate/1.73 sq M.predicted [Volume Rate/Area] in Serum, Plasma or Blood by Creatinine-based formula (CKD-EPI) 11/24/2024 05:21:00 88 >=60 (mL/min) Final eGFR is calculated based on the CKD-EPI 2020 equation. Sodium 11/24/2024 05:21:00 121 Below low normal 135 -146 (mmol/L) Final Potassium 11/24/2024 05:21:00 4.7 3.5-5.1 (m mol/L) Final Cl 11/24/2024 05:21:00 88 Below low normal 98- 107 (mmol/L) Final CO2 11/24/2024 05:21:00 26 22-32 (mmo l/L) Final Anion gap 11/24/2024 05:21:00 7 7-15 (mmol /L) Final Glucose 11/24/2024 05:21:00 97 70-120 (mg /dL) Final Calcium 11/24/2024 05:21:00 8.9 8.4-10.2 ( mg/dL) Final Performing Location LABORATORY [facility] [address] [place] [id number]
--- NOTE | 2024-11-27 16:38 | Electrocardiogram Report ---
Test Reason : Blood Pressure : */* mmHG Vent. Rate : 63 BPM Atrial Rate : * BPM P-R Int : * ms QRS Dur : 94 ms QT Int : 378 ms P-R-T Axes : * -11 31 degrees QTcB Int : 386 ms Atrial fibrillation Poor R wave progression, consider anterior KS vs. lead placement vs. LVH Abnormal ECG When compared with ECG of 30-Oct-2024 20:33, QRS axis Shifted right Confirmed by Reece Garcia ([id number]) on 11/27/2024 4:38:16 PM Referred By: REFERRED SELF Confirmed By: Reece Garcia
[2024-11-27] MEDS: OSELTAMIVIR PHOSPHATE 75 MG CAP PO SCH (20:07)
[2024-11-27] MEDS: APIXABAN 5 MG TABLET PO SCH (20:07)
[2024-11-27] MEDS: ATORVASTATIN 40 MG TAB PO SCH (20:07)
[2024-11-27] MEDS: SODIUM CHLORIDE 1 GM TABLET PO SCH (20:07)
--- OUTSIDE RECORDS SUMMARY | 2024-11-27 23:56 | External Medical Summary | Summary of Care ---
Author Name Unknown Organization [facility] Address [address] [place] [address] Phone [phone] Care Team Providers Care Privacy Specialist Name Role Phone Maximus Tee MD Primary Care Provider [phone] Reason for Visit * Reason Onset Date Comments Fdc Visit - Transfer to ER 11/27/2024 Encounter Details Date Type Department Care Team (Latest Contact Info) Description 11/27/2024 9:30 AM EST Fdc Visit [facility] [address] [place] [address] Qiana Downey PA-C [address] [place] [address] Hyponatremia*; Closed hip fracture requiring operative repair, left, with routine healing, subsequent encounter; Mild late onset Alzheimer's dementia without behavioral disturbance, psychotic disturbance, mood disturbance, or anxiety (HCC); HTN, goal below 140/90; Permanent atrial fibrillation (HCC) Allergies Active Allergy Reactions Criticality Noted Date [...] as of this encounter (statuses as of 11/27/2024) Medications Acetaminophen 325 MG Oral Tablet (Tylenol) [...] as of this encounter (statuses as of 11/27/2024) Active Problems Problem Noted Date Diagnosed Date [...] artery disease of n ative artery of [place] heart with stable angina pectoris 11/04/2024 Hypokalemia [...] as of this encounter (statuses as of 11/27/2024) Resolved Problems Problem Noted Date Diagnosed Date [...] as of this encounter (statuses as of 11/27/2024) Immunizations Name Administration Dates Next Due Seasonal [...] 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 file Not on file Not on file documented as of this encounter Plan of Treatment Health Maintenance Due Date Last Done Comments HbA1c 1945 Depression Screening 1949 Albumin/Creatinine Ratio 1955 TSH 1955 DTap/Tdap Vaccines (1 - Tdap) 02/04/1956 VITAMIN D LEVEL ONCE IN A LIFETIME-USE SMARTSET# [id number] 1977 DXA Scan 1987 Zoster Vaccines (1 [...] as of this encounter Visit Diagnoses Diagnosis Hyponatremia- Primary Hyposmolality and/or hyponatremia Closed hip fracture requiring operative repair, left, with routine healing, subsequent encounter Mild late onset Alzheimer's dementia without behavioral disturbance, psychotic disturbance, mood disturbance, or anxiety (HCC) HTN, goal below 140/90 Unspecified essential hypertension Permanent atrial fibrillation (HCC) Atrial fibrillation documented in this encounter Care Teams Privacy Specialist Relationship Specialty Start Date End Date Maximus Tee MD [address] [place] [address] PCP - General 06/09/02 documented as of this encounter
[2024-11-28 04:36] LABS: Basophils # (auto) 0.01 K/uL (0.00-0.20); Basophils % (auto) 0.3 %; Eosinophils # (auto) 0.04 K/uL (0.00-0.50); Eosinophils % (auto) 1.2 %; Hematocrit (blood only) 30.5 % (37.0-47.0); Hemoglobin 10.8 g/dl (12.0-16.0); Immature Granulocytes # (auto) 0.02 K/uL (0.01-0.20); Immature Granulocytes % (auto) 0.6 %; Lymphocytes % (auto) 21.3 %; Mean Corpuscular Hemoglobin 31.8 pg (25.0-34.0); Mean Corpuscular Hgb Conc 35.4 g/dL (32.0-36.0); Mean Corpuscular Volume 89.7 fL (80.0-100.0); Mean Platelet Volume 8.8 fL (9.4-12.4); Monocytes # (auto) 0.44 K/uL (0.11-0.59); Monocytes % (auto) 13.4 %; Neutrophils # (auto) 2.08 K/uL (1.40-6.50); Neutrophils % (auto) 63.2 %; Platelet Count 183 K/uL (130-400); RDW Coefficient of Variation 12.7 % (11.5-14.5); RDW Standard Deviation 41.9 fL (36.4-46.3); White Blood Count 3.29 K/ul (4.8-10.8)
[2024-11-28 04:51] LABS: BUN Creatinine Ratio 16.9 (10-20); Calcium 8.9 mg/dl (8.6-10.3); Creatinine Clr Calc Pharmacy 62.4 ml/min; Potassium 4.2 mmol/L (3.5-5.1)
[2024-11-28] MEDS: LEVOTHYROXINE SODIUM 50 MCG TABLET PO SCH (05:52)
[2024-11-28] MEDS: PANTOprazole 40 MG TAB PO SCH (05:52)
--- NOTE | 2024-11-28 08:19 | Hospitalist Progress Note ---
Date of Service November 28, 2024 Assessment & Plan (1) Hyponatremia: Plan: Na 120 this morning from 119. Suspect as sertraline is metabolized/excreted this will start to rise faster therefore will not change management facilitator Baseline Na 136 on discharge on November 03 following hip fracture. Urine Na/osm not reliable indicator of SIADH in setting of Lasix use Suspect SIADH related influenza and sertraline Started on NaCl 1g PO daily on November 25, increased to 1g PO BID on admission and fluid restrict to 1L Given no symptoms (despite triage note confirmed she is asymptomatic from SNF provider) will hold off hypertonic saline. 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 No acute concerns or questions from the patient. No nausea, vomiting or diarrhea throughout the day Physical Exam Constitutional: WD/WN, vitals as above Respiratory: normal respiratory effort, lungs clear to auscultation Cardiovascular: Rate/Rhythm: regular rate and + irregularly irregular Gastrointestinal (Abdomen): normal bowel sounds, soft, nontender, no h epatosplenomegaly Psychiatric: Orientation: alert and oriented to person; + not oriented to place and + not oriented to time Results & Data Results & Data Vital Signs (Past 12 Hours) Vital Signs Temp Pulse Pulse Resp BP Pulse Ox O2 Del Method 11/28/24 07:39 36.8 C 77 17 155/67 H 99 Room Air 11/28/24 03:26 36.4 C L 68 17 125/61 96 Nasal Cannula 11/27/24 23:36 36.5 C 76 18 154/69 H 98 Nasal Cannula 11/27/24 22:05 87 11/27/24 21:00 Nasal Cannula PG Care Time/CCT Total # of Minutes Spent Total Time Spent with Patient: Total time spent is greater than 50% in coordination of care (as documented) at patient's floor/unit and/or counseling patient: Coding Level of Care Code 18819 SUB INP/OBS CARE MIN Diagnoses Hyponatremia E87.1 Influenza A J10.1 Hypothyroidism E03.9 ANAND (obstructive sleep apnea) G47.33 Permanent atrial fibrillation I48.21 Dementia F03.90
[2024-11-28] MEDS: METOPROLOL SUCC 50MG EXT REL TAB PO SCH (09:18)
[2024-11-28] MEDS: DOCUSATE SODIUM/SENNA 50/8.6MG TAB PO SCH (09:21)
[2024-11-28] MEDS: POLYETHYLENE (MIRALAX) 17 GM PACK PO SCH (09:22)
[2024-11-28] MEDS: POTASSIUM CHLORIDE CRTAB 20 MEQ TABCR PO SCH (09:22)
[2024-11-28] MEDS ORDERED: ACETAMINOPHEN 325 MG TAB PO PRN (16:11)
[2024-11-28] MEDS ORDERED: STAT IV/IM STA (18:55)
[2024-11-28] MEDS: SODIUM CHLORIDE 3 % 100 ML IV ONE (20:49)
[2024-11-29 06:20] LABS: BUN Creatinine Ratio 23.2 (10-20); Calcium 8.6 mg/dl (8.6-10.3); Creatinine Clr Calc Pharmacy 65.1 ml/min; Potassium 4.5 mmol/L (3.5-5.1)
--- NOTE | 2024-11-29 13:02 | Hospitalist Progress Note ---
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 Serial labs. Monitor intake and output (2) Influenza A: Plan: Continue Tamiflu. Supportive care (3) Hypothyroidism: Plan: Stable. Continue current levothyroxine dosage (4) ANAND (obstructive sleep apnea): Plan: Stable. Continue CPAP HS (5) Permanent atrial fibrillation: Plan: Stable. Telemetry. Continue metoprolol and Eliquis (6) Dementia: Plan: Stable. Supportive care Plan To be determined by OT and PT evaluations Admission and Anticipated Discharge Date Admission Date: November 27, 2024 Subjective Alert and oriented. No distress. She appears to have SIADH with low serum osmolarity and low sodium levels. Sodium has improved to 123. Continue fluid restriction and oral sodium chloride replacement. She also has influenza A and is on Tamiflu. OT and PT assessments requested. Hopefully she will be able to go home but she may need short-term rehab placement. Review of Systems 2 Review of Systems: Constitutionalno fever or chills ENTno blurred vision, no double vision, no epistaxis, no sore throat Respiratoryno cough, no wheezing, no shortness of breath Cardiacno palpitations, no chest pain, no syncope Brigette nausea, vomiting, diarrhea, melena, hematochezia GUno urinary retention, no urinary incontinence, no dysuria, no hematuria Musculoskeletalno joint pain, no muscle tenderness Skinno bruising, no rashes, no pruritus Neurono isolated weakness, no paresthesia. Generalized weakness Psychno depression, no anxiety Physical Exam 2 Physical Exam: General-alert and oriented x3, no fever, no chills HEENT-head atraumatic and normocephalic, pupils equal and reactive to light, extraocular muscles intact Neck-no lymphadenopathy or thyromegaly, trachea midline Chest-clear to auscultation. No rales, wheezing or rhonchi Cardiac-regular rate and rhythm, normal S1 and S2 Abdomen-normal bowel sounds, no hepatosplenomegaly Extremities-no cyanosis, clubbing, or edema Neuro-cranial nerves II through XII intact, motor and sensory function within normal limits, strength symmetrical with generalized weakness, no focal deficits Psych-normal affect, normal mood Results & Data Results & Data Vital Signs (Past 12 Hours) Vital Signs Temp Pulse Resp BP Pulse Ox O2 Del Method 11/29/24 11:00 36.4 C L 68 18 126/54 L 93 Room Air 11/29/24 07:49 36.6 C 82 18 145/63 H 93 Room Air 11/29/24 06:22 36.3 C L 78 18 127/66 93 Room Air Laboratory Results 11/28/24 04:14 11/29/24 05:41 PG Care Time/CCT Total # of Minutes Spent Total Time Spent with Patient: Total time spent is greater than 50% in coordination of care (as documented) at patient's floor/unit and/or counseling patient: Coding Level of Care Code 59805 SUB INP/OBS CARE 3/50MIN Diagnoses SIADH (syndrome of inappropriate ADH production) E22.2 Influenza A J10.1 Hypothyroidism E03.9 ANAND (obstructive sleep apnea) G47.33 Permanent atrial fibrillation I48.21 Dementia F03.90
[2024-11-30 08:26] LABS: BUN Creatinine Ratio 17.6 (10-20); Calcium 8.6 mg/dl (8.6-10.3); Creatinine Clr Calc Pharmacy 71.7 ml/min; Potassium 4.3 mmol/L (3.5-5.1)
--- NOTE | 2024-11-30 14:51 | Hospitalist Progress Note ---
Date of Service November 30, 2024 Assessment & Plan (1) SIADH (syndrome of inappropriate ADH production): Plan: Continue fluid restriction and oral sodium chloride replacement. Serial labs. Monitor intake and output (2) Influenza A: Plan: Continue Tamiflu for 5 days. She will complete her clinical course after tomorrow's dose on December 01. Supportive care (3) Hypothyroidism: Plan: Stable. Continue current levothyroxine dosage (4) ANAND (obstructive sleep apnea): Plan: Stable. Continue CPAP HS (5) Permanent atrial fibrillation: Plan: Stable. Telemetry. Continue metoprolol and Eliquis. Consider stopping Eliquis due to advanced age and high risk for side effects (6) Dementia: Plan: Stable. Supportive care Plan Family is transferring the patient from [facility] to [facility]. She is stable for discharge when the arrangements are finalized Admission and Anticipated Discharge Date Admission Date: November 27, 2024 Subjective Alert and oriented. No distress. Pleasantly confused with baseline dementia. Sodium remains low at 122. She remains on fluid restriction and sodium chloride supplements. Serum osmolarity is low as expected. Review of Systems 2 Review of Systems: Constitutionalno fever or chills ENTno blurred vision, no double vision, no epistaxis, no sore throat Respiratoryno cough, no wheezing, no shortness of breath Cardiacno palpitations, no chest pain, no syncope Brigette nausea, vomiting, diarrhea, melena, hematochezia GUno urinary retention, no urinary incontinence, no dysuria, no hematuria Musculoskeletalno joint pain, no muscle tenderness Skinno bruising, no rashes, no pruritus Neurono isolated weakness, no paresthesia. Generalized weakness Psychno depression, no anxiety Physical Exam 2 Physical Exam: General-alert and oriented x3, no fever, no chills HEENT-head atraumatic and normocephalic, pupils equal and reactive to light, extraocular muscles intact Neck-no lymphadenopathy or thyromegaly, trachea midline Chest-clear to auscultation. No rales, wheezing or rhonchi Cardiac-regular rate and rhythm, normal S1 and S2 Abdomen-normal bowel sounds, no hepatosplenomegaly Extremities-no cyanosis, clubbing, or edema Neuro-cranial nerves II through XII intact, motor and sensory function within normal limits, strength symmetrical with generalized weakness, no focal deficits Psych-normal affect, normal mood Results & Data Results & Data Vital Signs (Past 12 Hours) Vital Signs Temp Pulse Resp BP Pulse Ox O2 Del Method 11/30/24 11:00 36.7 C 71 18 150/75 H 97 Room Air 11/30/24 08:00 Room Air 11/30/24 07:50 36.4 C L 64 18 142/72 H 98 Room Air 11/30/24 03:31 36.4 C L 75 18 151/74 H 96 Room Air Laboratory Results 11/28/24 04:14 11/30/24 07:52 PG Care Time/CCT Total # of Minutes Spent Total Time Spent with Patient: Total time spent is greater than 50% in coordination of care (as documented) at patient's floor/unit and/or counseling patient: Coding Level of Care Code 97726 SUB INP/OBS CARE 2/35MIN Diagnoses SIADH (syndrome of inappropriate ADH production) E22.2 Influenza A J10.1 Hypothyroidism E03.9 ANAND (obstructive sleep apnea) G47.33 Permanent atrial fibrillation I48.21 Dementia F03.90
[2024-12-01 06:23] LABS: BUN Creatinine Ratio 15.5 (10-20); Calcium 9.1 mg/dl (8.6-10.3); Creatinine Clr Calc Pharmacy 62.9 ml/min; Potassium 4.4 mmol/L (3.5-5.1)
--- NOTE | 2024-12-01 09:20 | Nephrology Consultation ---
Date of Consultation December 01, 2024 Assessment & Plan (1) SIADH (syndrome of inappropriate ADH production): Chronic. Asymptomatic. Relatively euvolemic, likely slightly volume depleted. Hypertonic fluids will be provided today with close monitoring of serum sodium. Sodium relatively stable over past 48 hours. Remains on 1 L fluid restriction + NaCl 1 gram twice daily. KCl 20 mEq daily. Electrolytes otherwise acceptable. Creatinine normal. 3% saline x 100 ml now. Repeat sodium ordered for this afternoon. Additional hypertonic boluses will be provided PRN. No concerning lesions on CXR. (2) Influenza A: Remains on Tamiflu. Symptomatically improving. (3) Hypothyroidism: TSH acceptable. Remains clinically euthyroid on Levothyroxine 50 mcg daily. History of Present Illness Reason for Consultation: Hyponatremia Requesting Physician: Kiran Conroy MD Attending Physician: Kiran Conroy MD History of Present Illness Iza Brooks is an 89 year-old female with hypothyroidism, spinal stenosis, osteoporosis, recent hip fracture, GERD, dementia, atrial fibrillation, coronary artery disease, and HFpEF who presented to the ER at [facility] on 11/27/24 with outpatient labs from [facility] showing sodium 117. She has been struggling with recent grief and coping with recent hospitalization last month with hip fracture requiring hemiarthroplasty. Iza was found to be volume depleted with evidence of SIADH. She tested positive for influenza A. She is symptomatically improving with Tamiflu. Serum sodium has been slowly rising. Serum sodium 123 mmol/L this AM. Serum creatinine is normal. Management has included fluid restriction and oral NaCl tablets. Iza is tolerating therapy well. She does not have fluid retention or edema. Urine osmolality 370 mOsm/L. She was resting comfortably in bed. Denies thirst. Allergies Allergy/AdvReac Type Severity Reaction Status Date / Time adhesive Allergy Unknown RASH Verified 11/27/24 11:40 Cipro Allergy Unknown Per cardio Unverified 08/28/16 13:36 note ciprofloxacin Allergy Unknown RASH Verified 11/27/24 11:40 doxycycline Allergy Unknown RASH Verified 11/27/24 11:40 latex Allergy Unknown RASH Verified 11/27/24 11:40 Penicillins Allergy Unknown RASH Verified 11/27/24 11:40 sulfamethoxazole Allergy Unknown Rash Verified 11/27/24 11:40 [From Bactrim] trimethoprim [From Bactrim] Allergy Unknown Rash Verified 11/27/24 11:40 Home Medications Medication Instructions Recorded Confirmed Type cholecalciferol (vitamin D3) 25 1,000 units PO DAILY 07/16/19 11/27/24 History mcg (1,000 unit) capsule mecobalamin (vitamin B12) 1,000 1,000 mcg PO DAILY 09/30/21 11/27/24 History mcg chewable tablet nitroglycerin 0.4 mg sublingual 0.4 mg sublingual UD PRN Chest 10/05/21 11/27/24 Rx tablet (Nitrostat) Pain #25 tabs potassium chloride 20 mEq 20 meq PO DAILY #90 tabs 12/25/23 11/27/24 Rx tablet,extended release apixaban 5 mg tablet (Eliquis) 5 mg PO BID #180 tabs 02/18/24 11/27/24 Rx atorvastatin 40 mg tablet 40 mg PO HS #90 tabs 08/19/24 11/27/24 Rx pantoprazole 40 mg tablet,delayed 40 mg PO DAILYBB #90 tabs 08/19/24 11/27/24 Rx release CPAP Supplies #1 ea 09/09/24 10/30/24 Rx alendronate 70 mg tablet 70 mg PO WK #12 tabs 10/23/24 11/27/24 Rx polyethylene glycol 3350 17 gram 17 g PO DAILY #7 ea 11/04/24 11/27/24 Rx oral powder packet (Miralax) acetaminophen 325 mg tablet 650 mg PO Q4H PRN Pain/Fever 11/27/24 11/27/24 History (Tylenol) bisacodyl 10 mg rectal suppository 10 mg VA DAILY PRN Constipation 11/27/24 11/27/24 History (Dulcolax (bisacodyl)) ferrous sulfate 325 mg (65 mg 325 mg PO QAM 11/27/24 11/27/24 History iron) tablet furosemide 20 mg tablet 20 mg PO QAM 11/27/24 11/27/24 History levothyroxine 50 mcg tablet 50 mcg PO QAM 11/27/24 11/27/24 History magnesium hydroxide 400 mg/5 mL 2,400 mg PO DAILY PRN Constipation 11/27/24 11/27/24 History oral suspension (Milk of Magnesia) metoprolol succinate 100 mg See Rx Instructions .Route .COMPLEX 11/27/24 11/27/24 History tablet,extended release 24 hr metoprolol succinate 50 mg See Rx Instructions .Route .COMPLEX 11/27/24 11/27/24 History tablet,extended release 24 hr sennosides 8.6 mg-docusate sodium 2 tab-cap PO DAILY 11/27/24 11/27/24 History 50 mg tablet (Senna-S) sertraline 25 mg tablet 25 mg PO QAM 11/27/24 11/27/24 History sodium chloride 1 gram tablet 1,000 mg PO QAM 11/27/24 11/27/24 History sodium phosphates 19 gram-7 118 ml VA DAILY PRN Constipation 11/27/24 11/27/24 History gram/118 mL enema (Fleet Enema) Patient History Medical History Urinary urgency chronic Chronic back pain Osteoarthritis Peripheral neuropathy Varicose veins of both lower extremities DJD (degenerative joint disease) Surgical History History of lumbar fusion x3 TOTAL History of bilateral tubal ligation History of total abdominal hysterectomy and bilateral salpingo-oophorectomy History of repair of rotator cuff RT/LEFT History of cholecystectomy History of appendectomy History of colonoscopy History of tonsillectomy History of adenoidectomy History of cataract surgery RT/LEFT Family History Mother Family hx of colon cancer Breast cancer Sister Breast cancer Myocardial infarction Father Myocardial infarction Denies family history of Ovarian cancer Prostate cancer Colorectal cancer Stroke Social History Smoking Status: Unknown if ever smoked Second Hand Exposure: No; Do You Dip or Chew Tobacco: No; Hx Alcohol Use: No Hx Substance Use: No Preferred Language: Croatian Communication Ability: Impaired Visual Impairment: Limited Hearing Ability: Use of Hearing Aid Rib Cloth Knitter Required: No Beliefs That Will Affect Care: None marital status: Current Living Situation: Care Home Current Living Situation Comment: spouse 10/25/24 current occupational status: retired Other Information That Helps Us Care for You: No Feels Safe at Home: Yes Safety Concerns: Feels Safe At This Time Childhood Exposure to Second-Hand Smoke: No Diet: regular Diet Comment: regular caffeine: Yes (Coffee 1 cup per day.) during the past year weight has: remained stable Dental Care, Regularly: Yes Physical Activity Frequency: Other Physical Activity Frequency Comment: limited by physical condition Seatbelt Use: always Sunscreen Use: Yes Assistive Devices: Glasses, Oxygen - Continuous and Walker Review of Systems Review of Systems: All systems reviewed & are unremarkable except as noted in HPI & below Physical Exam Constitutional: well developed, + thin and + frail appearing; no acute distress Eyes: + anicteric sclerae; no corneal abnormal ity ENMT: Mouth: + dry oral mucous membranes Neck: normal visual inspection and trachea midline Respiratory: normal respiratory effort Auscultation: lungs clear to auscultation bilaterally Cardiovascular: Rate/Rhythm: regular rate Heart Sounds: normal S1 and normal S2 Extremities: no edema Musculoskeletal: Extremities: no cyanosis and no clubbing Skin: + turgor decreased; no jaundice Neurologic: Motor/Sensory: no tremor and no asterixis Psychiatric: Orientation: alert and oriented x 3 Results & Data Vital Signs (Past 12 Hours) Vital Signs Temp Pulse Pulse Resp BP Pulse Ox O2 Del Method 12/01/24 07:47 56 L 12/01/24 07:00 36.6 C 73 18 144/77 H 95 Room Air 12/01/24 03:25 36.6 C 75 18 130/72 94 Room Air 11/30/24 23:58 36.5 C 84 18 124/66 94 Room Air 11/30/24 23:06 98 H Laboratory Results Laboratory Results - last 24 hr 11/30/24 12/01/24 10:35 05:40 Sodium 123 L Potassium 4.4 Chloride 92 L Carbon Dioxide 27 Anion Gap 4 BUN 9 Creatinine 0.58 L Est Cr Clr Drug Dosing 62.9 eGFR 87.53 BUN/Creatinine Ratio 15.5 Glucose 97 Osmolality 253 L Calcium 9.1 Diagnostic Findings XR chest 1V portable COMPARISON STUDY: 10/30/2024 FINDINGS: Stable bilateral shoulder prostheses. Stable cardiomegaly with mild pulmonary vascular congestion. Stable mild elevation of the left hemidiaphragm. Stable mild pulmonary interstitial opacities. No new consolidation or pleural effusion. No pneumothorax. IMPRESSION: Stable exam. PG Care Time/CCT Total # of Minutes Spent Total Time Spent with Patient: Total time spent is greater than 50% in coordination of care (as documented) at patient's floor/unit and/or counseling patient: Coding Level of Care Code 93044 IN/OBS CONSULT LVL 4,60M Diagnoses SIADH (syndrome of inappropriate ADH production) E22.2 Influenza A J10.1 Hypothyroidism E03.9
[2024-12-01] MEDS ORDERED: STAT IV/IM STA ×2 (10:40→15:35)
[2024-12-01] MEDS: SODIUM CHLORIDE 3 % 100 ML IV ONE (11:47)
--- NOTE | 2024-12-01 12:32 | Hospitalist Progress Note ---
Date of Service December 01, 2024 Assessment & Plan (1) SIADH (syndrome of inappropriate ADH production): Plan: Nephrology consult appreciated 3% NS x 100ml Continue fluid restriction and oral sodium chloride replacement. Serial labs. (2) Influenza A: Plan: Tamiflu completed (3) Hypothyroidism: Plan: Continue levothyroxine (4) ANAND (obstructive sleep apnea): Plan: Stable. Continue CPAP HS (5) Permanent atrial fibrillation: Plan: Continue metoprolol and Eliquis. C (6) Dementia: Plan: Stable. Supportive care Plan Family is transferring the patient from [facility] to [facility]. She is stable for discharge when the arrangements are finalized. Discussed with Izabel. Admission and Anticipated Discharge Date Admission Date: November 27, 2024 Subjective No events overnight. Pt resting comfortably in bed. Review of Systems Review of Systems: CONST: Negative for fever, body aches and chills. HENT: Negative for neck pain/stiffness, headache, congestion, sore throat, swelling. EYES: Negative for discharge/pain or vision changes. RESP: Negative for cough/hemoptysis and shortness of breath. CV: Negative chest pain, difficulty breathing, palpitations. ABD: Negative pain, nausea, vomiting. : Negative increase frequency, dysuria, blood in urine or stool. MUSC: Negative for muscle aches, edema. SKIN: Negative rash, lesions/sores. NEURO: Negative headache, dizziness, weakness. Physical Exam Physical Exam: GENERAL APPEARANCE NAD, activity normal for age, well developed/ well nourished, no cyanosis, pallor, or diaphoresis. EYES lids/conjunctiva normal. EARS/NOSE/THROAT Mucous membranes moist, nares normal, lips/teeth normal uvula midline without oral pharyngeal erythema, exudate or swelling TMs normal bilaterally. No lymphangitis/lymphedema. HEAD/NECK normocephalic atraumatic, no facial trauma, neck is supple. RESPIRATORY respiratory effort normal, speaks in full sentences, no tripod position, no accessory muscle use. Lungs clear to auscultation without rhonchi, wheezes, rales CARDIAC Regular rate and rhythm, no edema. ABDOMINAL Soft, ND/NT. No evidence of fluid wave. No pulsatile masses on exam, rebound tenderness, Arias sign or pain over Mcburney's point. MUSCLES/EXTREMITIES No abnormal range of motion, no swelling. SKIN Warm, pink and dry. No rashes, dermatoses, petechiae or lesions. NEUROLOGICAL Speech is clear and appropriate. Normal level of consciousness. Gait and coordination are normal. 5/5 strength in all extremities. PSYCH Normal mood and affect. Judgement/competence is appropriate Results & Data Results & Data Vital Signs (Past 12 Hours) Vital Signs Temp Pulse Pulse Resp BP Pulse Ox O2 Del Method 12/01/24 11:00 36.8 C 76 20 129/73 93 Room Air 12/01/24 10:46 Room Air 12/01/24 07:47 61 12/01/24 07:00 36.6 C 73 18 144/77 H 95 Room Air 12/01/24 03:25 36.6 C 75 18 130/72 94 Room Air PG Care Time/CCT Total # of Minutes Spent Total Time Spent with Patient: Total time spent is greater than 50% in coordination of care (as documented) at patient's floor/unit and/or counseling patient: Coding Level of Care Code 96262 SUB INP/OBS CARE 2/35MIN Diagnoses SIADH (syndrome of inappropriate ADH production) E22.2 Influenza A J10.1 Hypothyroidism E03.9 ANAND (obstructive sleep apnea) G47.33 Permanent atrial fibrillation I48.21 Dementia F03.90
[2024-12-01] MEDS: SODIUM CHLORIDE 3 % 150 ML IV ONE (16:19)
[2024-12-02 06:17] LABS: Hematocrit (blood only) 30.8 % (37.0-47.0); Hemoglobin 10.8 g/dl (12.0-16.0); Mean Corpuscular Hemoglobin 31.1 pg (25.0-34.0); Mean Corpuscular Hgb Conc 35.1 g/dL (32.0-36.0); Mean Corpuscular Volume 88.8 fL (80.0-100.0); Mean Platelet Volume 9.3 fL (9.4-12.4); Platelet Count 235 K/uL (130-400); RDW Coefficient of Variation 12.6 % (11.5-14.5); RDW Standard Deviation 40.8 fL (36.4-46.3); Red Blood Count 3.47 M/uL (4.20-5.40)
[2024-12-02 06:37] LABS: BUN Creatinine Ratio 16.7 (10-20); Calcium 9.3 mg/dl (8.6-10.3); Creatinine Clr Calc Pharmacy 75.4 ml/min; Potassium 4.4 mmol/L (3.5-5.1)
[2024-12-02] MEDS ORDERED: STAT IV/IM STA ×3 (08:03→21:35)
[2024-12-02] MEDS: SODIUM CHLORIDE 3 % 150 ML IV ONE ×3 (09:10→22:57)
--- NOTE | 2024-12-02 11:05 | Nephrology Progress Note ---
Date of Service December 02, 2024 Assessment & Plan (1) SIADH (syndrome of inappropriate ADH production): Plan: Chronic. Asymptomatic. Remains slightly volume depleted. Hypertonic fluids will be provided today with close monitoring of serum sodium. Remains on 1 L fluid restriction + NaCl 1 gram twice daily. KCl 20 mEq daily. Electrolytes otherwise acceptable. Creatinine normal. 3% saline x 150 ml this AM. Repeat sodium ordered for this afternoon. Additional hypertonic boluses will be provided PRN. (2) Influenza A: Plan: Remains on Tamiflu. Symptomatically improving. (3) Hypothyroidism: Plan: TSH acceptable. Remains clinically euthyroid on Levothyroxine 50 mcg daily. Admission and Anticipated Discharge Date Admission Date: November 27, 2024 Subjective No acute events overnight. No complaints this AM. Iza is resting comfortably in chair. No fluid retention or edema. No lightheadedness. Appetite fair. Review of Systems Review of Systems: All systems reviewed & are unremarkable except as noted in HPI & below Physical Exam Constitutional: well developed, + thin and + frail appearing; no acute distress Eyes: + anicteric sclerae; no corneal abnormal ity ENMT: Mouth: + dry oral mucous membranes Neck: normal visual inspection and trachea midline Respiratory: normal respiratory effort Auscultation: lungs clear to auscultation bilaterally Cardiovascular: Rate/Rhythm: regular rate Heart Sounds: normal S1 and normal S2 Extremities: no edema Musculoskeletal: Extremities: no cyanosis and no clubbing Skin: + turgor decreased; no jaundice Neurologic: Motor/Sensory: no tremor and no asterixis Psychiatric: Orientation: alert and oriented x 3 Results & Data Vital Signs (Past 12 Hours) Vital Signs Temp Pulse Pulse Resp BP Pulse Ox O2 Del Method 12/02/24 10:37 Room Air 12/02/24 10:33 71 12/02/24 07:43 36.8 C 76 16 135/63 95 Room Air 12/02/24 03:30 36.6 C 78 17 162/73 H 95 Room Air 12/01/24 23:57 79 12/01/24 23:24 36.7 C 75 18 171/83 H 98 Room Air Laboratory Results Laboratory Results - last 24 hr 12/01/24 12/01/24 12/02/24 14:21 20:02 05:56 WBC 4.20 L RBC 3.47 L Hgb 10.8 L Hct 30.8 L MCV 88.8 MCH 31.1 MCHC 35.1 RDW Std Deviation 40.8 RDW Coeff of Nancy 12.6 Plt Count 235 MPV 9.3 L Sodium 124 L 126 L 126 L Potassium 4.4 Chloride 95 L Carbon Dioxide 28 Anion Gap 3 BUN 8 Creatinine 0.48 L Est Cr Clr Drug Dosing 75.4 eGFR 91.62 BUN/Creatinine Ratio 16.7 Glucose 101 H Calcium 9.3 PG Care Time/CCT Total # of Minutes Spent Total Time Spent with Patient: Total time spent is greater than 50% in coordination of care (as documented) at patient's floor/unit and/or counseling patient: Coding Level of Care Code 40446 SUB INP/OBS CARE 3/50MIN Diagnoses SIADH (syndrome of inappropriate ADH production) E22.2 Influenza A J10.1 Hypothyroidism E03.9
--- NOTE | 2024-12-02 11:46 | Hospitalist Progress Note ---
Date of Service December 02, 2024 Assessment & Plan (1) SIADH (syndrome of inappropriate ADH production): Plan: Nephrology consult appreciated 3% NS x 150ml bolus today Na+ 126 Continue fluid restriction and oral sodium chloride replacement. Serial labs. (2) Influenza A: Plan: Tamiflu completed (3) Hypothyroidism: Plan: Continue levothyroxine (4) ANAND (obstructive sleep apnea): Plan: Stable. Continue CPAP HS (5) Permanent atrial fibrillation: Plan: Continue metoprolol and Eliquis. C (6) Dementia: Plan: Stable. Supportive care Plan Family is transferring the patient from [facility] to [facility]. She is stable for discharge when the arrangements are finalized. Discussed with Izabel. Admission and Anticipated Discharge Date Admission Date: November 27, 2024 Subjective No acute events overnight. No complaints this AM. Iza is resting comfortably in chair. No fluid retention or edema. No lightheadedness. Appetite fair. Review of Systems Review of Systems: CONST: Negative for fever, body aches and chills. HENT: Negative for neck pain/stiffness, headache, congestion, sore throat, swelling. EYES: Negative for discharge/pain or vision changes. RESP: Negative for cough/hemoptysis and shortness of breath. CV: Negative chest pain, difficulty breathing, palpitations. ABD: Negative pain, nausea, vomiting. : Negative increase frequency, dysuria, blood in urine or stool. MUSC: Negative for muscle aches, edema. SKIN: Negative rash, lesions/sores. NEURO: Negative headache, dizziness, weakness. Physical Exam Physical Exam: GENERAL APPEARANCE NAD, activity normal for age, well developed/ well nourished, no cyanosis, pallor, or diaphoresis. EYES lids/conjunctiva normal. EARS/NOSE/THROAT Mucous membranes moist, nares normal, lips/teeth normal uvula midline without oral pharyngeal erythema, exudate or swelling TMs normal bilaterally. No lymphangitis/lymphedema. HEAD/NECK normocephalic atraumatic, no facial trauma, neck is supple. RESPIRATORY respiratory effort normal, speaks in full sentences, no tripod position, no accessory muscle use. Lungs clear to auscultation without rhonchi, wheezes, rales CARDIAC Regular rate and rhythm, no edema. ABDOMINAL Soft, ND/NT. No evidence of fluid wave. No pulsatile masses on exam, rebound tenderness, Airas sign or pain over Mcburney's point. MUSCLES/EXTREMITIES No abnormal range of motion, no swelling. SKIN Warm, pink and dry. No rashes, dermatoses, petechiae or lesions. NEUROLOGICAL Speech is clear and appropriate. Normal level of consciousness. Gait and coordination are normal. 5/5 strength in all extremities. PSYCH Normal mood and affect. Judgement/competence is appropriate Results & Data Results & Data Vital Signs (Past 12 Hours) Vital Signs Temp Pulse Pulse Resp BP Pulse Ox O2 Del Method 12/02/24 11:22 36.7 C 67 16 173/85 H 93 Room Air 12/02/24 10:37 Room Air 12/02/24 10:33 71 12/02/24 07:43 36.8 C 76 16 135/63 95 Room Air 12/02/24 03:30 36.6 C 78 17 162/73 H 95 Room Air 12/01/24 23:57 79 PG Care Time/CCT Total # of Minutes Spent Total Time Spent with Patient: Total time spent is greater than 50% in coordination of care (as documented) at patient's floor/unit and/or counseling patient: Coding Level of Care Code 07294 SUB INP/OBS CARE 2/35MIN Diagnoses SIADH (syndrome of inappropriate ADH production) E22.2 Influenza A J10.1 Hypothyroidism E03.9 ANAND (obstructive sleep apnea) G47.33 Permanent atrial fibrillation I48.21 Dementia F03.90
[2024-12-03 06:10] LABS: Hematocrit (blood only) 30.5 % (37.0-47.0); Hemoglobin 10.6 g/dl (12.0-16.0); Mean Corpuscular Hemoglobin 30.7 pg (25.0-34.0); Mean Corpuscular Hgb Conc 34.8 g/dL (32.0-36.0); Mean Corpuscular Volume 88.4 fL (80.0-100.0); Mean Platelet Volume 9.1 fL (9.4-12.4); Platelet Count 269 K/uL (130-400); RDW Standard Deviation 41.8 fL (36.4-46.3); Red Blood Count 3.45 M/uL (4.20-5.40); White Blood Count 4.39 K/ul (4.8-10.8)
[2024-12-03 06:20] LABS: BUN Creatinine Ratio 21.3 (10-20); Calcium 9.3 mg/dl (8.6-10.3); Creatinine Clr Calc Pharmacy 76.9 ml/min; Potassium 4.1 mmol/L (3.5-5.1)
[2024-12-03] MEDS ORDERED: STAT IV/IM STA ×3 (09:00→17:40)
[2024-12-03] MEDS: SODIUM CHLORIDE 3 % 150 ML IV ONE ×3 (09:09→17:57)
--- NOTE | 2024-12-03 10:23 | Nephrology Progress Note ---
Date of Service December 03, 2024 Assessment & Plan (1) SIADH (syndrome of inappropriate ADH production): Plan: Chronic. Asymptomatic. Remains slightly volume depleted. Hypertonic fluids are being provided intermittently and sodium slowly normalizing. Remains on 1 L fluid restriction + NaCl 1 gram twice daily. KCl 20 mEq daily. Electrolytes otherwise acceptable. Creatinine normal. 3% saline x 150 ml this AM. Repeat sodium ordered for this afternoon. Additional hypertonic boluses will be provided PRN. (2) Influenza A: Plan: Symptomatically improved. (3) Hypothyroidism: Plan: TSH acceptable. Remains clinically euthyroid on Levothyroxine 50 mcg daily. Admission and Anticipated Discharge Date Admission Date: November 27, 2024 Subjective No acute events overnight. No complaints this AM. Iza is resting comfortably in chair. No fluid retention or edema. Review of Systems Review of Systems: All systems reviewed & are unremarkable except as noted in HPI & below Physical Exam Constitutional: well developed, + thin and + frail appearing; no acute distress Eyes: + anicteric sclerae; no corneal abnormal ity ENMT: Mouth: oral mucous membranes not dry Neck: normal visual inspection and trachea midline Respiratory: normal respiratory effort Auscultation: lungs clear to auscultation bilaterally Cardiovascular: Rate/Rhythm: regular rate Heart Sounds: normal S1 and normal S2 Extremities: no edema Musculoskeletal: Extremities: no cyanosis and no clubbing Skin: + turgor decreased; no jaundice Neurologic: Motor/Sensory: no tremor and no asterixis Psychiatric: Orientation: alert and oriented x 3 Results & Data Vital Signs (Past 12 Hours) Vital Signs Temp Pulse Pulse Resp BP BP Pulse Ox 12/03/24 08:10 36.5 C 87 20 158/72 H 97 12/03/24 07:32 87 12/03/24 03:42 36.6 C 83 20 136/66 95 12/02/24 22:57 36.8 C 74 16 141/76 H 93 O2 Del Method 12/03/24 08:10 Room Air 12/03/24 07:32 12/03/24 03:42 Room Air 12/02/24 22:57 Room Air Laboratory Results Laboratory Results - last 24 hr 12/02/24 12/02/24 12/03/24 11:53 19:05 05:48 WBC 4.39 L RBC 3.45 L Hgb 10.6 L Hct 30.5 L MCV 88.4 MCH 30.7 MCHC 34.8 RDW Std Deviation 41.8 RDW Coeff of Nancy 13.0 Plt Count 269 MPV 9.1 L Sodium 127 L 128 L 129 L Potassium 4.1 Chloride 101 Carbon Dioxide 22 Anion Gap 6 BUN 10 Creatinine 0.47 L Est Cr Clr Drug Dosing 76.9 eGFR 92.08 BUN/Creatinine Ratio 21.3 H Glucose 94 Calcium 9.3 PG Care Time/CCT Total # of Minutes Spent Total Time Spent with Patient: Total time spent is greater than 50% in coordination of care (as documented) at patient's floor/unit and/or counseling patient: Coding Level of Care Code 19776 SUB INP/OBS CARE 3/50MIN Diagnoses SIADH (syndrome of inappropriate ADH production) E22.2 Influenza A J10.1 Hypothyroidism E03.9
--- NOTE | 2024-12-03 11:18 | Hospitalist Progress Note ---
Date of Service December 03, 2024 Assessment & Plan (1) SIADH (syndrome of inappropriate ADH production): Plan: Nephrology consult appreciated 3% NS x 150ml bolus today Na+ 129 Continue fluid restriction and oral sodium chloride replacement. Serial labs. (2) Influenza A: Plan: Tamiflu completed (3) Hypothyroidism: Plan: Continue levothyroxine (4) ANAND (obstructive sleep apnea): Plan: Stable. Continue CPAP HS (5) Permanent atrial fibrillation: Plan: Continue metoprolol and Eliquis. C (6) Dementia: Plan: Stable. Supportive care Plan Family is transferring the patient from [facility] to [facility]. She is stable for discharge when the arrangements are finalized. Discussed with Izabel. Admission and Anticipated Discharge Date Admission Date: November 27, 2024 Subjective No events overnight. Pt resting in bed. Review of Systems Review of Systems: CONST: Negative for fever, body aches and chills. HENT: Negative for neck pain/stiffness, headache, congestion, sore throat, swelling. EYES: Negative for discharge/pain or vision changes. RESP: Negative for cough/hemoptysis and shortness of breath. CV: Negative chest pain, difficulty breathing, palpitations. ABD: Negative pain, nausea, vomiting. : Negative increase frequency, dysuria, blood in urine or stool. MUSC: Negative for muscle aches, edema. SKIN: Negative rash, lesions/sores. NEURO: Negative headache, dizziness, weakness. Physical Exam Physical Exam: GENERAL APPEARANCE NAD, activity normal for age, well developed/ well nourished, no cyanosis, pallor, or diaphoresis. EYES lids/conjunctiva normal. EARS/NOSE/THROAT Mucous membranes moist, nares normal, lips/teeth normal uvula midline without oral pharyngeal erythema, exudate or swelling TMs normal bilaterally. No lymphangitis/lymphedema. HEAD/NECK normocephalic atraumatic, no facial trauma, neck is supple. RESPIRATORY respiratory effort normal, speaks in full sentences, no tripod position, no accessory muscle use. Lungs clear to auscultation without rhonchi, wheezes, rales CARDIAC Regular rate and rhythm, no edema. ABDOMINAL Soft, ND/NT. No evidence of fluid wave. No pulsatile masses on exam, rebound tenderness, Arias sign or pain over Mcburney's point. MUSCLES/EXTREMITIES No abnormal range of motion, no swelling. SKIN Warm, pink and dry. No rashes, dermatoses, petechiae or lesions. NEUROLOGICAL Speech is clear and appropriate. Normal level of consciousness. Gait and coordination are normal. 5/5 strength in all extremities. PSYCH Normal mood and affect. Judgement/competence is appropriate Results & Data Results & Data Vital Signs (Past 12 Hours) Vital Signs Temp Pulse Pulse Resp BP BP Pulse Ox 12/03/24 08:10 36.5 C 87 20 158/72 H 97 12/03/24 07:32 87 12/03/24 03:42 36.6 C 83 20 136/66 95 O2 Del Method 12/03/24 08:10 Room Air 12/03/24 07:32 12/03/24 03:42 Room Air PG Care Time/CCT Total # of Minutes Spent Total Time Spent with Patient: Total time spent is greater than 50% in coordination of care (as documented) at patient's floor/unit and/or counseling patient: Coding Level of Care Code 82953 SUB INP/OBS CARE 2/35MIN Diagnoses SIADH (syndrome of inappropriate ADH production) E22.2 Influenza A J10.1 Hypothyroidism E03.9 ANAND (obstructive sleep apnea) G47.33 Permanent atrial fibrillation I48.21 Dementia F03.90
[2024-12-04 06:07] LABS: Hematocrit (blood only) 29.5 % (37.0-47.0); Hemoglobin 10.1 g/dl (12.0-16.0); Mean Corpuscular Hemoglobin 30.6 pg (25.0-34.0); Mean Corpuscular Hgb Conc 34.2 g/dL (32.0-36.0); Mean Corpuscular Volume 89.4 fL (80.0-100.0); Mean Platelet Volume 9.1 fL (9.4-12.4); Platelet Count 279 K/uL (130-400); White Blood Count 4.85 K/ul (4.8-10.8)
[2024-12-04 06:20] LABS: BUN Creatinine Ratio 15.7 (10-20); Creatinine Clr Calc Pharmacy 70.2 ml/min; Potassium 3.8 mmol/L (3.5-5.1)
[2024-12-04 08:34] VITALS: TEMP 98.1
--- NOTE | 2024-12-04 09:44 | Nephrology Progress Note ---
Date of Service December 04, 2024 Assessment & Plan (1) SIADH (syndrome of inappropriate ADH production): Plan: Chronic. Asymptomatic. Improving appropriately. Findings consistent with underlying SIADH complicated by volume depletion. Tolerated IVF + sodium repla cement well. Continue oral NaCl tablets and maintain ~1 L daily fluid restriction. Iza has been tolerating well. Repeat a serum metabolic profile early next week as outpatient. Follow up in [place] [facility] [place] [place] can be arranged PRN. (2) Influenza A: (3) Hypothyroidism: Plan: TSH acceptable. Remains clinically euthyroid on Levothyroxine 50 mcg daily. Admission and Anticipated Discharge Date Admission Date: November 27, 2024 Subjective No acute events overnight. Iza is sitting comfortably in her bedside chair. No complaints reported this AM. Anticipated discharge later today. Review of Systems Review of Systems: All systems reviewed & are unremarkable except as noted in HPI & below Physical Exam Constitutional: well developed, + thin and + frail appearing; no acute distress Eyes: + anicteric sclerae; no corneal abnormal ity ENMT: Mouth: oral mucous membranes not dry Neck: normal visual inspection and trachea midline Respiratory: normal respiratory effort Auscultation: lungs clear to auscultation bilaterally Cardiovascular: Rate/Rhythm: regular rate Heart Sounds: normal S1 and normal S2 Extremities: no edema Musculoskeletal: Extremities: no cyanosis and no clubbing Skin: no jaundice Neurologic: Motor/Sensory: no tremor and no asterixis Psychiatric: Orientation: alert and oriented x 3 Results & Data Vital Signs (Past 12 Hours) Vital Signs Temp Pulse Pulse Resp BP Pulse Ox O2 Del Method 12/04/24 08:33 36.7 C 83 20 173/75 H 93 Room Air 12/04/24 07:14 73 12/04/24 05:26 36.6 C 90 18 149/72 H 93 Room Air 12/04/24 00:57 36.7 C 75 18 157/67 H 95 Room Air Laboratory Results Laboratory Results - last 24 hr 12/03/24 12/04/24 11:36 05:39 WBC 4.85 RBC 3.30 L Hgb 10.1 L Hct 29.5 L MCV 89.4 MCH 30.6 MCHC 34.2 RDW Std Deviation 43.0 RDW Coeff of Nancy 13.0 Plt Count 279 MPV 9.1 L Sodium 130 L 131 L Potassium 3.8 Chloride 101 Carbon Dioxide 25 Anion Gap 5 BUN 8 Creatinine 0.51 L Est Cr Clr Drug Dosing 70.2 eGFR 90.29 BUN/Creatinine Ratio 15.7 Glucose 98 Calcium 9.0 PG Care Time/CCT Total # of Minutes Spent Total Time Spent with Patient: Total time spent is greater than 50% in coordination of care (as documented) at patient's floor/unit and/or counseling patient: Coding Level of Care Code 85816 SUB INP/OBS CARE 3/50MIN Diagnoses SIADH (syndrome of inappropriate ADH production) E22.2 Influenza A J10.1 Hypothyroidism E03.9
[2024-12-04 11:18] VITALS: BP 134/67; PULSE 76; RESP 17; O2SAT 95
--- NOTE | 2024-12-04 11:59 | Discharge Summary ---
Discharge Summary Date of Service December 04, 2024 Principal Dx & Hospital Course #1 = Principal Diagnosis (1) SIADH (syndrome of inappropriate ADH production): Nephrology consult appreciated 3% NS x 150ml bolus today Na+ 129 Continue fluid restriction and oral sodium chloride replacement. Serial labs. (2) Influenza A: Tamiflu completed (3) Hypothyroidism: Continue levothyroxine (4) ANAND (obstructive sleep apnea): Stable. Continue CPAP HS (5) Permanent atrial fibrillation: Continue metoprolol and Eliquis. C (6) Dementia: Stable. Supportive care Plan Family is transferring the patient from [facility] to [facility]. She is stable for discharge when the arrangements are finalized. Discussed with Izabel. Admission HPI Per Admitting Provider Iza Brooks is an 89 year old female who presents to the ER with outpatient labs from [facility] showing sodium 117. Initial triage note suggested she was having nausea and vomiting although the patient denies this to me but appe ars confused by the question and changes her answer multiple times and then talks about how her . On discussion with the senior living provider who sent her to the ER she has been asympathetic. She is at her baseline confusion, no fatigue, nausea, vomiting, muscle cramps, dizziness. Notes from outside senior living show Na 117 [11/26 3:55pm], 121 [11/24 5:21 am], 122 [11/21 5:21am]. Notes suggest lasix and sertraline where discontinued but this was the plan for today and she was still taking these yesterday. She was started on NaCl1g PO daily on November 25. Of note her hemoglobin was also decreasing on outside labs Hgb 8.2 [11/26 3:55pm], 9.1 [11/24 5:21 am], 10.0 [11/21 5:21am] although this is back to 10.5 in the ER today. Discharge Exam GENERAL APPEARANCE NAD, activity normal for age, well developed/ well nourished, no cyanosis, pallor, or diaphoresis. EYES lids/conjunctiva normal. EARS/NOSE/THROAT Mucous membranes moist, nares normal, lips/teeth normal uvula midline without oral pharyngeal erythema, exudate or swelling TMs normal bilaterally. No lymphangitis/lymphedema. HEAD/NECK normocephalic atraumatic, no facial trauma, neck is supple. RESPIRATORY respiratory effort normal, speaks in full sentences, no tripod position, no accessory muscle use. Lungs clear to auscultation without rhonchi, wheezes, rales CARDIAC Regular rate and rhythm, no edema. ABDOMINAL Soft, ND/NT. No evidence of fluid wave. No pulsatile masses on exam, rebound tenderness, Arias sign or pain over Mcburney's point. MUSCLES/EXTREMITIES No abnormal range of motion, no swelling. SKIN Warm, pink and dry. No rashes, dermatoses, petechiae or lesions. NEUROLOGICAL Speech is clear and appropriate. Normal level of consciousness. Gait and coordination are normal. 5/5 strength in all extremities. PSYCH Normal mood and affect. Judgement/competence is appropriate Discharge Plan Discharge Items Patient Disposition: Home - Self-Care Reason For Visit: SEVERE HYPONATREMIA Discharge Diagnosis: SIADH Activity: Resume your previous activity Non-emergency contact: Primary Care Provider Call non-emergency contact if: you have any medication questions Follow-up/Referrals: Dianne Adams DO [Primary Care Provider] - Diet: Regular Fluids: 1000ml (4 cups) Addtl Attending Provider Instructions: Follow up with PCP in 2 weeks Pending Studies at Discharge: No Stand-Alone Forms: My [employer], Smoking Cessation Medications and DC Order Prescriptions: New sodium chloride 1,000 mg Tablet,Soluble 1,000 mg PO BID Qty: 60 0RF Continued potassium chloride 20 mEq tablet extended release 20 meq PO DAILY Qty: 90 3RF Eliquis 5 mg tablet 5 mg PO BID Qty: 180 3RF atorvastatin 40 mg tablet 40 mg PO HS Qty: 90 3RF pantoprazole 40 mg tablet,delayed release (DR/EC) 40 mg PO DAILYBB Qty: 90 3RF (DME) CPAP Supplies Misc See Rx Instructions .ROUTE .MEDSUPPLY Qty: 1 0RF Rx Instructions: As directed. Dx: G47.33 alendronate 70 mg tablet 70 mg PO WK Qty: 12 1RF Rx Instructions: THURSDAYS mecobalamin (vitamin B12) 1,000 mcg tablet,chewable 1,000 mcg PO DAILY nitroglycerin [Nitrostat] 0.4 mg tablet, sublingual 0.4 mg SL UD PRN (Reason: Chest Pain) Qty: 25 3RF cholecalciferol (vitamin D3) 1,000 unit capsule 1,000 units PO DAILY polyethylene glycol 3350 [Miralax] 17 gram Powder In Packet 17 g PO DAILY Qty: 7 0RF acetaminophen [Tylenol] 325 mg Tablet 650 mg PO Q4H MDD 3000mg/24hr PRN (Reason: Pain/Fever) sennosides-docusate sodium [Senna-S] 8.6-50 mg Tablet 2 tab-cap PO DAILY metoprolol succinate 100 mg Tablet Extended Release 24 Hr See Rx Instructions .ROUTE .COMPLEX Rx Instructions: Take 100mg w/ 50mg to equal 150mg by mouth in the morning. sodium chloride 1 gram Tablet 1,000 mg PO QAM magnesium hydroxide [Milk of Magnesia] 400 mg/5 mL Suspension 2,400 mg PO DAILY PRN (Reason: Constipation) Rx Instructions: If no BM in 3 days bisacodyl [Dulcolax (bisacodyl)] 10 mg Suppository 10 mg NV DAILY PRN (Reason: Constipation) Rx Instructions: On day 5 in the morning if milk of magnesia is ineffective ferrous sulfate 325 mg (65 mg iron) Tablet 325 mg PO QAM Fleet Enema 19-7 gram/118 mL Enema 118 ml NV DAILY PRN (Reason: Constipation) Rx Instructions: Give on day 6 in the morning of no BM if dulcolax is ineffective metoprolol succinate 50 mg tablet extended release 24 hr See Rx Instructions .ROUTE .COMPLEX Rx Instructions: Take 50mg w/ 100mg to equal 150mg by mouth in the morning. levothyroxine 50 mcg tablet 50 mcg PO QAM sertraline 25 mg tablet 25 mg PO QAM furosemide 20 mg tablet 20 mg PO QAM Discharge Orders: Discharge Order (Routine); Ordered 12/04/24 Ordered By: Kiran Conroy Admission Data Admit Date/Time: 11/27/24 11:15 Attending Provider: Kiran Conroy Admit Provider: Marcell Holt Primary Care Provider: Dianne Adams Other Providers: Marcell Holt; [facility] Stay Data Consultations 11/27/24 11:10 ED Decision to Admit Stat 12/01/24 08:16 Consult Nephrology Routine Pending Results Patient Have Any Pending Studies at Discharge: No Discharge Instructions Given to Patient (Per Discharging Provider) Follow up with PCP in 2 weeks Total Time Total Time Spent Total Time Spent (In Minutes): 50 Coding Level of Care Code 24887 INP/OBS DISCH >30 MIN Diagnoses SIADH (syndrome of inappropriate ADH production) E22.2 Influenza A J10.1 Hypothyroidism E03.9 ANAND (obstructive sleep apnea) G47.33 Permanent atrial fibrillation I48.21 Dementia F03.90
== END 2024-12-04 14:45 | disposition home or self-care (01) | DRG 644 ==
LOC: ED 09:44 → SUATTDRO 11:15 → EDINP 11:15 → 4W 14:07
DX: Z88.1 Allergy status to other antibiotic agents; Z79.890 Hormone replacement therapy; Z91.040 Latex allergy status; I48.21 Permanent atrial fibrillation; F03.90 Unspecified dementia, unspecified severity, without behavioral disturbance, psychotic disturbance, mood disturbance, and anxiety; Z98.1 Arthrodesis status; M81.0 Age-related osteoporosis without current pathological fracture; Z88.0 Allergy status to penicillin; J10.1 Influenza due to other identified influenza virus with other respiratory manifestations; Z96.642 Presence of left artificial hip joint; G47.33 Obstructive sleep apnea (adult) (pediatric); E22.2 Syndrome of inappropriate secretion of antidiuretic hormone; I11.0 Hypertensive heart disease with heart failure; I50.30 Unspecified diastolic (congestive) heart failure; E03.9 Hypothyroidism, unspecified; E86.0 Dehydration